=== PATIENT | female | born 1980 | race Caucasian/White ===

== ENCOUNTER → 2016-05-18 | Outpatient (CLI) | payer OTHER ==
[~2016-05-18] MED LIST: ALBUAER19 INH; AMOX-CLAV PO; AMOX875T PO; ATEN-173 PO; CALC500C3 PO; CYAN100T PO; DOXY100C PO; FLNIN/ NAE; FLV1 PO; IBUP-1050 PO; LACT10SO17 PO; LORA-741 PO; LSN5 PO; MELATAB2 PO; METH-589 PO; METH5TAB5 PO; PROP20TA67 PO; SULF800T23 PO; TPRSR25 PO; TPZ5 PO; VNTHFA/IN INH; VTMB12100 PO; ZIPR1CAP4 PO
== END | disposition home or self-care (01) ==
LOC: C.CPL 11:31
PROVIDERS: ATTEND Urology
DX: Z79.899 Other long term (current) drug therapy (principal)

== ENCOUNTER 2016-06-19 19:29 | Emergency (ER) | payer OTHER ==
[~2016-06-19] VITALS: Ht 165.1 cm; Wt 89.4 kg
[~2016-06-19 19:29] MED LIST changes: -AMOX-CLAV PO; -AMOX875T PO; -ATEN-173 PO; -CALC500C3 PO; -CYAN100T PO; -DOXY100C PO; -FLNIN/ NAE; -FLV1 PO; -IBUP-1050 PO; -LACT10SO17 PO; -LORA-741 PO; -MELATAB2 PO; -METH-589 PO; -METH5TAB5 PO; -PROP20TA67 PO; -SULF800T23 PO; -TPRSR25 PO; -TPZ5 PO; -VNTHFA/IN INH; -VTMB12100 PO; -ZIPR1CAP4 PO
[2016-06-19 19:33] VITALS: TEMP 36.5; Ht 165.1 cm; Wt 89.4 kg
[2016-06-19 20:15] VITALS: O2SAT 96
[2016-06-19] MEDS ORDERED: SODIUM CHLORIDE 0.9% 1000ML 1,000 ML IV STA (20:26)
[2016-06-19] MEDS ORDERED: ONDANSETRON INJ 2 MG/ML 2 ML VIAL IV STA (20:26)
--- NOTE | 2016-06-19 20:30 | EMERGENCY ROOM VISIT NOTE ---
History Report prepared by Azaleaibestela: Nan Hills Under the Supervision of: Dr. Clint Rios D.O. First contact with patient: 20:19 Chief Complaint: DIZZY Stated Complaint: DIZZY, PASSED OUT, FATIGUE Nursing Triage Summary: Patient states "I passed out at work. I have felt weak and tired all day. I threw up after passing out. They sent me here to be checked out." History of Present Illness The patient is a 35 year old female who presents to the Emergency Room with complaints of worsening dizziness for the past day. She reports she has "felt weird" all day, and this evening while she was at work, she felt weak, fatigued and experienced a syncopal episode. She states she was told she "just went down " onto the ground, and vomited afterwards. The patient has a history of hypertension and bipolar disorder and states she has been taking her medications as prescribed and there have been no recent changes to her medications. She also complains of intermittent pain in her right ear for the past several weeks. She notes she also has a "nasty taste" in the back of her mouth, "like a sinus infection" and states she has had it for the past "few weeks". Source of History: patient Onset: this morning Position: other (global) Timing: worsening Associated Symptoms: + LOC, + vomiting Review of Systems See HPI for pertinent positives & negatives. A total of 10 systems reviewed and were otherwise negative. Past Medical & Surgical Medical Problems: (1) Asthma (2) Asthma (3) Bronchitis (4) Cholecystitis (5) Hypertension (6) Migraine (7) Pneumonia Surgical Problems: (1) S/P tubal ligation Family History Cancer Diabetes mellitus FHx: gallbladder disease Heart disease Hypertension Kidney disease Kidney stones Social History Smoking Status: Current Every Day Smoker Alcohol Use: none Drug Use: none Marital Status: in relationship Housing Status: lives with family Occupation Status: employed Current/Historical Medications Scheduled Albuterol Inhaler (Ventolin Inhaler), 2 PUFFS INH Q4 Lisinopril (Lisinopril), 5 MG PO DAILY Ziprasidone Hcl (Geodon), 40 MG PO DAILY Scheduled PRN Calcium Carbonate (Tums), 1-2 TABS PO UD PRN for Heartburn Ibuprofen (Advil), 800 MG PO TID PRN for Headache or Pain Lactulose (Chronulac), 15 ML PO BID PRN for Constipation Allergies Coded Allergies: Fluoxetine (Verified Adverse Reaction, Severe, HIVES-SOB, 06/19/16) Physical Exam Vital Signs Date Time Temp Pulse Resp B/P Pulse Ox O2 Delivery O2 Flow Rate FiO2 06/19/16 22:22 80 18 136/92 98 Room Air 06/19/16 21:18 71 18 140/86 98 Room Air 88 133/87 97 151/98 06/19/16 20:19 85 21 117/72 97 Room Air 06/19/16 20:18 84 06/19/16 20:15 96 Room Air 06/19/16 19:33 36.5 97 18 158/112 97 Room Air Physical Exam GENERAL: Patient is awake, alert, in no acute distress patient, is resting comfortably and showing no signs of anxiety EYES: The conjunctivae are clear. The pupils are round and reactive. EARS, NOSE, MOUTH AND THROAT: The nose is without any evidence of any deformity. Mucous membranes are moist tongue is midline NECK: The neck is nontender and supple. RESPIRATORY: Normal respiratory effort is noted there is no evidence of wheezing rhonchi or rales CARDIOVASCULAR: Regular rate and rhythm noted there no murmurs rubs or gallops normal S1 normal S2 GASTROINTESTINAL: The abdomen is soft. Bowel sounds are present in all quadrants. Abdomen is nontender MUSCULOSKELETAL/EXTREMITIES: There is no evidence of gross deformity full range of motion is noted in the hips and shoulders SKIN: There is no obvious evidence of any rash. There are no petechiae, pallor or cyanosis noted. NEUROLOGIC: Patient is awake alert and oriented x3 strength is symmetric patellar reflexes are 2+ bilaterally Medical Decision & Procedures ER Provider Diagnostic Interpretation: This X-Ray was reviewed and interpreted by myself and the radiologist. CHEST ONE VIEW PORTABLE IMPRESSION: No acute process. Electronically signed by: Gideon Davis M.D. 06/19/2016 8:39 PM Laboratory Results 06/19/16 20:10 Red Blood Count 4.27, Mean Corpuscular Volume 80.6, Mean Corpuscular Hemoglobin 29.3, Mean Corpuscular Hemoglobin Concent 36.3, Mean Platelet Volume 9.7, Neutrophils (%) (Auto) 54.0, Lymphocytes (%) (Auto) 33.9, Monocytes (%) (Auto) 9.0, Eosinophils (%) (Auto) 2.3, Basophils (%) (Auto) 0.4, Neutrophils # (Auto) 3.01, Lymphocytes # (Auto) 1.89, Monocytes # (Auto) 0.50, Eosinophils # (Auto) 0.13, Basophils # (Auto) 0.02 06/19/16 20:10 Test 06/19/16 20:10 06/19/16 20:25 06/19/16 20:28 White Blood Count 5.57 K/uL (4.8-10.8) Red Blood Count 4.27 M/uL (4.2-5.4) Hemoglobin 12.5 g/dL (12.0-16.0) Hematocrit 34.4 % (37-47) Mean Corpuscular Volume 80.6 fL (80-100) Mean Corpuscular Hemoglobin 29.3 pg (25-34) Mean Corpuscular Hemoglobin Concent 36.3 g/dl (32-36) Platelet Count 240 K/uL (130-400) Mean Platelet Volume 9.7 fL (7.4-10.4) Neutrophils (%) (Auto) 54.0 % Lymphocytes (%) (Auto) 33.9 % Monocytes (%) (Auto) 9.0 % Eosinophils (%) (Auto) 2.3 % Basophils (%) (Auto) 0.4 % Neutrophils # (Auto) 3.01 K/uL (1.4-6.5) Lymphocytes # (Auto) 1.89 K/uL (1.2-3.4) Monocytes # (Auto) 0.50 K/uL (0.11-0.59) Eosinophils # (Auto) 0.13 K/uL (0-0.5) Basophils # (Auto) 0.02 K/uL (0-0.2) RDW Standard Deviation 37.5 fL (36.4-46.3) RDW Coefficient of Variation 12.9 % (11.5-14.5) Immature Granulocyte % (Auto) 0.4 % Immature Granulocyte # (Auto) 0.02 K/uL (0.00-0.02) Prothrombin Time 10.7 SECONDS (9.0-12.0) Prothromb Time International Ratio 1.0 (0.9-1.1) Activated Partial Thromboplast Time 24.7 SECONDS (21.0-31.0) Partial Thromboplastin Ratio 1.0 Anion Gap 9.0 mmol/L (3-11) Est Creatinine Clear Calc Drug Dose 110.1 ml/min Estimated GFR () 113.4 Estimated GFR (Non- 97.8 BUN/Creatinine Ratio 15.5 (10-20) Calcium Level 8.7 mg/dl (8.5-10.1) Magnesium Level 2.1 mg/dl (1.8-2.4) Total Bilirubin 0.2 mg/dl (0.2-1) Direct Bilirubin < 0.1 mg/dl (0-0.2) Aspartate Amino Transf (AST/SGOT) 14 U/L (15-37) Alanine Aminotransferase (ALT/SGPT) 31 U/L (12-78) Alkaline Phosphatase 52 U/L (45-117) Troponin I < 0.015 ng/ml (0-0.045) Total Protein 6.5 gm/dl (6.4-8.2) Albumin 3.5 gm/dl (3.4-5.0) Thyroid Stimulating Hormone (TSH) < 0.005 uIu/ml (0.300-4.500) Free Thyroxine 2.40 ng/dl (0.80-1.60) Urine Color YELLOW Urine Appearance CLEAR (CLEAR) Urine pH 6.0 (4.5-7.5) Urine Specific [place] 1.007 (1.000-1.030) Urine Protein NEG (NEG) Urine Glucose (UA) NEG (NEG) Urine Ketones NEG (NEG) Urine Occult Blood 3+ (NEG) Urine Nitrite NEG (NEG) Urine Bilirubin NEG (NEG) Urine Urobilinogen NEG (NEG) Urine Leukocyte Esterase NEG (NEG) Urine WBC (Auto) 0 /hpf (0-5) Urine RBC (Auto) 0-4 /hpf (0-4) Urine Hyaline Casts (Auto) 0 /lpf (0-5) Urine Epithelial Cells (Auto) 5-10 /lpf (0-5) Urine Bacteria (Auto) NEG (NEG) Human Chorionic Gonadotropin, Qual NEG (NEG) Laboratory results per my review. Medications Administered Medications (Trade) Dose Ordered Sig/Bernard Route Start Time Stop Time Status Last Admin Dose Admin Sodium Chloride (Nss 1000ml) 1,000 ml @ 999 mls/hr Q1H1M STAT IV 06/19/16 20:26 06/19/16 21:26 DC 06/19/16 21:14 999 MLS/HR Ondansetron HCl (Zofran Inj) 4 mg NOW STAT IV 06/19/16 20:26 06/19/16 20:28 DC 06/19/16 21:14 4 MG ECG Indication: weakness Rate (beats per minute): 84 Rhythm: normal sinus (normal sinus rhythm) Findings: no ectopy, other (no acute ST segment abnormalities) Change: no significant change (No change when compared to December 04, 2004) ED Course 2024: The patient was evaluated in room B9. A complete history and physical examination were performed. 2025: Zofran 4 mg IV, NSS 1000 ml @ 999 mls/hr IV. 2204: I reevaluated the patient. I reevaluated the patient. She is feeling much better. I discussed her results and discharge instructions and she verbalized complete understanding and agreement. Medical Decision Prior records/ancillary studies reviewed regarding the history above. Triage Nursing notes reviewed. Additional history obtained from the family. The patient's history was concerning for dizziness. Differential diagnosis: Etiologies such as benign hypertension, hypertensive emergency, cardiovascular pathology, pheochromocytoma, electrolyte abnormality, renal disease, endorgan damage, as well as others were entertained. The patient is a 35-year-old female who presented to the emergency department for an evaluation of dizziness. The patient had a syncopal episode. She came to the emergency apartment with her significant other. She states that she felt very dizzy prior to the onset of the symptoms. It sounds as though this could' ve been orthostatic in nature. The patient was treated with IV fluids and IV Zofran in the emergency department. On subsequent reevaluation she was feeling much better. She was found have a low TSH. I discussed the patient's laboratory radiographic studies with her. She was encouraged to follow-up with her primary care physician to have formal thyroid studies done. She was also encouraged to rest and avoid any strenuous activity and discuss with her primary care physician the possibility she may require further studies such as echocardiogram and Holter monitor. She was also encouraged to return to the [facility] department immediately if symptoms change worsen or the need arises and keep herself well-hydrated. Impression Primary Impression: Syncope Scribe Attestation The scribe's documentation has been prepared under my direction and personally reviewed by me in its entirety. I confirm that the note above accurately reflects all work, treatment, procedures, and medical decision making performed by me. Departure Information Dispostion Home / Self-Care Referrals Elaine Nice D.O. (PCP) Patient Instructions My [facility] Additional Instructions Call your family in the morning to schedule a follow-up appointment. You may require further studies such as an echocardiogram or a Holter monitor to further evaluate the cause of your passing out episode. You also might require further studies on your thyroid to determine why her laboratory studies were abnormal in the emergency department. Drink plenty clear liquids and rest. Return to the emergency Department immediately if symptoms change worsen or the need arises.
[2016-06-19 20:35] LABS: HEMATOCRIT 34.4 % (37-47); MEAN CELL VOLUME 80.6 fL (80-100); MEAN CORPUSCULAR HEMOGLOBIN 29.3 pg (25-34); MEAN CORPUSCULAR HGB CONC 36.3 g/dl (32-36); MEAN PLATELET VOLUME 9.7 fL (7.4-10.4); PLATELET COUNT 240 K/uL (130-400); RED BLOOD COUNT 4.27 M/uL (4.2-5.4); WHITE BLOOD COUNT 5.57 K/uL (4.8-10.8)
--- NOTE | 2016-06-19 20:40 | DIAGNOSTIC IMAGING REPORT ---
CHEST ONE VIEW PORTABLE HISTORY: EVALUATE ALTERED MENTAL STATUS/WEAKNESS COMPARISON: Chest 02/20/2016. FINDINGS: The lungs are clear. Cardiac silhouette is normal in size. No pleural effusions. No pneumothorax. Prior cholecystectomy. IMPRESSION: No acute process. Electronically signed by: Gideon Davis M.D. 06/19/2016 8:39 PM Dictated Date/Time: 06/19/2016 8:36 PM
[2016-06-19 20:44] LABS: ALT/SGPT 31 U/L (12-78); AST/SGOT 14 U/L (15-37); BLOOD UREA NITROGEN 12 mg/dl (7-18); BUN/CREATININE RATIO 15.5 (10-20); CALCIUM 8.7 mg/dl (8.5-10.1); CARBON DIOXIDE 26 mmol/L (21-32); CHLORIDE 109 mmol/L (98-107); CREATININE 0.78 mg/dl (0.60-1.20); GLUCOSE 97 mg/dl (70-99); MAGNESIUM 2.1 mg/dl (1.8-2.4); POTASSIUM 3.9 mmol/L (3.5-5.1); SODIUM 144 mmol/L (136-145)
[2016-06-19 20:46] LABS: PROTHROMBIN TIME (PATIENT) 10.7 SECONDS (9.0-12.0)
[2016-06-19 20:55] LABS: ALKALINE PHOSPHATASE 52 U/L (45-117); THYROID STIMULATING HORMONE < 0.005 uIu/ml (0.300-4.500)
[2016-06-19 21:01] LABS: URINE APPEARANCE CLEAR (CLEAR); URINE BILIRUBIN NEG (NEG); URINE COLOR YELLOW; URINE NITRITE NEG (NEG); URINE SPECIFIC GRAVITY 1.007 (1.000-1.030); UROBILINOGEN NEG (NEG)
[2016-06-19 21:06] LABS: MANUAL MICROSCOPIC REQUIRED? NO; REVIEW REQ? NO
[2016-06-19 21:08] LABS: BASO % 0.4 %; BASO ABS # 0.02 K/uL (0-0.2); COMPLETE YES; EOS % 2.3 %; IG% 0.4 %; LYMPH % 33.9 %; LYMPH ABS # 1.89 K/uL (1.2-3.4)
[2016-06-19 21:25] LABS: PREG INTERNAL NEGATIVE QC NEG CLEAR BACKGROUND; PREG INTERNAL POSITIVE QC POS CONTROL LINE
[2016-06-19 22:22] VITALS: BP 136/92; PULSE 80; O2SAT 98
[2016-06-27] MEDS ORDERED: FLV1 PO (10:15)
[2016-06-27] MEDS ORDERED: VTMB12100 PO (10:15)
[2016-06-27] MEDS ORDERED: TPZ5 PO (10:15)
[2016-06-27] MEDS ORDERED: TPRSR25 PO (10:19)
[2016-10-12] MEDS ORDERED: CYAN100T PO (16:29)
[2016-10-12] MEDS ORDERED: FLV1 PO (16:29)
[2016-10-12] MEDS ORDERED: METH-589 PO (16:29)
[2017-01-26] MEDS ORDERED: METH-589 PO (00:15)
[2017-01-26] MEDS ORDERED: VNTHFA/IN INH (16:29)
[2017-01-26] MEDS ORDERED: FLNIN/ NAE (16:33)
[2017-01-26] MEDS ORDERED: PROP20TA67 PO (16:33)
== END 2016-06-19 22:22 | disposition home or self-care (01) ==
LOC: C.EDB 19:29
DX: R55 Syncope and collapse (principal); J45.909 Unspecified asthma, uncomplicated; I10 Essential (primary) hypertension; F31.9 Bipolar disorder, unspecified; F17.200 Nicotine dependence, unspecified, uncomplicated; Z79.899 Other long term (current) drug therapy; Z83.3 Family history of diabetes mellitus; Z82.49 Family history of ischemic heart disease and other diseases of the circulatory system; Z84.1 Family history of disorders of kidney and ureter

== ENCOUNTER 2016-06-25 16:44 | Observation (INO) | payer OTHER ==
[~2016-06-25] VITALS: Ht 165.1 cm; Wt 88.0 kg
[2016-06-25] MEDS ORDERED: SODIUM CHLORIDE 0.9% 1000ML 1,000 ML IV STA ×2 (17:09)
[2016-06-25] MEDS ORDERED: ONDANSETRON INJ 2 MG/ML 2 ML VIAL IV STA (17:09)
[2016-06-25] MEDS ORDERED: ACETAMINOPHEN 500 MG TAB PO STA (17:09)
--- NOTE | 2016-06-25 17:27 | EMERGENCY ROOM VISIT NOTE ---
History Report prepared by Vane: Lucio Dodd Under the Supervision of: Dr. Jose Cantu M.D. First contact with patient: 17:06 Chief Complaint: SYNCOPE Stated Complaint: BLACK OUT, SHAKEY,WEAK History of Present Illness The patient is a 35 year old female who presents to the Emergency Room with complaints of near syncopal episodes occurring earlier this morning. The patient states that she felt her heart starting to flutter, she was shaky, and then her vision started to go black until it went all black. She states that a week ago she passed out as well. The patient states that she saw her doctor recently, and she was diagnosed with a hyperactive thyroid. She additionally states that she currently has a headache. The patient states that she is currently on Geodon, and she was recently switched from lisinopril. Source of History: patient Onset: earlier this morning Position: other (global) Quality: other (syncope) Associated Symptoms: + headache Review of Systems See HPI for pertinent positives & negatives. A total of 10 systems reviewed and were otherwise negative. Past Medical & Surgical Medical Problems: (1) Asthma (2) Asthma (3) Bronchitis (4) Cholecystitis (5) Hypertension (6) Migraine (7) Pneumonia Surgical Problems: (1) S/P tubal ligation Family History Cancer Diabetes mellitus FHx: gallbladder disease Heart disease Hypertension Kidney disease Kidney stones Social History Smoking Status: Current Every Day Smoker Alcohol Use: none Drug Use: none Marital Status: in relationship Housing Status: lives with family Occupation Status: employed Current/Historical Medications Scheduled Albuterol Inhaler (Ventolin Inhaler), 2 PUFFS INH Q4 Amoxicillin & Pot Clavulanate (Augmentin 875-125 mg), 1 TAB PO BID Atenolol (Tenormin), 25 MG PO DAILY Lisinopril (Lisinopril), 5 MG PO DAILY Ziprasidone Hcl (Geodon), 40 MG PO DAILY Scheduled PRN Calcium Carbonate (Tums), 1-2 TABS PO UD PRN for Heartburn Ibuprofen (Advil), 800 MG PO TID PRN for Headache or Pain Lactulose (Chronulac), 15 ML PO BID PRN for Constipation Allergies Coded Allergies: Fluoxetine (Verified Adverse Reaction, Severe, HIVES-SOB, 06/19/16) Physical Exam Vital Signs Date Time Temp Pulse Resp B/P Pulse Ox O2 Delivery O2 Flow Rate FiO2 06/25/16 18:15 91 123/79 147/81 143/90 06/25/16 16:49 37.0 107 18 133/79 92 Room Air Physical Exam CONSTITUTIONAL: Mild emotional distress HEENT: No icterus, moist mucous membranes NECK: No meningismus, trachea is midline. CARDIOVASCULAR: Regular rate, normal perfusion RESPIRATORY: Unlabored breathing. Clear to auscultation. GASTROINTESTINAL: Non-tender GENITOURINARY: No flank tenderness MUSCULOSKELETAL: Full range of motion NEUROLOGIC: No acute gross focal deficits. PSYCHIATRIC: Normal affect SKIN: Normal for ethnicity. Medical Decision & Procedures Laboratory Results 06/25/16 17:05 Red Blood Count 4.44, Mean Corpuscular Volume 82.2, Mean Corpuscular Hemoglobin 29.1, Mean Corpuscular Hemoglobin Concent 35.3, Mean Platelet Volume 9.9, Neutrophils (%) (Auto) 55.2, Lymphocytes (%) (Auto) 31.5, Monocytes (%) (Auto) 10.8, Eosinophils (%) (Auto) 1.9, Basophils (%) (Auto) 0.2, Neutrophils # (Auto ) 2.87, Lymphocytes # (Auto) 1.64, Monocytes # (Auto) 0.56, Eosinophils # (Auto ) 0.10, Basophils # (Auto) 0.01 06/25/16 17:05 Test 06/25/16 17:05 06/25/16 17:15 White Blood Count 5.20 K/uL (4.8-10.8) Red Blood Count 4.44 M/uL (4.2-5.4) Hemoglobin 12.9 g/dL (12.0-16.0) Hematocrit 36.5 % (37-47) Mean Corpuscular Volume 82.2 fL (80-100) Mean Corpuscular Hemoglobin 29.1 pg (25-34) Mean Corpuscular Hemoglobin Concent 35.3 g/dl (32-36) Platelet Count 236 K/uL (130-400) Mean Platelet Volume 9.9 fL (7.4-10.4) Neutrophils (%) (Auto) 55.2 % Lymphocytes (%) (Auto) 31.5 % Monocytes (%) (Auto) 10.8 % Eosinophils (%) (Auto) 1.9 % Basophils (%) (Auto) 0.2 % Neutrophils # (Auto) 2.87 K/uL (1.4-6.5) Lymphocytes # (Auto) 1.64 K/uL (1.2-3.4) Monocytes # (Auto) 0.56 K/uL (0.11-0.59) Eosinophils # (Auto) 0.10 K/uL (0-0.5) Basophils # (Auto) 0.01 K/uL (0-0.2) RDW Standard Deviation 39.7 fL (36.4-46.3) RDW Coefficient of Variation 13.1 % (11.5-14.5) Immature Granulocyte % (Auto) 0.4 % Immature Granulocyte # (Auto) 0.02 K/uL (0.00-0.02) Prothrombin Time 10.5 SECONDS (9.0-12.0) Prothromb Time International Ratio 1.0 (0.9-1.1) Activated Partial Thromboplast Time 25.6 SECONDS (21.0-31.0) Partial Thromboplastin Ratio 1.0 D-Dimer 250 ug/L FEU (0-500) Anion Gap 10.0 mmol/L (3-11) Est Creatinine Clear Calc Drug Dose 116.9 ml/min Estimated GFR () 122.8 Estimated GFR (Non- 106.0 BUN/Creatinine Ratio 12.6 (10-20) Calcium Level 8.9 mg/dl (8.5-10.1) Total Creatine Kinase 70 U/L (26-192) Troponin I < 0.015 ng/ml (0-0.045) Thyroid Stimulating Hormone (TSH) < 0.005 uIu/ml (0.300-4.500) Human Chorionic Gonadotropin, Qual NEG (NEG) Ethyl Alcohol mg/dL < 3.0 mg/dl (0-3) Labs reviewed by ED physician. Medications Administered Medications (Trade) Dose Ordered Sig/Bernard Route Start Time Stop Time Status Last Admin Dose Admin Sodium Chloride 1,000 ml @ 0 mls/hr Q0M STAT IV 06/25/16 17:09 2 17:12 DC 06/25/16 17:09 0 MLS/HR Sodium Chloride (Nss 1000ml) 1,000 ml @ 0 mls/hr Q0M STAT IV 06/25/16 17:09 06/25/16 17:12 DC 06/25/16 17:09 0 MLS/HR Acetaminophen (Tylenol Tab) 1,000 mg NOW STAT PO 06/25/16 17:09 06/25/16 17:12 DC 06/25/16 17:28 1,000 MG ED Course 1706: Past medical records reviewed. The patient was evaluated in room C12. A complete history and physical examination was performed. 1709: Tylenol Tab 1000mg PO, Sodium Chloride 1000 ml @ 0 mls/hr wide open IV, Sodium Chloride 1000 ml @ 0 mls/hr wide open IV Medical Decision Differential diagnoses include but are not limited to; cardiac dysrhythmia, orthostatic hypotension, metabolic disturbance, psychiatric disease. 35-year-old presented to the emergency room for evaluation of her second episode of syncope in a week. She states she starts to feel very weak and unwell and then suddenly loses consciousness. She was already evaluated in the emergency room several days ago which time she told her thyroid levels were low and to follow up with her doctor. These were unwitnessed. Patient once again noted to be hyperthyroid, today. Given it is her second episode of sudden syncope without clear etiology decision made to admit. Patient's affect is interactions are atypical and may be part of an underlying thyroid pathology. Impression Primary Impression: Syncope Scribe Attestation The scribe's documentation has been prepared under my direction and personally reviewed by me in its entirety. I confirm that the note above accurately reflects all work, treatment, procedures, and medical decision making performed by me. Departure Information Referrals Elaine Nice D.O. (PCP) Patient Instructions My [facility]
[2016-06-25 17:35] LABS: BASO % 0.2 %; BASO ABS # 0.01 K/uL (0-0.2); COMPLETE YES; EOS % 1.9 %; HEMATOCRIT 36.5 % (37-47); IG% 0.4 %; LYMPH % 31.5 %; LYMPH ABS # 1.64 K/uL (1.2-3.4); MEAN CELL VOLUME 82.2 fL (80-100); MEAN CORPUSCULAR HEMOGLOBIN 29.1 pg (25-34); MEAN CORPUSCULAR HGB CONC 35.3 g/dl (32-36); MEAN PLATELET VOLUME 9.9 fL (7.4-10.4); MONO % 10.8 %; NEUT % 55.2 %; PLATELET COUNT 236 K/uL (130-400); RED BLOOD COUNT 4.44 M/uL (4.2-5.4)
[2016-06-25 17:39] LABS: BLOOD UREA NITROGEN 9 mg/dl (7-18); BUN/CREATININE RATIO 12.6 (10-20); CALCIUM 8.9 mg/dl (8.5-10.1); CARBON DIOXIDE 24 mmol/L (21-32); CHLORIDE 107 mmol/L (98-107); CREATININE 0.73 mg/dl (0.60-1.20); GLUCOSE 104 mg/dl (70-99); POTASSIUM 3.8 mmol/L (3.5-5.1); SODIUM 141 mmol/L (136-145)
[2016-06-25 17:43] LABS: PREG INTERNAL NEGATIVE QC NEG CLEAR BACKGROUND; PREG INTERNAL POSITIVE QC POS CONTROL LINE
[2016-06-25 17:49] LABS: PROTHROMBIN TIME (PATIENT) 10.5 SECONDS (9.0-12.0)
[2016-06-25 17:50] LABS: THYROID STIMULATING HORMONE < 0.005 uIu/ml (0.300-4.500)
--- NOTE | 2016-06-25 17:55 | DIAGNOSTIC IMAGING REPORT ---
CT SCAN OF THE BRAIN WITHOUT IV CONTRAST CLINICAL HISTORY: Syncope. COMPARISON STUDY: CT of the brain dated 06/10/2014. TECHNIQUE: Unenhanced axial CT scan of the brain is performed from the vertex to the skull base. Automated dose control exposure was utilized. CT DOSE: 537.48 mGy.cm FINDINGS: Brain parenchyma: The brain parenchyma is normal in appearance. There is no hemorrhage, mass effect, or evidence of acute territorial ischemia by CT criteria. Khan-white matter is preserved. No extra-axial fluid collection is seen. Ventricles, sulci, cisterns: Normal in configuration. Intracranial vasculature: The visualized intracranial vasculature at the skull base is normal in appearance. Calvarium: There is no depressed calvarial fracture. Sinuses and mastoids: The visualized paranasal sinuses are clear. The mastoid air cells are well pneumatized. Orbits: The bony orbits are grossly intact. IMPRESSION: No acute intracranial abnormality. Electronically signed by: Sage Alba M.D. 06/25/2016 5:54 PM Dictated Date/Time: 06/25/2016 5:52 PM
[2016-06-25] MEDS ORDERED: ATEN-173 PO (18:06)
--- NOTE | 2016-06-25 18:07 | DIAGNOSTIC IMAGING REPORT ---
SINGLE VIEW CHEST CLINICAL HISTORY: Syncope. FINDINGS: An AP, portable, upright chest radiograph is compared to study dated 06/19/16. The examination is degraded by portable technique, large body habitus, and patient rotation. The cardiomediastinal silhouette is unremarkable. The lungs and pleural spaces are clear. No pneumothorax is seen. The bony thorax is grossly intact. IMPRESSION: No active disease in the chest. Electronically signed by: Sage Alba M.D. 06/25/2016 6:05 PM Dictated Date/Time: 06/25/2016 6:05 PM
[2016-06-25] MEDS ORDERED: AMOX875T PO (18:10)
[2016-06-25 19:37] LABS: MAGNESIUM 1.9 mg/dl (1.8-2.4)
[2016-06-25] MEDS ORDERED: IV FLUIDS COMPLETED PRN (20:00)
[2016-06-25] MEDS ORDERED: ALUMINUM/MAGNESIUM/SIMETH (MAALOX MAX) 30 ML UDC PO PRN (20:00)
[2016-06-25] MEDS ORDERED: ACETAMINOPHEN 325 MG TAB PO PRN (20:00)
[2016-06-25] MEDS ORDERED: MAGNESIUM HYDROXIDE SUSP 30 ML UDC PO PRN (20:00)
[2016-06-25 20:10] VITALS: BP 147/84; PULSE 87; TEMP 36.9; O2SAT 97; Ht 165.1 cm; Wt 88.0 kg
[2016-06-25] MEDS ORDERED: LACTULOSE SYRUP 10 GM/15 ML BTL 473 ML PO PRN (20:15)
[2016-06-25] MEDS ORDERED: IBUPROFEN 200 MG TAB PO PRN (20:15)
[2016-06-25] MEDS ORDERED: CALCIUM CARBONATE 500 MG CHEWABLE PO PRN (20:15)
[2016-06-25] MEDS ORDERED: LORAZEPAM 0.5 MG TAB PO PRN (20:15)
--- NOTE | 2016-06-25 20:20 | History and Physical ---
History & Physical Date & Time of Service: Jun 25, 2016 at 20:03 Chief Complaint: Black Out, Shakey,Weak Primary Care Physician: Elaine Nice D.O. History of Present Illness Source: patient, family, clinic records, hospital records Patient seen and examined. 35 year old female with PMHx of Mood disorder, Asthma , tobacco abuse, and recently diagnosed hyperthyroidism presents to the ED complaining of "blacking out" prior to arrival. Patient reports she has been feeling weak, shaky and tired for months. She came to the ED 1 week ago after a syncopal episode. At that time workup was negative except for low TSH. She was discharged home with PCP followup. At her PCP she had T3, and T4 tested as well as a thyroid US and all were consistent with Hyperthyroidism. She was prescribed Atenolol and referred to Endocrinology for further workup. Patient reports that she has not been taking the Atenolol because it is 25mg and the lisinopril she use to be on was only 5mg so she was worried it was too high of a dose. Today she states she was getting ready for work when she felt like she had to take very deep breaths. She states her heart then fluttered and she started to get "tunnel vision, like blacking out." She lowered herself to the ground and symptoms improved. She states currently she just feels shaky. She denies fevers, chills, diaphoresis, weight loss, URI symptoms, chest pain, SOB, nausea, vomiting, diarrhea, dysuria, calf pain and edema. In the ED VS are stable, CT head is negative, orthostatic VS are negative, DDimer and troponin are negative. TSH is again low. She will be observed for further workup and treatment. Past Medical/Surgical History Medical Problems: (1) Asthma Status: Chronic (2) Asthma Status: Chronic (3) Hyperthyroidism Status: Chronic (4) Mood disorder Status: Chronic (5) Tobacco abuse Status: Chronic Surgical Problems: (1) H/O tubal ligation Status: Chronic (2) History of dental surgery Status: Chronic (3) Hx of cholecystectomy Status: Chronic Family History Cancer Diabetes mellitus FHx: gallbladder disease Heart disease Hypertension Kidney disease Kidney stones Social History Smoking Status: Current Every Day Smoker Drug Use: none Marital Status: in relationship Housing status: lives with family Occupational Status: employed Multi-Drug Resistant Organisms History of MDRO: No Allergies Coded Allergies: Fluoxetine (Verified Adverse Reaction, Severe, HIVES-SOB, 06/19/16) Home Medications Scheduled Albuterol Inhaler (Ventolin Inhaler), 2 PUFFS INH Q4 Amoxicillin & Pot Clavulanate (Augmentin 875-125 mg), 1 TAB PO BID Atenolol (Tenormin), 25 MG PO DAILY Lisinopril (Lisinopril), 5 MG PO DAILY Ziprasidone Hcl (Geodon), 40 MG PO DAILY Scheduled PRN Calcium Carbonate (Tums), 1-2 TABS PO UD PRN for Heartburn Ibuprofen (Advil), 800 MG PO TID PRN for Headache or Pain Lactulose (Chronulac), 15 ML PO BID PRN for Constipation Review of Systems Constitutional: + fatigue, No chills, No fever, No sweats, No weight loss Eyes: No worsening of vision ENT: No nasal symptoms Respiratory: No cough, No shortness of breath Cardiovascular: + palpitations, No chest pain, No edema Abdomen: No constipation, No diarrhea, No nausea, No pain, No vomiting Musculoskeletal: No calf pain, No swelling Genitourinary - Female: No dysuria Neurologic: No numbness/tingling, No vertigo Psychiatric: No depression symptoms Endocrine: + fatigue Hematologic / Lymphatic: No abnormal bleeding/bruising, No clotting problems Integumentary: No itch, No rash Allergic / Immunologic: No environmental allergies Physical Exam Vital Signs Date Time Temp Pulse Resp B/P Pulse Ox O2 Delivery O2 Flow Rate FiO2 06/25/16 18:15 91 123/79 147/81 143/90 06/25/16 16:49 37.0 107 18 133/79 92 Room Air General Appearance: + pertinent finding (WD/WN 35 year old female lying in bed in NAD with family at bedside ) Head: normocephalic, atraumatic Eyes: PERRL, EOMI, sclerae normal ENT: hearing grossly normal, pharynx normal Neck: supple, no JVD Respiratory/Chest: chest non-tender, lungs clear, normal breath sounds, no respiratory distress, no accessory muscle use Cardiovascular: regular rate, rhythm, no edema, no gallop, no JVD, no murmur, normal peripheral pulses Abdomen/GI: normal bowel sounds, non tender, soft Back: normal inspection, no muscle spasm Extremities/Musculoskelatal: no calf tenderness, normal capillary refill, no pedal edema Neurologic/Psych: alert, oriented x 3, + pertinent finding (Speech somewhat pressured, but logical and goal orriented, no focal deficits ) Skin: normal color, warm/dry, no rash Lymphatic: no adenopathy Diagnostics Laboratory Results Results Past 24 Hours Test 06/25/16 17:05 06/25/16 17:15 Range/Units White Blood Count 5.20 4.8-10.8 K/uL Red Blood Count 4.44 4.2-5.4 M/uL Hemoglobin 12.9 12.0-16.0 g/dL Hematocrit 36.5 37-47 % Mean Corpuscular Volume 82.2 80-100 fL Mean Corpuscular Hemoglobin 29.1 25-34 pg Mean Corpuscular Hemoglobin Concent 35.3 32-36 g/dl Platelet Count 236 130-400 K/uL Mean Platelet Volume 9.9 7.4-10.4 fL Neutrophils (%) (Auto) 55.2 % Lymphocytes (%) (Auto) 31.5 % Monocytes (%) (Auto) 10.8 % Eosinophils (%) (Auto) 1.9 % Basophils (%) (Auto) 0.2 % Neutrophils # (Auto) 2.87 1.4-6.5 K/uL Lymphocytes # (Auto) 1.64 1.2-3.4 K/uL Monocytes # (Auto) 0.56 0.11-0.59 K/uL Eosinophils # (Auto) 0.10 0-0.5 K/uL Basophils # (Auto) 0.01 0-0.2 K/uL RDW Standard Deviation 39.7 36.4-46.3 fL RDW Coefficient of Variation 13.1 11.5-14.5 % Immature Granulocyte % (Auto) 0.4 % Immature Granulocyte # (Auto) 0.02 0.00-0.02 K/uL Prothrombin Time 10.5 9.0-12.0 SECONDS Prothromb Time International Ratio 1.0 0.9-1.1 Activated Partial Thromboplast Time 25.6 21.0-31.0 SECONDS Partial Thromboplastin Ratio 1.0 D-Dimer 250 0-500 ug/L FEU Sodium Level 141 136-145 mmol/L Potassium Level 3.8 3.5-5.1 mmol/L Chloride Level 107 98-107 mmol/L Carbon Dioxide Level 24 21-32 mmol/L Anion Gap 10.0 3-11 mmol/L Blood Urea Nitrogen 9 7-18 mg/dl Creatinine 0.73 0.60-1.20 mg/dl Est Creatinine Clear Calc Drug Dose 116.9 ml/min Estimated GFR () 122.8 Estimated GFR (Non- 106.0 BUN/Creatinine Ratio 12.6 10-20 Random Glucose 104 70-99 mg/dl Calcium Level 8.9 8.5-10.1 mg/dl Magnesium Level 1.9 1.8-2.4 mg/dl Total Creatine Kinase 70 26-192 U/L Troponin I < 0.015 0-0.045 ng/ml Thyroid Stimulating Hormone (TSH) < 0.005 0.300-4.500 uIu/ml Human Chorionic Gonadotropin, Qual NEG NEG Ethyl Alcohol mg/dL < 3.0 0-3 mg/dl Diagnostic Radiology CXR Per radiologist read: IMPRESSION: No active disease in the chest. CT HEAD Per radiologist read: IMPRESSION: No acute intracranial abnormality. Impression Assessment and Plan 35 year old female presents to the ED complaining of near syncope, was seen in ED earlier this week with similar symptoms, diagnosed with hyperthyroidism, has not started thyroid suppression therapy yet NEAR SYNCOPE -Observation in tele -? cause, likely secondary to hyperthyroidism, consider other causes - Ddimer negative, CT head negative, Orthostatic VS negative -Consider arrhythmia - obtain EKG and monitor in tele -Serial Silva, EKGs -Check Echo -neuro checks -management of Hyperthyroidism as below -CBC, PRP, Mg daily HYPERTHYROIDISM -TSH low -as outpatient Free T3 8., Free T4 2.15 -Thyroid US per [facility] Record: IMPRESSION Heterogeneous thyroid echotexture may reflect age is of chronic thyroiditis. 8 mm benign appearing nodule in the right upper pole. Repeat sonogram in 6-12 months suggested for further evaluation. -Start Atenolol ordered by PCP -check thyroid antibodies -consult endocrinology for further recommendations, input appreciated -May need nuclear thyroid scan - could not be done until Monday MOOD DISORDER -continue Geodon ASTHMA -stable -continue home inhalers TOBACCO ABUSE -Cessation counseling given -Nicotine patch ordered RECENT ACUTE SINUSITIS -symptoms improving, afebrile, no leukocytosis -finish last two days of Augmentin CODE STATUS:FULL CODE DVT PROPHYLAXIS:: SCDs, ambulation DISPO:observation pending further workup Patient seen in collaboration with Dr. Sinha ATTENDING NOTE : pt seen and examined, care co ordinated with Katt Rivers PA-C 35 yo F with past medical hx of HTN , Bipolar mood disorder -recently diagnosed presents with syncopal episode CT head negative for CVA found to have Hyperthyroidism with TSH < 0.005 P/E : gen : no apparent distress , anxious HEENT : sclera non icteric , no exophthalmus HT: regular tachycardic Lungs : CTA abdomen ;soft non tender Ext : no lower ext edema Neuro: no focal neurological deficit A/P : Syncope ; no evidence of CVA pt mentions of having palpitation prior to passing out monitor in tele to r/o arrhythmia Hyperthyroid recently diagnosed was at [facility] few weeks back with Dizzy spell /lightheadedness found to have Low TSH out pt lab shows elevated T3/T4 USG -chronically overactive Thyroid gland with evidence of small nodule on left lobe pt is not started on any thyroid suppressive meds -pending Endocrine follow up : -pt could not get appointment with Endocrine Dr Huddleston till September 2016 presents symptom of palpitation , anxiety ,. insomnia -leading to syncope Endocrine consult requested pt started on Atenolol if clinic for palpitation due to Hyperthyroidism pt has not taken it for concern for BP may become too low as she already been on Lisinopril pt is counselled , Hyperthyroidism -can cause cardiac arrhythmia/tachycardia causing syncope -pt is agreeable to take Atenolol free T3 /T4 , thyroid antibody ordered will need [place] thyroid uptake scan on Monday BIPOLAR MOOD DISORDER : recently diagnosed worsening of symptom associated with Hyperthyroidism follows with Psychiatry at [facility] will Hold [facility] -mild elevation of Qtc PRN Ativan will need to be on thyroid suppressive therapy for better mood /anxiety control TOBACCO ABUSE DISORDER : smokes 1 pk cig a day Nicotine patch ordered smoking cessation counselling provided HTN : On lisinopril 5 mg PO daily recently added Atenolol 25 mg for thyrotoxicosis FULL CODE Level of Care Telemetry Resuscitation Status FULL RESUSCITATION VTE Prophylaxis VTE Risk Assessment Done? Y/N: Yes Risk Level: Low Given or contraindicated: T.E.D. Stockings, SCD's Additional Copies To Elaine Nice D.O.
[2016-06-25 20:35] LABS: MANUAL MICROSCOPIC REQUIRED? NO; URINE APPEARANCE CLEAR (CLEAR); URINE BILIRUBIN NEG (NEG); URINE COLOR YELLOW; URINE NITRITE NEG (NEG); UROBILINOGEN NEG (NEG)
[2016-06-25 20:37] LABS: REVIEW REQ? NO
[2016-06-25 21:00] LABS: BENZODIAZEPINE, URINE NEG (NEG); COCAINE,URINE NEG (NEG); PHENCYCLIDINE, URINE NEG (NEG)
[2016-06-25] MEDS ORDERED: METOPROLOL TARTRATE 1 MG/ML VIAL IV PRN (21:15)
[2016-06-25] MEDS: NICOTINE 21 MG/24 HR TDSY TD SCH (21:38)
[2016-06-25] MEDS: AMOXICILLIN/CLAVULANATE TAB 875 MG TAB PO SCH (21:38)
[2016-06-25] MEDS: SODIUM CHLORIDE 0.9% 1000ML 1,000 ML IV SCH (21:41)
[2016-06-25] MEDS ORDERED: NURSING VERBAL MED ORDER ONE (22:15)
[2016-06-25] MEDS ORDERED: ALBUTEROL HFA 8 GM INHALER INH PRN (22:30)
[2016-06-25 23:34] VITALS: BP 134/87; PULSE 102; TEMP 36.6; O2SAT 96
[2016-06-26] MEDS ORDERED: ALBUTEROL HFA 8 GM INHALER INH SCH
[2016-06-26 02:14] LABS: CKMB/CK RATIO 1.3 (0-3.0)
[2016-06-26 03:39] VITALS: BP 117/80; PULSE 90; TEMP 36.5; O2SAT 96
--- NOTE | 2016-06-26 06:17 | Progress Note ---
Progress Note ATTENDING NOTE : Endocrine Dr Araujo not food production worker till 07/08/16 will need to discuss case with infection control coordinator Endocrinology at [place] will update AM provider
[2016-06-26 06:30] LABS: HEMATOCRIT 33.7 % (37-47); MEAN CELL VOLUME 82.4 fL (80-100); MEAN CORPUSCULAR HEMOGLOBIN 29.1 pg (25-34); MEAN CORPUSCULAR HGB CONC 35.3 g/dl (32-36); MEAN PLATELET VOLUME 9.7 fL (7.4-10.4); PLATELET COUNT 207 K/uL (130-400); RED BLOOD COUNT 4.09 M/uL (4.2-5.4); WHITE BLOOD COUNT 5.84 K/uL (4.8-10.8)
[2016-06-26 07:05] LABS: BUN/CREATININE RATIO 16.4 (10-20); CALCIUM 8.7 mg/dl (8.5-10.1); CREATININE 0.66 mg/dl (0.60-1.20); MAGNESIUM 2.2 mg/dl (1.8-2.4)
[2016-06-26 07:08] LABS: CHOLESTEROL/HDL RATIO 3.6
[2016-06-26 08:02] VITALS: BP 121/80; PULSE 86; TEMP 36.7; O2SAT 96
[2016-06-26] MEDS: SODIUM CHLORIDE 0.9% 1000ML 1,000 ML IV SCH (08:24)
[2016-06-26] MEDS: NICOTINE 21 MG/24 HR TDSY TD SCH (08:32)
[2016-06-26] MEDS ORDERED: LISINOPRIL 5 MG TAB PO SCH (09:00)
[2016-06-26] MEDS ORDERED: ZIPRASIDONE 20 MG CAP PO SCH (09:00)
[2016-06-26] MEDS: METHIMAZOLE 5 MG TAB PO SCH ×3 (09:15→21:08)
[2016-06-26] MEDS: AMOXICILLIN/CLAVULANATE TAB 875 MG TAB PO SCH ×2 (09:40→15:44)
[2016-06-26] MEDS ORDERED: PERFLUTREN LIPID MICROSPHERE (DEFINITY) IV ONE (10:42)
[2016-06-26 10:52] LABS: CKMB/CK RATIO 1.1 (0-3.0)
--- NOTE | 2016-06-26 11:05 | Progress Note ---
Internal Med Progress Note Date of Service: Jun 26, 2016. Provider Documentation: SUBJECTIVE: Patient is sitting in her bed in no apparent distress. Denies any palpitations. HR has been 80-90. No arrhythmias overnight. No active tremors noted.Denies any chest pain/ pressure. OBJECTIVE: Vital Signs-as noted below Examination: General Appearance: WD/WN 35 year old female lying in bed in no apparent distress. Head: normocephalic, atraumatic Eyes: PERRL, EOMI, sclerae normal ENT: hearing grossly normal, pharynx normal Neck: supple, no JVD, Central trachea. Respiratory/Chest: chest non-tender, lungs clear, normal breath sounds, no respiratory distress, no accessory muscle use Cardiovascular: regular rate, rhythm, no edema, no gallop, no JVD, no murmur, normal peripheral pulses Abdomen/GI: normal bowel sounds, non tender, soft Back: normal inspection, no muscle spasm Extremities/Musculoskeletal: no calf tenderness, normal capillary refill, no pedal edema Neurologic/Psych: alert, oriented x 3, Normal Speech, Logical and goal oriented, no focal deficits, No tremors. Skin: normal color, warm/dry, no rash Lymphatic: no adenopathy Lab data as noted below. ASSESSMENT & PLAN: 35 yo F with past medical hx of HTN , Hyperthyroidism (untreated), Bipolar mood disorder -recently diagnosed presents with syncopal episode Near Syncope: Likely vasovagal in etiology. Clinically & hemodynamically doing well so far. -CT Head is negative for any acute finding. -No arrhythmias noted so far on swager operator -Serial Troponin are negative -Lipid profile shows HDL 34 & LDL 56. -Able to ambulate in the room. -Will follow Echocardiogram -Check B12/Folate. Known Hyperthyroidism: Low TSH as outpatient & Free T3 8., Free T4 2.15. Has been unable to get an appointment with [facility] before September 2016. -Thyroid US per Epic Record: IMPRESSION Heterogeneous thyroid echotexture may reflect age is of chronic thyroiditis. 8 mm benign appearing nodule in the right upper pole. Repeat sonogram in 6- 12 months suggested for further evaluation. -Start Atenolol ordered by PCP -Ordered thyroid antibodies -Started Methimazole 5 mg TID for now History HTN: Holding Lisinopril and continue Metoprolol. -Monitoring BP closely Mood Disorder: Continue Geodon Bronchial Asthma:Stable. -Continue home inhalers Tobacco Abuse: Cessation counseling given -Nicotine patch ordered Recent Acute Sinusitis: Symptoms improving, afebrile, no leukocytosis -Finish last two days of Augmentin Code Status: FULL CODE DVT Prophylaxis: SCDs, ambulation Disposition:observation pending further workup Discharge once is clinically stable. Vital Signs: Date Time Temp Pulse Resp B/P Pulse Ox O2 Delivery O2 Flow Rate FiO2 06/26/16 08:02 36.7 86 16 121/80 96 Room Air 06/26/16 04:00 Room Air 06/26/16 03:39 36.5 90 18 117/80 96 Room Air 06/25/16 23:59 Room Air 06/25/16 23:34 36.6 102 20 134/87 96 Room Air 06/25/16 20:10 36.9 87 16 147/84 97 Room Air 06/25/16 20:08 102 18 136/88 97 06/25/16 18:15 91 123/79 147/81 143/90 06/25/16 16:49 37.0 107 18 133/79 92 Room Air Lab Results: Results Past 24 Hours Test 06/25/16 17:05 06/25/16 17:15 06/25/16 19:20 06/25/16 20:37 Range/Units White Blood Count 5.20 4.8-10.8 K/uL Red Blood Count 4.44 4.2-5.4 M/uL Hemoglobin 12.9 12.0-16.0 g/dL Hematocrit 36.5 37-47 % Mean Corpuscular Volume 82.2 80-100 fL Mean Corpuscular Hemoglobin 29.1 25-34 pg Mean Corpuscular Hemoglobin Concent 35.3 32-36 g/dl Platelet Count 236 130-400 K/uL Mean Platelet Volume 9.9 7.4-10.4 fL Neutrophils (%) (Auto) 55.2 % Lymphocytes (%) (Auto) 31.5 % Monocytes (%) (Auto) 10.8 % Eosinophils (%) (Auto) 1.9 % Basophils (%) (Auto) 0.2 % Neutrophils # (Auto) 2.87 1.4-6.5 K/uL Lymphocytes # (Auto) 1.64 1.2-3.4 K/uL Monocytes # (Auto) 0.56 0.11-0.59 K/uL Eosinophils # (Auto) 0.10 0-0.5 K/uL Basophils # (Auto) 0.01 0-0.2 K/uL RDW Standard Deviation 39.7 36.4-46.3 fL RDW Coefficient of Variation 13.1 11.5-14.5 % Immature Granulocyte % (Auto) 0.4 % Immature Granulocyte # (Auto) 0.02 0.00-0.02 K/uL Prothrombin Time 10.5 9.0-12.0 SECONDS Prothromb Time International Ratio 1.0 0.9-1.1 Activated Partial Thromboplast Time 25.6 21.0-31.0 SECONDS Partial Thromboplastin Ratio 1.0 D-Dimer 250 0-500 ug/L FEU Sodium Level 141 136-145 mmol/L Potassium Level 3.8 3.5-5.1 mmol/L Chloride Level 107 98-107 mmol/L Carbon Dioxide Level 24 21-32 mmol/L Anion Gap 10.0 3-11 mmol/L Blood Urea Nitrogen 9 7-18 mg/dl Creatinine 0.73 0.60-1.20 mg/dl Est Creatinine Clear Calc Drug Dose 116.9 ml/min Estimated GFR () 122.8 Estimated GFR (Non- 106.0 BUN/Creatinine Ratio 12.6 10-20 Random Glucose 104 70-99 mg/dl Calcium Level 8.9 8.5-10.1 mg/dl Magnesium Level 1.9 1.8-2.4 mg/dl Total Creatine Kinase 70 26-192 U/L Troponin I < 0.015 0-0.045 ng/ml Thyroid Stimulating Hormone (TSH) < 0.005 0.300-4.500 uIu/ml Free Thyroxine 2.23 0.80-1.60 ng/dl Free Triiodothyronine 8.95 2.30-4.20 pg/ml Human Chorionic Gonadotropin, Qual NEG NEG Ethyl Alcohol mg/dL < 3.0 0-3 mg/dl Urine Color YELLOW Urine Appearance CLEAR CLEAR Urine pH 8.0 4.5-7.5 Urine Specific [place] 1.010 1.000-1.030 Urine Protein NEG NEG Urine Glucose (UA) NEG NEG Urine Ketones NEG NEG Urine Occult Blood NEG NEG Urine Nitrite NEG NEG Urine Bilirubin NEG NEG Urine Urobilinogen NEG NEG Urine Leukocyte Esterase NEG NEG Urine Opiates Screen NEG NEG Urine Methadone, Qualitative NEG NEG Urine Barbiturates NEG NEG Urine Phencyclidine (PCP) Level NEG NEG Ur Amphetamine/Methamphetamine NEG NEG MDMA (Ecstasy) Screen NEG NEG Urine Benzodiazepines Screen NEG NEG Urine Cocaine Metabolite NEG NEG Urine Marijuana (THC) NEG NEG Test 06/26/16 01:45 06/26/16 06:12 06/26/16 09:55 Range/Units Total Creatine Kinase 62 62 26-192 U/L Creatine Kinase MB 0.8 0.7 0.5-3.6 ng/ml Creatine Kinase MB Ratio 1.3 1.1 0-3.0 Troponin I < 0.015 < 0.015 0-0.045 ng/ml White Blood Count 5.84 4.8-10.8 K/uL Red Blood Count 4.09 4.2-5.4 M/uL Hemoglobin 11.9 12.0-16.0 g/dL Hematocrit 33.7 37-47 % Mean Corpuscular Volume 82.4 80-100 fL Mean Corpuscular Hemoglobin 29.1 25-34 pg Mean Corpuscular Hemoglobin Concent 35.3 32-36 g/dl RDW Standard Deviation 40.2 36.4-46.3 fL RDW Coefficient of Variation 13.2 11.5-14.5 % Platelet Count 207 130-400 K/uL Mean Platelet Volume 9.7 7.4-10.4 fL Sodium Level 142 136-145 mmol/L Potassium Level 4.0 3.5-5.1 mmol/L Chloride Level 109 98-107 mmol/L Carbon Dioxide Level 24 21-32 mmol/L Anion Gap 9.0 3-11 mmol/L Blood Urea Nitrogen 11 7-18 mg/dl Creatinine 0.66 0.60-1.20 mg/dl Est Creatinine Clear Calc Drug Dose 129.3 ml/min Estimated GFR () 131.7 Estimated GFR (Non- 113.6 BUN/Creatinine Ratio 16.4 10-20 Random Glucose 89 70-99 mg/dl Calcium Level 8.7 8.5-10.1 mg/dl Magnesium Level 2.2 1.8-2.4 mg/dl Triglycerides Level 172 0-150 mg/dl Cholesterol Level 124 0-200 mg/dl HDL Cholesterol 34 mg/dl LDL Cholesterol, Calculated 56 mg/dl VLDL Cholesterol, Calculated 34 mg/dl Cholesterol/HDL Ratio 3.6
[2016-06-26 12:30] VITALS: BP 133/86; PULSE 85; TEMP 36.6; O2SAT 97
--- NOTE | 2016-06-26 13:25 | ECHOCARDIOGRAM REPORT ---
*NOTICE TO RECEIVING [employer] This information is strictly Confidential and protected under [place] law. [place] law prohibits you from making any further disclosure of this information unless further disclosure is expressly permitted by the written consent of the person to whom it pertains or is authorized by law. A general authorization for the release of medical or other information is not sufficient for this purpose. Hospital accepts no responsibility if the information is made available to any other person, INCLUDING THE PATIENT. Interpretation Summary * Name: CATARINA EMERSON Study Date: 06/26/2016 10:13 AM BP: 117/80 mmHg * Patient Location: [id number].2E\S\E206\S\1 HR: 81 * : 1980 (M/d/yyyy) Gender: Female Height: 65 in * Age: 35 yrs Ethnicity: CA Weight: 194 lb * Ordering Physician: Amrita Sinha * Referring Physician: Self, Referred * Performed By: Shaji Rivers RDCS * * Reason For Study: Syncope * BSA: 2.0 m2 * Grossly normal valvular structure and function. * -- Conclusions -- * The left ventricle is normal in size. * Left ventricular systolic function is normal. * Ejection Fraction = 60-65%. * The left ventricular wall motion is normal. * The right ventricular systolic function is normal. * The left atrial size is normal. * Right atrial size is normal. * Grossly normal valvular structure and function. Procedure Details * A complete two-dimensional transthoracic echocardiogram was performed (2D, M-mode, Doppler and color flow Doppler). * The study was technically difficult. * The study was technically difficult, but visualization was adequate with the administration of Definity ultrasound contrast. * A contrast injection of Definity was performed to improve assessment of LV function. * Contrast was injected into an intravenous site in the right arm. * One vial of Definity ultrasound contrast was diluted in normal saline to a total volume of 10 ml. A total of '2' ml of solution was administered during imaging. * Lot # [id number] of Definity utilized for procedure. * Expiration date 1F. * The attending nurse who injected the contrast agent was NESTOR Wick. * A saline contrast injection was performed to assess for cardiac shunting. * The injection was performed through an intravenous line in the right arm. * The attending nurse who injected the saline contrast was NESTOR Wick. * A total of 10 cc of agitated saline was given. Left Ventricle * The left ventricle is normal in size. * There is normal left ventricular wall thickness. * Left ventricular systolic function is normal. * Ejection Fraction = 60-65%. * The left ventricular wall motion is normal. Right Ventricle * The right ventricle is normal size. * The right ventricular systolic function is normal. Atria * The left atrial size is normal. * Right atrial size is normal. * The interatrial septum is intact with no evidence for an atrial septal defect. * Injection of contrast documented no interatrial shunt. Mitral Valve * The mitral valve leaflets appear thickened, but open well. * There is trace mitral regurgitation. Tricuspid Valve * The tricuspid valve anatomy is normal. * There is trace tricuspid regurgitation. Aortic Valve * The aortic valve is normal in structure and function. Pulmonic Valve * The pulmonic valve is not well visualized. Great Vessels * The aortic root and proximal ascending aorta are normal sized. Pericardium/Pleural * There is no pericardial effusion. MMode 2D Measurements and Calculations IVSd 1.2 cm IVSs 1.6 cm LVIDd 4.3 cm LVIDs 2.1 cm LVPWd 1.0 cm LVPWs 1.7 cm IVS/LVPW 1.2 FS 51.2 % EDV(Teich) 85.3 ml ESV(Teich) 14.8 ml EF(Teich) 82.7 % EDV(cubed) 82.3 ml ESV(cubed) 9.6 ml EF(cubed) 88.4 % % IVS thick 36.8 % % LVPW thick 72.0 % LV mass(C)d 164.1 grams LV mass(C)dI 84.1 grams/m\S\2 LV mass(C)s 128.5 grams LV mass(C)sI 65.8 grams/m\S\2 SV(Teich) 70.5 ml SI(Teich) 36.1 ml/m\S\2 SV(cubed) 72.7 ml SI(cubed) 37.2 ml/m\S\2 Ao root diam 2.8 cm Ao root area 6.1 cm\S\2 ACS 1.6 cm LA dimension 3.4 cm asc Aorta Diam 2.9 cm LA/Ao 1.2 LVOT diam 2.0 cm LVOT area 3.2 cm\S\2 LVAd ap4 30.5 cm\S\2 LVLd ap4 8.3 cm EDV(MOD-sp4) 93.0 ml LVAs ap4 15.6 cm\S\2 LVLs ap4 7.0 cm ESV(MOD-sp4) 30.0 ml EF(MOD-sp4) 67.7 % LVAd ap2 28.3 cm\S\2 LVLd ap2 7.9 cm EDV(MOD-sp2) 84.0 ml LVAs ap2 13.6 cm\S\2 LVLs ap2 6.2 cm ESV(MOD-sp2) 26.0 ml EF(MOD-sp2) 69.0 % SV(MOD-sp4) 63.0 ml SI(MOD-sp4) 32.3 ml/m\S\2 SV(MOD-sp2) 58.0 ml SI(MOD-sp2) 29.7 ml/m\S\2 Doppler Measurements and Calculations MV E max maddi 91.2 cm/sec MV A max maddi 91.9 cm/sec MV E/A 0.99 MV dec time 0.15 sec Ao V2 max 171.6 cm/sec Ao max PG 11.8 mmHg Ao max PG (full) 5.8 mmHg EVONNE(V,A) 2.3 cm\S\2 EVONNE(V,D) 2.3 cm\S\2 LV V1 max PG 6.0 mmHg LV V1 max 122.0 cm/sec PA V2 max 106.3 cm/sec PA max PG 4.5 mmHg TR max maddi 247.0 cm/sec
[2016-06-26 15:10] VITALS: BP 147/89; PULSE 86; TEMP 36.9; O2SAT 97
[2016-06-26 20:22] VITALS: BP 119/68; PULSE 83; TEMP 36.6; O2SAT 94
[2016-06-26 23:24] VITALS: BP 110/64; PULSE 75; TEMP 36.7; O2SAT 98
[2016-06-27] MEDS: SODIUM CHLORIDE 0.9% 1000ML 1,000 ML IV SCH (00:24)
[2016-06-27 03:55] VITALS: BP 108/55; PULSE 91; TEMP 36.7; O2SAT 98
[2016-06-27 06:53] LABS: BUN/CREATININE RATIO 14.5 (10-20); CALCIUM 8.5 mg/dl (8.5-10.1); CREATININE 0.75 mg/dl (0.60-1.20); MAGNESIUM 2.1 mg/dl (1.8-2.4); POTASSIUM 3.8 mmol/L (3.5-5.1)
[2016-06-27] MEDS: NICOTINE 21 MG/24 HR TDSY TD SCH (07:42)
[2016-06-27] MEDS: AMOXICILLIN/CLAVULANATE TAB 875 MG TAB PO SCH (07:42)
[2016-06-27] MEDS: METHIMAZOLE 5 MG TAB PO SCH (07:43)
[2016-06-27 07:44] VITALS: BP 121/70; PULSE 76; TEMP 36.7; O2SAT 96
--- NOTE | 2016-06-27 10:01 | Progress Note ---
Internal Med Progress Note Date of Service: Jun 27, 2016. Provider Documentation: SUBJECTIVE: Patient is sitting in her bed in no apparent distress. Denies any palpitations. HR has been 80-90. No arrhythmias overnight. No active tremors noted.Denies any chest pain/ pressure. OBJECTIVE: Vital Signs-as noted below Examination: General Appearance: WD/WN 35 year old female lying in bed in no apparent distress. Head: normocephalic, atraumatic Eyes: PERRL, EOMI, sclerae normal ENT: hearing grossly normal, pharynx normal Neck: supple, no JVD, Central trachea. Respiratory/Chest: chest non-tender, lungs clear, normal breath sounds, no respiratory distress, no accessory muscle use Cardiovascular: regular rate, rhythm, no edema, no gallop, no JVD, no murmur, normal peripheral pulses Abdomen/GI: normal bowel sounds, non tender, soft Back: normal inspection, no muscle spasm Extremities/Musculoskeletal: no calf tenderness, normal capillary refill, no pedal edema Neurologic/Psych: alert, oriented x 3, Normal Speech, Logical and goal oriented, no focal deficits, No tremors. Skin: normal color, warm/dry, no rash Lymphatic: no adenopathy Lab data as noted below. ASSESSMENT & PLAN: 35 yo F with past medical hx of HTN , Hyperthyroidism (untreated), Bipolar mood disorder -recently diagnosed presents with syncopal episode Echocardiogram The left ventricle is normal in size. Left ventricular systolic function is normal. Ejection Fraction = 60-65%. The left ventricular wall motion is normal. The right ventricular systolic function is normal. The left atrial size is normal. Right atrial size is normal. Grossly normal valvular structure and function. Near Syncope: Likely vasovagal/Hypotension in etiology. Clinically & hemodynamically doing well so far. -CT Head is negative for any acute finding. 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 -Able to ambulate in the room. -Echocardiogram is normal study. -B12/Folate are low and need to be supplemented. Known Hyperthyroidism: Low TSH as outpatient & Free T3 8., Free T4 2.15. Has been unable to get an appointment with Financial Services Agent before September 2016. -Thyroid US per Epic Record: IMPRESSION Heterogeneous thyroid echotexture may reflect age is of chronic thyroiditis. 8 mm benign appearing nodule in the right upper pole. Repeat sonogram in 6- 12 months suggested for further evaluation. -Start Atenolol ordered by PCP -Ordered thyroid antibodies -Continue Methimazole 5 mg TID for now and PCP will be following it as outpatient. History HTN: Holding Lisinopril and continue Metoprolol at 12.5 mg Daily. -Monitoring BP closely Mood Disorder: Continue Geodon Bronchial Asthma:Stable. -Continue home inhalers Tobacco Abuse: Cessation counseling given -Nicotine patch ordered Recent Acute Sinusitis: Symptoms improving, afebrile, no leukocytosis -Finish last two days of Augmentin Code Status: FULL CODE DVT Prophylaxis: SCDs, ambulation Disposition:Discharge home later today. Follow up with PCP on 06/30/2016 @ 12.50 PM. Vital Signs: Date Time Temp Pulse Resp B/P Pulse Ox O2 Delivery O2 Flow Rate FiO2 06/27/16 08:00 Room Air 06/27/16 07:44 36.7 76 16 121/70 96 Room Air 06/27/16 04:12 Room Air 06/27/16 03:55 36.7 91 18 108/55 98 Room Air 06/27/16 00:04 Room Air 06/26/16 23:24 36.7 75 16 110/64 98 Room Air 06/26/16 20:22 36.6 83 23 119/68 94 Room Air 06/26/16 20:00 Room Air 06/26/16 16:00 Room Air 06/26/16 15:10 36.9 86 20 147/89 97 Room Air 06/26/16 12:30 36.6 85 18 133/86 97 Room Air 06/26/16 12:00 Room Air Lab Results: Results Past 24 Hours Test 06/27/16 05:23 Range/Units Sodium Level 144 136-145 mmol/L Potassium Level 3.8 3.5-5.1 mmol/L Chloride Level 110 98-107 mmol/L Carbon Dioxide Level 22 21-32 mmol/L Anion Gap 12.0 3-11 mmol/L Blood Urea Nitrogen 11 7-18 mg/dl Creatinine 0.75 0.60-1.20 mg/dl Est Creatinine Clear Calc Drug Dose 113.6 ml/min Estimated GFR () 118.9 Estimated GFR (Non- 102.5 BUN/Creatinine Ratio 14.5 10-20 Random Glucose 84 70-99 mg/dl Calcium Level 8.5 8.5-10.1 mg/dl Magnesium Level 2.1 1.8-2.4 mg/dl Vitamin B12 Level 251 211-911 pg/mL Folate 6.88 >5.38 ng/mL
[2016-06-27] MEDS ORDERED: FLV1 PO (10:15)
[2016-06-27] MEDS ORDERED: TPZ5 PO (10:15)
[2016-06-27] MEDS ORDERED: VTMB12100 PO (10:15)
--- NOTE | 2016-06-27 10:17 | Discharge Instructions ---
Discharge Instructions Admission Reason for Admission: Syncope Discharge Discharge Diagnosis / Problem: Near Syncope Discharge Goals Goal(s): Decrease discomfort, Improve function, Increase independence, Improve disease control, Improve nutritional status, Learn about illness, Diagnostic testing, Therapeutic intervention Activity Recommendations Activity Limitations: resume your previous activity (As tolerated.) Exercise/Sports Limitations: as tolerated May Resume Sexual Activity: when tolerated Shower/Bathe: no limitations Driving or Machine Use: no limitations . Instructions / Follow-Up Instructions / Follow-Up 1. Take medications as directed. 2. Drink adequate amount of fluids. Follow up with PCP on 06/30/2016 @ 12.50 PM. Current Hospital Diet Patient's current hospital diet: Regular Diet Discharge Diet Recommended Diet: AHA Diet (Heart Healthy) Pending Studies Studies pending at discharge: no Laboratory Results Lipid Panel Test 06/26/16 06:12 Range/Units Triglycerides Level 172 H 0-150 mg/dl Cholesterol Level 124 0-200 mg/dl HDL Cholesterol 34 mg/dl Cholesterol/HDL Ratio 3.6 LDL Cholesterol, Calculated 56 mg/dl Medical Emergencies . Who to Call and When: Medical Emergencies: If at any time you feel your situation is an emergency, please call 911 immediately. . Non-Emergent Contact Non-Emergency issues call your: Primary Care Provider . . "Provider Documentation" section prepared by Julián Arias. VTE Core Measure Inpt VTE Proph given/why not?: Jenna Harding, SCD's
[2016-06-27] MEDS ORDERED: TPRSR25 PO (10:19)
--- NOTE | 2016-06-27 10:22 | Discharge Summary ---
Discharge Summary Admission Date: Jun 25, 2016 at 19:27 Discharge Date: Jun 27, 2016 Discharge Disposition: Home Principal Diagnosis: Near Syncope Hypotension Secondary Diagnoses/Problems: Hyperthyroidism History Hypertension Mood Disorder Bronchial Asthma Procedures: CT Head Echocardiogram Vaccinations: NONE Consultations: NONE Pending Studies/Follow-Up: Needs follow up TFTs in 3-4 weeks and accordingly adjust the dose of Methimazole., Needs B12/Folate levels to be checked in 3-4 weeks. Medication Reconciliation New Medications: Metoprolol Succinate (Metoprolol Succinate ER) 25 Mg Tabcr 12.5 MG PO QDD, #30 TAB Cyanocobalamin (Vitamin B-12) 100 Mcg Tab 100 MCG PO QAM, #100 TAB Folic Acid (Folic Acid) 1 Mg Tab 1 MG PO QAM, #100 TAB Methimazole (Methimazole) 5 Mg Tab 5 MG PO TID, #90 TAB Continued Medications: Albuterol Inhaler (Ventolin Inhaler) Aers 2 PUFFS INH Q4 Calcium Carbonate (Tums) 500 Mg Chew 1-2 TABS PO UD PRN for Heartburn Ibuprofen (Advil) 200 Mg Tab 800 MG PO TID PRN for Headache or Pain, TAB Lactulose (Chronulac) 10 Gm/15 Ml Syrp 15 ML PO BID PRN for Constipation Ziprasidone Hcl (Geodon) 40 Mg Cap 40 MG PO DAILY, CAP Discontinued Medications: Amoxicillin & Pot Clavulanate (Augmentin 875-125 mg) 1 Tab Tab 1 TAB PO BID for 7 Days, #14 TAB BEGIN 06/20/16 X 7 DAYS Atenolol (Tenormin) 25 Mg Tab 25 MG PO DAILY, TAB BEGIN TAKING THIS MED ON 06/26/16. Lisinopril (Lisinopril) 5 Mg Tab 5 MG PO DAILY END TAKING THIS MED ON 06/26/16. Admission Information HPI (per Admitting provider): Patient seen and examined. 35 year old female with PMHx of Mood disorder, Asthma , tobacco abuse, and recently diagnosed hyperthyroidism presents to the ED complaining of "blacking out" prior to arrival. Patient reports she has been feeling weak, shaky and tired for months. She came to the ED 1 week ago after a syncopal episode. At that time workup was negative except for low TSH. She was discharged home with PCP followup. At her PCP she had T3, and T4 tested as well as a thyroid US and all were consistent with Hyperthyroidism. She was prescribed Atenolol and referred to Endocrinology for further workup. Patient reports that she has not been taking the Atenolol because it is 25mg and the lisinopril she use to be on was only 5mg so she was worried it was too high of a dose. Today she states she was getting ready for work when she felt like she had to take very deep breaths. She states her heart then fluttered and she started to get "tunnel vision, like blacking out." She lowered herself to the ground and symptoms improved. She states currently she just feels shaky. She denies fevers, chills, diaphoresis, weight loss, URI symptoms, chest pain, SOB, nausea, vomiting, diarrhea, dysuria, calf pain and edema. In the ED VS are stable, CT head is negative, orthostatic VS are negative, DDimer and troponin are negative. TSH is again low. She will be observed for further workup and treatment. Physical Exam (per Admitting): General Appearance: + pertinent finding (WD/WN 35 year old female lying in bed in NAD with family at bedside ) Head: normocephalic, atraumatic Eyes: PERRL, EOMI, sclerae normal ENT: hearing grossly normal, pharynx normal Neck: supple, no JVD Respiratory/Chest: chest non-tender, lungs clear, normal breath sounds, no respiratory distress, no accessory muscle use Cardiovascular: regular rate, rhythm, no edema, no gallop, no JVD, no murmur , normal peripheral pulses Abdomen/GI: normal bowel sounds, non tender, soft Back: normal inspection, no muscle spasm Extremities/Musculoskelatal: no calf tenderness, normal capillary refill, no pedal edema Neurologic/Psych: alert, oriented x 3, + pertinent finding (Speech somewhat pressured, but logical and goal orriented, no focal deficits ) Skin: normal color, warm/dry, no rash Lymphatic: no adenopathy Hospital Course 35 yo F with past medical hx of HTN , Hyperthyroidism (untreated), Bipolar mood disorder -recently diagnosed presents with syncopal episode Echocardiogram The left ventricle is normal in size. Left ventricular systolic function is normal. Ejection Fraction = 60-65%. The left ventricular wall motion is normal. The right ventricular systolic function is normal. The left atrial size is normal. Right atrial size is normal. Grossly normal valvular structure and function. Near Syncope: Likely vasovagal/Hypotension in etiology. Clinically & hemodynamically doing well so far. -CT Head is negative for any acute finding. 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 -Able to ambulate in the room. -Echocardiogram is normal study. -B12/Folate are low and need to be supplemented. Known Hyperthyroidism: Low TSH as outpatient & Free T3 8., Free T4 2.15. Has been unable to get an appointment with Multilith Operator before September 2016. -Thyroid US per Epic Record: IMPRESSION Heterogeneous thyroid echotexture may reflect age is of chronic thyroiditis. 8 mm benign appearing nodule in the right upper pole. Repeat sonogram in 6- 12 months suggested for further evaluation. -Start Atenolol ordered by PCP -Ordered thyroid antibodies -Continue Methimazole 5 mg TID for now and PCP will be following it as outpatient. History HTN: Holding Lisinopril and continue Metoprolol at 12.5 mg Daily. -Monitoring BP closely Mood Disorder: Continue Geodon Bronchial Asthma:Stable. -Continue home inhalers Tobacco Abuse: Cessation counseling given -Nicotine patch ordered Recent Acute Sinusitis: Symptoms improving, afebrile, no leukocytosis -Finish last two days of Augmentin Code Status: FULL CODE DVT Prophylaxis: SCDs, ambulation Disposition:Discharge home later today. Follow up with PCP on 06/30/2016 @ 12.50 PM. Total time spent on discharge = 35 minutes. This includes examination of the patient, discharge planning, medication reconciliation, and communication with other providers. Discharge Instructions Discharge Goals Goal(s): Decrease discomfort, Improve function, Increase independence, Improve disease control, Improve nutritional status, Learn about illness, Diagnostic testing, Therapeutic intervention Activity Recommendations Activity Limitations: resume your previous activity (As tolerated.) Exercise/Sports Limitations: as tolerated May Resume Sexual Activity: when tolerated Shower/Bathe: no limitations Driving or Machine Use: no limitations . Instructions / Follow-Up Instructions / Follow-Up 1. Take medications as directed. 2. Drink adequate amount of fluids. Follow up with PCP on 06/30/2016 @ 12.50 PM. Additional Copies To Elaine Nice D.O.
[2016-06-27] MEDS ORDERED: CYANOCOBALAMIN 1000 MCG/ML VIAL IM ONE (11:00)
[2016-06-27 11:08] VITALS: BP 121/70; PULSE 76; TEMP 36.7; O2SAT 96
[2016-06-27 11:32] VITALS: BP 106/55; PULSE 77; TEMP 36.9; O2SAT 97
[2016-06-28] MEDS ORDERED: CYANOCOBALAMIN 100 MCG TAB (VIT B-12) PO SCH (09:00)
[2016-06-28 13:31] LABS: THYROGLOBULIN 68.5 NG/ML (2.8-40.9)
[2016-06-30 16:28] LABS: TSI 280 % baseline (<140)
[2016-10-12] MEDS ORDERED: METH-589 PO (16:29)
[2016-10-12] MEDS ORDERED: FLV1 PO (16:29)
[2016-10-12] MEDS ORDERED: CYAN100T PO (16:29)
[2017-01-26] MEDS ORDERED: METH-589 PO (00:15)
[2017-01-26] MEDS ORDERED: VNTHFA/IN INH (16:29)
[2017-01-26] MEDS ORDERED: FLNIN/ NAE (16:33)
[2017-01-26] MEDS ORDERED: PROP20TA67 PO (16:33)
== END 2016-06-27 11:58 | disposition home or self-care (01) ==
LOC: ENRESERVTM → ENRESERVDT → C.EDB 16:45 → C.2E 19:27
PROVIDERS: ADMIT Hospitalist; ATTEND Emergency Medicine
DX: R55 Syncope and collapse (principal); I95.9 Hypotension, unspecified; J01.90 Acute sinusitis, unspecified; J45.909 Unspecified asthma, uncomplicated; E05.90 Thyrotoxicosis, unspecified without thyrotoxic crisis or storm; I10 Essential (primary) hypertension; F17.200 Nicotine dependence, unspecified, uncomplicated; Z79.899 Other long term (current) drug therapy; F39 Unspecified mood [affective] disorder; Z83.3 Family history of diabetes mellitus; Z82.49 Family history of ischemic heart disease and other diseases of the circulatory system; Z84.1 Family history of disorders of kidney and ureter

== ENCOUNTER 2016-07-21 14:44 | Emergency (ER) | payer OTHER ==
[~2016-07-21] VITALS: Ht 165.1 cm; Wt 88.2 kg
[~2016-07-21 14:44] MED LIST changes: +FLV1 PO; -LSN5 PO; +TPRSR25 PO; +TPZ5 PO; +VTMB12100 PO
[2016-07-21 15:02] VITALS: TEMP 37.2; Ht 165.1 cm; Wt 88.2 kg
[2016-07-21] MEDS ORDERED: SODIUM CHLORIDE 0.9% 1000ML 1,000 ML IV STA (16:03)
--- NOTE | 2016-07-21 16:20 | DIAGNOSTIC IMAGING REPORT ---
SINGLE VIEW CHEST CLINICAL HISTORY: Atypical chest pain. FINDINGS: An AP, portable, upright chest radiograph is compared to study dated 06/25/2016. The examination is degraded by portable technique, large body habitus, and patient rotation. The cardiomediastinal silhouette is unremarkable. The lungs and pleural spaces are clear. No pneumothorax is seen. The bony thorax is grossly intact. IMPRESSION: No active disease in the chest. Electronically signed by: Sage Alba M.D. 07/21/2016 4:19 PM Dictated Date/Time: 07/21/2016 4:19 PM
[2016-07-21 16:23] LABS: BASO % 0.1 %; BASO ABS # 0.01 K/uL (0-0.2); COMPLETE YES; EOS % 2.6 %; HEMATOCRIT 37.5 % (37-47); IG% 0.3 %; LYMPH % 27.6 %; LYMPH ABS # 2.12 K/uL (1.2-3.4); MEAN CELL VOLUME 82.2 fL (80-100); MEAN CORPUSCULAR HEMOGLOBIN 29.4 pg (25-34); MEAN CORPUSCULAR HGB CONC 35.7 g/dl (32-36); MEAN PLATELET VOLUME 10.2 fL (7.4-10.4); MONO % 7.3 %; NEUT % 62.1 %; PLATELET COUNT 260 K/uL (130-400); RED BLOOD COUNT 4.56 M/uL (4.2-5.4); WHITE BLOOD COUNT 7.69 K/uL (4.8-10.8)
[2016-07-21 16:31] LABS: URINE APPEARANCE CLEAR (CLEAR); URINE BILIRUBIN NEG (NEG); URINE COLOR YELLOW; URINE EPITHELIAL CELL AUTO >30 /lpf (0-5); URINE NITRITE NEG (NEG); URINE SPECIFIC GRAVITY 1.022 (1.000-1.030); UROBILINOGEN NEG (NEG); ZZUR CULT IF INDIC CLEAN CATCH NO
[2016-07-21] MEDS ORDERED: LORA-741 PO (16:33)
[2016-07-21] MEDS ORDERED: AMOX875T PO (16:33)
[2016-07-21 16:35] LABS: MANUAL MICROSCOPIC REQUIRED? NO; REVIEW REQ? NO
[2016-07-21 16:43] LABS: ALT/SGPT 39 U/L (12-78); AST/SGOT 19 U/L (15-37); BLOOD UREA NITROGEN 12 mg/dl (7-18); BUN/CREATININE RATIO 13.9 (10-20); CALCIUM 8.4 mg/dl (8.5-10.1); CARBON DIOXIDE 25 mmol/L (21-32); CHLORIDE 111 mmol/L (98-107); CREATININE 0.86 mg/dl (0.60-1.20); GLUCOSE 101 mg/dl (70-99); SODIUM 143 mmol/L (136-145)
[2016-07-21 16:53] LABS: ALB/GLOB RATIO 1.2 (0.9-2); ALKALINE PHOSPHATASE 58 U/L (45-117); THYROID STIMULATING HORMONE < 0.005 uIu/ml (0.300-4.500)
[2016-07-21 17:26] LABS: LYME DISEASE AB IGG NEG (NEG); LYME DISEASE AB IGM NEG (NEG)
--- NOTE | 2016-07-21 17:37 | EMERGENCY ROOM VISIT NOTE ---
History First contact with patient: 15:48 Chief Complaint: ARM PAIN Stated Complaint: NUMBNESS IN LEFT ARM PAIN, PAIN IN UPPER LEFT ARM History of Present Illness The patient is a 35 year old female who presents to the Emergency Room with complaints of pain in the left side of her chest and a sensation of numbness in her left arm. She reports the pain in the chest has been intermittent for the past few days. The sensation of numbness began one hour ago, but has improved at this time. She states she has had similar symptoms in the past. She reports shortness of breath on exertion as well as palpitations. She does have a history of Graves' disease and was recently placed on propanolol. She had a recent admission for syncope and states this was due to her thyroid disorder. The patient denies any nausea, vomiting, headache, neck pain, abdominal pain or fevers. She did recently have a sinus infection and was treated with Augmentin. Review of Systems A complete 10-point Review of Systems was discussed with the patient, with pertinent positives and negatives listed in the History of Present Illness. All remaining Review of Systems questions can be considered negative unless otherwise specified. Past Medical/Surgical History Medical Problems: (1) Asthma (2) Asthma (3) Hyperthyroidism (4) Mood disorder (5) Tobacco abuse Surgical Problems: (1) H/O tubal ligation (2) History of dental surgery (3) Hx of cholecystectomy (4) S/P tubal ligation Family History Cancer Diabetes mellitus FHx: gallbladder disease Heart disease Hypertension Kidney disease Kidney stones Social History Smoking Status: Current Every Day Smoker Alcohol Use: none Drug Use: none Marital Status: in relationship Housing Status: lives with family Occupation Status: employed Current/Historical Medications Scheduled Amoxicillin & Pot Clavulanate (Augmentin 875-125 mg), 1 TAB PO BID Cyanocobalamin (Vitamin B-12), 100 MCG PO DAILY Fluticasone Propionate (Fluticasone Propionate), 2 SPRAYS BALTA DAILY Folic Acid (Folic Acid), 1 MG PO DAILY Lorazepam (Ativan), 0.5 MG PO HS Methimazole (Methimazole ), 5 MG PO TID Propranolol (Inderal), 20 MG PO TID Ziprasidone Hcl (Geodon), 40 MG PO QP Scheduled PRN Albuterol Hfa (Ventolin Hfa), 2 PUFFS INH Q4 PRN for SOB/Wheezing Calcium Carbonate (Tums), 1-2 TABS PO UD PRN for Heartburn Ibuprofen (Advil), 800 MG PO TID PRN for Headache or Pain Lactulose (Chronulac), 15 ML PO BID PRN for Constipation Allergies Coded Allergies: Fluoxetine (Verified Adverse Reaction, Severe, HIVES-SOB, 06/19/16) Physical Exam Vital Signs Date Time Temp Pulse Resp B/P Pulse Ox O2 Delivery O2 Flow Rate FiO2 07/21/16 17:50 79 18 138/90 98 07/21/16 17:09 77 16 123/79 97 Room Air 07/21/16 15:02 37.2 82 18 133/88 97 Room Air Physical Exam VITALS: Vitals are noted on the nurse's note and reviewed by myself. Vital signs stable. GENERAL: This is a 35-year-old female, in no acute distress, nondiaphoretic, well-developed well-nourished. SKIN: Capillary reflex less than 2 seconds. HEENT: Normocephalic. PERRLA. EOMI. Nares patent. Mucous membranes moist. Neck is supple without nuchal rigidity. HEART: Regular rate and rhythm without murmurs gallops or rubs. LUNGS: Clear to auscultation bilaterally without wheezes, rales or rhonchi. No retractions or accessory muscle use. ABDOMEN: Positive bowel sounds x 4. Soft, nontender to palpation. MUSCULOSKELETAL: There is tenderness to palpation of the left chest wall and left thoracic region. Full range of motion of bilateral upper extremity sprayed strength 5/5 throughout. NEURO: Patient was alert and oriented to person place and time. Normal sensation to light and sharp touch. Deep tendon reflexes 2+ throughout. No focal neurological deficits. Medical Decision & Procedures ER Provider Diagnostic Interpretation: SINGLE VIEW CHEST CLINICAL HISTORY: Atypical chest pain. FINDINGS: An AP, portable, upright chest radiograph is compared to study dated 06/25/2016. The examination is degraded by portable technique, large body habitus, and patient rotation. The cardiomediastinal silhouette is unremarkable. The lungs and pleural spaces are clear. No pneumothorax is seen. The bony thorax is grossly intact. IMPRESSION: No active disease in the chest. Laboratory Results 07/21/16 15:50 Red Blood Count 4.56, Mean Corpuscular Volume 82.2, Mean Corpuscular Hemoglobin 29.4, Mean Corpuscular Hemoglobin Concent 35.7, Mean Platelet Volume 10.2, Neutrophils (%) (Auto) 62.1, Lymphocytes (%) (Auto) 27.6, Monocytes (%) (Auto) 7.3, Eosinophils (%) (Auto) 2.6, Basophils (%) (Auto) 0.1, Neutrophils # (Auto) 4.78, Lymphocytes # (Auto) 2.12, Monocytes # (Auto) 0.56, Eosinophils # (Auto) 0.20, Basophils # (Auto) 0.01 07/21/16 15:50 Test 07/21/16 15:50 07/21/16 16:20 White Blood Count 7.69 K/uL (4.8-10.8) Red Blood Count 4.56 M/uL (4.2-5.4) Hemoglobin 13.4 g/dL (12.0-16.0) Hematocrit 37.5 % (37-47) Mean Corpuscular Volume 82.2 fL (80-100) Mean Corpuscular Hemoglobin 29.4 pg (25-34) Mean Corpuscular Hemoglobin Concent 35.7 g/dl (32-36) Platelet Count 260 K/uL (130-400) Mean Platelet Volume 10.2 fL (7.4-10.4) Neutrophils (%) (Auto) 62.1 % Lymphocytes (%) (Auto) 27.6 % Monocytes (%) (Auto) 7.3 % Eosinophils (%) (Auto) 2.6 % Basophils (%) (Auto) 0.1 % Neutrophils # (Auto) 4.78 K/uL (1.4-6.5) Lymphocytes # (Auto) 2.12 K/uL (1.2-3.4) Monocytes # (Auto) 0.56 K/uL (0.11-0.59) Eosinophils # (Auto) 0.20 K/uL (0-0.5) Basophils # (Auto) 0.01 K/uL (0-0.2) RDW Standard Deviation 40.7 fL (36.4-46.3) RDW Coefficient of Variation 13.4 % (11.5-14.5) Immature Granulocyte % (Auto) 0.3 % Immature Granulocyte # (Auto) 0.02 K/uL (0.00-0.02) D-Dimer < 190 ug/L FEU (0-500) Anion Gap 7.0 mmol/L (3-11) Est Creatinine Clear Calc Drug Dose 99.2 ml/min Estimated GFR () 100.7 Estimated GFR (Non- 86.9 BUN/Creatinine Ratio 13.9 (10-20) Calcium Level 8.4 mg/dl (8.5-10.1) Total Bilirubin 0.3 mg/dl (0.2-1) Aspartate Amino Transf (AST/SGOT) 19 U/L (15-37) Alanine Aminotransferase (ALT/SGPT) 39 U/L (12-78) Alkaline Phosphatase 58 U/L (45-117) Troponin I < 0.015 ng/ml (0-0.045) Total Protein 6.9 gm/dl (6.4-8.2) Albumin 3.7 gm/dl (3.4-5.0) Globulin 3.2 gm/dl (2.5-4.0) Albumin/Globulin Ratio 1.2 (0.9-2) Thyroid Stimulating Hormone (TSH) < 0.005 uIu/ml (0.300-4.500) Free Thyroxine 1.16 ng/dl (0.80-1.60) Free Triiodothyronine 4.65 pg/ml (2.30-4.20) Lyme Disease IgG Antibody NEG (NEG) Lyme Disease IgM Antibody NEG (NEG) Urine Color YELLOW Urine Appearance CLEAR (CLEAR) Urine pH 5.0 (4.5-7.5) Urine Specific [place] 1.022 (1.000-1.030) Urine Protein NEG (NEG) Urine Glucose (UA) NEG (NEG) Urine Ketones NEG (NEG) Urine Occult Blood TRACE (NEG) Urine Nitrite NEG (NEG) Urine Bilirubin NEG (NEG) Urine Urobilinogen NEG (NEG) Urine Leukocyte Esterase NEG (NEG) Urine WBC (Auto) 1-5 /hpf (0-5) Urine RBC (Auto) 0-4 /hpf (0-4) Urine Hyaline Casts (Auto) 1-5 /lpf (0-5) Urine Epithelial Cells (Auto) >30 /lpf (0-5) Urine Bacteria (Auto) NEG (NEG) Urine Test NEG (NEG) Medications Administered Medications (Trade) Dose Ordered Sig/Bernard Route Start Time Stop Time Status Last Admin Dose Admin Sodium Chloride (Nss 1000ml) 1,000 ml @ 999 mls/hr Q1H1M STAT IV 07/21/16 16:03 07/21/16 17:03 DC 07/21/16 16:03 999 MLS/HR ECG Indication: chest pain Rate (beats per minute): 69 Rhythm: normal sinus Findings: no acute ischemic change, no ectopy Change: no significant change Medical Decision Differential diagnosis includes acute coronary syndrome, pulmonary embolism, pneumothorax, pericarditis, myocarditis, endocarditis, anxiety, musculoskeletal pain, GERD, costochondritis, among others. The patient was evaluated as above. Labs were drawn and IV access was obtained. Imaging studies were performed and read by radiology as above. The patient was medicated with 1 L normal saline solution. The patient was reassessed multiple times during their stay in the emergency department and remained in stable condition. The patient is a 35-year-old female who presents today complaining of left- sided chest/back pain with a sensation of numbness in the left arm. The patient 's symptoms had somewhat resolved when she was seen. Labs revealed no leukocytosis, anemia or concerning electrolyte abnormalities. Troponin was not elevated. D-dimer was not elevated. The patient's thyroid hormones seem to be well controlled with the medications she is on. EKG showed no acute ischemia. I feel that the patient's pain is musculoskeletal. She does admit that she has had similar pain in the past. She was instructed to follow-up with her primary care provider and does have an appointment scheduled. She will return here for worsening of her current condition. Based on the patient's presentation, lab results, and imaging studies, I feel the patient is stable for outpatient treatment. The patient's case was reviewed with Dr. Lucio, ED attending physician, who agreed with my assessment and treatment plan. Discharge instructions were reviewed with the patient. The patient verbalized understanding of my assessment and treatment plan and was discharged home in good condition. Impression Primary Impression: Arm pain, left Departure Information Dispostion Home / Self-Care Condition GOOD Referrals Elaine Nice D.O. (PCP) Patient Instructions My [facility] Additional Instructions You have been treated in the Emergency Department for your Chest and Arm Pain. Laboratory results and Imaging Studies have ruled out any acute cardiac or pulmonary cause of your chest pain. For pain control, you can use the following [id number] medicines (if >12 yo): - Regular strength (325mg/tab) Tylenol (acetaminophen) 2 tabs every 4-6 hours as needed. Do not exceed 12 tablets in a 24 hour period. Avoid taking more than 4 grams (4000 mg) of Tylenol per day. This includes any other sources of acetaminophen you may take on a regular basis. - Regular strength (200 mg/tab) Advil (ibuprofen) 1-2 tabs every 4-6 hours as needed. Do not exceed a dose of 3200 mg per day. You should schedule a follow-up appointment with your Primary Care Provider in 2 -3 days for further evaluation from today's Emergency Department visit. Return to the Emergency Department if your current symptoms worsen despite treatment course outlined above, or if you develop any of the following symptoms : worsening chest pain, associated jaw/arm pain, nausea, dizziness, shortness of breath, bloody cough, or fainting.
[2016-07-21 17:50] VITALS: BP 138/90; PULSE 79; O2SAT 98
[2016-07-21] MEDS ORDERED: ZIPR1CAP4 PO (20:47)
[2016-10-12] MEDS ORDERED: FLV1 PO (16:29)
[2016-10-12] MEDS ORDERED: CYAN100T PO (16:29)
[2016-10-12] MEDS ORDERED: METH-589 PO (16:29)
[2017-01-26] MEDS ORDERED: METH-589 PO (00:15)
[2017-01-26] MEDS ORDERED: VNTHFA/IN INH (16:29)
[2017-01-26] MEDS ORDERED: PROP20TA67 PO (16:33)
[2017-01-26] MEDS ORDERED: FLNIN/ NAE (16:33)
== END 2016-07-21 17:51 | disposition home or self-care (01) ==
LOC: C.EDB 14:46 → C.EDD 17:51
DX: M79.602 Pain in left arm (principal); R07.89 Other chest pain; E05.00 Thyrotoxicosis with diffuse goiter without thyrotoxic crisis or storm; J45.909 Unspecified asthma, uncomplicated; F17.200 Nicotine dependence, unspecified, uncomplicated; Z98.51 Tubal ligation status; Z90.49 Acquired absence of other specified parts of digestive tract; Z79.899 Other long term (current) drug therapy; Z88.8 Allergy status to other drugs, medicaments and biological substances; Z80.9 Family history of malignant neoplasm, unspecified; Z83.3 Family history of diabetes mellitus; Z83.79 Family history of other diseases of the digestive system; Z82.49 Family history of ischemic heart disease and other diseases of the circulatory system; Z84.1 Family history of disorders of kidney and ureter

== ENCOUNTER 2016-08-14 23:52 | Emergency (ER) | payer OTHER ==
[~2016-08-14] VITALS: Ht 165.1 cm; Wt 89.4 kg
[~2016-08-14 23:52] MED LIST changes: -ALBUAER19 INH; +AMOX875T PO; -FLV1 PO; +LORA-741 PO; -TPRSR25 PO; -TPZ5 PO; -VTMB12100 PO; +ZIPR1CAP4 PO
[2016-08-14 23:55] VITALS: TEMP 36.9; Ht 165.1 cm; Wt 89.4 kg
[2016-08-14] MEDS ORDERED: SODIUM CHLORIDE 0.9% 1000ML 1,000 ML IV STA (23:59)
[2016-08-15] MEDS ORDERED: KETOROLAC TROMETHAMINE 30 MG/ML VIAL IV STA (00:17)
[2016-08-15] MEDS ORDERED: HYDROmorphone INJ 1 MG/ML SYR IV STA (00:17)
[2016-08-15] MEDS ORDERED: DiphenhydrAMINE HCL 50 MG/ML VIAL IV STA (00:17)
[2016-08-15] MEDS ORDERED: PROCHLORPERAZINE 5 MG/ML 2 ML VIAL IV STA (00:17)
[2016-08-15 00:35] VITALS: O2SAT 98
[2016-08-15 00:53] LABS: HEMATOCRIT 36.1 % (37-47); MEAN CELL VOLUME 81.3 fL (80-100); MEAN CORPUSCULAR HEMOGLOBIN 29.3 pg (25-34); MEAN PLATELET VOLUME 9.8 fL (7.4-10.4); PLATELET COUNT 215 K/uL (130-400); RED BLOOD COUNT 4.44 M/uL (4.2-5.4); WHITE BLOOD COUNT 7.61 K/uL (4.8-10.8)
[2016-08-15 01:10] LABS: ALT/SGPT 32 U/L (12-78); AST/SGOT 20 U/L (15-37); BLOOD UREA NITROGEN 9 mg/dl (7-18); BUN/CREATININE RATIO 9.2 (10-20); CALCIUM 8.4 mg/dl (8.5-10.1); CARBON DIOXIDE 27 mmol/L (21-32); CHLORIDE 107 mmol/L (98-107); GLUCOSE 100 mg/dl (70-99); POTASSIUM 3.9 mmol/L (3.5-5.1); SODIUM 143 mmol/L (136-145)
[2016-08-15 01:17] LABS: MANUAL MICROSCOPIC REQUIRED? NO; REVIEW REQ? NO; URINE APPEARANCE CLEAR (CLEAR); URINE BILIRUBIN NEG (NEG); URINE COLOR YELLOW; URINE NITRITE NEG (NEG); URINE SPECIFIC GRAVITY 1.012 (1.000-1.030); UROBILINOGEN NEG (NEG)
[2016-08-15 01:21] LABS: ALKALINE PHOSPHATASE 62 U/L (45-117); THYROID STIMULATING HORMONE < 0.005 uIu/ml (0.300-4.500)
[2016-08-15 01:23] LABS: BASO % 0.4 %; BASO ABS # 0.03 K/uL (0-0.2); COMPLETE YES; EOS % 3.8 %; IG% 0.3 %; LYMPH % 34.7 %; LYMPH ABS # 2.64 K/uL (1.2-3.4); NEUT % 52.8 %
[2016-08-15 03:09] VITALS: BP 164/96; PULSE 73; O2SAT 98
--- NOTE | 2016-08-15 06:55 | DIAGNOSTIC IMAGING REPORT ---
HEAD CT NONCONTRAST CT DOSE: 537.48 mGy.cm HISTORY: EVALUATE ALTERED MENTAL STATUS/WEAKNESS TECHNIQUE: Multiaxial CT images of the head were performed without the use of intravenous contrast. Comparison: None. Findings: The paranasal sinuses and mastoid air cells are clear. The calvarium and skull base are intact. The ventricles and sulci are within normal limits. There is no mass, hematoma, midline shift, or acute infarct. Impression: No acute intracranial abnormality. Electronically signed by: Yobany Somers M.D. 08/15/2016 6:54 AM Dictated Date/Time: 08/15/2016 6:51 AM
--- NOTE | 2016-08-16 00:21 | EMERGENCY ROOM VISIT NOTE ---
History Report prepared by Vane: Lionel Chawla Under the Supervision of: Dr. Sae Barnett M.D. First contact with patient: 23:59 Chief Complaint: HEADACHE Stated Complaint: MIGRAINE,NAUSEA,PASSED OUT History of Present Illness The patient is a 35 year old female who presents to the Emergency Room after a syncopal episode that occurred three hours ago. The patient hit her head on the tub when she passed out. She also complains of nausea currently. The patient notes that she felt a sinus headache coming on two days ago and she was taking Ibuprofen for her symptoms. A couple of months ago, the patient had sinus pressure and a sore throat. She was put on antibiotics and a nasal spray. Her headache had resolved, but she still had a feeling like something was stuck in her throat so she had continued the nasal spray. Two days ago, she felt the headache coming back and started taking Ibuprofen for the discomfort. However, the patient states the Ibuprofen was not helping relieve her discomfort today. The patient also notes that she has a history of passing out and was recently admitted after having two syncopal episodes in one day. The patient also has a history of migraines and notes her current symptoms are similar to her typical migraine including the headache,nausea, and some blurred vision. Pt denies fevers, chills, diaphoresis, neck pain, chest pain, breathing difficulties, vomiting, abdominal pain, back pain, melena, hematochezia, urinary symptoms, numbness, weakness, lymphadenopathy, rash, or other complaints. 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 A total of ten systems were reviewed and were otherwise negative. Past Medical & Surgical Medical Problems: (1) Asthma (2) Asthma (3) Hyperthyroidism (4) Mood disorder (5) Tobacco abuse Surgical Problems: (1) H/O tubal ligation (2) History of dental surgery (3) Hx of cholecystectomy (4) S/P tubal ligation Family History Cancer Diabetes mellitus FHx: gallbladder disease Heart disease Hypertension Kidney disease Kidney stones Social History Smoking Status: Current Every Day Smoker Alcohol Use: none Drug Use: none Marital Status: in relationship Housing Status: lives with family Occupation Status: employed Current/Historical Medications Scheduled Cyanocobalamin (Vitamin B-12), 100 MCG PO DAILY Fluticasone Propionate (Fluticasone Propionate), 2 SPRAYS [place] DAILY Folic Acid (Folic Acid), 1 MG PO DAILY Methimazole (Methimazole ), 5 MG PO TID Propranolol (Inderal), 20 MG PO TID Ziprasidone Hcl (Geodon), 40 MG PO QPM Scheduled PRN Albuterol Hfa (Ventolin Hfa), 2 PUFFS INH Q4 PRN for SOB/Wheezing Calcium Carbonate (Tums), 1-2 TABS PO UD PRN for Heartburn Ibuprofen (Advil), 800 MG PO TID PRN for Headache or Pain Lactulose (Chronulac), 15 ML PO BID PRN for Constipation Lorazepam (Ativan), 0.5 MG PO HS PRN for Sleep Allergies Coded Allergies: Fluoxetine (Verified Adverse Reaction, Severe, HIVES-SOB, 08/15/16) Physical Exam Vital Signs Date Time Temp Pulse Resp B/P Pulse Ox O2 Delivery O2 Flow Rate FiO2 08/15/16 03:09 73 18 164/96 98 08/15/16 01:45 69 16 150/90 98 Room Air 08/15/16 00:46 70 08/15/16 00:35 71 159/98 98 Room Air 80 148/112 91 140/119 08/15/16 00:35 98 Room Air 08/14/16 23:55 36.9 91 18 145/108 98 Room Air Physical Exam GENERAL: Awake, alert, well appearing, no distress HENT: Normocephalic, atraumatic. TM's normal. Oropharynx unremarkable. EYES: PERRL. EOMI. Normal conjunctiva. Sclera non-icteric. NECK: Supple. No nuchal rigidity. FROM. No JVD or bruit. RESPIRATORY: CTA CARDIAC: RRR. No murmur. ABDOMEN: Soft, non distended. No tenderness to palpation. No rebound or guarding. No masses. MUSCULOSKELETAL: Unremarkable. No edema. No discoloration. Gross motor strength symmetric. NEURO: Cranial nerves 2-12 grossly intact. Normal sensorium. No sensory or motor deficits noted. Gait normal. Speech normal. No pronator drift. SKIN: No rash or jaundice noted. LYMPH: No adenopathy. Medical Decision & Procedures ER Provider Diagnostic Interpretation: Radiology results as stated below per my review and radiologist interpretation Laboratory Results 08/15/16 00:40 Red Blood Count 4.44, Mean Corpuscular Volume 81.3, Mean Corpuscular Hemoglobin 29.3, Mean Corpuscular Hemoglobin Concent 36.0, Mean Platelet Volume 9.8, Neutrophils (%) (Auto) 52.8, Lymphocytes (%) (Auto) 34.7, Monocytes (%) (Auto) 8.0, Eosinophils (%) (Auto) 3.8, Basophils (%) (Auto) 0.4, Neutrophils # (Auto) 4.02, Lymphocytes # (Auto) 2.64, Monocytes # (Auto) 0.61, Eosinophils # (Auto) 0.29, Basophils # (Auto) 0.03 08/15/16 00:40 Test 08/15/16 00:40 08/15/16 00:50 White Blood Count 7.61 K/uL (4.8-10.8) Red Blood Count 4.44 M/uL (4.2-5.4) Hemoglobin 13.0 g/dL (12.0-16.0) Hematocrit 36.1 % (37-47) Mean Corpuscular Volume 81.3 fL (80-100) Mean Corpuscular Hemoglobin 29.3 pg (25-34) Mean Corpuscular Hemoglobin Concent 36.0 g/dl (32-36) Platelet Count 215 K/uL (130-400) Mean Platelet Volume 9.8 fL (7.4-10.4) Neutrophils (%) (Auto) 52.8 % Lymphocytes (%) (Auto) 34.7 % Monocytes (%) (Auto) 8.0 % Eosinophils (%) (Auto) 3.8 % Basophils (%) (Auto) 0.4 % Neutrophils # (Auto) 4.02 K/uL (1.4-6.5) Lymphocytes # (Auto) 2.64 K/uL (1.2-3.4) Monocytes # (Auto) 0.61 K/uL (0.11-0.59) Eosinophils # (Auto) 0.29 K/uL (0-0.5) Basophils # (Auto) 0.03 K/uL (0-0.2) RDW Standard Deviation 39.9 fL (36.4-46.3) RDW Coefficient of Variation 13.3 % (11.5-14.5) Immature Granulocyte % (Auto) 0.3 % Immature Granulocyte # (Auto) 0.02 K/uL (0.00-0.02) Anion Gap 9.0 mmol/L (3-11) Est Creatinine Clear Calc Drug Dose 85.9 ml/min Estimated GFR () 83.9 Estimated GFR (Non- 72.4 BUN/Creatinine Ratio 9.2 (10-20) Bedside Glucose 105 mg/dl (70-90) Calcium Level 8.4 mg/dl (8.5-10.1) Total Bilirubin 0.2 mg/dl (0.2-1) Direct Bilirubin < 0.1 mg/dl (0-0.2) Aspartate Amino Transf (AST/SGOT) 20 U/L (15-37) Alanine Aminotransferase (ALT/SGPT) 32 U/L (12-78) Alkaline Phosphatase 62 U/L (45-117) Total Creatine Kinase 103 U/L (26-192) Creatine Kinase MB < 0.5 ng/ml (0.5-3.6) Creatine Kinase MB Ratio (0-3.0) Troponin I < 0.015 ng/ml (0-0.045) Total Protein 6.5 gm/dl (6.4-8.2) Albumin 3.5 gm/dl (3.4-5.0) Thyroid Stimulating Hormone (TSH) < 0.005 uIu/ml (0.300-4.500) Urine Color YELLOW Urine Appearance CLEAR (CLEAR) Urine pH 7.0 (4.5-7.5) Urine Specific [place] 1.012 (1.000-1.030) Urine Protein NEG (NEG) Urine Glucose (UA) NEG (NEG) Urine Ketones NEG (NEG) Urine Occult Blood TRACE (NEG) Urine Nitrite NEG (NEG) Urine Bilirubin NEG (NEG) Urine Urobilinogen NEG (NEG) Urine Leukocyte Esterase NEG (NEG) Urine WBC (Auto) 0 /hpf (0-5) Urine RBC (Auto) 5-10 /hpf (0-4) Urine Hyaline Casts (Auto) 0 /lpf (0-5) Urine Epithelial Cells (Auto) 5-10 /lpf (0-5) Urine Bacteria (Auto) NEG (NEG) Laboratory results reviewed by me Medications Administered Medications (Trade) Dose Ordered Sig/Bernard Route Start Time Stop Time Status Last Admin Dose Admin Sodium Chloride (Nss 1000ml) 1,000 ml @ 999 mls/hr Q1H1M STAT IV 08/14/16 23:59 08/15/16 00:59 DC 08/15/16 00:47 999 MLS/HR Ketorolac Tromethamine (Toradol Inj) 10 mg NOW STAT IV 08/15/16 00:17 08/15/16 00:19 DC 08/15/16 00:46 10 MG Hydromorphone HCl (Dilaudid Inj) 1 mg NOW STAT IV 08/15/16 00:17 08/15/16 00:19 DC 08/15/16 00:46 1 MG Prochlorperazine Edisylate (Compazine Inj) 10 mg NOW STAT IV 08/15/16 00:17 08/15/16 00:19 DC 08/15/16 00:45 10 MG Diphenhydramine HCl (Benadryl Inj) 25 mg NOW STAT IV 08/15/16 00:17 08/15/16 00:19 DC 08/15/16 00:46 25 MG ECG Indication: syncope Rate (beats per minute): 68 Rhythm: normal sinus Findings: no acute ischemic change, no ectopy ED Course 2359: Ordered NSS 1000 ml @ 999 mls/hr IV/ 0011: The patient was evaluated in room A11. A complete history and physical exam was performed. 0017: Ordered Benadryl Inj 25 mg IV, Compazine Inj 10 mg IV, Dilaudid Inj 1 mg IV, Toradol Inj 10 mg IV. 0220: Patient was reassessed. She is feeling better. Blood work was unremarkable. She is pending her CT imaging results. I reevaluated the patient. Discussed results and discharge instructions: She verbalized understanding and agreement. The patient is ready for discharge. Medical Decision Triage Nursing notes reviewed. The patient's presentation and history were concerning for recurrent migraine headache and syncope. Etiologies such as migraine, tumor, headache, sinus thrombosis, temporal arteritis, sinusitis, CVA, ICH, SAH, vasovagal event, infection, hypoglycemia, electrolyte abnormalities, cardiac sources, toxicologic,as well as others were entertained. The patient was evaluated. Clinically she was doing well. She has a nonfocal examination. She was hydrated. The patient was given a dose of Compazine, Toradol, Benadryl, and Dilaudid. Prior records were reviewed. PDMP was reviewed. The patient's ECG was unremarkable. Her blood work was unremarkable. On reassessment she was feeling much better. Orthostatic testing was negative. CT imaging was done and was negative. The patient has a long history of migraines and I suspect is dealing with another. She has also been having issues with syncope which has been worked up in the past as well. I discussed conservative management and she was in agreement. By the evaluation outlined above other emergent etiologies such as those listed in the differential, as well as others, were deemed relatively unlikely. The patient and significant other were informed about the findings as listed above. All questions were answered and the patient pleased with the treatment. Return instructions were outlined and the patient was discharged in stable condition. The patient was referred to her PCP for follow-up this week for a recheck of the current condition. The chart was completed utilizing [employer] Speech voice recognition software. Grammatical errors, random word insertions, pronoun errors, and incomplete sentences are an occasional consequence of this system due to software limitations, ambient noise, and hardware issues. Any formal questions or concerns about the content, text, or information contained within the body of this dictation should be directly addressed to the physician for clarification. Impression Primary Impression: Headache Additional Impression: Syncope Scribe Attestation The scribe's documentation has been prepared under my direction and personally reviewed by me in its entirety. I confirm that the note above accurately reflects all work, treatment, procedures, and medical decision making performed by me. Departure Information Referrals Elaine Nice D.O. (PCP) Forms HOME CARE DOCUMENTATION FORM, IMPORTANT VISIT INFORMATION Patient Instructions My [facility] Problem Qualifiers Primary Impression: Headache Headache type: unspecified Headache chronicity pattern: acute headache Intractability: not intractable Qualified Codes: R51 - Headache Additional Impression: Syncope Syncope type: unspecified Qualified Codes: R55 - Syncope and collapse
[2016-10-12] MEDS ORDERED: CYAN100T PO (16:29)
[2016-10-12] MEDS ORDERED: FLV1 PO (16:29)
[2016-10-12] MEDS ORDERED: METH-589 PO (16:29)
[2017-01-26] MEDS ORDERED: METH-589 PO (00:15)
[2017-01-26] MEDS ORDERED: VNTHFA/IN INH (16:29)
[2017-03-03] MEDS ORDERED: PROP20TA67 PO (16:33)
[2017-03-03] MEDS ORDERED: FLNIN/ NAE (16:33)
== END 2016-08-15 03:11 | disposition home or self-care (01) ==
LOC: C.EDB 23:55 → C.EDA 08-15 03:11
DX: R51 Headache (principal); R55 Syncope and collapse; E05.90 Thyrotoxicosis, unspecified without thyrotoxic crisis or storm; F39 Unspecified mood [affective] disorder; F17.200 Nicotine dependence, unspecified, uncomplicated; Z83.3 Family history of diabetes mellitus; Z82.49 Family history of ischemic heart disease and other diseases of the circulatory system; Z84.1 Family history of disorders of kidney and ureter

== ENCOUNTER 2016-08-26 21:44 | Emergency (ER) | payer OTHER ==
[~2016-08-26] VITALS: Ht 165.1 cm; Wt 90.3 kg
[~2016-08-26 21:44] MED LIST changes: -AMOX875T PO
[2016-08-26 21:48] VITALS: TEMP 36.6; Ht 165.1 cm; Wt 90.3 kg
[2016-08-26] MEDS ORDERED: HYDROmorphone INJ 0.5 MG/0.5 ML SYR IV STA (22:03)
[2016-08-26] MEDS ORDERED: ONDANSETRON INJ 2 MG/ML 2 ML VIAL IV STA (22:03)
[2016-08-26] MEDS ORDERED: KETOROLAC TROMETHAMINE 30 MG/ML VIAL IV STA (22:03)
--- NOTE | 2016-08-26 22:03 | EMERGENCY ROOM VISIT NOTE ---
ED Visit Note First contact with patient: 21:50 Resident Physician Supervision Note: I interviewed and examined the patient. Discussed with Dr. Suarez and agree with findings and plan as documented in the note. Documented By: Boris Lucio Problem List Medical Problems: (1) Asthma Status: Chronic (2) Asthma Status: Chronic (3) Hyperthyroidism Status: Chronic (4) Mood disorder Status: Chronic (5) Tobacco abuse Status: Chronic Surgical Problems: (1) H/O tubal ligation Status: Chronic (2) History of dental surgery Status: Chronic (3) Hx of cholecystectomy Status: Chronic (4) S/P tubal ligation Status: Resolved Current/Historical Medications Scheduled Cyanocobalamin (Vitamin B-12), 100 MCG PO DAILY Fluticasone Propionate (Fluticasone Propionate), 2 SPRAYS [place] DAILY Folic Acid (Folic Acid), 1 MG PO DAILY Methimazole (Methimazole ), 5 MG PO TID Propranolol (Inderal), 20 MG PO TID Ziprasidone Hcl (Geodon), 40 MG PO QPM Scheduled PRN Albuterol Hfa (Ventolin Hfa), 2 PUFFS INH Q4 PRN for SOB/Wheezing Calcium Carbonate (Tums), 1-2 TABS PO UD PRN for Heartburn Ibuprofen (Advil), 800 MG PO TID PRN for Headache or Pain Lactulose (Chronulac), 15 ML PO BID PRN for Constipation Lorazepam (Ativan), 0.5 MG PO HS PRN for Sleep Allergies Coded Allergies: Fluoxetine (Verified Adverse Reaction, Severe, HIVES-SOB, 08/15/16) Vital Signs Date Time Temp Pulse Resp B/P Pulse Ox O2 Delivery O2 Flow Rate FiO2 08/26/16 21:48 36.6 76 18 143/97 97 Room Air Departure Information Referrals Elaine Nice D.O. (PCP) Patient Instructions My [facility]
[2016-08-26] MEDS ORDERED: MELATAB2 PO (22:18)
--- NOTE | 2016-08-26 22:22 | EMERGENCY ROOM VISIT NOTE ---
History First contact with patient: 21:50 Chief Complaint: FLANK PAIN Stated Complaint: RIDE SIDE FLANK PAIN,BACK PAIN,FREQUENT URINATION History of Present Illness The patient is a 35 year old female who presents to the Emergency Room with complaints of several hrs of progressive urinary urgency and Rt flank pain. Since around 1 PM day of arrival , she has complained of 7/10 episodic Rt flank pain. She tried Ibuprofen at home which did not provide her any relief. She also reports nausea. She denies Fevers, chills, abdominal pain, hematuria, Chest pain, SOB, cough. NO Hx of kidney stones. Review of Systems See HPI for pertinent positives & negatives. A total of 10 systems reviewed and were otherwise negative. Past Medical/Surgical History Medical Problems: (1) Asthma (2) Asthma (3) Hyperthyroidism (4) Mood disorder (5) Tobacco abuse (6) UTI (urinary tract infection) Surgical Problems: (1) H/O tubal ligation (2) History of dental surgery (3) Hx of cholecystectomy (4) S/P tubal ligation Family History Cancer Diabetes mellitus FHx: gallbladder disease Heart disease Hypertension Kidney disease Kidney stones Social History Smoking Status: Current Every Day Smoker Alcohol Use: none Drug Use: none Marital Status: in relationship Housing Status: lives with family Occupation Status: employed Current/Historical Medications Scheduled Cyanocobalamin (Vitamin B-12), 100 MCG PO DAILY Fluticasone Propionate (Fluticasone Propionate), 2 SPRAYS [place] DAILY Folic Acid (Folic Acid), 1 MG PO DAILY Melatonin (Melatonin Maximum Strengt), 1 TAB PO HS Methimazole (Methimazole ), 5 MG PO TID Propranolol (Inderal), 20 MG PO TID Sulfa/Trimethoprim (Bactrim Ds 800MG/160MG), 1 TAB PO BID Ziprasidone Hcl (Geodon), 40 MG PO QPM Scheduled PRN Albuterol Hfa (Ventolin Hfa), 2 PUFFS INH Q4 PRN for SOB/Wheezing Calcium Carbonate (Tums), 1-2 TABS PO UD PRN for Heartburn Ibuprofen (Advil), 800 MG PO TID PRN for Headache or Pain Lactulose (Chronulac), 15 ML PO BID PRN for Constipation Lorazepam (Ativan), 0.5 MG PO HS PRN for Sleep Allergies Coded Allergies: Fluoxetine (Verified Adverse Reaction, Severe, HIVES-SOB, 4/14/17) Physical Exam Vital Signs Date Time Temp Pulse Resp B/P Pulse Ox O2 Delivery O2 Flow Rate FiO2 08/26/16 23:47 74 20 128/74 98 08/26/16 21:48 36.6 76 18 143/97 97 Room Air Physical Exam GENERAL: alert, well appearing, well nourished, no distress, non-toxic EYE EXAM: normal conjunctiva, PERRL and EOM's grossly intact\ NECK: supple, no nuchal rigidity, no adenopathy, non-tender LUNGS: Clear to auscultation. Normal chest wall mechanics HEART: no murmurs, S1 normal and S2 normal ABDOMEN: abdomen soft, non-tender, normo-active bowel sounds, no masses, no rebound or guarding. BACK: Rt sided CVA tenderness, Back is symmetrical on inspection and there is no deformity, no midline tenderness, SKIN: no rashes and no bruising UPPER EXTREMITIES: upper extremities are grossly normal. LOWER EXTREMITIES: No pitting edema. NEURO EXAM: Normal sensorium, cranial nerves II-XII grossly intact, normal speech, no gross weakness of arms, no gross weakness of legs. Gross sensation intact. Medical Decision & Procedures ER Provider Diagnostic Interpretation: CT SCAN OF THE ABDOMEN AND PELVIS WITHOUT IV CONTRAST CLINICAL HISTORY: Right flank pain. Frequent urination. COMPARISON STUDY: Abdominal CT dated 09/14/2008. TECHNIQUE: CT scan of the abdomen and pelvis is performed from the lung bases to the proximal femora. Images are reviewed in the axial, sagittal, and coronal planes. IV contrast was not administered for this examination as per the referring clinician. Automated dose control exposure was utilized. CT DOSE: 1525.08 mGy.cm FINDINGS: Lung bases: The heart is normal in size and without pericardial effusion. The lung bases are clear. Liver: The unenhanced liver is normal in size, contour, and attenuation. There is no intrahepatic biliary ductal dilatation. Gallbladder: Surgically absent noting clips in the gallbladder fossa. Spleen: Normal in size and attenuation. Pancreas: Unremarkable. Adrenal glands: Unremarkable. Kidneys: The unenhanced kidneys are normal in size and without hydronephrosis. There are no renal calculi identified. There is no evidence of contour deforming renal mass lesion. Abdominal vasculature: The abdominal aorta is normal in course and caliber noting scattered foci of atherosclerotic calcification, advanced for age. Bowel: The small bowel and colon are normal in course and caliber. There are scattered colonic diverticula without CT evidence of acute diverticulitis. The appendix is well-visualized and normal. Peritoneum: There is no intraperitoneal free air or abdominal ascites. Lymphadenopathy: None. Pelvic viscera: The bladder, uterus, and adnexa are normal as visualized. There are small bilateral ovarian follicles. Skeletal structures: No lytic or blastic lesions are seen. Sclerotic change is noted in the sacroiliac joints. IMPRESSION: There are no acute infectious or inflammatory findings in the abdomen or pelvis. Laboratory Results 08/26/16 22:05 Red Blood Count 4.39, Mean Corpuscular Volume 82.0, Mean Corpuscular Hemoglobin 29.8, Mean Corpuscular Hemoglobin Concent 36.4, Mean Platelet Volume 9.7, Neutrophils (%) (Auto) 63.8, Lymphocytes (%) (Auto) 26.9, Monocytes (%) (Auto) 6.1, Eosinophils (%) (Auto) 2.7, Basophils (%) (Auto) 0.2, Neutrophils # (Auto) 6.36, Lymphocytes # (Auto) 2.68, Monocytes # (Auto) 0.61, Eosinophils # (Auto) 0.27, Basophils # (Auto) 0.02 08/26/16 22:05 Test 08/26/16 22:05 08/26/16 23:00 White Blood Count 9.97 K/uL (4.8-10.8) Red Blood Count 4.39 M/uL (4.2-5.4) Hemoglobin 13.1 g/dL (12.0-16.0) Hematocrit 36.0 % (37-47) Mean Corpuscular Volume 82.0 fL (80-100) Mean Corpuscular Hemoglobin 29.8 pg (25-34) Mean Corpuscular Hemoglobin Concent 36.4 g/dl (32-36) Platelet Count 239 K/uL (130-400) Mean Platelet Volume 9.7 fL (7.4-10.4) Neutrophils (%) (Auto) 63.8 % Lymphocytes (%) (Auto) 26.9 % Monocytes (%) (Auto) 6.1 % Eosinophils (%) (Auto) 2.7 % Basophils (%) (Auto) 0.2 % Neutrophils # (Auto) 6.36 K/uL (1.4-6.5) Lymphocytes # (Auto) 2.68 K/uL (1.2-3.4) Monocytes # (Auto) 0.61 K/uL (0.11-0.59) Eosinophils # (Auto) 0.27 K/uL (0-0.5) Basophils # (Auto) 0.02 K/uL (0-0.2) RDW Standard Deviation 40.2 fL (36.4-46.3) RDW Coefficient of Variation 13.4 % (11.5-14.5) Immature Granulocyte % (Auto) 0.3 % Immature Granulocyte # (Auto) 0.03 K/uL (0.00-0.02) Urine Color YELLOW Urine Appearance CLOUDY (CLEAR) Urine pH 5.5 (4.5-7.5) Urine Specific [place] 1.022 (1.000-1.030) Urine Protein NEG (NEG) Urine Glucose (UA) NEG (NEG) Urine Ketones NEG (NEG) Urine Occult Blood TRACE (NEG) Urine Nitrite NEG (NEG) Urine Bilirubin NEG (NEG) Urine Urobilinogen NEG (NEG) Urine Leukocyte Esterase NEG (NEG) Urine WBC (Auto) 1-5 /hpf (0-5) Urine RBC (Auto) 5-10 /hpf (0-4) Urine Hyaline Casts (Auto) 5-10 /lpf (0-5) Urine Epithelial Cells (Auto) >30 /lpf (0-5) Urine Bacteria (Auto) NEG (NEG) Urine Renal Epithelial Cells 5-10 /lpf (0-5) Anion Gap 8.0 mmol/L (3-11) Est Creatinine Clear Calc Drug Dose 57.6 ml/min Estimated GFR () 51.4 Estimated GFR (Non- 44.4 BUN/Creatinine Ratio 7.9 (10-20) Calcium Level 8.2 mg/dl (8.5-10.1) Urine Test NEG (NEG) Medications Administered Medications (Trade) Dose Ordered Sig/Bernard Route Start Time Stop Time Status Last Admin Dose Admin Ondansetron HCl (Zofran Inj) 4 mg NOW STAT IV 08/26/16 22:03 08/26/16 22:09 DC 08/26/16 22:22 4 MG Ketorolac Tromethamine (Toradol Inj) 30 mg NOW STAT IV 08/26/16 22:03 08/26/16 22:09 DC 08/26/16 22:22 30 MG Hydromorphone HCl 0.5 mg 0.5 mg NOW STAT IV 08/26/16 22:03 08/26/16 22:09 DC 08/26/16 22:22 0.5 MG Sodium Chloride (Nss 1000ml) 1,000 ml @ 999 mls/hr Q1H1M STAT IV 08/26/16 22:49 08/26/16 23:49 DC 08/26/16 22:49 999 MLS/HR Oxycodone HCl (Roxicodone Immediate Rel 5MG Home Pack) 1 homepack UD ONCE PO 08/26/16 23:45 08/26/16 23:46 DC 08/26/16 23:44 1 HOMEPACK Trimethoprim/ Sulfamethoxazole (Septra Ds 800/ 160MG Tab) 1 tab NOW ONCE PO 08/26/16 23:45 08/26/16 23:46 DC 08/26/16 23:45 1 TAB Medical Decision 35 yo F p/w with a several hrs of progressive urinary urgency , Rt flank pain, afebrile, VSS on arrival ddx: UTI vs. pyelonephritis vs. Nephrolithiasis UA: Trace occult blood, 5-10 RBC, 5-10 Hyaline casts CBC: unremarkable BMP Cr 1.5, BUN/Cr 7.9 CT Abdomen/Pelvis for Stone: negative for stones, no hydronephrosis -Given Dilaudid .5 mg -Given Toradol 30 mg -Given Oxy IR homepack -Given Bactrim DS 800/160 x1 -Patient's microscopic hematuria could be attributed to UTI or a recently passed Kidney Stone which might explain her hx of flank pain. No evidence of stone was apparent CT but would not rule out a passed stone. Patient was however treated for a possible UTI with Bactrim DS. Upon reevaluation, the patient is feeling better following pain medication administration. I discussed the findings and the treatment plan with the patient. She verbalizes agreement and understanding. She was discharged home with Bactrim DS x 5 days and Oxycodone IR homepack for pain. Impression Primary Impression: Hematuria Additional Impressions: Rt flank pain Urinary urgency Dehydration Departure Information Dispostion Home / Self-Care Condition GOOD Prescriptions Sulfa/Trimethoprim (Bactrim Ds 800MG/160MG) Tab 1 TAB PO BID for UTI for 5 Days, #10 TAB Prov: Juan Suarez MD 08/26/16 Referrals Elaine Nice D.O. (PCP) Patient Instructions ED UTI Cystitis Female, My [facility] Additional Instructions -Please take medication as prescribed -Please follow up with Primary Care Provider with 48 hrs -If you experience pain not controlled by medication , worsening urinary urgency , or blood in urine, fever >100.4, Please return to Emergency Dept or call clinic Resident Tracking Resident Involvement: Resident Care Provided Care Provided: Adult ED Problem Qualifiers
[2016-08-26 22:24] LABS: MEAN CORPUSCULAR HEMOGLOBIN 29.8 pg (25-34); MEAN CORPUSCULAR HGB CONC 36.4 g/dl (32-36); MEAN PLATELET VOLUME 9.7 fL (7.4-10.4); PLATELET COUNT 239 K/uL (130-400); RED BLOOD COUNT 4.39 M/uL (4.2-5.4); WHITE BLOOD COUNT 9.97 K/uL (4.8-10.8)
[2016-08-26 22:27] LABS: URINE APPEARANCE CLOUDY (CLEAR); URINE BILIRUBIN NEG (NEG); URINE COLOR YELLOW; URINE EPITHELIAL CELL AUTO >30 /lpf (0-5); URINE NITRITE NEG (NEG); URINE PH 5.5 (4.5-7.5); URINE SPECIFIC GRAVITY 1.022 (1.000-1.030); UROBILINOGEN NEG (NEG); ZZUR CULT IF INDIC CLEAN CATCH NO
[2016-08-26 22:29] LABS: MANUAL MICROSCOPIC REQUIRED? NO; REVIEW REQ? YES
[2016-08-26 22:39] LABS: BUN/CREATININE RATIO 7.9 (10-20); CREATININE 1.5 mg/dl (0.60-1.20); POTASSIUM 3.6 mmol/L (3.5-5.1)
[2016-08-26 22:42] LABS: CALCIUM 8.2 mg/dl (8.5-10.1)
[2016-08-26] MEDS ORDERED: SODIUM CHLORIDE 0.9% 1000ML 1,000 ML IV STA (22:49)
--- NOTE | 2016-08-26 22:53 | DIAGNOSTIC IMAGING REPORT ---
CT SCAN OF THE ABDOMEN AND PELVIS WITHOUT IV CONTRAST CLINICAL HISTORY: Right flank pain. Frequent urination. COMPARISON STUDY: Abdominal CT dated 09/14/2008. TECHNIQUE: CT scan of the abdomen and pelvis is performed from the lung bases to the proximal femora. Images are reviewed in the axial, sagittal, and coronal planes. IV contrast was not administered for this examination as per the referring clinician. Automated dose control exposure was utilized. CT DOSE: 1525.08 mGy.cm FINDINGS: Lung bases: The heart is normal in size and without pericardial effusion. The lung bases are clear. Liver: The unenhanced liver is normal in size, contour, and attenuation. There is no intrahepatic biliary ductal dilatation. Gallbladder: Surgically absent noting clips in the gallbladder fossa. Spleen: Normal in size and attenuation. Pancreas: Unremarkable. Adrenal glands: Unremarkable. Kidneys: The unenhanced kidneys are normal in size and without hydronephrosis. There are no renal calculi identified. There is no evidence of contour deforming renal mass lesion. Abdominal vasculature: The abdominal aorta is normal in course and caliber noting scattered foci of atherosclerotic calcification, advanced for age. Bowel: The small bowel and colon are normal in course and caliber. There are scattered colonic diverticula without CT evidence of acute diverticulitis. The appendix is well-visualized and normal. Peritoneum: There is no intraperitoneal free air or abdominal ascites. Lymphadenopathy: None. Pelvic viscera: The bladder, uterus, and adnexa are normal as visualized. There are small bilateral ovarian follicles. Skeletal structures: No lytic or blastic lesions are seen. Sclerotic change is noted in the sacroiliac joints. IMPRESSION: There are no acute infectious or inflammatory findings in the abdomen or pelvis. Electronically signed by: Sage Alba M.D. 08/26/2016 10:51 PM Dictated Date/Time: 08/26/2016 10:48 PM
[2016-08-26 23:06] LABS: BASO % 0.2 %; BASO ABS # 0.02 K/uL (0-0.2); COMPLETE YES; EOS % 2.7 %; IG% 0.3 %; LYMPH % 26.9 %; LYMPH ABS # 2.68 K/uL (1.2-3.4); MONO % 6.1 %; NEUT % 63.8 %
[2016-08-26] MEDS ORDERED: SULF800T23 PO (23:28)
[2016-08-26] MEDS ORDERED: OXYCODONE IR HOME PACK PO ONE (23:45)
[2016-08-26] MEDS ORDERED: SULFAMETHOXAZOLE/TRIMETHOPRIM DS 800/160MG TAB PO ONE (23:45)
[2016-08-26 23:47] VITALS: BP 128/74; PULSE 74; O2SAT 98
[2016-10-12] MEDS ORDERED: CYAN100T PO (16:29)
[2016-10-12] MEDS ORDERED: FLV1 PO (16:29)
[2016-10-12] MEDS ORDERED: METH-589 PO (16:29)
[2017-01-26] MEDS ORDERED: METH-589 PO (00:15)
[2017-01-26] MEDS ORDERED: VNTHFA/IN INH (16:29)
[2017-03-03] MEDS ORDERED: FLNIN/ NAE (16:33)
[2017-03-03] MEDS ORDERED: PROP20TA67 PO (16:33)
== END 2016-08-26 23:50 | disposition home or self-care (01) ==
LOC: C.EDB 21:45 → C.EDC 23:50
DX: R31.9 Hematuria, unspecified (principal); R10.9 Unspecified abdominal pain; R39.15 Urgency of urination; E86.0 Dehydration; J45.909 Unspecified asthma, uncomplicated; E05.90 Thyrotoxicosis, unspecified without thyrotoxic crisis or storm; F39 Unspecified mood [affective] disorder; Z87.440 Personal history of urinary (tract) infections; F17.210 Nicotine dependence, cigarettes, uncomplicated; Z80.9 Family history of malignant neoplasm, unspecified; Z83.3 Family history of diabetes mellitus; Z83.79 Family history of other diseases of the digestive system; Z82.49 Family history of ischemic heart disease and other diseases of the circulatory system; Z84.1 Family history of disorders of kidney and ureter; Z79.899 Other long term (current) drug therapy

== ENCOUNTER 2016-09-18 19:52 | Emergency (ER) | payer OTHER ==
[~2016-09-18] VITALS: Ht 165.1 cm; Wt 89.8 kg
[~2016-09-18 19:52] MED LIST changes: +MELATAB2 PO
[2016-09-18 19:56] VITALS: TEMP 36.7; Ht 165.1 cm; Wt 89.8 kg
[2016-09-18] MEDS ORDERED: HYDROmorphone INJ 1 MG/ML SYR IV STA (20:37)
[2016-09-18] MEDS ORDERED: KETOROLAC TROMETHAMINE 30 MG/ML VIAL IV STA (20:37)
[2016-09-18] MEDS ORDERED: DiphenhydrAMINE HCL 50 MG/ML VIAL IV STA (20:37)
[2016-09-18] MEDS ORDERED: PROCHLORPERAZINE 5 MG/ML 2 ML VIAL IV STA (20:37)
[2016-09-18] MEDS ORDERED: SODIUM CHLORIDE 0.9% 1000ML 1,000 ML IV STA (20:37)
--- NOTE | 2016-09-18 21:04 | EMERGENCY ROOM VISIT NOTE ---
History Report prepared by Vane: Eusebio Dominguez Under the Supervision of: Dr. Eddie Fitzpatrick M.D. First contact with patient: 20:32 Chief Complaint: HEADACHE Stated Complaint: MIGRAINE,NAUSEA History of Present Illness The patient is a 36 year old female who presents to the Emergency Room with complaints of a constant left-sided migraine beginning this morning. The patient states that she has a history of migraines and this migraine in not out of the ordinary for her. She notes that she is seen in the ED about once a month for her migraines and has frequent headaches that do not always progress to migraines. She reports that she took ibuprofen without relief of her symptoms. The patient complains of neck stiffness that is consistent with her usual migraines, nausea, and vomiting. She denies having any fevers, trauma, rashes, leg swelling, back pain, and chance of . The patient notes that light and sound worsen her symptoms. Source of History: patient Onset: this morning Position: head (left) Timing: constant Modifying Factors (Worsening): other (light and sound) Modifying Factors (Relieving): other (none) Associated Symptoms: + nausea, + vomiting, No back pain, No fevers, No rash Note: The patient complains of neck stiffness. She denies having any trauma, leg swelling, or that she is . Review of Systems See HPI for pertinent positives & negatives. A total of 10 systems reviewed and were otherwise negative. Past Medical & Surgical Medical Problems: (1) Asthma (2) Asthma (3) Hyperthyroidism (4) Mood disorder (5) Tobacco abuse (6) UTI (urinary tract infection) Surgical Problems: (1) H/O tubal ligation (2) History of dental surgery (3) Hx of cholecystectomy (4) S/P tubal ligation Family History Cancer Diabetes mellitus FHx: gallbladder disease Heart disease Hypertension Kidney disease Kidney stones Social History Smoking Status: Current Every Day Smoker Alcohol Use: none Drug Use: none Marital Status: in relationship Housing Status: lives with family Occupation Status: employed Current/Historical Medications Scheduled Cyanocobalamin (Vitamin B-12), 100 MCG PO DAILY Fluticasone Propionate (Fluticasone Propionate), 2 SPRAYS BALTA DAILY Folic Acid (Folic Acid), 1 MG PO DAILY Methimazole (Methimazole ), 5 MG PO BID Propranolol (Inderal), 20 MG PO BID Scheduled PRN Albuterol Hfa (Ventolin Hfa), 2 PUFFS INH Q4 PRN for SOB/Wheezing Calcium Carbonate (Tums), 1-2 TABS PO UD PRN for Heartburn Ibuprofen (Advil), 800 MG PO TID PRN for Headache or Pain Lactulose (Chronulac), 15 ML PO BID PRN for Constipation Lorazepam (Ativan), 0.5 MG PO HS PRN for Sleep Allergies Coded Allergies: Fluoxetine (Verified Adverse Reaction, Severe, HIVES-SOB, 08/26/16) Physical Exam Vital Signs Date Time Temp Pulse Resp B/P Pulse Ox O2 Delivery O2 Flow Rate FiO2 09/18/16 22:04 83 16 136/90 97 09/18/16 20:57 80 16 99 Room Air 09/18/16 19:56 36.7 70 18 154/110 96 Room Air Physical Exam GENERAL: Patient is well appearing and in mild distress. HEAD: No acute trauma, normocephalic atraumatic ENT: Mucous membranes moist, no nasal congestion. EYES: Equal/Reactive Bilaterally, No scleral icterus, Normal ROM NECK: No nuchal rigidity, no meningismus, trachea is midline, full ROM LUNGS: No dyspnea. Clear to auscultation and equal bilaterally. No wheeze, no rhonchi. HEART: Regular rate and rhythm. No murmurs, rubs, gallops appreciated. ABDOMEN: Soft, nontender, bowel sounds positive, no masses appreciated, no peritonitis. BACK: No midline tenderness, no CVA tenderness EXTREMITIES: Normal motion all extremities, no cyanosis, no edema. NEUROLOGIC: Awake, Alert, Oriented, no acute motor or sensory deficits, no focal weakness, cranial nerves grossly intact. SKIN: No rash, no jaundice, no diaphoresis. Medical Decision & Procedures Medications Administered Medications (Trade) Dose Ordered Sig/Bernard Route Start Time Stop Time Status Last Admin Dose Admin Sodium Chloride (Nss 1000ml) 1,000 ml @ 999 mls/hr Q1H1M STAT IV 09/18/16 20:37 09/18/16 21:37 DC 09/18/16 20:47 999 MLS/HR Prochlorperazine Edisylate (Compazine Inj) 10 mg NOW STAT IV 09/18/16 20:37 09/18/16 20:39 DC 09/18/16 20:48 10 MG Diphenhydramine HCl (Benadryl Inj) 50 mg NOW STAT IV 09/18/16 20:37 09/18/16 20:39 DC 09/18/16 20:49 50 MG Ketorolac Tromethamine (Toradol Inj) 30 mg NOW STAT IV 09/18/16 20:37 09/18/16 20:39 DC 09/18/16 20:48 30 MG Hydromorphone HCl (Dilaudid Inj) 1 mg NOW STAT IV 09/18/16 20:37 09/18/16 20:39 DC 09/18/16 20:48 1 MG ED Course 2031: The patient was evaluated in room C3. A complete history and physical exam was performed. 2036: Dilaudid Inj 1 mg IV, Toradol Inj 30 mg IV, Benadryl Inj 50 mg IV, Compazine Inj 10 mg IV, Sodium Chloride 1000 ml @ 999 mls/hr IV. 2156: Reevaluated the patient and she is doing well. Discussed results and discharge instructions: She verbalized understanding and agreement. The patient is ready for discharge. Medical Decision Differential: Headache, Migraine, Cluster Headache, Seizure, Meningitis, Sinusitis, CO exposure, ICH/SAH, Infectious, Tumor, Sinus Thrombosis, Arterial Dissection, amongst other pathologies entertained. 36 yr old female with long history of migraines who arrives every few weeks/ months with same. Arrives with typical migraine symptoms. No meningitic findings, no evidence dissection/sah. No family members with similar. No indication for imaging at this time nor further work-up. Complete resolution of symptoms with above and wishes to go home. Stable and will go home with her family. Impression Primary Impression: Headache Additional Impression: Migraine Scribe Attestation The scribe's documentation has been prepared under my direction and personally reviewed by me in its entirety. I confirm that the note above accurately reflects all work, treatment, procedures, and medical decision making performed by me. Departure Information Dispostion Home / Self-Care Referrals Elaine Nice D.O. (PCP) Forms HOME CARE DOCUMENTATION FORM, IMPORTANT VISIT INFORMATION Patient Instructions ED Headache Migraine, My [facility] Additional Instructions You have received a narcotic pain medication. These medications may cause drowsiness and should not be used with other sedative medications. Do not drive , drink alcohol, perform dangerous activities, nor make important decisions after taking these medications. shelter use or inappropriate use may lead to addiction. Problem Qualifiers Primary Impression: Headache Headache type: unspecified Headache chronicity pattern: acute headache Intractability: not intractable Qualified Codes: R51 - Headache Additional Impression: Migraine Migraine type: unspecified Status migrainosus presence: without status migrainosus Intractability: not intractable Qualified Codes: G43.909 - Migraine, unspecified, not intractable, without status migrainosus
[2016-09-18 22:04] VITALS: BP 136/90; PULSE 83; O2SAT 97
[2016-10-12] MEDS ORDERED: METH-589 PO (16:29)
[2016-10-12] MEDS ORDERED: FLV1 PO (16:29)
[2016-10-12] MEDS ORDERED: CYAN100T PO (16:29)
[2017-01-26] MEDS ORDERED: METH-589 PO (00:15)
[2017-01-26] MEDS ORDERED: VNTHFA/IN INH (16:29)
[2017-03-03] MEDS ORDERED: FLNIN/ NAE (16:33)
[2017-03-03] MEDS ORDERED: PROP20TA67 PO (16:33)
== END 2016-09-18 22:05 | disposition home or self-care (01) ==
LOC: C.EDB 19:54 → C.EDC 22:05
DX: G43.909 Migraine, unspecified, not intractable, without status migrainosus (principal); J45.909 Unspecified asthma, uncomplicated; E05.90 Thyrotoxicosis, unspecified without thyrotoxic crisis or storm; F39 Unspecified mood [affective] disorder; F17.210 Nicotine dependence, cigarettes, uncomplicated; Z80.9 Family history of malignant neoplasm, unspecified; Z83.3 Family history of diabetes mellitus; Z83.79 Family history of other diseases of the digestive system; Z82.49 Family history of ischemic heart disease and other diseases of the circulatory system; Z84.1 Family history of disorders of kidney and ureter; Z79.899 Other long term (current) drug therapy

== ENCOUNTER 2016-10-10 14:34 | Emergency (ER) | payer OTHER ==
[~2016-10-10] VITALS: Ht 165.1 cm; Wt 88.3 kg
[~2016-10-10 14:34] MED LIST changes: -MELATAB2 PO; -ZIPR1CAP4 PO
[2016-10-10 14:38] VITALS: BP 133/92; PULSE 88; TEMP 36.6; O2SAT 97; Ht 165.1 cm; Wt 88.3 kg
[2016-10-10] MEDS ORDERED: PROMETHAZINE HCL INJ 25 MG/ML 1 ML VIAL IM STA (14:56)
[2016-10-10] MEDS ORDERED: HYDROmorphone INJ 2 MG/ML SYR/VIAL IM STA (14:56)
[2016-10-10] MEDS ORDERED: KETOROLAC TROMETHAMINE 60 MG/2 ML VIAL IM STA (14:56)
--- NOTE | 2016-10-10 15:00 | EMERGENCY ROOM VISIT NOTE ---
ED Visit Note First contact with patient: 14:46 CHIEF COMPLAINT: Migraine headache HISTORY OF PRESENT ILLNESS: This 36-year-old female patient presented to the emergency department via private vehicle with a sudden onset of a severe generalized headache that started Monday night around 6 PM. The patient states the migraine is similar to their typical migraines, and it is extending in the right neck musculature up on the right side of her head. She states this is exactly the same as her previous headaches other than this time she has ear pain. She follows with Dr. Kraft she rates the headache pain as an 8-9/10. There is associated nausea. She felt that she may have had a fever on Monday , however since then has felt well. There is no weakness or numbness of the extremities. There is no difficulty with speech or vision. No trauma to the head and no neck pain. The pain is severe, constant, and it is slowly increasing in severity. This is not the worst headache of the life and is similar to previous migraines. REVIEW OF SYSTEMS: A review of systems was performed with positives and pertinent negatives listed in the history of present illness. All other systems were reviewed and are negative. ALLERGIES: As noted below MEDICATIONS: As noted below PMH: Cholecystectomy, tubal ligation SOCIAL HISTORY: Patient lives at home with boyfriend and kids. PHYSICAL EXAM: Vital Signs: Reviewed Nurse's notes, vital signs stable. GENERAL : 36-year-old female, who appears in pain, but non toxic in appearance and in no acute distress. MENTAL STATUS: Alert, oriented, and coherent. HEENT: Normocephalic. PERRLA. EOMI. Nares patent without nuchal rigidity. Tympanic membranes pearly michelle without erythema or effusion bilaterally. Mucous membranes moist. NECK: Supple, no nuchal rigidity, nontender, no lymphadenopathy. HEART: Regular rhythm and normal rate without murmurs, ectopy, gallops, or rubs. LUNGS: Clear to auscultation bilaterally without wheezes, rales or rhonchi. No dullness to percussion. No accessory muscle use. No retractions. SKIN: Normal. NEUROLOGICAL: Pupils are round, equal and react to light. The patient moves all extremities well and the gait is normal. EMERGENCY DEPARTMENT COURSE: I examined the patient. The patient has been here several times in the past for similar complaints. It appears that the patient' s headaches are concomitant with her menstrual cycle. Her ear examination was unremarkable. She was offered lumbar puncture and declined. She was provided 60 mg of Toradol, Phenergan 25 mg followed by Dilaudid intramuscularly. The patient was then discharged home in good condition. The differential diagnosis includes acute intracranial bleed, meningitis, encephalitis, mass or mass effect , sinusitis, infection, tumor, headache, temporal arteritis and carbon monoxide exposure, and migraine. The patient was discharged home in stable condition with male driving. Problem List Medical Problems: (1) Asthma Status: Chronic (2) Asthma Status: Chronic (3) Hyperthyroidism Status: Chronic (4) Mood disorder Status: Chronic (5) Tobacco abuse Status: Chronic Surgical Problems: (1) H/O tubal ligation Status: Chronic (2) History of dental surgery Status: Chronic (3) Hx of cholecystectomy Status: Chronic (4) S/P tubal ligation Status: Resolved Current/Historical Medications Scheduled Cyanocobalamin (Vitamin B-12), 100 MCG PO DAILY Fluticasone Propionate (Fluticasone Propionate), 2 SPRAYS BALTA DAILY Folic Acid (Folic Acid), 1 MG PO DAILY Methimazole (Methimazole ), 5 MG PO BID Propranolol (Inderal), 20 MG PO BID Scheduled PRN Albuterol Hfa (Ventolin Hfa), 2 PUFFS INH Q4 PRN for SOB/Wheezing Calcium Carbonate (Tums), 1-2 TABS PO UD PRN for Heartburn Ibuprofen (Advil), 800 MG PO TID PRN for Headache or Pain Lactulose (Chronulac), 15 ML PO BID PRN for Constipation Allergies Coded Allergies: Fluoxetine (Verified Adverse Reaction, Severe, HIVES-SOB, 10/10/16) Vital Signs Date Time Temp Pulse Resp B/P Pulse Ox O2 Delivery O2 Flow Rate FiO2 10/10/16 14:38 36.6 88 18 133/92 97 Room Air Medications Administered Medications (Trade) Dose Ordered Sig/Bernard Route Start Time Stop Time Status Last Admin Dose Admin Promethazine HCl (Phenergan Inj) 25 mg NOW STAT IM 10/10/16 14:56 10/10/16 14:58 DC 10/10/16 15:07 25 MG Hydromorphone HCl (Dilaudid Inj) 2 mg NOW STAT IM 10/10/16 14:56 10/10/16 14:58 DC 10/10/16 15:07 2 MG Ketorolac Tromethamine (Toradol Inj) 60 mg NOW STAT IM 10/10/16 14:56 10/10/16 14:58 DC 10/10/16 15:07 60 MG Departure Information Impression Primary Impression: Headache Dispostion Home / Self-Care Condition GOOD Referrals Elaine Nice D.O. (PCP) Patient Instructions My [facility] Additional Instructions You have been treated in the Emergency Department for a Headache. You have received pain medicine in the emergency department which impairs your ability to operate a vehicle. It is illegal for you to drive after receiving these medicines. For pain control, you can use the following [id number] medicines (if >12 yo): - Regular strength (325mg/tab) Tylenol (acetaminophen) 2 tabs every 4-6 hours as needed. Do not exceed 12 tablets in a 24 hour period. Avoid taking more than 3 grams (3000 mg) of Tylenol per day. This includes any other sources of acetaminophen you may take on a regular basis. - Regular strength (200 mg/tab) Advil (ibuprofen) 1-2 tabs every 4-6 hours as needed. Do not exceed a dose of 3200 mg per day. You should relax in a quiet, dark place for the rest of the day. Avoid any possible triggers including: cigarette smoke, caffeine, nicotine, chocolate, wine, beer, loud noises or music, or bright lights. You should schedule a follow-up appointment in 2-3 days with your Primary Care Provider or established Neurologist for further evaluation and treatment of your Headache. Return to the Emergency Department if your current symptoms worsen despite treatment course outlined above, or if you develop any of the following symptoms : intractable pain despite aforementioned treatment course, visual disturbances , loss of vision, unilateral weakness or facial drooping, slurring of speech, loss of coordination, or loss of consciousness. Please return to the emergency department with any new/concerning symptoms.
[2016-10-12] MEDS ORDERED: METH-589 PO (16:29)
[2016-10-12] MEDS ORDERED: CYAN100T PO (16:29)
[2016-10-12] MEDS ORDERED: FLV1 PO (16:29)
[2017-01-26] MEDS ORDERED: METH-589 PO (00:15)
[2017-01-26] MEDS ORDERED: VNTHFA/IN INH (16:29)
[2017-03-03] MEDS ORDERED: FLNIN/ NAE (16:33)
[2017-03-03] MEDS ORDERED: PROP20TA67 PO (16:33)
== END 2016-10-10 15:07 | disposition home or self-care (01) ==
LOC: C.EDB 14:35 → C.EDD 15:07
DX: R51 Headache (principal); J45.909 Unspecified asthma, uncomplicated; E05.90 Thyrotoxicosis, unspecified without thyrotoxic crisis or storm; F39 Unspecified mood [affective] disorder; Z72.0 Tobacco use; Z79.899 Other long term (current) drug therapy

== ENCOUNTER 2016-10-12 20:03 | Emergency (ER) | payer OTHER ==
[~2016-10-12] VITALS: Ht 165.1 cm; Wt 87.5 kg
[~2016-10-12 20:03] MED LIST changes: +CYAN100T PO; +FLV1 PO; -LORA-741 PO; +METH-589 PO
[2016-10-12 20:07] VITALS: TEMP 37; Ht 165.1 cm; Wt 87.5 kg
[2016-10-12] MEDS ORDERED: KETOROLAC TROMETHAMINE 60 MG/2 ML VIAL IM STA (20:44)
[2016-10-12] MEDS ORDERED: CEFTRIAXONE SOD 350MG/ML 1 GM VIAL IM ONE (20:45)
[2016-10-12] MEDS ORDERED: DOXY100C PO (20:47)
[2016-10-12 21:06] VITALS: BP 134/92; PULSE 110; O2SAT 97
--- NOTE | 2016-10-12 23:45 | EMERGENCY ROOM VISIT NOTE ---
History First contact with patient: 20:24 Chief Complaint: RASH Stated Complaint: RED SPLOTCHES ALL OVER, SORE NECK, HEADACHE History of Present Illness The patient is a 36 year old female who presents to the Emergency Room with complaints of mild headache and rash all over her body. The patient was seen and evaluated 2 days ago for a headache, and she did feel better after being provided narcotics here in the department. She states that she went home, rested, and now today she noticed a rash primarily on her arms and legs. She is not had fever or chills. No difficulty with chest pain or shortness of breath. She rates her discomfort a 6/10. This is not the worst headache of her life. Review of Systems More than 10 systems were reviewed and otherwise negative with the exception of history of present illness. Past Medical/Surgical History Medical Problems: (1) Asthma (2) Asthma (3) Hyperthyroidism (4) Mood disorder (5) Tobacco abuse (6) UTI (urinary tract infection) Surgical Problems: (1) H/O tubal ligation (2) History of dental surgery (3) Hx of cholecystectomy (4) S/P tubal ligation Family History Cancer Diabetes mellitus FHx: gallbladder disease Heart disease Hypertension Kidney disease Kidney stones Social History Smoking Status: Current Every Day Smoker Alcohol Use: none Drug Use: none Marital Status: in relationship Housing Status: lives with family Occupation Status: employed Current/Historical Medications Scheduled Cyanocobalamin (Vitamin B-12), 100 MCG PO DAILY Doxycycline Hyclate (Vibramycin), 100 MG PO BID Folic Acid (Folic Acid), 1 MG PO DAILY Methimazole (Methimazole ), 5 MG PO BID Propranolol (Inderal), 20 MG PO BID Scheduled PRN Albuterol Hfa (Ventolin Hfa), 2 PUFFS INH Q4H PRN for SOB/Wheezing Calcium Carbonate (Tums), 500-1,000 MG PO UD PRN for Heartburn Fluticasone Propionate (Fluticasone Propionate), 2 SPRAYS BALTA DAILY PRN for Allergy Symptoms Ibuprofen (Advil), 800 MG PO TID PRN for Headache or Pain Lactulose (Chronulac), 15 ML PO BID PRN for Constipation Allergies Coded Allergies: Fluoxetine (Verified Adverse Reaction, Severe, HIVES-SOB, 10/12/16) Physical Exam Vital Signs Date Time Temp Pulse Resp B/P Pulse Ox O2 Delivery O2 Flow Rate FiO2 10/12/16 21:06 110 20 134/92 97 Room Air 10/12/16 20:07 37.0 113 18 149/103 97 Room Air Pain Rating (0-10): 7.0 Physical Exam VITALS: Vitals are noted on the nurse's note and reviewed by myself. Vital signs stable. GENERAL: Well-developed, well-nourished, white female, who is in no acute distress and resting comfortably. Patient is cooperative with the examination. HEAD: Normocephalic atraumatic. NECK: Supple without nuchal rigidity. No lymphadenopathy. No thyromegaly. Cervical spine is nontender. No meningismus. HEART: Regular rate and rhythm without murmurs gallops or rubs. LUNGS: Clear to auscultation bilaterally without wheezes, rales or rhonchi. No retractions or accessory muscle use. SKIN: The skin was with annular rash across the arms and legs bilateral. No tick bite actively noted. Medical Decision & Procedures Medications Administered Medications (Trade) Dose Ordered Sig/Bernard Route Start Time Stop Time Status Last Admin Dose Admin Ceftriaxone Sodium (Rocephin Im) 1,000 mg NOW ONCE IM 10/12/16 20:45 10/12/16 20:46 DC 10/12/16 20:53 1,000 MG Ketorolac Tromethamine (Toradol Inj) 60 mg NOW STAT IM 10/12/16 20:44 10/12/16 20:45 DC 10/12/16 20:53 60 MG ED Course Physical exam and history were performed. Nursing notes and EMR were reviewed. Patient appears to have a rash for the past one day. Clinically this is most consistent with Lyme disease. The patient reports that she does have outside cats that will come into the house, and she has seen ticks on the animals. The patient and I had a lengthy discussion that her headache symptoms may be related to the Lyme disease. I recommended lumbar puncture, but the patient declined. She will be given a dose of 1 g IM Rocephin as well as 60 mg IM Toradol. She will be treated with a 3 week course of doxycycline. The patient is to follow with her primary care physician in the next few days for recheck of her condition. She was otherwise invited back to the ER with any new, worsening, or concerning symptoms. The chart was completed utilizing Dragon Speech Voice Recognition Software. Grammatical errors, random word insertions, pronoun errors, and incomplete sentences are an occasional consequence of this system due to software limitations, ambient noise, and hardware issues. Any formal questions or concerns about the content, text, or information contained within the body of this dictation should be directly addressed to the provider for clarification. . Medical Decision Differential diagnosis includes, but is not limited to: Lyme disease, migraine, meningitis, encephalitis, and others Impression Primary Impression: Erythema migrans (Lyme disease) Additional Impression: Headache Departure Information Dispostion Home / Self-Care Condition GOOD Prescriptions Doxycycline Hyclate (VIBRAMYCIN) 100 Mg Cap 100 MG PO BID for 21 Days, #42 CAP Prov: Zack Mendoza PA-C 10/12/16 Forms HOME CARE DOCUMENTATION FORM, IMPORTANT VISIT INFORMATION Patient Instructions My [facility], ED Lyme Disease Additional Instructions You were seen and evaluated today on an emergency basis only. This is not a substitute for, or an effort to provide, complete comprehensive medical care. It is not possible to recognize and treat all injuries or illnesses in a single emergency department visit. For this reason it is recommended that you followup with your primary care physician next week for ongoing care and evaluation. Take doxycycline 100 mg twice daily for the next 3 weeks. Take this medication with food to prevent an upset stomach. This medication will make you more susceptible to sunburn. Wear sunscreen and appropriate clothing when outside while on this medication. You are welcome to return to the emergency department anytime with new, worsening, or concerning symptoms. Problem Qualifiers
[2017-01-26] MEDS ORDERED: METH-589 PO (00:15)
[2017-01-26] MEDS ORDERED: VNTHFA/IN INH (16:29)
[2017-03-03] MEDS ORDERED: PROP20TA67 PO (16:33)
[2017-03-03] MEDS ORDERED: FLNIN/ NAE (16:33)
== END 2016-10-12 21:07 | disposition home or self-care (01) ==
LOC: C.EDB 20:05 → C.EDD 21:07
DX: A69.20 Lyme disease, unspecified (principal); R51 Headache; J45.909 Unspecified asthma, uncomplicated; E05.90 Thyrotoxicosis, unspecified without thyrotoxic crisis or storm; F39 Unspecified mood [affective] disorder; Z87.440 Personal history of urinary (tract) infections; F17.210 Nicotine dependence, cigarettes, uncomplicated; Z90.49 Acquired absence of other specified parts of digestive tract; Z98.51 Tubal ligation status; Z80.9 Family history of malignant neoplasm, unspecified; Z83.3 Family history of diabetes mellitus; Z82.49 Family history of ischemic heart disease and other diseases of the circulatory system; Z84.1 Family history of disorders of kidney and ureter; Z79.899 Other long term (current) drug therapy

== ENCOUNTER 2016-11-24 15:24 | Emergency (ER) | payer OTHER ==
[~2016-11-24] VITALS: Ht 165.1 cm; Wt 86.6 kg
[~2016-11-24 15:24] MED LIST changes: +CALC500C3 PO; +FLNIN/ NAE; +IBUP-1050 PO; +LACT10SO17 PO; +PROP20TA67 PO; +VNTHFA/IN INH
[2016-11-24 15:27] VITALS: TEMP 36.8; Ht 165.1 cm; Wt 86.6 kg
--- NOTE | 2016-11-24 15:46 | EMERGENCY ROOM VISIT NOTE ---
History Report prepared by Vane: Ramón Hernandez Under the Supervision of: Dr. Heriberto Khalil M.D. First contact with patient: 15:33 Chief Complaint: CHEST PAIN Stated Complaint: CHEST PAIN, PAIN IN BACK BETWEEN SHOULDER BLADES History of Present Illness The patient is a 36 year old female with a history of asthma who presents to the Emergency Room with complaints of worsening chest pain that started 3 days ago. She says that it started intermittently, but has been getting much more intense. The patient states that whenever she swallows anything, she gets shooting chest pain and pain between her shoulder blades. She says that the pain takes her breath away. She states that episodes can last as long as the whole day. The patient adds that she gets the pain when swallowing. The patient notes that occasionally, she gets the pain when taking a deep breath. She says that she has been feeling short of breath, but she is not sure if that is from having 2 months of wheezing. The patient states that she was given inhalers, and last week was put on an antibiotic, but she was not told if she had any infection. The patient adds that she has had a bit of a cough for the past 2 months as well. She is a smoker. The patient denies any headaches, vomiting, abdominal pain, fevers, leg swelling, or leg pain. The patient also denies any strain that could have caused the pain, any recent falls, or chance of . The patient notes that she has a hyperactive thyroid, and just finished treatment for Lyme disease. Her mother had a history of blood clots. The patient has a history of a cholecystectomy. Source of History: patient Onset: 3 days ago Position: chest (mid) Quality: other (shooting) Timing: worsening, other (episodes) Modifying Factors (Worsening): breathing, other (swallowing) Associated Symptoms: + SOB, + back pain, No fevers, No headache, No vomiting , No abdominal pain Note: Associated symptoms: Denies leg swelling or leg pain. Review of Systems See HPI for pertinent positives & negatives. A total of 10 systems reviewed and were otherwise negative. Past Medical & Surgical Medical Problems: (1) Asthma (2) Asthma (3) Hyperthyroidism (4) Mood disorder (5) Tobacco abuse (6) UTI (urinary tract infection) Surgical Problems: (1) H/O tubal ligation (2) History of dental surgery (3) Hx of cholecystectomy (4) S/P tubal ligation Old medical records were reviewed. Nurse's notes were reviewed and I agree with. Family History Cancer Diabetes mellitus FHx: gallbladder disease Heart disease Hypertension Kidney disease Kidney stones Social History Smoking Status: Current Every Day Smoker Alcohol Use: none Drug Use: none Marital Status: in relationship Housing Status: lives with family Occupation Status: employed Current/Historical Medications Scheduled Cyanocobalamin (Vitamin B-12), 100 MCG PO DAILY Folic Acid (Folic Acid), 1 MG PO DAILY Methimazole (Methimazole ), 5 MG PO BID Propranolol (Inderal), 20 MG PO BID [Amox-Clav], 1 TAB PO BID Scheduled PRN Albuterol Hfa (Ventolin Hfa), 2 PUFFS INH Q4H PRN for SOB/Wheezing Calcium Carbonate (Tums), 500-1,000 MG PO UD PRN for Heartburn Fluticasone Propionate (Fluticasone Propionate), 2 SPRAYS BALTA DAILY PRN for Allergy Symptoms Ibuprofen (Advil), 800 MG PO TID PRN for Headache or Pain Lactulose (Chronulac), 15 ML PO BID PRN for Constipation Allergies Coded Allergies: Fluoxetine (Verified Adverse Reaction, Severe, HIVES-SOB, 11/24/16) Physical Exam Vital Signs Date Time Temp Pulse Resp B/P (MAP) Pulse Ox O2 Delivery O2 Flow Rate FiO2 11/24/16 17:33 69 16 109/73 98 11/24/16 16:34 75 16 116/74 98 Room Air 11/24/16 16:01 Room Air 11/24/16 15:39 79 11/24/16 15:27 36.8 91 18 130/93 98 Room Air Physical Exam General: Well developed well nourished non ill appearing young female in no acute distress. Normal speech. HEENT: Normal cephalic atraumatic. Pupils are equal round and reactive to light. Extraocular movements are intact. Oropharynx is pink with moist mucous membranes. No swelling of the mouth lips or tongue. Neck: Supple with a midline trachea. No meningeal signs or stiffness, no JVD or bruits. No Stridor. Chest: Clear to auscultation bilaterally. No wheezes or rhonchi. No increased work of breathing. Heart: regular rate and rhythm. Abdomen: Soft nontender, nondistended without rebound guarding or rigidity. Extremities: No cyanosis clubbing or edema. No calf tenderness or assymetry Spine/Back. Non tender to palpation. No CVA tenderness Skin: Good turgor without rashes. Neurologic exam: Cranial nerves two through 12 are intact. Motor and sensation are intact and symmetrical throughout. Medical Decision & Procedures ER Provider Diagnostic Interpretation: X-ray results as stated below per interpretation by me and the radiologist: CHEST ONE VIEW PORTABLE CLINICAL HISTORY: CHEST PAIN dyspnea COMPARISON STUDY: 07/21/2016 FINDINGS: The bones soft tissues and hemidiaphragms are normal. The cardiomediastinal silhouette is normal. The lungs are clear. The pulmonary vasculature is normal. IMPRESSION: Negative chest. Electronically signed by: Yobany Somers M.D. 11/24/2016 3:55 PM Dictated Date/Time: 11/24/2016 3:54 PM Laboratory Results 11/24/16 15:45 Red Blood Count 4.46, Mean Corpuscular Volume 85.2, Mean Corpuscular Hemoglobin 28.9, Mean Corpuscular Hemoglobin Concent 33.9, Mean Platelet Volume 10.1, Neutrophils (%) (Auto) 52.2, Lymphocytes (%) (Auto) 35.6, Monocytes (%) (Auto) 8.9, Eosinophils (%) (Auto) 2.9, Basophils (%) (Auto) 0.2, Neutrophils # (Auto) 3.39, Lymphocytes # (Auto) 2.31, Monocytes # (Auto) 0.58, Eosinophils # (Auto) 0.19, Basophils # (Auto) 0.01 11/24/16 15:45 Test 11/24/16 15:45 11/24/16 15:56 White Blood Count 6.49 K/uL (4.8-10.8) Red Blood Count 4.46 M/uL (4.2-5.4) Hemoglobin 12.9 g/dL (12.0-16.0) Hematocrit 38.0 % (37-47) Mean Corpuscular Volume 85.2 fL (80-100) Mean Corpuscular Hemoglobin 28.9 pg (25-34) Mean Corpuscular Hemoglobin Concent 33.9 g/dl (32-36) Platelet Count 206 K/uL (130-400) Mean Platelet Volume 10.1 fL (7.4-10.4) Neutrophils (%) (Auto) 52.2 % Lymphocytes (%) (Auto) 35.6 % Monocytes (%) (Auto) 8.9 % Eosinophils (%) (Auto) 2.9 % Basophils (%) (Auto) 0.2 % Neutrophils # (Auto) 3.39 K/uL (1.4-6.5) Lymphocytes # (Auto) 2.31 K/uL (1.2-3.4) Monocytes # (Auto) 0.58 K/uL (0.11-0.59) Eosinophils # (Auto) 0.19 K/uL (0-0.5) Basophils # (Auto) 0.01 K/uL (0-0.2) RDW Standard Deviation 40.1 fL (36.4-46.3) RDW Coefficient of Variation 12.8 % (11.5-14.5) Immature Granulocyte % (Auto) 0.2 % Immature Granulocyte # (Auto) 0.01 K/uL (0.00-0.02) Anion Gap 8.0 mmol/L (3-11) Est Creatinine Clear Calc Drug Dose 83.7 ml/min Estimated GFR () 83.4 Estimated GFR (Non- 71.9 BUN/Creatinine Ratio 9.9 (10-20) Calcium Level 8.6 mg/dl (8.5-10.1) Total Bilirubin 0.3 mg/dl (0.2-1) Direct Bilirubin < 0.1 mg/dl (0-0.2) Aspartate Amino Transf (AST/SGOT) 13 U/L (15-37) Alanine Aminotransferase (ALT/SGPT) 26 U/L (12-78) Alkaline Phosphatase 54 U/L (45-117) Total Creatine Kinase 64 U/L (26-192) Creatine Kinase MB < 0.5 ng/ml (0.5-3.6) Creatine Kinase MB Ratio (0-3.0) Total Protein 6.8 gm/dl (6.4-8.2) Albumin 3.7 gm/dl (3.4-5.0) Lipase 96 U/L (73-393) Thyroid Stimulating Hormone (TSH) < 0.005 uIu/ml (0.300-4.500) Human Chorionic Gonadotropin, Qual NEG (NEG) Bedside D-Dimer 268 ng/mlFEU (0-450) Bedside Troponin I < 0.030 ng/ml (0-0.045) Laboratory studies as stated above per my review. ECG Indication: chest pain Rate (beats per minute): 71 Rhythm: normal sinus Findings: no acute ischemic change, no ectopy Change: no significant change (from August 15 2016) ED Course 1535: Past medical records reviewed. The patient was evaluated in room C9, and a complete history and physical examination were performed. 1725: Upon reevaluation, the patient is feeling better. I discussed the results and treatment plan with her. She verbalized agreement of the treatment plan. The patient was discharged home. Medical Decision Differentials include, but are not limited to; acute coronary syndrome, arrhythmia, PE, esophageal/GI disease, pancreatitis. aortic disease. Medication Reconciliation: I attest that I have personally reviewed the patient' s current medication list. Blood Pressure Screening: Patient was found to have a mildly elevated blood pressure due to circumstances. I do not believe that the patient requires hypertension monitoring. This patient comes in as described above. She's been having some chest pain that has been going on for several days persistently. She looks well on exam. She is not hypoxemic and has stable vital signs. Chest x-ray, EKG, and blood work was obtained. EKG does not suggest acute coronary syndrome or arrhythmia. Her cardiac markers are not elevated. Her d-dimer is within normal limits and she is nothing to suggest a PE clinically. Chest x-ray is unremarkable and there is nothing to suggest congestive heart failure, pneumonia, or pneumothorax. She has no acute electrolyte or metabolic abnormality. TSH is low however clinically she's not acting hyperthyroid. She is non-tachycardic and she is normotensive. She says she just saw her elementary librarian recently and had a full panel checked. I encouraged her to follow up with her regular doctor. She is having symptoms when she swallows and it could be related to esophagitis. She's had no retching or anything to suggest significant esophageal injury or perforation or Boerhaave's. She can use [id number] Zantac and or Maalox and return if increasing pain, shortness of breath, worsening of symptoms, any new problems or concerns. She was happy with the plan and discharged to home. Impression Primary Impression: Precordial chest pain Additional Impression: Dysphagia Scribe Attestation The scribe's documentation has been prepared under my direction and personally reviewed by me in its entirety. I confirm that the note above accurately reflects all work, treatment, procedures, and medical decision making performed by me. Departure Information Dispostion Home / Self-Care Referrals Elaine Nice D.O. (PCP) Forms HOME CARE DOCUMENTATION FORM, IMPORTANT VISIT INFORMATION Patient Instructions My [facility] Additional Instructions Rest. Drink plenty of fluids. May use Maalox and/or [id number] Zantac if needed Follow-up with your doctor tomorrow for recheck Your thyroid meds may need to be adjusted long-term. Return if: Worsening symptoms, fever or chills, shortness breath, any new problems or concerns Follow-up with your doctor in 1-2 days for recheck Problem Qualifiers Additional Impression: Dysphagia Dysphagia type: unspecified Qualified Codes: R13.10 - Dysphagia, unspecified
--- NOTE | 2016-11-24 15:56 | DIAGNOSTIC IMAGING REPORT ---
CHEST ONE VIEW PORTABLE CLINICAL HISTORY: CHEST PAIN dyspnea COMPARISON STUDY: 07/21/2016 FINDINGS: The bones soft tissues and hemidiaphragms are normal. The cardiomediastinal silhouette is normal. The lungs are clear. The pulmonary vasculature is normal. IMPRESSION: Negative chest. Electronically signed by: Yobany Somers M.D. 11/24/2016 3:55 PM Dictated Date/Time: 11/24/2016 3:54 PM
[2016-11-24] MEDS ORDERED: AMOX-CLAV PO ×2 (15:58→16:00)
[2016-11-24 16:02] LABS: BASO % 0.2 %; BASO ABS # 0.01 K/uL (0-0.2); COMPLETE YES; EOS % 2.9 %; IG% 0.2 %; LYMPH % 35.6 %; LYMPH ABS # 2.31 K/uL (1.2-3.4); MEAN CELL VOLUME 85.2 fL (80-100); MEAN CORPUSCULAR HEMOGLOBIN 28.9 pg (25-34); MEAN CORPUSCULAR HGB CONC 33.9 g/dl (32-36); MEAN PLATELET VOLUME 10.1 fL (7.4-10.4); MONO % 8.9 %; NEUT % 52.2 %; PLATELET COUNT 206 K/uL (130-400); RED BLOOD COUNT 4.46 M/uL (4.2-5.4); WHITE BLOOD COUNT 6.49 K/uL (4.8-10.8)
[2016-11-24 16:15] LABS: POINT OF CARE TROPONIN I < 0.030 ng/ml (0-0.045)
[2016-11-24 16:18] LABS: ALT/SGPT 26 U/L (12-78); BLOOD UREA NITROGEN 10 mg/dl (7-18); BUN/CREATININE RATIO 9.9 (10-20); CALCIUM 8.6 mg/dl (8.5-10.1); CARBON DIOXIDE 23 mmol/L (21-32); CHLORIDE 108 mmol/L (98-107); GLUCOSE 86 mg/dl (70-99); SODIUM 139 mmol/L (136-145)
[2016-11-24 16:26] LABS: PREG INTERNAL NEGATIVE QC NEG CLEAR BACKGROUND; PREG INTERNAL POSITIVE QC POS CONTROL LINE
[2016-11-24 16:29] LABS: ALKALINE PHOSPHATASE 54 U/L (45-117); AST/SGOT 13 U/L (15-37); THYROID STIMULATING HORMONE < 0.005 uIu/ml (0.300-4.500)
[2016-11-24 17:33] VITALS: BP 109/73; PULSE 69; O2SAT 98
== END 2016-11-24 17:33 | disposition home or self-care (01) ==
LOC: C.EDB 15:26 → C.EDC 17:33
DX: R07.2 Precordial pain (principal); R13.10 Dysphagia, unspecified; E05.90 Thyrotoxicosis, unspecified without thyrotoxic crisis or storm; J45.909 Unspecified asthma, uncomplicated; F17.200 Nicotine dependence, unspecified, uncomplicated; Z87.440 Personal history of urinary (tract) infections; Z98.51 Tubal ligation status; Z90.49 Acquired absence of other specified parts of digestive tract; Z79.899 Other long term (current) drug therapy; Z88.8 Allergy status to other drugs, medicaments and biological substances; Z80.9 Family history of malignant neoplasm, unspecified; Z83.3 Family history of diabetes mellitus; Z83.79 Family history of other diseases of the digestive system; Z82.49 Family history of ischemic heart disease and other diseases of the circulatory system; Z84.1 Family history of disorders of kidney and ureter

== ENCOUNTER 2016-12-27 21:06 | Emergency (ER) | payer OTHER ==
[~2016-12-27] VITALS: Ht 165.1 cm; Wt 85.6 kg
[~2016-12-27 21:06] MED LIST changes: +AMOX-CLAV PO; -CALC500C3 PO; -FLNIN/ NAE; -IBUP-1050 PO; -LACT10SO17 PO; -PROP20TA67 PO; -VNTHFA/IN INH
[2016-12-27 21:32] VITALS: TEMP 36.7; Ht 165.1 cm; Wt 85.6 kg
--- NOTE | 2016-12-27 21:49 | EMERGENCY ROOM VISIT NOTE ---
History Report prepared by Azaleaibe: Cindy Pina Under the Supervision of: Dr. Sushila Alvares M.D. First contact with patient: 21:38 Chief Complaint: FOOT PAIN Stated Complaint: LEFT FOOT HURTS BUMP ON TOP History of Present Illness The patient is a 36 year old female who presents to the Emergency Room with complaints of persistent shooting pain in her left foot starting about a week ago. The patient states that she noticed a bump on her foot two days ago. She also states that when she is walking or going up stairs her pain is worsened. Source of History: patient Onset: a week ago Position: foot (left) Quality: other (shooting) Timing: other (persistent) Modifying Factors (Worsening): other (walking and going up stairs) Review of Systems See HPI for pertinent positives & negatives. A total of 6 systems reviewed and were otherwise negative. Past Medical & Surgical Medical Problems: (1) Asthma (2) Asthma (3) Hyperthyroidism (4) Mood disorder (5) Tobacco abuse (6) UTI (urinary tract infection) Surgical Problems: (1) H/O tubal ligation (2) History of dental surgery (3) Hx of cholecystectomy (4) S/P tubal ligation Family History Cancer Diabetes mellitus FHx: gallbladder disease Heart disease Hypertension Kidney disease Kidney stones Social History Smoking Status: Current Every Day Smoker Alcohol Use: none Drug Use: none Marital Status: in relationship Housing Status: lives with family Occupation Status: employed Current/Historical Medications Scheduled Propranolol (Inderal), 20 MG PO BID Scheduled PRN Albuterol Hfa (Ventolin Hfa), 2 PUFFS INH Q4H PRN for SOB/Wheezing Calcium Carbonate (Tums), 500-1,000 MG PO UD PRN for Heartburn Fluticasone Propionate (Fluticasone Propionate), 2 SPRAYS [place] DAILY PRN for Allergy Symptoms Ibuprofen (Advil), 800 MG PO TID PRN for Headache or Pain Lactulose (Chronulac), 15 ML PO BID PRN for Constipation Allergies Coded Allergies: Fluoxetine (Verified Adverse Reaction, Severe, HIVES-SOB, 11/24/16) Physical Exam Vital Signs Date Time Temp Pulse Resp B/P (MAP) Pulse Ox O2 Delivery O2 Flow Rate FiO2 12/27/16 22:51 85 18 139/76 97 12/27/16 21:32 36.7 90 20 142/100 100 Room Air Physical Exam Vital signs reviewed. General: Well-appearing female, in no significant distress. Musculoskeletal: Atraumatic, no peripheral edema. Extremities: Left foot bony prominence over dorsum no significant swelling no erythema or open lesions Neurologic: Patient awake alert and oriented x 3 Skin: Warm, dry, no rash Medical Decision & Procedures ER Provider Diagnostic Interpretation: LEFT FOOT MIN 3 VIEWS ROUTINE Discussion: Mild degenerative change for age. Cortical margins are intact. Alignment is anatomic. The prominent heel spur. IMPRESSION: Prominent heel spur. No acute bony abnormality. Minimal degenerative change of the intertarsal and tarsometatarsal joints. The above report was generated using voice recognition software. It may contain grammatical, syntax or spelling errors. Electronically signed by: Yobany Somers M.D. ED Course 2141: Past medical records reviewed. The patient was evaluated in room A11. A complete history and physical examination was performed. 2241: Upon reevaluation, the patient appeared to have improvement of her symptoms. I discussed findings with the patient. She verbalized agreement of the treatment plan. The patient was discharged home. Medical Decision Differential diagnosis: Etiologies such as fracture, dislocation, neurovascular compromise, compartment syndrome, soft tissue injury, as well as others were entertained. This pt was evaluated and appeared to be in no distress. PE reveals a aryan prominence over the dorsum of the L foot at the base of the 3/4 metatarsals. XR reveals degenerative changes, no acute fx or dislocation. Pt was given a walking shoe and advised to use ibuprofen for pain. She will f/u with orthopaedics if symptoms persist. Pt will return to the ED for worsening of symptoms or any medical concerns. Medication Reconcilliation Current Medication List: was personally reviewed by me Blood Pressure Screening Patient's blood pressure: Elevated blood pressure Blood pressure disposition: Elevated BP felt to be situational Impression Primary Impression: Pain in left foot Scribe Attestation The scribe's documentation has been prepared under my direction and personally reviewed by me in its entirety. I confirm that the note above accurately reflects all work, treatment, procedures, and medical decision making performed by me. Departure Information Dispostion Home / Self-Care Referrals Elaine Nice D.O. (PCP) Forms HOME CARE DOCUMENTATION FORM, IMPORTANT VISIT INFORMATION Patient Instructions My [facility] Additional Instructions Diagnosis: Left foot pain Ibuprofen 600 mg every 6 hours as needed for pain with food. Ice and elevate several times daily. Wear your walking shoe for the next week for comfort. Follow-up with your physician this week for reevaluation and return to the ER for worsening of symptoms or any medical concerns.
--- NOTE | 2016-12-27 22:07 | DIAGNOSTIC IMAGING REPORT ---
LEFT FOOT MIN 3 VIEWS ROUTINE CLINICAL HISTORY: L foot swelling, pain pain. Edema. COMPARISON: None. Discussion: Mild degenerative change for age. Cortical margins are intact. Alignment is anatomic. The prominent heel spur. IMPRESSION: Prominent heel spur. No acute bony abnormality. Minimal degenerative change of the intertarsal and tarsometatarsal joints. The above report was generated using voice recognition software. It may contain grammatical, syntax or spelling errors. Electronically signed by: Yobany Somers M.D. 12/27/2016 10:06 PM Dictated Date/Time: 12/27/2016 10:04 PM
[2016-12-27 22:51] VITALS: BP 139/76; PULSE 85; O2SAT 97
[2017-01-26] MEDS ORDERED: METH-589 PO (00:15)
[2017-01-26] MEDS ORDERED: VNTHFA/IN INH (16:29)
[2017-01-26] MEDS ORDERED: PROP20TA67 PO (16:33)
[2017-01-26] MEDS ORDERED: FLNIN/ NAE (16:33)
== END 2016-12-27 22:52 | disposition home or self-care (01) ==
LOC: C.EDB 21:07 → C.EDA 22:52
DX: M79.672 Pain in left foot (principal); R22.40 Localized swelling, mass and lump, unspecified lower limb; J45.909 Unspecified asthma, uncomplicated; E05.90 Thyrotoxicosis, unspecified without thyrotoxic crisis or storm; F39 Unspecified mood [affective] disorder; F17.200 Nicotine dependence, unspecified, uncomplicated; Z87.440 Personal history of urinary (tract) infections; Z98.51 Tubal ligation status; Z83.3 Family history of diabetes mellitus; Z82.49 Family history of ischemic heart disease and other diseases of the circulatory system; Z84.1 Family history of disorders of kidney and ureter

== ENCOUNTER 2017-01-03 23:38 | Emergency (ER) | payer OTHER ==
[~2017-01-03] VITALS: Ht 165.1 cm; Wt 85.0 kg
[2017-01-03 23:41] VITALS: TEMP 36.8; Ht 165.1 cm; Wt 85.0 kg
[2017-01-04 00:15] LABS: BASO % 0.3 %; BASO ABS # 0.02 K/uL (0-0.2); COMPLETE YES; EOS % 3.5 %; HEMATOCRIT 39.6 % (37-47); IG% 0.3 %; LYMPH % 38.5 %; LYMPH ABS # 2.88 K/uL (1.2-3.4); MEAN CELL VOLUME 83.5 fL (80-100); MEAN CORPUSCULAR HEMOGLOBIN 28.9 pg (25-34); MEAN CORPUSCULAR HGB CONC 34.6 g/dl (32-36); MEAN PLATELET VOLUME 10.1 fL (7.4-10.4); MONO % 8.3 %; NEUT % 49.1 %; PLATELET COUNT 279 K/uL (130-400); RED BLOOD COUNT 4.74 M/uL (4.2-5.4); WHITE BLOOD COUNT 7.48 K/uL (4.8-10.8)
--- NOTE | 2017-01-04 00:24 | EMERGENCY ROOM VISIT NOTE ---
History Report prepared by Vane: Cindy Pina Under the Supervision of: Dr. Eddie Fitzpatrick M.D. First contact with patient: 23:45 Chief Complaint: HYPERTENSION Stated Complaint: HIGH BLOOD PRESSURE,SHAKEY,SHARP PAIN LT SIDE CHES History of Present Illness The patient is a 36 year old female who presents to the Emergency Room with complaints of feeling persistently hypertensive and overly fatigued starting yesterday. She notes that she has been feeling achey, short of breath, weak, and like she is going to pass out. The patient also notes that she hyperthyroidism and hypertension.She denies feeling stressed or anxious. The patient has a family history of blood clots. She is on Coumadin. Source of History: patient Onset: yesterday Timing: other (persistently ) Associated Symptoms: + SOB, + fatigue, + weakness Note: Pt feel achey and like she is going to pass out. Pt denies feeling stressed or anxious Review of Systems See HPI for pertinent positives & negatives. A total of 10 systems reviewed and were otherwise negative. Past Medical & Surgical Medical Problems: (1) Asthma (2) Asthma (3) Hyperthyroidism (4) Mood disorder (5) Tobacco abuse (6) UTI (urinary tract infection) Surgical Problems: (1) H/O tubal ligation (2) History of dental surgery (3) Hx of cholecystectomy (4) S/P tubal ligation Family History Cancer Diabetes mellitus FHx: gallbladder disease Heart disease Hypertension Kidney disease Kidney stones Social History Smoking Status: Current Every Day Smoker Alcohol Use: none Drug Use: none Marital Status: in relationship Housing Status: lives with family Occupation Status: employed Current/Historical Medications Scheduled Methimazole (Methimazole ), 3 TABS PO QAM Propranolol (Inderal), 20 MG PO BID Scheduled PRN Albuterol Hfa (Ventolin Hfa), 2 PUFFS INH Q4H PRN for SOB/Wheezing Calcium Carbonate (Tums), 500-1,000 MG PO UD PRN for Heartburn Fluticasone Propionate (Fluticasone Propionate), 2 SPRAYS BAL[place] DAILY PRN for Allergy Symptoms Ibuprofen (Advil), 800 MG PO TID PRN for Headache or Pain Lactulose (Chronulac), 15 ML PO BID PRN for Constipation Allergies Coded Allergies: Fluoxetine (Verified Adverse Reaction, Severe, HIVES-SOB, 01/04/17) Physical Exam Vital Signs Date Time Temp Pulse Resp B/P (MAP) Pulse Ox O2 Delivery O2 Flow Rate FiO2 01/04/17 01:12 83 20 154/90 97 Room Air 01/04/17 00:33 97 01/04/17 00:14 95 18 147/96 95 Room Air 01/03/17 23:41 36.8 104 18 166/112 100 Room Air Physical Exam GENERAL: Patient is well anxious appearing HEENT: No acute trauma, normocephalic atraumatic, mucous membranes moist, no nasal congestion, no scleral icterus. NECK: No stridor, no adenopathy, no meningismus, trachea is midline. LUNGS: No dyspnea. Clear to auscultation and equal bilaterally. Mild wheezing. HEART: Regular rate and rhythm. No murmurs, rubs, gallops appreciated. ABDOMEN: Soft, nontender, bowel sounds positive, no masses appreciated, no peritonitis. BACK: No midline tenderness, no CVA tenderness EXTREMITIES: Normal motion all extremities, no cyanosis, no edema. NEUROLOGIC: Alert and oriented, no acute motor or sensory deficits, no focal weakness, cranial nerves grossly intact. SKIN: No rash, no jaundice, no diaphoresis. Medical Decision & Procedures ER Provider Diagnostic Interpretation: X ray results are stated below per my interpretation: Chest: 1 view: No infiltrate, no effusion, normal cardiac border. Laboratory Results 01/04/17 00:02 Red Blood Count 4.74, Mean Corpuscular Volume 83.5, Mean Corpuscular Hemoglobin 28.9, Mean Corpuscular Hemoglobin Concent 34.6, Mean Platelet Volume 10.1, Neutrophils (%) (Auto) 49.1, Lymphocytes (%) (Auto) 38.5, Monocytes (%) (Auto) 8.3, Eosinophils (%) (Auto) 3.5, Basophils (%) (Auto) 0.3, Neutrophils # (Auto) 3.68, Lymphocytes # (Auto) 2.88, Monocytes # (Auto) 0.62, Eosinophils # (Auto) 0.26, Basophils # (Auto) 0.02 01/04/17 00:02 Test 01/04/17 00:02 White Blood Count 7.48 K/uL (4.8-10.8) Red Blood Count 4.74 M/uL (4.2-5.4) Hemoglobin 13.7 g/dL (12.0-16.0) Hematocrit 39.6 % (37-47) Mean Corpuscular Volume 83.5 fL (80-100) Mean Corpuscular Hemoglobin 28.9 pg (25-34) Mean Corpuscular Hemoglobin Concent 34.6 g/dl (32-36) Platelet Count 279 K/uL (130-400) Mean Platelet Volume 10.1 fL (7.4-10.4) Neutrophils (%) (Auto) 49.1 % Lymphocytes (%) (Auto) 38.5 % Monocytes (%) (Auto) 8.3 % Eosinophils (%) (Auto) 3.5 % Basophils (%) (Auto) 0.3 % Neutrophils # (Auto) 3.68 K/uL (1.4-6.5) Lymphocytes # (Auto) 2.88 K/uL (1.2-3.4) Monocytes # (Auto) 0.62 K/uL (0.11-0.59) Eosinophils # (Auto) 0.26 K/uL (0-0.5) Basophils # (Auto) 0.02 K/uL (0-0.2) RDW Standard Deviation 37.4 fL (36.4-46.3) RDW Coefficient of Variation 12.2 % (11.5-14.5) Immature Granulocyte % (Auto) 0.3 % Immature Granulocyte # (Auto) 0.02 K/uL (0.00-0.02) D-Dimer 230 ug/L FEU (0-500) Anion Gap 6.0 mmol/L (3-11) Est Creatinine Clear Calc Drug Dose 86.4 ml/min Estimated GFR () 87.6 Estimated GFR (Non- 75.6 BUN/Creatinine Ratio 11.2 (10-20) Calcium Level 8.7 mg/dl (8.5-10.1) Total Creatine Kinase 85 U/L (26-192) Creatine Kinase MB 0.6 ng/ml (0.5-3.6) Creatine Kinase MB Ratio 0.7 (0-3.0) Troponin I < 0.015 ng/ml (0-0.045) Thyroid Stimulating Hormone (TSH) < 0.005 uIu/ml (0.300-4.500) Free Thyroxine 1.31 ng/dl (0.80-1.60) Laboratory results as reviewed by me. ECG Indication: other (hypertensive) Rate (beats per minute): 82 Rhythm: other (sinus arrythmia) Findings: no acute ischemic change, prolonged QT ED Course 2349: The patient was evaluated in room B4B. A complete history and physical exam was performed. 0103: I checked on the patient she feels better and she is going to see her [employer] Department Supervisor next week. I also advised the patient to quick smoking. 0109: Reevaluated the patient. Discussed results and discharge instructions: She verbalized understanding and agreement. The patient is ready for discharge. Medical Decision Differential: Benign Hypertension, Hypertensive Urgency/Emergency, Cardiovascular Pathology, Endocrine, Metabolic/Electrolyte, Renal Disease, End- organ Damage, amongst other pathologies entertained. 36 yr old female arrives with left chest pain, hypertension, anxiety and shortness of breath amongst several other complaints. Symptoms ongoing over last 24 hours. Review of chart remarkable for similar symptoms evaluated several times previously. No neuro deficits nor findings thus no indication brain imaging. EKG unremarkable. Trop negative as is dimer. She has TSH 0 which is normal for here and follows closely with Endocrine (appt next week even ). She does not have findings of thyroid storm currently. She does not have ACS nor PE. BP came down on it's own. Stable and in no distress after discussion on symptoms. Medication Reconcilliation Current Medication List: was personally reviewed by me Blood Pressure Screening Patient's blood pressure: Elevated blood pressure Blood pressure disposition: Referred to PCP Impression Primary Impression: Substernal chest pain Additional Impressions: Hypertension Hyperthyroidism Scribe Attestation The scribe's documentation has been prepared under my direction and personally reviewed by me in its entirety. I confirm that the note above accurately reflects all work, treatment, procedures, and medical decision making performed by me. Departure Information Dispostion Home / Self-Care Referrals Elaine Nice D.O. (PCP) Forms HOME CARE DOCUMENTATION FORM, IMPORTANT VISIT INFORMATION, WORK / SCHOOL INSTRUCTIONS Patient Instructions My [facility] Additional Instructions Your blood pressure was elevated during this visit. This is quite common in many people who are being evaluated in the Emergency Department for many reasons. However, it is important that you have your Primary Care Provider recheck your blood pressure and discuss whether treatment will be needed. superintendent [employer] elevated blood pressure can lead to strokes, heart attacks, kidney failure amongst other medical issues. If you develop severe headaches, chest pain, weakness in arms or legs, or other concerning symptoms call 911. Problem Qualifiers Additional Impressions: Hypertension Hypertension type: unspecified Qualified Codes: I10 - Essential (primary) hypertension
[2017-01-04 00:40] LABS: BLOOD UREA NITROGEN 11 mg/dl (7-18); BUN/CREATININE RATIO 11.2 (10-20); CALCIUM 8.7 mg/dl (8.5-10.1); CARBON DIOXIDE 26 mmol/L (21-32); CHLORIDE 108 mmol/L (98-107); CREATININE 0.96 mg/dl (0.60-1.20); GLUCOSE 88 mg/dl (70-99); POTASSIUM 3.7 mmol/L (3.5-5.1); SODIUM 140 mmol/L (136-145)
[2017-01-04 00:50] LABS: CKMB/CK RATIO 0.7 (0-3.0); THYROID STIMULATING HORMONE < 0.005 uIu/ml (0.300-4.500)
[2017-01-04 01:12] VITALS: BP 154/90; PULSE 83; O2SAT 97
--- NOTE | 2017-01-04 06:37 | DIAGNOSTIC IMAGING REPORT ---
CHEST ONE VIEW PORTABLE HISTORY: 36 years-old Female Chest Pain COMPARISON: Chest radiograph 11/24/2016 TECHNIQUE: Portable upright AP view of the chest FINDINGS: The cardiomediastinal and hilar silhouettes are within normal limits. No pneumothorax, pleural effusion or focal airspace consolidation. The bones are grossly intact. IMPRESSION: No acute cardiopulmonary process. The above report was generated using voice recognition software. It may contain grammatical, syntax or spelling errors. Electronically signed by: Thomas Zambrano M.D. 01/04/2017 6:35 AM Dictated Date/Time: 01/04/2017 6:34 AM
[2017-01-26] MEDS ORDERED: METH-589 PO (00:15)
[2017-01-26] MEDS ORDERED: VNTHFA/IN INH (16:29)
[2017-01-26] MEDS ORDERED: FLNIN/ NAE (16:33)
[2017-01-26] MEDS ORDERED: PROP20TA67 PO (16:33)
== END 2017-01-04 01:13 | disposition home or self-care (01) ==
LOC: C.EDB 23:40
DX: R07.2 Precordial pain (principal); I10 Essential (primary) hypertension; E05.90 Thyrotoxicosis, unspecified without thyrotoxic crisis or storm; J45.909 Unspecified asthma, uncomplicated; F39 Unspecified mood [affective] disorder; Z87.440 Personal history of urinary (tract) infections; F17.210 Nicotine dependence, cigarettes, uncomplicated; Z80.9 Family history of malignant neoplasm, unspecified; Z83.3 Family history of diabetes mellitus; Z83.79 Family history of other diseases of the digestive system; Z82.49 Family history of ischemic heart disease and other diseases of the circulatory system; Z84.1 Family history of disorders of kidney and ureter; Z79.899 Other long term (current) drug therapy

== ENCOUNTER 2017-01-26 18:40 | Emergency (ER) | payer OTHER ==
[~2017-01-26] VITALS: Ht 165.1 cm; Wt 87.4 kg
[~2017-01-26 18:40] MED LIST changes: -AMOX-CLAV PO; -CYAN100T PO; +FLNIN/ NAE; -FLV1 PO; +PROP20TA67 PO; +VNTHFA/IN INH
[2017-01-26 18:44] VITALS: Ht 165.1 cm; Wt 87.4 kg
--- NOTE | 2017-01-26 20:04 | DIAGNOSTIC IMAGING REPORT ---
L-SPINE MIN 4 VIEWS ROUTINE CLINICAL HISTORY: low back pain COMPARISON STUDY: 03/27/2010 FINDINGS: There are 5 lumbar type vertebral bodies. No fractures, subluxations, or destructive lesions are visualized. IMPRESSION: Unremarkable conventional radiographic evaluation of the lumbar spine. Electronically signed by: Mt Cooper M.D. 01/26/2017 8:02 PM Dictated Date/Time: 01/26/2017 8:02 PM
--- NOTE | 2017-01-26 20:22 | EMERGENCY ROOM VISIT NOTE ---
ED Visit Note First contact with patient: 18:48 CHIEF COMPLAINT: Low back pain HISTORY OF PRESENT ILLNESS: This 36-year-old female patient presents to the emergency department ambulatory complaining of pain in the low back which began 4 days ago. The patient states that she had been packing and lifting heavy objects throughout the weekend. On Monday, she was reaching into the dryer when she developed pain in the low back. The pain has been persistent since then. It is worse after sitting for a long period of time. She has been using icy hot and taking ibuprofen without relief. The patient notes the pain as dull and a 8/10. The patient denies any loss of control of their bowel or bladder functions. There has been no leg numbness or weakness, and no change in sensation. No nausea or vomiting or abdominal pain. No chest pain or shortness of breath. The patient has not had prior back injuries. No dysuria or increased urinary frequency. REVIEW OF SYSTEMS: A review of systems was performed with positives and pertinent negatives listed in the history of present illness. All other systems were reviewed and are negative. ALLERGIES: Fluoxetine MEDICATIONS: See med list PMH: Asthma SOCIAL HISTORY: The patient lives locally with family. She is a smoker. PHYSICAL EXAM: VITALS: Vitals are noted on the nurse's note and reviewed by myself. Vital signs stable. GENERAL: This is a 36-year-old female, in no acute distress, nondiaphoretic, well-developed well-nourished. SKIN: The skin was without rashes, erythema, edema, or bruising. Capillary refill less than 2 seconds. NECK: Supple without nuchal rigidity. No cervical spine tenderness. No paraspinous muscle tenderness. HEART: Regular rate and rhythm without murmurs gallops or rubs. LUNGS: Clear to auscultation bilaterally without wheezes, rales or rhonchi. ABDOMEN: Positive bowel sounds x 4. Normal tympanic percussion. Soft, nontender, without masses or organomegaly. Marie sign negative. MUSCULOSKELETAL: No muscle atrophy, erythema, or edema noted of the back. There is no tenderness over the lumbar spinous processes. There is no tenderness over the paraspinous muscles. There is no tenderness over the thoracic spine or paraspinous muscles. There are no muscle spasms present. The patient is slow to move around but has full range of motion of the spine. Negative straight leg raise test. NEURO: Patient was alert and oriented to person place and time. Normal sensation to light and sharp touch. Deep tendon reflexes 2+ in the lower extremities. Dorsalis pedis pulse 2+ bilaterally. Strength 5/5 and equal in the bilateral lower extremities. RADIOGRAPHIC FINDINGS: L-SPINE MIN 4 VIEWS ROUTINE CLINICAL HISTORY: low back pain COMPARISON STUDY: 03/27/2010 FINDINGS: There are 5 lumbar type vertebral bodies. No fractures, subluxations, or destructive lesions are visualized. IMPRESSION: Unremarkable conventional radiographic evaluation of the lumbar spine. EMERGENCY DEPARTMENT COURSE: The patient was evaluated as above. Lumbar spine x -rays were performed and were read by radiology with no acute findings. She has no findings to suggest cauda equina syndrome or cord compression. Conservative measures were discussed with the patient. She was instructed to follow-up with her primary care provider for further evaluation of her back pain. She verbalized understanding of my assessment and treatment plan was discharged home in good condition. Blood Pressure Screening: Patient was found to have a slightly elevated blood pressure due to circumstances. I do not believe that the patient requires hypertension monitoring. Medication reconciliation: I attest that I have personally reviewed the patient 's current medication list. DIAGNOSIS: Lumbar back pain Problem List Medical Problems: (1) Asthma Status: Chronic (2) Asthma Status: Chronic (3) Hyperthyroidism Status: Chronic (4) Mood disorder Status: Chronic (5) Tobacco abuse Status: Chronic Surgical Problems: (1) H/O tubal ligation Status: Chronic (2) History of dental surgery Status: Chronic (3) Hx of cholecystectomy Status: Chronic (4) S/P tubal ligation Status: Resolved Current/Historical Medications Scheduled Methimazole (Methimazole ), 3 TABS PO QAM Propranolol (Inderal), 20 MG PO BID Scheduled PRN Albuterol Hfa (Ventolin Hfa), 2 PUFFS INH Q4H PRN for SOB/Wheezing Calcium Carbonate (Tums), 500-1,000 MG PO UD PRN for Heartburn Fluticasone Propionate (Fluticasone Propionate), 2 SPRAYS [place] DAILY PRN for Allergy Symptoms Ibuprofen (Advil), 800 MG PO TID PRN for Headache or Pain Lactulose (Chronulac), 15 ML PO BID PRN for Constipation Allergies Coded Allergies: Fluoxetine (Verified Adverse Reaction, Severe, HIVES-SOB, 01/04/17) Vital Signs Date Time Temp Pulse Resp B/P (MAP) Pulse Ox O2 Delivery O2 Flow Rate FiO2 01/26/17 20:28 36.6 77 16 137/99 97 01/26/17 18:44 36.6 84 16 151/76 99 Room Air Departure Information Impression Primary Impression: Strain of lumbar region Dispostion Home / Self-Care Condition GOOD Referrals Elaine Nice D.O. (PCP) Patient Instructions My [facility] Additional Instructions You have been treated in the Emergency Department for Back Pain. For pain control, you can use the following radw-tse-otqvedq medicines (if >12 yo): - Regular strength (325mg/tab) Tylenol (acetaminophen) 2 tabs every 4-6 hours as needed. Do not exceed 12 tablets in a 24 hour period. Avoid taking more than 4 grams (4000 mg) of Tylenol per day. This includes any other sources of acetaminophen you may take on a regular basis. - Regular strength (200 mg/tab) Advil (ibuprofen) 3-4 tabs every 6 hours as needed. Do not exceed a dose of 3200 mg per day. If this is an acute injury, ice can be applied to the area of pain for the first 3 days to help decrease pain and inflammation. After the first 3 days, a heating pad can be used over the area for continued soothing relief. You should schedule a follow-up appointment in 2-3 days with your Primary Care Provider for further evaluation and treatment of your back pain. Return to the Emergency Department if your current symptoms worsen despite treatment course outlined above, or if you develop any of the following symptoms : intractable pain despite aforementioned treatment course, loss of control of your bowel or bladder, numbness or tingling in your groin, or development of a fever. Problem Qualifiers Primary Impression: Strain of lumbar region Encounter type: initial encounter Qualified Codes: S39.012A - Strain of muscle, fascia and tendon of lower back, initial encounter
[2017-01-26 20:28] VITALS: BP 137/99; PULSE 77; TEMP 36.6; O2SAT 97
[2017-01-26] MEDS ORDERED: CALC500C3 PO (20:50)
[2017-01-26] MEDS ORDERED: LACT10SO17 PO (20:50)
[2017-01-26] MEDS ORDERED: IBUP-1050 PO (21:51)
== END 2017-01-26 20:29 | disposition home or self-care (01) ==
LOC: C.EDB 18:42 → C.EDD 20:29
DX: S39.012A Strain of muscle, fascia and tendon of lower back, initial encounter (principal); X50.9XXA Other and unspecified overexertion or strenuous movements or postures, initial encounter; Y93.89 Activity, other specified; Y99.8 Other external cause status; E05.90 Thyrotoxicosis, unspecified without thyrotoxic crisis or storm; J45.909 Unspecified asthma, uncomplicated; Z98.51 Tubal ligation status; Z98.818 Other dental procedure status; Z90.49 Acquired absence of other specified parts of digestive tract; Z79.899 Other long term (current) drug therapy

== ENCOUNTER 2017-03-03 21:05 | Emergency (ER) | payer OTHER ==
[~2017-03-03] VITALS: Ht 165.1 cm; Wt 87.6 kg
[~2017-03-03 21:05] MED LIST changes: +CALC500C3 PO; +LACT10SO17 PO
[2017-03-03 21:10] VITALS: TEMP 36.6; Ht 165.1 cm; Wt 87.6 kg
[2017-03-03] MEDS ORDERED: PROCHLORPERAZINE 5 MG/ML 2 ML VIAL IV STA (21:18)
[2017-03-03] MEDS ORDERED: DiphenhydrAMINE HCL 50 MG/ML VIAL IV STA (21:18)
[2017-03-03] MEDS ORDERED: SODIUM CHLORIDE 0.9% 1000ML 1,000 ML IV STA (21:18)
[2017-03-03] MEDS ORDERED: IBUP-1050 PO (21:51)
[2017-03-03] MEDS ORDERED: METH5TAB5 PO (21:59)
--- NOTE | 2017-03-03 23:04 | EMERGENCY ROOM VISIT NOTE ---
ED Visit Note First contact with patient: 21:14 CHIEF COMPLAINT: "Migraine, nausea". HISTORY OF PRESENT ILLNESS: This 36-year-old female patient presented to the emergency department via private vehicle with a gradual onset of a severe generalized headache that started earlier this morning. The patient states the migraine is similar to their typical migraines. There has been associated photophobia nausea and vomiting. The patient denies fever or chills recently, and there is no weakness or numbness of the extremities. There is no difficulty with speech or vision. No trauma to the head and no neck pain. The pain is severe, constant, and it is slowly increasing in severity. The patient rates the pain as sharp and 10/10. The patient has taken typical medications without relief. This is not the worst headache of the life and is similar to previous migraines. Previous imaging studies of the brain have been normal. REVIEW OF SYSTEMS: A review of systems was performed with positives and pertinent negatives listed in the history of present illness. All other systems were reviewed and are negative. ALLERGIES: Fluoxetine MEDICATIONS: As noted below PMH: Migraine headaches SOCIAL HISTORY: Patient lives locally PHYSICAL EXAM: Vital Signs: Reviewed Nurse's notes, vital signs stable. GENERAL : 36-year-old female, who appears in pain, but non toxic in appearance and in no acute distress. MENTAL STATUS: Alert, oriented, and coherent. HEENT: Normocephalic. PERRLA. EOMI. Nares patent without nuchal rigidity. TNECK: Supple, no nuchal rigidity, nontender, no lymphadenopathy. HEART: Regular rhythm and normal rate without murmurs, ectopy, gallops, or rubs. LUNGS: Clear to auscultation bilaterally without wheezes, rales or rhonchi. SKIN: Normal. NEUROLOGICAL: Pupils are round, equal and react to light. The patient moves all extremities well and the gait is normal. EMERGENCY DEPARTMENT COURSE: I examined the patient. I treated the patient on a previous visit for migraine. At this time she is nontoxic, and we discussed benefits versus risk of obtaining blood work. At this time the patient notes this is exactly like previous migraines, and she is afebrile. I will treat her according to previous medication regimens given. I offered her Benadryl and Compazine, noting that I try to refer narcotics such as a lot of that she is received on previous visits for pain not alleviated by other medications. I held from Toradol and she is already had ibuprofen shortly prior to arrival here. She was also given a liter of normal saline. She is reevaluated and feeling much better. She rated the headache as a 0/10. She was slightly groggy from the medication therefore I did allow her to stay here for some time in the emergency department until she became more awake. She was here with a male, and after being reevaluated she does appear to be stable. She was alert and oriented. He will be driving. She was educated upon management, educated upon worrisome symptoms which to return, had questions prior to discharge, and was discharged home in good condition. In the evaluation and treatment of this patient, the following differential diagnoses were considered: Concussion, Contrecoup Injury, Brain Tumor, Depression, Encephalitis, Hypothyroidism, Meningitis, CVA, TIA, Migraine, Cluster Headache, Intracranial Abnormality, Intracranial Hemorrhage, Subdural Hematoma, Subarachnoid Hemorrhage, Hydrocephalus. Problem List Medical Problems: (1) Asthma Status: Chronic (2) Asthma Status: Chronic (3) Hyperthyroidism Status: Chronic (4) Mood disorder Status: Chronic (5) Tobacco abuse Status: Chronic Surgical Problems: (1) H/O tubal ligation Status: Chronic (2) History of dental surgery Status: Chronic (3) Hx of cholecystectomy Status: Chronic (4) S/P tubal ligation Status: Resolved Current/Historical Medications Scheduled Methimazole (Tapazole), 15 MG PO QAM Scheduled PRN Fluticasone Propionate (Fluticasone Propionate), 2 SPRAYS [place] DAILY PRN for Allergy Symptoms Ibuprofen (Advil), 800 MG PO Q8 PRN for Headache or Pain Propranolol (Inderal), 20-40 MG PO Q6H PRN for Hyperthyroidism Signs/Symptoms Allergies Coded Allergies: Fluoxetine (Verified Adverse Reaction, Severe, HIVES-SOB, 01/04/17) Vital Signs Date Time Temp Pulse Resp B/P (MAP) Pulse Ox O2 Delivery O2 Flow Rate FiO2 03/03/17 23:15 86 16 148/100 98 03/03/17 21:10 36.6 83 18 160/121 98 Room Air Medications Administered Medications (Trade) Dose Ordered Sig/Bernard Route Start Time Stop Time Status Last Admin Dose Admin Sodium Chloride 1,000 ml @ 999 mls/hr Q1H1M STAT IV 03/03/17 21:18 03/03/17 22:18 DC 03/03/17 21:30 999 MLS/HR Prochlorperazine Edisylate (Compazine Inj) 10 mg NOW STAT IV 03/03/17 21:18 03/03/17 21:20 DC 03/03/17 21:30 10 MG Diphenhydramine HCl (Benadryl Inj) 50 mg NOW STAT IV 03/03/17 21:18 03/03/17 21:20 DC 03/03/17 21:30 50 MG Departure Information Impression Primary Impression: Headache Dispostion Home / Self-Care Condition GOOD Referrals Elaine Nice D.O. (PCP) Patient Instructions My [facility] Additional Instructions You have been treated in the Emergency Department for a Headache. You have received pain medicine in the emergency department which impairs your ability to operate a vehicle. It is illegal for you to drive after receiving these medicines. For pain control, you can use the following ccyy-ogy-jpbjewo medicines (if >12 yo): - Regular strength (325mg/tab) Tylenol (acetaminophen) 2 tabs every 4-6 hours as needed. Do not exceed 12 tablets in a 24 hour period. Avoid taking more than 3 grams (3000 mg) of Tylenol per day. This includes any other sources of acetaminophen you may take on a regular basis. - Regular strength (200 mg/tab) Advil (ibuprofen) 1-2 tabs every 4-6 hours as needed. Do not exceed a dose of 3200 mg per day. You should relax in a quiet, dark place for the rest of the day. Avoid any possible triggers including: cigarette smoke, caffeine, nicotine, chocolate, wine, beer, loud noises or music, or bright lights. You should schedule a follow-up appointment in 2-3 days with your Primary Care Provider or established Neurologist for further evaluation and treatment of your Headache. Return to the Emergency Department if your current symptoms worsen despite treatment course outlined above, or if you develop any of the following symptoms : intractable pain despite aforementioned treatment course, visual disturbances , loss of vision, unilateral weakness or facial drooping, slurring of speech, loss of coordination, or loss of consciousness.
[2017-03-03 23:15] VITALS: BP 148/100; PULSE 86; O2SAT 98
== END 2017-03-03 23:12 | disposition home or self-care (01) ==
LOC: C.EDB 21:07 → C.EDD 23:12
DX: R51 Headache (principal); J45.909 Unspecified asthma, uncomplicated; E03.9 Hypothyroidism, unspecified; F39 Unspecified mood [affective] disorder

== ENCOUNTER 2017-05-07 20:49 | Emergency (ER) | payer OTHER ==
[~2017-05-07] VITALS: Ht 165.1 cm; Wt 93.5 kg
[~2017-05-07 20:49] MED LIST changes: -CALC500C3 PO; +IBUP-1050 PO; -LACT10SO17 PO; -METH-589 PO; +METH5TAB5 PO; -VNTHFA/IN INH
[2017-05-07 20:50] VITALS: TEMP 36.8; Ht 165.1 cm; Wt 93.5 kg
[2017-05-07] MEDS ORDERED: KETOROLAC TROMETHAMINE 30 MG/ML VIAL IV STA (21:07)
[2017-05-07] MEDS ORDERED: DiphenhydrAMINE HCL 50 MG/ML VIAL IV STA (21:07)
[2017-05-07] MEDS ORDERED: PROCHLORPERAZINE 5 MG/ML 2 ML VIAL IV STA (21:07)
[2017-05-07] MEDS ORDERED: SODIUM CHLORIDE 0.9% 500ML 500 ML IV STA (21:07)
--- NOTE | 2017-05-07 21:57 | EMERGENCY ROOM VISIT NOTE ---
ED Visit Note First contact with patient: 21:00 CHIEF COMPLAINT: Migraine, nausea HISTORY OF PRESENT ILLNESS: This 36-year-old female patient presented to the emergency department via private vehicle with a gradual onset of a severe generalized headache that started around noon time today. The patient states the migraine is similar to their typical migraines. There has been associated nausea and head pain. The patient denies fever or chills recently, and there is no weakness or numbness of the extremities. There is no difficulty with speech or vision. No trauma to the head and no neck pain. The pain is severe, constant , and it is slowly increasing in severity. The patient rates the pain as 8/10. The patient has taken ibuprofen without relief. This is not the worst headache of the life and is similar to previous migraines. REVIEW OF SYSTEMS: A review of systems was performed with positives and pertinent negatives listed in the history of present illness. All other systems were reviewed and are negative. ALLERGIES: As noted below MEDICATIONS: As noted below PMH: Migraine headaches SOCIAL HISTORY: Patient lives locally PHYSICAL EXAM: Vital Signs: Reviewed Nurse's notes, vital signs stable. GENERAL : 36-year-old female, who appears in pain, but non toxic in appearance and in no acute distress. MENTAL STATUS: Alert, oriented, and coherent. HEENT: Normocephalic. PERRLA. EOMI. Nares patent without nuchal rigidity. Tympanic membranes pearly michelle without erythema or effusion bilaterally. Mucous membranes moist. NECK: Supple, no nuchal rigidity, nontender, no lymphadenopathy. HEART: Regular rhythm and normal rate without murmurs, ectopy, gallops, or rubs. LUNGS: Clear to auscultation bilaterally without wheezes, rales or rhonchi. No accessory muscle use. No retractions. SKIN: Normal. NEUROLOGICAL: Pupils are round, equal and react to light. The patient moves all extremities well and the gait is normal. EMERGENCY DEPARTMENT COURSE: I examined the patient. Previous visits were reviewed. I have had the privilege of taking care of the patient in the past and a familiar with her migraines. She notes this is not the worse headache overlying. She was given Toradol, Benadryl Compazine and fluids and felt much better. She was mentating well. Male was driving. The differential diagnosis includes acute intracranial bleed, meningitis, encephalitis, mass or mass effect , sinusitis, infection, tumor, headache, temporal arteritis and carbon monoxide exposure, and migraine. The patient was discharged home in stable condition with male driving. There was no evidence of meningitis or encephalitis on exam. She is nontoxic. Problem List Medical Problems: (1) Asthma Status: Chronic (2) Asthma Status: Chronic (3) Hyperthyroidism Status: Chronic (4) Mood disorder Status: Chronic (5) Tobacco abuse Status: Chronic Surgical Problems: (1) H/O tubal ligation Status: Chronic (2) History of dental surgery Status: Chronic (3) Hx of cholecystectomy Status: Chronic (4) S/P tubal ligation Status: Resolved Current/Historical Medications Scheduled Methimazole (Tapazole), 15 MG PO QAM Scheduled PRN Fluticasone Propionate (Fluticasone Propionate), 2 SPRAYS BALTA DAILY PRN for Allergy Symptoms Ibuprofen (Advil), 800 MG PO Q8 PRN for Headache or Pain Propranolol (Inderal), 20-40 MG PO Q6H PRN for Hyperthyroidism Signs/Symptoms Allergies Coded Allergies: Fluoxetine (Verified Adverse Reaction, Severe, HIVES-SOB, 05/07/17) Vital Signs Date Time Temp Pulse Resp B/P (MAP) Pulse Ox O2 Delivery O2 Flow Rate FiO2 05/07/17 20:50 36.8 92 18 151/106 98 Room Air Medications Administered Medications (Trade) Dose Ordered Sig/Bernard Route Start Time Stop Time Status Last Admin Dose Admin Sodium Chloride 500 ml @ 999 mls/hr Q31M STAT IV 05/07/17 21:07 05/07/17 21:37 DC 05/07/17 21:22 999 MLS/HR Ketorolac Tromethamine (Toradol Inj) 30 mg NOW STAT IV 05/07/17 21:07 05/07/17 21:09 DC 05/07/17 21:19 30 MG Diphenhydramine HCl (Benadryl Inj) 25 mg NOW STAT IV 05/07/17 21:07 05/07/17 21:09 DC 05/07/17 21:17 25 MG Prochlorperazine Edisylate (Compazine Inj) 5 mg NOW STAT IV 05/07/17 21:07 05/07/17 21:09 DC 05/07/17 21:22 5 MG Departure Information Impression Primary Impression: Headache Dispostion Home / Self-Care Condition GOOD Referrals Elaine Nice D.O. (PCP) Patient Instructions My [facility] Additional Instructions You have been treated in the Emergency Department for a Headache. You have received pain medicine in the emergency department which impairs your ability to operate a vehicle. It is illegal for you to drive after receiving these medicines. For pain control, you can use the following [id number] medicines (if >12 yo): - Regular strength (325mg/tab) Tylenol (acetaminophen) 2 tabs every 4-6 hours as needed. Do not exceed 12 tablets in a 24 hour period. Avoid taking more than 3 grams (3000 mg) of Tylenol per day. This includes any other sources of acetaminophen you may take on a regular basis. - Regular strength (200 mg/tab) Advil (ibuprofen) 1-2 tabs every 4-6 hours as needed. Do not exceed a dose of 3200 mg per day. You should relax in a quiet, dark place for the rest of the day. Avoid any possible triggers including: cigarette smoke, caffeine, nicotine, chocolate, wine, beer, loud noises or music, or bright lights. You should schedule a follow-up appointment in 2-3 days with your Primary Care Provider or established Neurologist for further evaluation and treatment of your Headache. Return to the Emergency Department if your current symptoms worsen despite treatment course outlined above, or if you develop any of the following symptoms : intractable pain despite aforementioned treatment course, visual disturbances , loss of vision, unilateral weakness or facial drooping, slurring of speech, loss of coordination, or loss of consciousness.
[2017-05-07 22:05] VITALS: BP 151/108; PULSE 106; O2SAT 98
== END 2017-05-07 22:06 | disposition home or self-care (01) ==
LOC: C.EDB 20:49 → C.EDD 22:06
DX: R51 Headache (principal); R11.0 Nausea; F39 Unspecified mood [affective] disorder; E05.90 Thyrotoxicosis, unspecified without thyrotoxic crisis or storm; J45.909 Unspecified asthma, uncomplicated; F17.200 Nicotine dependence, unspecified, uncomplicated

== ENCOUNTER 2017-08-03 17:08 | Emergency (ER) | payer OTHER ==
[~2017-08-03] VITALS: Ht 165.1 cm; Wt 91.6 kg
[2017-08-03 17:35] VITALS: TEMP 36.7; Ht 165.1 cm; Wt 91.6 kg
[2017-08-03] MEDS ORDERED: SODIUM CHLORIDE 0.9% 1000ML 1,000 ML IV STA (18:39)
--- NOTE | 2017-08-03 18:50 | EMERGENCY ROOM VISIT NOTE ---
History Report prepared by Vane: Hafsa Sumner Under the Supervision of: Dr. Boris Lucio M.D. First contact with patient: 18:31 Chief Complaint: DIZZY Stated Complaint: LIGHT HEADED, DIZZY, RT FINGERTIPS TINGLY Nursing Triage Summary: Patient presents with c/o dizziness and feels like she is going to pass out Right sided tingling in fingertips Denies LOC States she has pressure in her chest s/p thyroidectomy 06/2017 ambulatory to triage History of Present Illness The patient is a 36 year old female who presents to the Emergency Room with complaints of worsening dizziness starting today. The patient states that she has a physical therapist come to her home daily to work on her back that had surgery from a tilted pelvis. She states that she told them that she became lightheaded, dizzy, and shaky as the day went on. She reports that the physical therapist stated that her blood pressure was too high today to do anything and stated to call her PCP. She reports that her PCP told her to come in today. The patient complains of tingling/stabbing feeling in her hands, like when they fall asleep. The patient denies abdominal pain. The patient notes that she recently had surgery on her thyroid. Source of History: patient Onset: today Position: other (global) Quality: other (dizziness) Timing: worsening Associated Symptoms: No abdominal pain Note: The patient complains of lightheadedness, shaking, and her hands feeling like it is asleep. Review of Systems See HPI for pertinent positives & negatives. A total of 10 systems reviewed and were otherwise negative. Past Medical & Surgical Medical Problems: (1) Asthma (2) Asthma (3) Hyperthyroidism (4) Mood disorder (5) Tobacco abuse (6) UTI (urinary tract infection) Surgical Problems: (1) H/O tubal ligation (2) History of dental surgery (3) History of thyroid surgery (4) Hx of cholecystectomy (5) S/P tubal ligation Family History Cancer Diabetes mellitus FHx: gallbladder disease Heart disease Hypertension Kidney disease Kidney stones Social History Smoking Status: Current Every Day Smoker Alcohol Use: none Drug Use: none Marital Status: in relationship Housing Status: lives with family Occupation Status: employed Current/Historical Medications Scheduled Atenolol (Tenormin), 50 MG PO DAILY Levothyroxine Sodium (Synthroid), 1 TAB PO DAILY Scheduled PRN Fluticasone Propionate (Fluticasone Propionate), 2 SPRAYS BALTA DAILY PRN for Allergy Symptoms Ibuprofen (Advil), 800 MG PO Q8 PRN for Headache or Pain Allergies Coded Allergies: Acetaminophen (Verified Adverse Reaction, Severe, NAUSEA/VOMITING, 08/03/17 ) Fluoxetine (Verified Adverse Reaction, Severe, HIVES-SOB, 05/07/17) Oxycodone (Verified Adverse Reaction, Severe, NAUSEA/VOMITING, 08/03/17) Physical Exam Vital Signs Date Time Temp Pulse Resp B/P (MAP) Pulse Ox O2 Delivery O2 Flow Rate FiO2 08/03/17 21:02 60 16 133/79 95 08/03/17 20:47 82 08/03/17 19:51 62 16 124/73 Room Air 08/03/17 19:48 Room Air 08/03/17 19:01 62 118/66 76 125/92 78 132/93 08/03/17 17:35 36.7 75 16 147/91 99 Room Air Physical Exam GENERAL: Awake, alert, well-appearing, in no acute distress HENT: Normocephalic, atraumatic. Oropharynx unremarkable. EYES: Normal conjunctiva. Sclera non-icteric. NECK: Supple. No nuchal rigidity. FROM. No JVD. RESPIRATORY: Clear to auscultation. CARDIAC: Regular rate, normal rhythm. Extremities warm and well perfused. Pulses equal. ABDOMEN: Soft, non-distended. No tenderness to palpation. No rebound or guarding. No masses. RECTAL: Deferred. MUSCULOSKELETAL: Chest examination reveals no tenderness. The back is symmetrical on inspection without obvious abnormality. There is no CVA tenderness to palpation. No joint edema. Reproducible carpal tunnel with both a Tinel and Phalen test of the right hand. LOWER EXTREMITIES: Calves are equal size bilaterally and non-tender. No edema. No discoloration. NEURO: Normal sensorium. No sensory or motor deficits noted. SKIN: No rash or jaundice noted. Medical Decision & Procedures ER Provider Diagnostic Interpretation: Radiology results as stated below per my review and radiologist interpretation: R WRIST MIN 3 VIEWS ROUTINE CLINICAL HISTORY: Pt c/o Rt hand pain pain COMPARISON: None. DISCUSSION: The bones and joint spaces appear intact. There is no evidence of fracture, dislocation or bony disease. There is no evidence for soft tissue swelling. IMPRESSION: Negative study. The above report was generated using voice recognition software. It may contain grammatical, syntax or spelling errors. Electronically signed by: Yobany Somers M.D. 08/03/2017 7:13 PM Dictated Date/Time: 08/03/2017 7:13 PM Laboratory Results 08/03/17 18:45 Red Blood Count 4.14, Mean Corpuscular Volume 84.3, Mean Corpuscular Hemoglobin 29.2, Mean Corpuscular Hemoglobin Concent 34.7, Mean Platelet Volume 9.9, Neutrophils (%) (Auto) 62.2, Lymphocytes (%) (Auto) 27.9, Monocytes (%) (Auto) 7.1, Eosinophils (%) (Auto) 2.1, Basophils (%) (Auto) 0.3, Neutrophils # (Auto) 4.21, Lymphocytes # (Auto) 1.89, Monocytes # (Auto) 0.48, Eosinophils # (Auto) 0.14, Basophils # (Auto) 0.02 08/03/17 18:45 Test 08/03/17 18:45 08/03/17 18:59 08/03/17 19:12 08/03/17 19:47 White Blood Count 6.77 K/uL (4.8-10.8) Red Blood Count 4.14 M/uL (4.2-5.4) Hemoglobin 12.1 g/dL (12.0-16.0) Hematocrit 34.9 % (37-47) Mean Corpuscular Volume 84.3 fL (80-100) Mean Corpuscular Hemoglobin 29.2 pg (25-34) Mean Corpuscular Hemoglobin Concent 34.7 g/dl (32-36) Platelet Count 216 K/uL (130-400) Mean Platelet Volume 9.9 fL (7.4-10.4) Neutrophils (%) (Auto) 62.2 % Lymphocytes (%) (Auto) 27.9 % Monocytes (%) (Auto) 7.1 % Eosinophils (%) (Auto) 2.1 % Basophils (%) (Auto) 0.3 % Neutrophils # (Auto) 4.21 K/uL (1.4-6.5) Lymphocytes # (Auto) 1.89 K/uL (1.2-3.4) Monocytes # (Auto) 0.48 K/uL (0.11-0.59) Eosinophils # (Auto) 0.14 K/uL (0-0.5) Basophils # (Auto) 0.02 K/uL (0-0.2) RDW Standard Deviation 41.8 fL (36.4-46.3) RDW Coefficient of Variation 13.6 % (11.5-14.5) Immature Granulocyte % (Auto) 0.4 % Immature Granulocyte # (Auto) 0.03 K/uL (0.00-0.02) Anion Gap 6.0 mmol/L (3-11) Est Creatinine Clear Calc Drug Dose 86.1 ml/min Estimated GFR () 83.4 Estimated GFR (Non- 71.9 BUN/Creatinine Ratio 11.6 (10-20) Calcium Level 7.7 mg/dl (8.5-10.1) Total Bilirubin 0.3 mg/dl (0.2-1) Direct Bilirubin < 0.1 mg/dl (0-0.2) Aspartate Amino Transf (AST/SGOT) 16 U/L (15-37) Alanine Aminotransferase (ALT/SGPT) 21 U/L (12-78) Alkaline Phosphatase 50 U/L (45-117) Total Creatine Kinase 109 U/L (26-192) Creatine Kinase MB 0.9 ng/ml (0.5-3.6) Creatine Kinase MB Ratio 0.8 (0-3.0) Troponin I < 0.015 ng/ml (0-0.045) Total Protein 6.4 gm/dl (6.4-8.2) Albumin 3.4 gm/dl (3.4-5.0) Thyroid Stimulating Hormone (TSH) 0.062 uIu/ml (0.300-4.500) Free Thyroxine 1.06 ng/dl (0.80-1.60) Free Triiodothyronine 2.81 pg/ml (2.30-4.20) Ionized Calcium 1.04 mmol/l (1.12-1.32) Parathyroid Hormone (Intact) 105.5 pg/mL (18.4-80.1) Bedside Glucose 92 mg/dl (70-90) Labs reviewed by ED physician. Medications Administered Medications (Trade) Dose Ordered Sig/Bernard Route Start Time Stop Time Status Last Admin Dose Admin Sodium Chloride 1,000 ml @ 999 mls/hr Q1H1M STAT IV 08/03/17 18:39 08/03/17 19:39 DC 08/03/17 18:39 999 MLS/HR ECG Per My Interpretation Indication: other (dizziness) Rate (beats per minute): 65 Rhythm: normal sinus Findings: other (no ST elevation or depression, normal axis) ED Course 1831: Past medical records reviewed. The patient was evaluated in room B10. A complete history and physical examination was performed. 1838: Ordered NSS 1000 ml @ 999 mls/hr IV. 1929: I reevaluated the patient and she is feeling better. 2002: Upon reexamination the patient is feeling better. I discussed results and treatment plan with the patient. She verbalizes agreement and understanding. The patient is ready for discharge. Medical Decision Etiologies such as metabolic, infection, hypo/hyperglycemia, electrolyte abnormalities, cardiac sources, intracerebral event, toxicologic, neurologic, as well as others were entertained. This is a 36-year-old in the distribution of the median nerve. In addition the patient's female who presents emergency department complaining of right hand numbness and hand numbness is also reproducible on examination using Tinel and Phalen signs. Based on these findings I feel the patient is suffering from carpal tunnel. 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 The patient recently had thyroid surgery performed therefore calcium was obtained along with a parathyroid hormone. As are both slightly low and because of this I stressed the need for follow-up with endocrinology. The patient is following up with endocrinology. Feels she is well enough to be discharged home. Patient is in agreement with treatment plan. Medication Reconcilliation Current Medication List: was personally reviewed by me Blood Pressure Screening Patient's blood pressure: Elevated blood pressure Blood pressure disposition: Elevated BP felt to be situational Impression Primary Impression: Carpal tunnel syndrome of left wrist Additional Impression: Dizziness Scribe Attestation The scribe's documentation has been prepared under my direction and personally reviewed by me in its entirety. I confirm that the note above accurately reflects all work, treatment, procedures, and medical decision making performed by me. Departure Information Dispostion Home / Self-Care Referrals Elaine Nice D.O. (PCP) Forms HOME CARE DOCUMENTATION FORM, IMPORTANT VISIT INFORMATION Patient Instructions My [facility] Additional Instructions Follow up with DR Mar for left wrist pain Follow up with [facility] for hypocalcemia Increase fluids next 48 hours You have been examined and treated today on an emergency basis only. This is not a substitute for, or an effort to provide, complete comprehensive medical care. It is impossible to recognize and treat all injuries or illnesses in a single emergency department visit. It is therefore important that you follow up closely with Dr Nice. Call as soon as possible for an appointment. Thank you for your time and consideration. I look forward to speaking with you again soon. Please don't hesitate to call us if you have any questions. Problem Qualifiers
[2017-08-03 19:07] LABS: BASO % 0.3 %; BASO ABS # 0.02 K/uL (0-0.2); EOS % 2.1 %; EOS ABS # 0.14 K/uL (0-0.5); HEMATOCRIT 34.9 % (37-47); HEMOGLOBIN 12.1 g/dL (12.0-16.0); IG# 0.03 K/uL (0.00-0.02); LYMPH % 27.9 %; LYMPH ABS # 1.89 K/uL (1.2-3.4); MEAN CELL VOLUME 84.3 fL (80-100); MEAN CORPUSCULAR HEMOGLOBIN 29.2 pg (25-34); MEAN CORPUSCULAR HGB CONC 34.7 g/dl (32-36); MEAN PLATELET VOLUME 9.9 fL (7.4-10.4); MONO % 7.1 %; MONO ABS # 0.48 K/uL (0.11-0.59); NEUT % 62.2 %; NEUT ABS # 4.21 K/uL (1.4-6.5); PLATELET COUNT 216 K/uL (130-400); RED CELL DISTRIBUTION WIDTH CV 13.6 % (11.5-14.5); RED CELL DISTRIBUTION WIDTH SD 41.8 fL (36.4-46.3); WHITE BLOOD COUNT 6.77 K/uL (4.8-10.8)
[2017-08-03] MEDS ORDERED: LEVO112T2 PO (19:12)
--- NOTE | 2017-08-03 19:15 | DIAGNOSTIC IMAGING REPORT ---
R WRIST MIN 3 VIEWS ROUTINE CLINICAL HISTORY: Pt c/o Rt hand pain pain COMPARISON: None. DISCUSSION: The bones and joint spaces appear intact. There is no evidence of fracture, dislocation or bony disease. There is no evidence for soft tissue swelling. IMPRESSION: Negative study. The above report was generated using voice recognition software. It may contain grammatical, syntax or spelling errors. Electronically signed by: Yobany Somers M.D. 08/03/2017 7:13 PM Dictated Date/Time: 08/03/2017 7:13 PM
[2017-08-03] MEDS ORDERED: ATEN50TA8 PO (19:18)
[2017-08-03 19:42] LABS: ALBUMIN 3.4 gm/dl (3.4-5.0); ALT/SGPT 21 U/L (12-78); BLOOD UREA NITROGEN 12 mg/dl (7-18); CALCIUM 7.7 mg/dl (8.5-10.1); CARBON DIOXIDE 26 mmol/L (21-32); GLUCOSE 89 mg/dl (70-99); POTASSIUM 3.5 mmol/L (3.5-5.1); SODIUM 139 mmol/L (136-145)
[2017-08-03 19:52] LABS: ALKALINE PHOSPHATASE 50 U/L (45-117); AST/SGOT 16 U/L (15-37); CKMB 0.9 ng/ml (0.5-3.6); TOTAL PROTEIN 6.4 gm/dl (6.4-8.2)
[2017-08-03 21:02] VITALS: BP 133/79; PULSE 60; O2SAT 95
== END 2017-08-03 21:03 | disposition home or self-care (01) ==
LOC: C.EDB 17:10
DX: G56.01 Carpal tunnel syndrome, right upper limb (principal); R42 Dizziness and giddiness; J45.909 Unspecified asthma, uncomplicated; E05.90 Thyrotoxicosis, unspecified without thyrotoxic crisis or storm; F39 Unspecified mood [affective] disorder; Z87.440 Personal history of urinary (tract) infections; Z80.9 Family history of malignant neoplasm, unspecified; Z83.3 Family history of diabetes mellitus; Z82.49 Family history of ischemic heart disease and other diseases of the circulatory system; Z84.1 Family history of disorders of kidney and ureter; F17.210 Nicotine dependence, cigarettes, uncomplicated; Z79.899 Other long term (current) drug therapy; Z88.5 Allergy status to narcotic agent; Z88.6 Allergy status to analgesic agent; Z88.8 Allergy status to other drugs, medicaments and biological substances

== ENCOUNTER 2017-08-18 19:24 | Emergency (ER) | payer OTHER ==
[~2017-08-18] VITALS: Ht 165.1 cm; Wt 93.5 kg
[~2017-08-18 19:24] MED LIST changes: +ATEN50TA8 PO; -IBUP-1050 PO; +LEVO112T2 PO; -METH5TAB5 PO; -PROP20TA67 PO
[2017-08-18 19:30] VITALS: TEMP 36.7; Ht 165.1 cm; Wt 93.5 kg
[2017-08-18] MEDS ORDERED: SODIUM CHLORIDE 0.9% 1000ML 1,000 ML IV STA (19:59)
--- NOTE | 2017-08-18 20:07 | EMERGENCY ROOM VISIT NOTE ---
History Report prepared by Vane: Kayce Palomino Under the Supervision of: Dr. Addison Peacock M.D. First contact with patient: 19:53 Chief Complaint: ILLNESS Stated Complaint: WEAK, TIRED, SORE THROAT- REFERRED History of Present Illness The patient is a 36 year old female who presents to the Emergency Room with complaints of weakness beginning 2 days ago. The patient also reports that she had 3 episodes of white mucosy stool today and also reports feeling fatigued and having a sorethroat, cough, nausea, and lower back pain. She denies having urinary symptoms and abdominal pain. She also reports being febrile at 1200 today but has been taking Tylenol to reduce her fever. 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 The patient states that she called her doctor's office and was referred here. The patient reports being here a couple weeks ago for dizziness. She reports that she has been seeing an event sales assistant for 2 years. Source of History: patient Onset: 2 days ago Position: other (global) Quality: other (weakness ) Associated Symptoms: + fevers, + sorethroat, + cough, + nausea, + back pain (lower), + fatigue, No abdominal pain, No urinary symptoms Note: additional symptom: white, mucosy stool Review of Systems See HPI for pertinent positives and negatives. A total of ten systems were reviewed and were otherwise negative. Past Medical & Surgical Medical Problems: (1) Asthma (2) Asthma (3) Hyperthyroidism (4) Mood disorder (5) Tobacco abuse (6) UTI (urinary tract infection) Surgical Problems: (1) H/O tubal ligation (2) History of dental surgery (3) History of thyroid surgery (4) Hx of cholecystectomy (5) S/P tubal ligation Family History Cancer Diabetes mellitus FHx: gallbladder disease Heart disease Hypertension Kidney disease Kidney stones Social History Smoking Status: Current Every Day Smoker Alcohol Use: none Drug Use: none Marital Status: in relationship Housing Status: lives with family Occupation Status: employed Current/Historical Medications Scheduled Atenolol (Tenormin), 50 MG PO DAILY Calcium Carbonate-Cholecalcife (Calcium 600+D3 600-800 mg-Unit), 1 TAB PO TID Levothyroxine Sodium (Synthroid), 112 MCG PO DAILY Scheduled PRN Fluticasone Propionate (Fluticasone Propionate), 2 SPRAYS [place] DAILY PRN for Allergy Symptoms Ibuprofen (Advil), 800 MG PO Q8 PRN for Headache or Pain Allergies Coded Allergies: Fluoxetine (Verified Adverse Reaction, Severe, HIVES-SOB, 05/07/17) Oxycodone (Verified Adverse Reaction, Severe, NAUSEA/VOMITING, 08/03/17) Physical Exam Vital Signs Date Time Temp Pulse Resp B/P (MAP) Pulse Ox O2 Delivery O2 Flow Rate FiO2 08/18/17 22:06 60 12 98 08/18/17 22:01 130/96 08/18/17 21:55 70 15 97 08/18/17 21:01 136/92 08/18/17 20:57 66 08/18/17 20:55 67 20 97 08/18/17 20:50 65 16 130/89 98 Room Air 08/18/17 20:50 100 Room Air 08/18/17 19:30 36.7 61 18 139/84 99 Room Air Physical Exam GENERAL: Awake, alert, well-appearing, in no distress HENT: Normocephalic, atraumatic. Dry mucous membranes, otherwise oropharynx unremarkable. EYES: Normal conjunctiva. Sclera non-icteric. NECK: Supple. No nuchal rigidity. FROM. No JVD. RESPIRATORY: Clear to auscultation. CARDIAC: Regular rate, normal rhythm. Extremities warm and well perfused. Pulses equal. ABDOMEN: Soft, non-distended. No tenderness to palpation. No rebound or guarding. No masses. RECTAL: Deferred. MUSCULOSKELETAL: Chest examination reveals no tenderness. The back is symmetrical on inspection without obvious abnormality. There is no CVA tenderness to palpation. No joint edema. LOWER EXTREMITIES: Calves are equal size bilaterally and non-tender. No edema. No discoloration. NEURO: Normal sensorium. No sensory or motor deficits noted. SKIN: No rash or jaundice noted. Medical Decision & Procedures ER Provider Diagnostic Interpretation: Radiology results as stated below per my review and radiologist interpretation: CHEST ONE VIEW PORTABLE CLINICAL HISTORY: Pain, radiating to the abdomen. COMPARISON STUDY: January 04, 2017 FINDINGS: The cardiac and mediastinal contours are normal. There is no evidence of focal pulmonary consolidation. There is no evidence of failure. No pleural effusions are visualized.[ IMPRESSION: No active disease in the chest. Electronically signed by: Mt Cooper M.D. 08/18/2017 8:17 PM Dictated Date/Time: 08/18/2017 8:17 PM Laboratory Results 08/18/17 20:30 Red Blood Count 4.45, Mean Corpuscular Volume 83.8, Mean Corpuscular Hemoglobin 29.2, Mean Corpuscular Hemoglobin Concent 34.9, Mean Platelet Volume 10.5, Neutrophils (%) (Auto) 58.6, Lymphocytes (%) (Auto) 31.5, Monocytes (%) (Auto) 6.9, Eosinophils (%) (Auto) 2.4, Basophils (%) (Auto) 0.2, Neutrophils # (Auto) 4.85, Lymphocytes # (Auto) 2.61, Monocytes # (Auto) 0.57, Eosinophils # (Auto) 0.20, Basophils # (Auto) 0.02 08/18/17 20:30 Test 08/18/17 20:25 08/18/17 20:30 Urine Color YELLOW Urine Appearance CLEAR (CLEAR) Urine pH 6.0 (4.5-7.5) Urine Specific [place] 1.006 (1.000-1.030) Urine Protein NEG (NEG) Urine Glucose (UA) NEG (NEG) Urine Ketones NEG (NEG) Urine Occult Blood NEG (NEG) Urine Nitrite NEG (NEG) Urine Bilirubin NEG (NEG) Urine Urobilinogen NEG (NEG) Urine Leukocyte Esterase NEG (NEG) White Blood Count 8.28 K/uL (4.8-10.8) Red Blood Count 4.45 M/uL (4.2-5.4) Hemoglobin 13.0 g/dL (12.0-16.0) Hematocrit 37.3 % (37-47) Mean Corpuscular Volume 83.8 fL (80-100) Mean Corpuscular Hemoglobin 29.2 pg (25-34) Mean Corpuscular Hemoglobin Concent 34.9 g/dl (32-36) Platelet Count 232 K/uL (130-400) Mean Platelet Volume 10.5 fL (7.4-10.4) Neutrophils (%) (Auto) 58.6 % Lymphocytes (%) (Auto) 31.5 % Monocytes (%) (Auto) 6.9 % Eosinophils (%) (Auto) 2.4 % Basophils (%) (Auto) 0.2 % Neutrophils # (Auto) 4.85 K/uL (1.4-6.5) Lymphocytes # (Auto) 2.61 K/uL (1.2-3.4) Monocytes # (Auto) 0.57 K/uL (0.11-0.59) Eosinophils # (Auto) 0.20 K/uL (0-0.5) Basophils # (Auto) 0.02 K/uL (0-0.2) RDW Standard Deviation 42.0 fL (36.4-46.3) RDW Coefficient of Variation 13.8 % (11.5-14.5) Immature Granulocyte % (Auto) 0.4 % Immature Granulocyte # (Auto) 0.03 K/uL (0.00-0.02) Erythrocyte Sedimentation Rate 5 mm/hr (0-21) Anion Gap 5.0 mmol/L (3-11) Est Creatinine Clear Calc Drug Dose 71.4 ml/min Estimated GFR () 65.5 Estimated GFR (Non- 56.5 BUN/Creatinine Ratio 9.0 (10-20) Calcium Level 9.0 mg/dl (8.5-10.1) Phosphorus Level 4.8 mg/dl (2.5-4.9) Magnesium Level 2.2 mg/dl (1.8-2.4) Total Bilirubin 0.2 mg/dl (0.2-1) Direct Bilirubin < 0.1 mg/dl (0-0.2) Aspartate Amino Transf (AST/SGOT) 14 U/L (15-37) Alanine Aminotransferase (ALT/SGPT) 21 U/L (12-78) Alkaline Phosphatase 52 U/L (45-117) C-Reactive Protein < 0.29 mg/dl (0-0.29) Total Protein 7.4 gm/dl (6.4-8.2) Albumin 4.0 gm/dl (3.4-5.0) Lipase 367 U/L (73-393) Influenza Type A (RT-PCR) Neg for Influ A (NEG) Influenza Type B (RT-PCR) Neg for Influ B (NEG) Laboratory results reviewed by me Medications Administered Medications (Trade) Dose Ordered Sig/Bernard Route Start Time Stop Time Status Last Admin Dose Admin Sodium Chloride 1,000 ml @ 999 mls/hr Q1H1M STAT IV 08/18/17 19:59 08/18/17 20:59 DC 08/18/17 20:51 999 MLS/HR Dexamethasone (Decadron Tab) 10 mg NOW ONCE PO 08/18/17 22:15 08/18/17 22:16 DC 08/18/17 22:22 10 MG ED Course 1957: The patient was evaluated in room C3. A complete history and physical exam was performed. 2219: I reevaluated the patient. Discussed results and discharge instructions: She verbalized understanding and agreement. The patient is ready for discharge. Medical Decision I reviewed the patient's past medical history, medications, and the nursing notes as described above. Differential diagnosis: Etiologies such as appendicitis, diverticulitis, PUD, biliary pathology, UTI, pancreatitis, obstruction, mesenteric ischemia, aortic pathology, infections, inflammatory bowel disease, renal colic, as well as others were entertained. The patient is a 36-year-old woman who presents emergency department with complaints of mucousy stool that began today in the setting of generalized fatigue over the past week per hpi. On arrival the patient is no acute distress , afebrile stable vital signs. On exam the patient has a mildly hoarse voice but denies any difficulty swallowing or breathing. No oral pharyngeal edema. No tongue elevation or trismus. No stridor. Abd benign. WBC, ESR, and CRP within normal limits. Creatinine mildly elevated 1.2 in setting of the patient' s clinically dry appearance. Chest x-ray negative. Patient feeling improved after IV fluids. Additionally treat with dexamethasone given the patient's clinical laryngitis. Flu negative. Otherwise the patient's symptoms are consistent with a viral syndrome. Findings and plan for follow-up reviewed with patient. Patient agreeable and d/c'd per discharge instructions. Medication Reconcilliation Current Medication List: was personally reviewed by me Blood Pressure Screening Patient's blood pressure: Normal blood pressure Impression Primary Impression: Viral syndrome Additional Impression: Laryngitis Scribe Attestation The scribe's documentation has been prepared under my direction and personally reviewed by me in its entirety. I confirm that the note above accurately reflects all work, treatment, procedures, and medical decision making performed by me. Departure Information Dispostion Home / Self-Care Referrals Elaine Nice D.O. (PCP) Forms HOME CARE DOCUMENTATION FORM, IMPORTANT VISIT INFORMATION, WORK / SCHOOL INSTRUCTIONS Patient Instructions ED Dehydration, ED Laryngitis, ED Viral Syndrome, My [facility] Additional Instructions Please follow up with your primary care physician in the next 1-3 days for re- evaluation and to repeat your kidney function tests. You likely have a viral illness and mild dehydration. Otherwise, your exam, chest xray, and lab results did not show signs of an emergent condition at this time. Acetaminophen or ibuprofen for pain and fevers as needed. Drink plenty of fluids to ensure hydration. Return to the emergency department for worsening symptoms as described in the accompanying instructions. Problem Qualifiers
--- NOTE | 2017-08-18 20:18 | DIAGNOSTIC IMAGING REPORT ---
CHEST ONE VIEW PORTABLE CLINICAL HISTORY: Pain, radiating to the abdomen. COMPARISON STUDY: January 04, 2017 FINDINGS: The cardiac and mediastinal contours are normal. There is no evidence of focal pulmonary consolidation. There is no evidence of failure. No pleural effusions are visualized.[ IMPRESSION: No active disease in the chest. Electronically signed by: Mt Cooper M.D. 08/18/2017 8:17 PM Dictated Date/Time: 08/18/2017 8:17 PM
[2017-08-18] MEDS ORDERED: CALC-449 PO (20:40)
[2017-08-18 20:50] VITALS: O2SAT 100
[2017-08-18 21:02] LABS: BASO % 0.2 %; BASO ABS # 0.02 K/uL (0-0.2); EOS % 2.4 %; HEMATOCRIT 37.3 % (37-47); IG# 0.03 K/uL (0.00-0.02); LYMPH % 31.5 %; LYMPH ABS # 2.61 K/uL (1.2-3.4); MEAN CELL VOLUME 83.8 fL (80-100); MEAN CORPUSCULAR HEMOGLOBIN 29.2 pg (25-34); MEAN CORPUSCULAR HGB CONC 34.9 g/dl (32-36); MEAN PLATELET VOLUME 10.5 fL (7.4-10.4); MONO % 6.9 %; MONO ABS # 0.57 K/uL (0.11-0.59); NEUT % 58.6 %; NEUT ABS # 4.85 K/uL (1.4-6.5); PLATELET COUNT 232 K/uL (130-400); RED CELL DISTRIBUTION WIDTH CV 13.8 % (11.5-14.5); WHITE BLOOD COUNT 8.28 K/uL (4.8-10.8)
[2017-08-18 21:11] LABS: BLOOD UREA NITROGEN 11 mg/dl (7-18); CARBON DIOXIDE 25 mmol/L (21-32); CREATININE 1.22 mg/dl (0.60-1.20); GLUCOSE 88 mg/dl (70-99); POTASSIUM 3.6 mmol/L (3.5-5.1); SODIUM 137 mmol/L (136-145)
[2017-08-18 21:16] LABS: ALKALINE PHOSPHATASE 52 U/L (45-117); ALT/SGPT 21 U/L (12-78); AST/SGOT 14 U/L (15-37); LIPASE 367 U/L (73-393); PHOSPHORUS 4.8 mg/dl (2.5-4.9); TOTAL PROTEIN 7.4 gm/dl (6.4-8.2)
[2017-08-18] MEDS ORDERED: IBUP-1050 PO (21:51)
[2017-08-18 22:01] VITALS: BP 130/96
[2017-08-18 22:06] VITALS: PULSE 60; O2SAT 98
[2017-08-18] MEDS ORDERED: DEXAMETHASONE 4 MG TAB PO ONE (22:15)
[2017-08-18 22:18] LABS: INFLUENZA A PCR Neg for Influ A (NEG); INFLUENZA B PCR Neg for Influ B (NEG)
== END 2017-08-18 22:31 | disposition home or self-care (01) ==
LOC: C.EDB 19:25 → C.EDC 22:31
DX: B34.9 Viral infection, unspecified (principal); J04.0 Acute laryngitis; J45.909 Unspecified asthma, uncomplicated; F17.200 Nicotine dependence, unspecified, uncomplicated; Z87.440 Personal history of urinary (tract) infections; Z98.51 Tubal ligation status; Z98.818 Other dental procedure status; Z90.49 Acquired absence of other specified parts of digestive tract; Z98.890 Other specified postprocedural states; Z83.3 Family history of diabetes mellitus; Z82.49 Family history of ischemic heart disease and other diseases of the circulatory system; Z84.1 Family history of disorders of kidney and ureter; Z88.6 Allergy status to analgesic agent; Z88.8 Allergy status to other drugs, medicaments and biological substances

== ENCOUNTER 2017-12-07 17:50 | Emergency (ER) | payer OTHER ==
[~2017-12-07] VITALS: Ht 165.1 cm; Wt 101.8 kg
[~2017-12-07 17:50] MED LIST changes: +CALC-449 PO; +IBUP-1050 PO
[2017-12-07 17:57] VITALS: TEMP 36.8; Ht 165.1 cm; Wt 101.8 kg
[2017-12-07] MEDS ORDERED: PROCHLORPERAZINE 5 MG/ML 2 ML VIAL IM STA (18:26)
[2017-12-07] MEDS ORDERED: KETOROLAC TROMETHAMINE 60 MG/2 ML VIAL IM STA (18:26)
[2017-12-07] MEDS ORDERED: DiphenhydrAMINE HCL 50 MG/ML VIAL IM STA (18:26)
[2017-12-07 19:37] VITALS: BP 125/76; PULSE 61; O2SAT 99
--- NOTE | 2017-12-07 21:12 | EMERGENCY ROOM VISIT NOTE ---
History First contact with patient: 18:08 Chief Complaint: HEADACHE Stated Complaint: MIGRAINE, NAUSEA History of Present Illness The patient is a 37 year old female who presents to the Emergency Room with complaints of a migraine headache that started 2 days ago. The patient reports that she can usually control her migraine if she treats it early enough with NSAIDs. The patient reports that she was unable to do so. She reports nausea without any significant vomiting. She reports a history of migraines, and states that this headache is the same as all prior. It is not the worst headache of her life. She describes it as a right sided headache with photophobia and phonophobia. She denies any recent head injury, neck pain, fevers or chills. She rates her discomfort a 9 out of 10. Review of Systems 10 system review was performed and was negative except for pertinent positives and negatives as indicated in history of present illness Past Medical/Surgical History Medical Problems: (1) Asthma (2) Asthma (3) Hyperthyroidism (4) Mood disorder (5) Tobacco abuse (6) UTI (urinary tract infection) Surgical Problems: (1) H/O tubal ligation (2) History of dental surgery (3) History of thyroid surgery (4) Hx of cholecystectomy (5) S/P tubal ligation Family History Cancer Diabetes mellitus FHx: gallbladder disease Heart disease Hypertension Kidney disease Kidney stones Social History Smoking Status: Former Smoker Alcohol Use: none Drug Use: none Marital Status: in relationship Housing Status: lives with family Occupation Status: employed Current/Historical Medications Scheduled Atenolol (Tenormin), 50 MG PO DAILY Calcium Carbonate-Cholecalcife (Calcium 600+D3 600-800 mg-Unit), 1 TAB PO TID Levothyroxine Sodium (Synthroid), 112 MCG PO DAILY Scheduled PRN Fluticasone Propionate (Fluticasone Propionate), 2 SPRAYS [place] DAILY PRN for Allergy Symptoms Ibuprofen (Advil), 800 MG PO Q8 PRN for Headache or Pain Physical Exam Vital Signs Date Time Temp Pulse Resp B/P (MAP) Pulse Ox O2 Delivery O2 Flow Rate FiO2 12/07/17 19:37 61 18 125/76 99 Room Air 12/07/17 17:57 36.8 76 16 139/98 98 Room Air Physical Exam CONSTITUTIONAL: Healthy and well nourished. Alert and oriented X 3 with positive affect. The patient is resting in a darkened room. HEENT: Normocephalic, atraumatic. Pupils equal, round and reactive. Patient is photophobic, precluding funduscopic exam. NECK: Full active range of motion without discomfort. RESPIRATORY: Clear to auscultation bilaterally with no wheezing, crackles, rhonchi or stridor. CARDIOVASCULAR: Regular rate and rhythm with no murmurs, rubs or gallops. GASTROINTESTINAL: Bowel sounds present in all quadrants. Soft and nontender to palpation. MUSCULOSKELETAL: Full range of motion of all joints without discomfort. Equal handgrip bilaterally. INTEGUMENTARY: No rash or other significant dermatologic conditions noted. NEUROLOGIC: Cranial nerves II-XII grossly intact. No focal neurologic deficits noted. No ataxia with ambulation. Negative pronator drift. Medical Decision & Procedures Medications Administered Medications (Trade) Dose Ordered Sig/Bernard Route Start Time Stop Time Status Last Admin Dose Admin Ketorolac Tromethamine (Toradol Inj) 60 mg NOW STAT IM 12/07/17 18:26 12/07/17 18:28 DC 12/07/17 19:17 60 MG Prochlorperazine Edisylate (Compazine Inj) 10 mg NOW STAT IM 12/07/17 18:26 12/07/17 18:28 DC 12/07/17 19:16 10 MG Diphenhydramine HCl (Benadryl Inj) 50 mg NOW STAT IM 12/07/17 18:26 12/07/17 18:28 DC 12/07/17 19:17 50 MG ED Course Patient history and physical exam were performed. Nurse's notes were reviewed. Vital signs were reviewed, showing an elevated blood pressure 139/98. The patient is otherwise afebrile and not tachycardic. The patient reports that her migraine is similar to all prior. I offered parenteral versus intramuscular treatment. The patient reports that she does not feel like she is dehydrated, therefore elected intramuscular treatment. She was administered Toradol 60 mg, Compazine 10 mg and Benadryl 50 mg IM. This reduced the patient' s pain to a 3 out of 10 at the time of discharge. The patient was encouraged to follow-up with her PCP for further migraine management as needed. She was encouraged to rest and remain well-hydrated. She is welcome to return to the emergency department for any progressively worsening headache, fever or other concerning symptoms. The patient was happy with plan of care, and voiced understanding of all discharge instructions. Medical Decision The patient presents to the emergency department with complaint of a migraine headache. The patient does have a history of migraines. Based on history and physical exam findings, I do not suspect meningitis, abscess, intracranial bleed , CVA/TIA, thromboembolic event or carbon monoxide poisoning. At this point, I do not feel that additional imaging or laboratory studies are warranted. Medication Reconcilliation Current Medication List: was personally reviewed by me Blood Pressure Screening Patient's blood pressure: Elevated blood pressure Blood pressure disposition: Elevated BP felt to be situational, Did not require urgent referral Impression Primary Impression: Migraine Departure Information Dispostion Home / Self-Care Condition GOOD Forms HOME CARE DOCUMENTATION FORM, IMPORTANT VISIT INFORMATION Patient Instructions My [facility] Additional Instructions Rest and remain well-hydrated. Follow-up with your family doctor as needed for further migraine management. Return to the emergency department as needed for any progressively worsening symptoms. Problem Qualifiers Primary Impression: Migraine
== END 2017-12-07 19:38 | disposition home or self-care (01) ==
LOC: C.EDB 17:51 → C.EDD 19:38
DX: G43.909 Migraine, unspecified, not intractable, without status migrainosus (principal); J45.909 Unspecified asthma, uncomplicated; E05.90 Thyrotoxicosis, unspecified without thyrotoxic crisis or storm; Z87.891 Personal history of nicotine dependence; Z87.440 Personal history of urinary (tract) infections; Z98.51 Tubal ligation status; Z90.49 Acquired absence of other specified parts of digestive tract; Z80.9 Family history of malignant neoplasm, unspecified; Z83.3 Family history of diabetes mellitus; Z83.79 Family history of other diseases of the digestive system; Z82.49 Family history of ischemic heart disease and other diseases of the circulatory system; Z84.1 Family history of disorders of kidney and ureter; Z79.899 Other long term (current) drug therapy

== ENCOUNTER 2019-04-02 18:10 | Inpatient (IN) ==
[2019-04-02] MEDS ORDERED: HydrALAZINE HCL 20 MG/ML VIAL IV STA (18:50)
[2019-04-02 19:00] LABS: Basophils # (auto) 0.02 K/uL (0-0.2); Basophils % (auto) 0.2 %; Eosinophils # (auto) 0.17 K/uL (0-0.5); Eosinophils % (auto) 1.9 %; Hematocrit (blood only) 35.5 % (37-47); Hemoglobin 11.8 g/dL (12.0-16.0); Immature Granulocytes # (auto) 0.19 K/uL (0.00-0.02); Immature Granulocytes % (auto) 2.1 %; Lymphocytes # (auto) 2.61 K/uL (1.2-3.4); Lymphocytes % (auto) 29.4 %; Mean Corpuscular Hemoglobin 28.2 pg (25-34); Mean Corpuscular Hgb Conc 33.2 g/dL (32-36); Mean Corpuscular Volume 84.9 fL (80-100); Mean Platelet Volume 9.6 fL (7.4-10.4); Monocytes # (auto) 0.46 K/uL (0.11-0.59); Monocytes % (auto) 5.2 %; Neutrophils # (auto) 5.43 K/uL (1.4-6.5); Neutrophils % (auto) 61.2 %; Platelet Count 297 K/uL (130-400); RDW Coefficient of Variation 14.6 % (11.5-14.5); RDW Standard Deviation 45.2 fL (36.4-46.3); Red Blood Count 4.18 M/uL (4.2-5.4); White Blood Count 8.88 K/uL (4.8-10.8)
[2019-04-02 19:10] LABS: Partial Thromboplastin Ratio 0.9; Partial Thromboplastin Time 25.1 Seconds (21.0-31.0)
[2019-04-02 19:15] LABS: Alanine Aminotransferase 21 U/L (12-78); Albumin Level 3.4 gm/dl (3.4-5.0); Aspartate Aminotransferase 9 U/L (15-37); BUN Creatinine Ratio 10.3 (10-20); Blood Urea Nitrogen 11 mg/dl (7-18); Calcium 8.9 mg/dl (8.5-10.1); Carbon Dioxide 25 mmol/L (21-32); Chloride 103 mmol/L (98-107); Est GFR (African American) 75.7; Est GFR (Non-African American) 65.3; Glucose 111 mg/dl (70-99); Magnesium 1.8 mg/dl (1.8-2.4); Potassium 3.4 mmol/L (3.5-5.1); Sodium 137 mmol/L (136-145)
[2019-04-02 19:20] LABS: Albumin Globulin Ratio 0.9 (0.9-2); Alkaline Phosphatase 76 U/L (45-117); Bilirubin,Total 0.3 mg/dl (0.2-1); Globulin 3.6 gm/dl (2.5-4.0); Troponin I < 0.015 ng/ml (0-0.045)
--- NOTE | 2019-04-02 19:52 | CT Scan Report ---
HEAD CT NONCONTRAST CT DOSE: 537.48 mGy.cm HISTORY: Stroke symptoms. TECHNIQUE: Multiaxial CT images of the head were performed without the use of intravenous contrast. A utomated exposure control was utilized for this study. A dose lowering technique was utilized adheri ng to the principles of ALARA. Comparison: Head CT 08/15/2016. Findings: The paranasal sinuses and mastoid air cells are clear. The calvarium and skull base are int act. The ventricles and sulci are within normal limits. There is no mass, hematoma, midline shift, or acute infarct. Impression: No acute intracranial abnormality. Electronically signed by: Gideon Davis M.D. 04/02/2019 7:51 PM
[2019-04-02] MEDS ORDERED: ATENOLOL 50 MG TABLET PO ONE (21:25)
[2019-04-02] MEDS ORDERED: DiphenhydrAMINE HCL 50 MG/ML VIAL IV STA (21:26)
[2019-04-02] MEDS ORDERED: PROCHLORPERAZINE 10 MG in SYRINGE 8 ML IV ONE (21:26)
[2019-04-02] MEDS ORDERED: PROCHLORPERAZINE 5 MG/ML 2 ML VIAL ONE (21:33)
[2019-04-02] MEDS ORDERED: SODIUM CHLORIDE 0.9% 1000ML 1,000 ML IV SCH (23:42)
[2019-04-02] MEDS ORDERED: FLUTICASONE PROPIONATE NA SPR 16 GM BTL PRN (23:42)
[2019-04-02] MEDS ORDERED: HydrALAZINE HCL 20 MG/ML VIAL IV PRN (23:42)
[2019-04-02] MEDS ORDERED: NITROGLYCERIN SL 0.4 MG/TAB TAB SL PRN (23:42)
[2019-04-02] MEDS ORDERED: PHARMACIST DISCHARGE MED REC CONSULT PRN (23:42)
[2019-04-02] MEDS ORDERED: ONDANSETRON INJ 2 MG/ML 2 ML VIAL IV PRN (23:42)
[2019-04-02] MEDS ORDERED: GLUCAGON FOR INJ 1 MG VIAL IM PRN (23:45)
[2019-04-02] MEDS ORDERED: GLUCOSE 40% GEL 15 GM TUBE PO PRN (23:45)
[2019-04-02] MEDS ORDERED: DEXTROSE 50% 50 ML SYRINGE IV PRN (23:45)
[2019-04-02] MEDS ORDERED: GLUCOSE 10 TABS/TUBE PO PRN (23:45)
[2019-04-02] MEDS ORDERED: CARBOHYDRATES FOR HYPOGLYCEMIA PO PRN (23:45)
[2019-04-03] MEDS ORDERED: LORazepam 0.5 MG/1 ML VIAL IV STA (00:08)
--- NOTE | 2019-04-03 00:44 | Emergency Department Note ---
Entered by Ladonna Prieto acting as a scribe for Sushila Alvares MD History of Present Illness General Chief complaint: Stroke/CVA Symptoms Stated complaint: TINGLING IN FACE, ARM, FLASHES, NAUSEA Source: patient Limitations: no limitations History of Present Illness Onset (ago): day(s) 2 Location: face Radiation: extremity (RUE) Pain Consistency: + other (persistent) Quality: + other (tingling and prickling) Associated symptoms: + shortness of breath; no chest pain The patient is a 38 year old female who presents to the Emergency Room with complaints of persistent "tingling and prickling" in her face that began 2 days ago. She reports that the symptoms radiate down her right upper extremity. The patient states that she sees "flashes of light" when she closes her eyes, noting that this began today. She reports that "her hand has been giving out," and she has been dropping things for the past 2 days. The patient complains of nausea that began today. She complains of SOB with exertion. The patient denies any chest pain. She notes that she takes medication for hypertension, and she did no t take her medication today. The patient reports that she quit smoking cigarettes about a year ago. Home Medications Home Medications Medication Instructions Recorded Confirmed Type atenolol 50 mg PO QPM 04/17/18 04/02/19 History fluticasone propionate [Flonase 2 spray INTRANASAL DAILY PRN 04/17/18 04/02/19 History Allergy Relief] levothyroxine 150 mcg PO QAM 04/17/18 04/02/19 History metformin 1,000 mg PO QPM 04/17/18 04/02/19 History omeprazole 20 mg PO BID 06/07/18 04/02/19 History Allergies Allergy/AdvReac Type Severity Reaction Status Date / Time fluoxetine AdvReac Severe Shortness Verified 04/02/19 19:10 of breath and hives oxycodone AdvReac Severe NAUSEA/VOMI Verified 04/02/19 19:10 TING Past Med/Surg History Medical History Asthma (Chronic) Headache (Inactive) Hyperthyroidism (Chronic) Hypothyroidism (acquired) (Inactive) Malaise and fatigue (Inactive) Migraine (Acute) Mood disorder (Chronic) Tobacco abuse (Chronic) Surgical History H/O tubal ligation (Chronic) History of dental surgery (Chronic) History of thyroid surgery Hx of cholecystectomy (Chronic) Family History Other No significant family history Social History Preferred Language: Burmese Communication Ability: Effective [place] Required: No Beliefs That Will Affect Care: None Current Living Situation: Family Other Information That Helps Us Care for You: No Feels Safe at Home: Yes Safety Concerns: Feels Safe At This Time Smoking Status: Unknown if ever smoked Hx Alcohol Use: No Hx Substance Use: No Review of Systems See HPI for pertinent positives & negatives. and A total of 10 systems reviewed and were otherwise negative Physical Exam Vital Signs Vital Signs - 24 hr 04/02/19 18:19 04/02/19 18:47 04/02/19 19:00 Temperature 36.7 C Temperature Source Oral Pulse Rate 82 78 83 Pulse Rate from SpO2 Sensor 78 80 Respiratory Rate 18 20 26 H Blood Pressure 151/109 H 181/114 H Blood Pressure Mean 123 120 Blood Pressure Position Sitting Pulse Oximetry 98 97 98 Oxygen Delivery Method Room Air Sepsis Recent Fever Within 48 Hours No Sepsis New/Unexplained Change in Mental Status No Sepsis Action Taken by Nursing No Action Required 04/02/19 19:10 04/02/19 19:20 04/02/19 19:30 Temperature Temperature Source Pulse Rate 80 72 94 H Pulse Rate from SpO2 Sensor 80 76 94 H Respiratory Rate 25 H 21 22 Blood Pressure 145/92 H Blood Pressure Mean 123 Blood Pressure Position Pulse Oximetry 97 96 Oxygen Delivery Method Sepsis Recent Fever Within 48 Hours Sepsis New/Unexplained Change in Mental Status Sepsis Action Taken by Nursing 04/02/19 19:31 04/02/19 19:42 04/02/19 19:49 Temperature Temperature Source Pulse Rate 99 H 90 88 Pulse Rate from SpO2 Sensor 99 H 102 H Respiratory Rate 20 15 14 Blood Pressure 134/92 134/92 Blood Pressure Mean 106 114 Blood Pressure Position Pulse Oximetry 99 97 Oxygen Delivery Method Sepsis Recent Fever Within 48 Hours Sepsis New/Unexplained Change in Mental Status Sepsis Action Taken by Nursing 04/02/19 19:50 04/02/19 20:03 04/02/19 20:09 Temperature Temperature Source Pulse Rate 80 81 88 Pulse Rate from SpO2 Sensor 96 H 90 Respiratory Rate 16 17 18 Blood Pressure 137/99 Blood Pressure Mean 109 Blood Pressure Position Pulse Oximetry 98 98 Oxygen Delivery Method Sepsis Recent Fever Within 48 Hours Sepsis New/Unexplained Change in Mental Status Sepsis Action Taken by Nursing 04/02/19 20:10 04/02/19 20:20 04/02/19 20:30 Temperature Temperature Source Pulse Rate 85 87 93 H Pulse Rate from SpO2 Sensor 86 88 95 H Respiratory Rate 14 19 24 Blood Pressure 151/106 H Blood Pressure Mean 118 Blood Pressure Position Pulse Oximetry 98 98 96 Oxygen Delivery Method Sepsis Recent Fever Within 48 Hours Sepsis New/Unexplained Change in Mental Status Sepsis Action Taken by Nursing 04/02/19 20:31 04/02/19 20:40 04/02/19 20:50 Temperature Temperature Source Pulse Rate 101 H 90 86 Pulse Rate from SpO2 Sensor 96 H 92 H 92 H Respiratory Rate 18 18 16 Blood Pressure Blood Pressure Mean Blood Pressure Position Pulse Oximetry 92 98 99 Oxygen Delivery Method Sepsis Recent Fever Within 48 Hours Sepsis New/Unexplained Change in Mental Status Sepsis Action Taken by Nursing 04/02/19 21:00 04/02/19 21:10 04/02/19 21:20 Temperature Temperature Source Pulse Rate 111 H 86 85 Pulse Rate from SpO2 Sensor 87 Respiratory Rate 20 18 21 Blood Pressure Blood Pressure Mean Blood Pressure Position Pulse Oximetry 97 Oxygen Delivery Method Sepsis Recent Fever Within 48 Hours Sepsis New/Unexplained Change in Mental Status Sepsis Action Taken by Nursing 04/02/19 21:25 04/02/19 21:30 04/02/19 21:40 Temperature Temperature Source Pulse Rate 93 H 86 88 Pulse Rate from SpO2 Sensor Respiratory Rate 23 29 H 23 Blood Pressure 158/118 H Blood Pressure Mean 125 Blood Pressure Position Pulse Oximetry Oxygen Delivery Method Sepsis Recent Fever Within 48 Hours Sepsis New/Unexplained Change in Mental Status Sepsis Action Taken by Nursing 04/02/19 21:50 04/02/19 22:00 04/02/19 22:01 Temperature Temperature Source Pulse Rate 80 82 76 Pulse Rate from SpO2 Sensor 80 79 75 Respiratory Rate 18 16 13 Blood Pressure 143/111 H Blood Pressure Mean 116 Blood Pressure Position Pulse Oximetry 99 98 97 Oxygen Delivery Method Sepsis Recent Fever Within 48 Hours Sepsis New/Unexplained Change in Mental Status Sepsis Action Taken by Nursing 04/02/19 22:10 04/02/19 22:20 04/02/19 22:30 Temperature Temperature Source Pulse Rate 75 Pulse Rate from SpO2 Sensor 76 90 76 Respiratory Rate 19 Blood Pressure Blood Pressure Mean Blood Pressure Position Pulse Oximetry 97 96 96 Oxygen Delivery Method Sepsis Recent Fever Within 48 Hours Sepsis New/Unexplained Change in Mental Status Sepsis Action Taken by Nursing Vital signs reviewed. Equally hypertensive in bilateral arms. General: Well-appearing female, in no significant distress. Obese. HEENT: No scleral icterus, PERRLA, neck supple. Atraumatic. Cardiovascular: Regular rate and rhythm, no extra sounds. Pulmonary: Clear to auscultation bilaterally, normal work of breathing. Abdomen: Soft, nontender, nondistended, positive bowel sounds. Musculoskeletal: Atraumatic, no peripheral edema. Neurologic: Patient awake alert and oriented x 3, full strength in all 4 extremities. Cranial nerves 2 through 12 grossly intact. Negative pronator drift, intact finger to nose. Skin: Warm, dry, no rash Course Course 1842: The patient was evaluated in room B04B. A complete history and physical exam was performed. 2000: The patient complained of nausea. 2112: I reevaluated the patient, and she was doing well. 2218: I spoke with Dr. Simeon, [facility] hospitalist, about the patients case. He will further evaluate the patient. Administered Medications Gadobutrol (Gadavist 65ml) 11 ml IV ONCE PRN PRN Reason: Interaction Checking Stop: 04/07/19 01:28 Last Admin: 04/03/19 01:15 Dose: 11 ml Documented by: [id number] Sodium Chloride (Nss 1000ml) 1,000 mls @ 75 mls/hr IV .[id number] SLIM Stop: 04/03/19 14:00 Last Admin: 04/03/19 01:59 Dose: 75 mls/hr Documented by: [id number] Discontinued Medications Atenolol (Tenormin) 50 mg PO NOW ONE Stop: 04/02/19 21:26 Last Admin: 04/02/19 21:41 Dose: 50 mg Documented by: [id number] Diphenhydramine HCl (Benadryl) 25 mg IV NOW STA Stop: 04/02/19 21:27 Last Admin: 04/02/19 21:42 Dose: 25 mg Documented by: [id number] Hydralazine HCl (Hydralazine Hcl) 10 mg IV NOW STA Stop: 04/02/19 18:51 Last Admin: 04/02/19 19:22 Dose: 10 mg Documented by: [id number] Prochlorperazine 10 mg/ (Syringe) 10 mls @ 5 mls/min IV ONE ONE Stop: 04/02/19 21:27 Last Admin: 04/02/19 21:42 Dose: 5 mls/min Documented by: [id number] Lorazepam (Ativan) 0.5 mg in 1 mls @ 1 mls/min IV NOW STA Stop: 04/03/19 00:09 Last Admin: 04/03/19 00:24 Dose: 1 mls/min Documented by: [id number] Prochlorperazine (Compazine) Confirm Administered Dose 10 mg .ROUTE .STK-MED ONE Stop: 04/02/19 21:34 Last Admin: 04/02/19 21:42 Dose: Not Given Documented by: [id number] Medical Decision Making Differential Diagnosis Differential Diagnosis includes but is not limited to ischemic Stroke, hemorrhagic stroke, bells palsy, mass, neoplasm, migraine headache, seizure, subarachnoid hemorrhage, TIA, and transient global amnesia. Medical Records Attestation: I reviewed the patient's medical records. Home Medications Current Medication List: was personally reviewed by me Laboratory Data Attestation: I reviewed the patient's lab results. Result diagrams: 04/02/19 18:45 04/02/19 18:45 Lab Results 04/02/19 04/02/19 04/02/19 Range/Units 18:45 18:45 18:45 WBC 8.88 (4.8-10.8) K/uL RBC 4.18 L (4.2-5.4) M/uL Hgb 11.8 L (12.0-16.0) g/dL Hct 35.5 L (37-47) % MCV 84.9 (80-100) fL MCH 28.2 (25-34) pg MCHC 33.2 (32-36) g/dL RDW Std Deviation 45.2 (36.4-46.3) fL RDW Coeff of Shira 14.6 H (11.5-14.5) % Plt Count 297 (130-400) K/uL MPV 9.6 (7.4-10.4) fL Immature Gran % (Auto) 2.1 % Neut % (Auto) 61.2 % Lymph % (Auto) 29.4 % Hampton % (Auto) 5.2 % Eos % (Auto) 1.9 % Baso % (Auto) 0.2 % Immature Gran # (Auto) 0.19 H (0.00-0.02) K/uL Neut # (Auto) 5.43 (1.4-6.5) K/uL Lymph # (Auto) 2.61 (1.2-3.4) K/uL Hampton # (Auto) 0.46 (0.11-0.59) K/uL Eos # (Auto) 0.17 (0-0.5) K/uL Baso # (Auto) 0.02 (0-0.2) K/uL PT 10.0 (9.0-12.0) Seconds INR 1.0 (0.9-1.1) APTT 25.1 (21.0-31.0) Seconds PTT Ratio 0.9 Sodium 137 (136-145) mmol/L Potassium 3.4 L (3.5-5.1) mmol/L Chloride 103 (98-107) mmol/L Carbon Dioxide 25 (21-32) mmol/L Anion Gap 9.0 (3-11) BUN 11 (7-18) mg/dl Creatinine 1.07 (0.6-1.2) mg/dl Est Cr Clr Drug Dosing Not Reportable Est GFR ( Amer) 75.7 Est GFR (Non-Af Amer) 65.3 BUN/Creatinine Ratio 10.3 (10-20) Glucose 111 H (70-99) mg/dl POC Glucose (70-99) Calcium 8.9 (8.5-10.1) mg/dl Magnesium 1.8 (1.8-2.4) mg/dl Total Bilirubin 0.3 (0.2-1) mg/dl AST 9 L (15-37) U/L ALT 21 (12-78) U/L Alkaline Phosphatase 76 (45-117) U/L Troponin I < 0.015 (0-0.045) ng/ml Total Protein 7.0 (6.4-8.2) gm/dl Albumin 3.4 (3.4-5.0) gm/dl Globulin 3.6 (2.5-4.0) gm/dl Albumin/Globulin Ratio 0.9 (0.9-2) 04/02/19 Range/Units 18:47 WBC (4.8-10.8) K/uL RBC (4.2-5.4) M/uL Hgb (12.0-16.0) g/dL Hct (37-47) % MCV (80-100) fL MCH (25-34) pg MCHC (32-36) g/dL RDW Std Deviation (36.4-46.3) fL RDW Coeff of Shira (11.5-14.5) % Plt Count (130-400) K/uL MPV (7.4-10.4) fL Immature Gran % (Auto) % Neut % (Auto) % Lymph % (Auto) % Hampton % (Auto) % Eos % (Auto) % Baso % (Auto) % Immature Gran # (Auto) (0.00-0.02) K/uL Neut # (Auto) (1.4-6.5) K/uL Lymph # (Auto) (1.2-3.4) K/uL Hampton # (Auto) (0.11-0.59) K/uL Eos # (Auto) (0-0.5) K/uL Baso # (Auto) (0-0.2) K/uL PT (9.0-12.0) Seconds INR (0.9-1.1) APTT (21.0-31.0) Seconds PTT Ratio Sodium (136-145) mmol/L Potassium (3.5-5.1) mmol/L Chloride (98-107) mmol/L Carbon Dioxide (21-32) mmol/L Anion Gap (3-11) BUN (7-18) mg/dl Creatinine (0.6-1.2) mg/dl Est Cr Clr Drug Dosing Est GFR ( Amer) Est GFR (Non-Af Amer) BUN/Creatinine Ratio (10-20) Glucose (70-99) mg/dl POC Glucose 125 H (70-99) Calcium (8.5-10.1) mg/dl Magnesium (1.8-2.4) mg/dl Total Bilirubin (0.2-1) mg/dl AST (15-37) U/L ALT (12-78) U/L Alkaline Phosphatase (45-117) U/L Troponin I (0-0.045) ng/ml Total Protein (6.4-8.2) gm/dl Albumin (3.4-5.0) gm/dl Globulin (2.5-4.0) gm/dl Albumin/Globulin Ratio (0.9-2) Imaging Data Radiologist's Impression: Radiology results as stated below per my review and the radiologist's interpretation: HEAD CT NONCONTRAST CT DOSE: 537.48 mGy.cm HISTORY: Stroke symptoms. TECHNIQUE: Multiaxial CT images of the head were performed without the use of intravenous contrast. Automated exposure control was utilized for this study. A dose lowering technique was utilized adhering to the principles of ALARA. Comparison: Head CT 08/15/2016. Findings: The paranasal sinuses and mastoid air cells are clear. The calvarium and skull base are intact. The ventricles and sulci are within normal limits. There is no mass, hematoma, midline shift, or acute infarct. Impression: No acute intracranial abnormality. Electronically signed by: Gideon Davis M.D. 04/02/2019 7:51 PM ECG Data Attestation: I personally reviewed and interpreted this ECG as follows: Indication: + other (neurological symptoms) Rate (beats per minute): 76 Rhythm: + normal sinus ECG Findings: + Other (T wave flattening, prolonged QTC of 447); no PACs and no PVCs Blood Pressure Blood Pressure Findings: Elevated blood pressure Blood Pressure Disposition: further management by hospitalist MDM Narrative This patient was evaluated and appeared to be in no significant distress. IV access was obtained and laboratory work was drawn. Patient was placed on the visual inspector and medicated with 10 mg of IV hydralazine. Laboratory work is fairly reassuring. Head CT was performed and is negative for acute intracranial pathology. Patient's blood pressure initially improved after the IV hydralazine. She was given her p.o. atenolol as prescribed. I do suspect the patient is suffering from a hypertensive urgency with secondary TIA symptoms. Given the persistent hypertension, patient will be evaluated by the hospitalist service for further management. She is aware of the plan and agrees. Impression & Plan Hypertensive urgency, TIA (transient ischemic attack) Discharge Plan Visit Data *Final* Discharge Date/Time: 04/02/19 23:25 Chief Complaint: Stroke/CVA Symptoms Stated Complaint: TINGLING IN FACE, ARM, FLASHES, NAUSEA ED Provider: Sushila Alvares Discharge Problem: Hypertensive urgency, TIA (transient ischemic attack) Patient Disposition: Admitted As Inpatient Discharge Instructions Interventions: ED Discharge Assessment Last Done: 04/02/19 23:25 The scribe's documentation has been prepared under my direction and personally reviewed by me in its entirety. I confirm that the note above accurately reflects all work, treatment, procedures, and medical decision making performed by me.
--- NOTE | 2019-04-03 01:07 | History and Physical Report ---
DATE OF ADMISSION: 04/02/2019 CHIEF COMPLAINT: Stroke-like symptoms. HISTORY OF PRESENT ILLNESS: This is a 38-year-old female with past medical history significant for prediabetes, history of asthma, history of obstructive sleep apnea, noncompliant with CPAP, hypertension, obesity, GERD, anxiety, history of Graves disease, history of postsurgical hypothyroidism, history of migraines, who presents with tingliness in the face and right upper extremity since last 2 days. She got worried and went to [facility] and she was sent here for further workup. CT of the head is unremarkable. The patient's blood pressure was high. she received a dose of IV hydralazine. She is on atenolol at home and she says the blood pressure is generally okay. Has headaches, moderate in severity. Had episode of nausea and vomiting earlier. She is also having light flashes, but denies any blurred vision. Symptoms come and go, they are still coming and going. She gets dizzy when she stands quickly. Denies any earache, no runny nose, no sore throat, no cough, no fever, no chills. Appetite is okay. No difficulty swallowing. Sleeps okay. No recent weight gain, weight loss. No sweating, no chest pain. Today, she had some shortness of breath on exertion, that also worried her. No abdominal pain, no diarrhea, no constipation, no blood in the stools, no black stools. No burning micturitions, no hematuria. She says otherwise she ambulates okay. ALLERGIES: FLUOXETINE, OXYCODONE. PAST MEDICAL HISTORY: As mentioned above. PAST SURGICAL HISTORY: Colonoscopy, dental surgery, EGDs, fusion of the left tarsometatarsal arthrodesis, cryosurgery of cervix, laparoscopic cholecystectomy with intraoperative cholangiogram, ligation of oviducts, complete thyroidectomy, left foot removal of tendon lesion. Vaginal delivery x3. MEDICATIONS: The patient is on Topamax 25 mg b.i.d., atenolol 50 mg p.o. daily, omeprazole 20 mg b.i.d., metformin 1000 mg p.m., levothyroxine 150 mcg daily. FAMILY HISTORY: Significant for mother has depression, hyperlipidemia. Father had seizure-like disorder. Maternal grandmother has diabetes, hypertension, and asthma. Maternal grandfather has heart disorder. Paternal grandfather had blood cancer. SOCIAL HISTORY: . Quit smoking in September 2017, smoked half pack a day for 19 years. No alcohol use, no drug use. REVIEW OF SYSTEMS: As per HPI. Rest of the review of systems negative. PHYSICAL EXAMINATION: GENERAL: The patient is obese, not in acute distress. VITAL SIGNS: Temperature 36.7, pulse 75, respiratory rate 19, blood pressure 143/111, oxygen 96% on room air. HEENT: No pallor, no icterus. Pupils equal, round, and reactive to light. Extraocular muscles intact. No nystagmus seen. NECK: No JVD, no neck masses, no carotid bruits. CARDIOVASCULAR: S1, S2 heard, regular rate and rhythm, no murmur, no gallop. RESPIRATORY SYSTEM: Normal AP diameter. No accessory muscle use. No wheezing, no crackles. ABDOMEN: Soft, bowel sounds present, nontender. No distention. CENTRAL NERVOUS SYSTEM: Alert and oriented. Cranial nerves II-XII grossly intact. Power 5/5 in all extremities. Coordination of movements normal. No pronator drift. Mwxkfx-[id number] test normal. Sensation is intact, position sense intact. EXTREMITIES: No edema, no erythema. LABORATORY DATA: WBC 8.8, hemoglobin 11.8, hematocrit 35.5, platelets 297. PT 10, INR 1, APTT 25.1. Sodium 137, potassium 3.4, chloride 103, bicarbonate 25, BUN 11, creatinine 1.07, serum glucose 111, calcium 8.9, magnesium 1.8, total bilirubin 0.3, AST 9, ALT 21, alkaline phosphatase 76, troponin I less than 0.015. IMAGING DATA: CT of the head, no acute findings seen. EKG: Normal sinus rhythm with a rate of 76, nonspecific T-wave abnormality seen. ASSESSMENT AND PLAN: This is a 38-year-old female who presents with stroke-like symptoms. 1. Stroke-like symptoms like tingling and paresthesias in the face and the right upper extremity with some flashes of light. It could be complex migraines. She is on Topamax. It could be from hypertensive urgency. To rule out CVA. Initial CT of the head is unremarkable. Symptoms are going on for the last 2 days. We will do full stroke workup with MRI scan, carotid Doppler, echocardiogram, speech evaluation, PT, OT, neuro consult in a.m. Monitor in tele. Aspirin. Follow the fasting lipid profile and HbA1c levels. 2. Prediabetes, on metformin. We will hold metformin and place on insulin sliding scale. Follow HbA1c levels. 3. History of Graves disease and hyperthyroidism, status post total thyroidectomy and post-surgical hypothyroidism, on Synthroid. We will follow TSH levels. 4. History of hypertension, currently with hypertensive urgency. Continue with home atenolol. Diastolic pressures are high. Given IV hydralazine p.r.n. for systolic blood pressure greater than 180 or diastolic greater than 105. If MRI scan is negative for stroke, will aggressively control blood pressure. 5. History of obesity, sleep apnea, noncompliant with CPAP. We will do nocturnal pulse ox study while in the hospital. Needs counseling. 6. Tobacco abuse, quit in September of this year. 7. Gastroesophageal reflux disease, on omeprazole. 8. History of migraine. Continue home Topamax. 9. Deep venous thrombosis prophylaxis, sequential compression devices for now. 10. Disposition: Observation in tele floor. Expect to discharge home and follow with her family doctor. Level 1 full code. MTDD
[2019-04-03] MEDS ORDERED: GADOBUTROL 65ML VIAL IV PRN (01:29)
[2019-04-03] MEDS ORDERED: POTASSIUM CHLORIDE 10 MEQ TABCR PO STA (06:28)
[2019-04-03] MEDS ORDERED: LEVOTHYROXINE SODIUM 150 MCG TABLET PO SCH (06:30)
--- NOTE | 2019-04-03 06:51 | Magnetic Resonance Report ---
MR angio head wo con HISTORY: 38 years-old Female cva? Acute headache with strokelike symptoms COMPARISON: CT head and MRI brain studies of same day TECHNIQUE: MRA of the head without the use of IV contrast was obtained utilizing 3-D [id number] s equencing with MIP reformats. All measurements were obtained according to NASCET criteria. FINDINGS: Large [id number] clinical application specialist localizer images demonstrate no gross extracranial abnormality. The imaged bilateral internal carotid arteries, middle and anterior cerebral arteries appear patent. Vertebral, basilar and posterior cerebral arteries also appear patent. origin of the left posterior cerebr al artery. There is no aneurysm, dissection, high-grade stenosis or proximal branch occlusion identif ied. IMPRESSION: Unremarkable MRA of the head. The above report was generated using voice recognition software. It may contain grammatical, syntax o r spelling errors. Electronically signed by: Thomas Zambrano M.D. 04/03/2019 6:50 AM
[2019-04-03 06:53] LABS: Basophils # (auto) 0.03 K/uL (0-0.2); Basophils % (auto) 0.3 %; Eosinophils # (auto) 0.17 K/uL (0-0.5); Eosinophils % (auto) 1.9 %; Hematocrit (blood only) 34.6 % (37-47); Hemoglobin 11.4 g/dL (12.0-16.0); Immature Granulocytes # (auto) 0.13 K/uL (0.00-0.02); Immature Granulocytes % (auto) 1.5 %; Lymphocytes # (auto) 2.11 K/uL (1.2-3.4); Mean Corpuscular Hemoglobin 28.2 pg (25-34); Mean Corpuscular Hgb Conc 32.9 g/dL (32-36); Mean Corpuscular Volume 85.6 fL (80-100); Mean Platelet Volume 9.5 fL (7.4-10.4); Monocytes # (auto) 0.53 K/uL (0.11-0.59); Neutrophils # (auto) 5.83 K/uL (1.4-6.5); Neutrophils % (auto) 66.3 %; Platelet Count 265 K/uL (130-400); RDW Coefficient of Variation 14.8 % (11.5-14.5); RDW Standard Deviation 46.4 fL (36.4-46.3); Red Blood Count 4.04 M/uL (4.2-5.4)
[2019-04-03 07:28] LABS: BUN Creatinine Ratio 9.8 (10-20); Calcium 8.2 mg/dl (8.5-10.1); Creatinine Clr Calc Pharmacy 90.1 ml/min; Est GFR (African American) 78.4; Est GFR (Non-African American) 67.6; Potassium 3.6 mmol/L (3.5-5.1)
[2019-04-03] MEDS: ACETAMINOPHEN 325 MG TAB PO PRN (07:28)
[2019-04-03] MEDS: INSULIN ASPART 100 UNITS/ML 3 ML PEN SC SCH ×4 (07:30→22:44)
--- NOTE | 2019-04-03 07:37 | Ultrasound Report ---
US carotid doppler BI CLINICAL HISTORY: 38 years-old Female presenting with cva?. TECHNIQUE: Real-time grayscale and color and spectral Doppler ultrasound imaging of the bilateral car otid arteries was performed. Stenosis measurements were based on NASCET-like criteria (distal lumen d iameter as the denominator for stenosis measurement). COMPARISON: None. FINDINGS: RIGHT: Common carotid artery (CCA): Patent. Peak systolic velocity (PSV) 76 cm/s. Internal carotid artery (ICA): Patent. PSV 59 cm/s. End diastolic velocity (EDV) 32 cm/s. ICA/CCA (systolic) ratio: 0.8. External carotid artery (ECA): Patent. PSV 68 cm/s. LEFT: CCA: Patent. PSV 86 cm/s. ICA: Patent. PSV 52 cm/s. EDV 29 cm/s. ICA/CCA (systolic) ratio: 0.6. ECA: Patent. PSV 50 cm/s. Bilateral antegrade flow within the vertebral arteries. Blood pressure: Brachial: Right: 135/97 mmHg, Left: 126/90 mmHg. Reference ranges: Stenosis measurements are compared to reference velocity parameters by the Society of Radiologists in Ultrasound (SRU) consensus and Sonographic NASCET index (S-NASCET). * SRU Primary parameters: ICA PSV <125 cm/s = normal or less than 50% stenosis; ICA PSV 125-230 cm/s = 50-69% stenosis; ICA PSV >230 cm/s = greater than or equal to 70% stenosis. * SRU Additional parameters: ICA/CCA PSV ratio <2 = normal or less than 50% stenosis; ratio 2-4 = 5 0-69% stenosis; ratio >4 = greater than or equal to 70% stenosis. ICA EDV <40 cm/s = normal or less t cormier 50% stenosis; ICA EDV 40-100 cm/s = 50-69% stenosis; ICA EDV >100 cm/s = greater than or equal to 70% stenosis. * S-NASCET parameters: Deceleration spectral broadening + PSV <125 cm/s = less than 50% stenosis; pa nsystolic spectral broadening + PSV <125 cm/s = 16-49% stenosis; pansystolic spectral broadening + PS V >125 cm/s + EDV <110 cm/s or ICA/CCA PSV ratio 2-4 = 50-69% stenosis; pansystolic spectral broadeni ng + PSV >270 cm/s OR EDV >110 cm/s OR ICA/CCA PSV ratio >4 = 70-79% stenosis; EDV >140 cm/s = 80-99% stenosis. IMPRESSION: 1. No hemodynamically significant stenosis seen within the carotid arteries. Electronically signed by: Biju Musa M.D. 04/03/2019 7:36 AM
--- NOTE | 2019-04-03 07:42 | Magnetic Resonance Report ---
MR brain wo/w con CLINICAL HISTORY: 38 years-old Female presenting with cva?, Facial pain, pain in the right arm and antonio nd, I spasms, symptoms began a few days ago, elevated blood pressure. TECHNIQUE: Multisequence, multiplanar MR imaging of the brain was performed before and after the admi nistration of intravenous contrast. IV contrast: 11 mL of Gadavist. COMPARISON: Noncontrast CT head performed the previous day. FINDINGS: Localizer images: Unremarkable. Bone marrow signal intensity within the calvarium within normal limits. Normal midline sagittal structures. Ventricles and sulci normal in size. No mass effect or midline sh ift. No restricted diffusion or hemorrhage. Brain parenchyma normal in appearance with preserved michelle -white differentiation. No abnormal parenchymal enhancement. No extra-axial fluid collection. T2 skull base flow voids preserved. IMPRESSION: 1. No acute intracranial pathology. No abnormal enhancement. Electronically signed by: Biju Musa M.D. 04/03/2019 7:41 AM
[2019-04-03 07:54] LABS: T4 Free Thyroxine 0.34 ng/dl (0.8-1.6)
[2019-04-03] MEDS: PANTOprazole 40 MG TAB PO SCH ×2 (08:48→20:46)
[2019-04-03] MEDS: ASPIRIN 81 MG ECTAB PO SCH (08:48)
[2019-04-03 08:54] LABS: Estimated Average Glucose 108 mg/dl; Hemoglobin A1C 5.4 % (4.5-5.6)
--- NOTE | 2019-04-03 10:09 | Hospitalist Progress Note ---
Date of Service April 03, 2019 Assessment & Plan (1) Numbness and tingling: Differential includes but not limited to complicated migraine, neurologic manifestation of overt hypothyroidism, peripheral nerve damage. Doubt TIA as stroke workup is negative, but will wait for Neurology weigh-in for this. Also, will await ordering any neck imaging until Neuro has weighed in. Electrolytes are within normal limits. Increase Synthroid below. (2) Hypothyroidism (acquired): Graves disease s/p total thyroidectomy in May 2017. Last outpatient TSH was 2017 and was 28. Synthroid was increased from 112mcg daily to 150 mcg daily but no recheck is present in the records. TSH now 94 with FT4 0.3. Hypothyroid symptoms are present including cold intolerance, nausea, fatigue, generalized weakness, brittle nails. She is also overweight and deconditioned. She reports compliance with her Synthroid 150mcg daily at 0600 and is taking it correctly without other medications or food. Will increased to 200mcg daily with recheck in 4 weeks with outpatient provider. I have reached out to her [facility] in [facility] and am awaiting a response with further recommendations. (3) Hypertensive urgency: May be related to her current headache, the stress of being in the hospital, or cardiac manifestations of hypothyroidism. Cont home regimen and PRN medication as needed. Increase synthroid dosage above. Cont to monitor. Change to low sodium diet. Treat acute headache with Ibuprofen. (4) Migraine: h/o migraines without aura. She reports MAGUIRE typically starts with nausea or other tension headaches. Takes Topamax for prophylaxis and uses APAP or Ibuprofen as an abortive. Reporting a MAGUIRE now. Reports flashers when she closes her eyes that she hasn't seen in the past. Ibuprofen for current headache. Appreciate Neuro recs. (5) History of thyroid surgery: Graves s/p total thyroidectomy in May 2017. (6) DVT prophylaxis: SCDs/ambulation Full Code Dispo-home when medically stable, likely tomorrow. Neda Davalos DO [facility] Hospitalist Subjective 38 yo obese hypothyroid female presents with total face numbness and R arm numbness that is intermittent over the past two days. She reports dropping obje cts over the past two days including a cup of coffee last night. She is overall deconditioned and feels generally weak and fatigued. She did have some nausea and vomiting yesterday which was self-limited, however, she doesn't feel much better today. She reports cold intolerance,fatigue, malaise, brittle nails. Denies constipation. Reports compliance with Synthroid. Denies chest pain, shortness of breath, urinary symptoms. Reports no tingling in R arm now, but reinforces that this is intermittent. Reports ongoing headache this morning with flashers in eyes when she closes her eyes. Denies neck pain or trauma. Review of Systems Review of Systems: All systems reviewed & are unremarkable except as noted in HPI & below Physical Exam Physical Exam: CONSTITUTIONAL: obese, vitals as above, generally well- appearing EYES: EOMI bilaterally, PERRL, normal conjunctivae, no scleral icterus ENT: MMM NECK: trachea midline, no lymphadenopathy, normal thyroid. Normal ROM in all planes. Neg Spurlingss maneuver. RESPIRATORY: clear to auscultation bilaterally, no crackles, rales or wheezes, normal respiratory effort CARDIOVASCULAR: regular rate and rhythm, S1 and 2 heard without murmurs, gallops or rubs, no JVD, no peripheral edema GASTROINTESTINAL: normal bowel sounds, soft, nontender, nondistended MUSCULOSKELETAL: strength 5/5 throughout, head is normocephalic and atraumatic SKIN: warm and dry NEUROLOGIC: No facial palsy, no dysarthria. CN 2-12 grossly intact, sensory deficit to bilateral face moreso on the right side>left. Normal cognition, normal speech, no tremor. PSYCHIATRIC: alert cooperative and oriented to person, place and time. Results & Data Vital Signs (Past 12 Hours) Vital Signs Temp Pulse Pulse Resp BP BP Pulse Ox 04/03/19 07:32 36.4 C L 80 18 151/98 H 96 04/03/19 07:21 62 04/03/19 02:51 36.6 C 65 17 136/90 99 04/03/19 02:42 60 04/03/19 00:21 36.7 C 77 18 169/107 H 96 04/02/19 23:25 65 14 137/114 H 95 04/02/19 22:30 96 04/02/19 22:20 96 04/02/19 22:10 75 19 97 Laboratory Results Short CBC 04/02/19 04/03/19 Range/Units 18:45 06:38 WBC 8.88 8.80 (4.8-10.8) K/uL Hgb 11.8 L 11.4 L (12.0-16.0) g/dL Hct 35.5 L 34.6 L (37-47) % Plt Count 297 265 (130-400) K/uL BMP 04/02/19 04/03/19 18:45 06:38 Sodium 137 138 Potassium 3.4 L 3.6 Chloride 103 106 Carbon Dioxide 25 27 BUN 11 10 Creatinine 1.07 1.04 Glucose 111 H 105 H Calcium 8.9 8.2 L Cardiac Enzymes 04/02/19 Range/Units 18:45 Troponin I < 0.015 (0-0.045) ng/ml Liver Function 04/02/19 Range/Units 18:45 Total Bilirubin 0.3 (0.2-1) mg/dl AST 9 L (15-37) U/L ALT 21 (12-78) U/L Alkaline Phosphatase 76 (45-117) U/L Albumin 3.4 (3.4-5.0) gm/dl Medications Administered Current Inpatient Medications Acetaminophen (Tylenol) 650 mg PO Q4H PRN PRN Reason: Pain or Fever Stop: 05/02/19 23:41 Last Admin: 04/03/19 07:28 Dose: 650 mg Documented by: Aspirin (Ecotrin Ectab) 81 mg PO QAM [facility] Stop: 05/03/19 08:59 Last Admin: 04/03/19 08:48 Dose: 81 mg Documented by: Atenolol (Tenormin) 50 mg PO QPM [facility] Stop: 05/03/19 20:59 Dextrose (Dextrose 50%) 25 - 50 ml IV UD PRN; Protocol PRN Reason: Hypoglycemia Protocol Stop: 05/02/19 23:44 Fluticasone Propionate (Flonase) 2 sprays NA DAILY PRN PRN Reason: Allergy Symptoms Stop: 05/02/19 23:41 Gadobutrol (Gadavist 65ml) 11 ml IV ONCE PRN PRN Reason: Interaction Checking Stop: 04/07/19 01:28 Last Admin: 04/03/19 01:15 Dose: 11 ml Documented by: Glucagon (Glucagen) 1 mg IM UD PRN; Protocol PRN Reason: Hypoglycemia Protocol Stop: 05/02/19 23:44 Glucose (Glucose 40%) 15 - 30 gm PO UD PRN; Protocol PRN Reason: Hypoglycemia Protocol Stop: 05/02/19 23:44 Glucose (Dex4 Glucose) 4 - 8 tabs PO UD PRN; Protocol PRN Reason: Hypoglycemia Protocol Stop: 05/02/19 23:44 Hydralazine HCl (Hydralazine Hcl) 5 mg IV Q6H PRN PRN Reason: Hypertension Stop: 05/02/19 23:41 Insulin Aspart (Novolog Flexpen) 0 units SC ACHS SLIM Stop: 05/03/19 07:29 Last Admin: 04/03/19 07:30 Dose: Not Given Documented by: Levothyroxine Sodium (Synthroid) 150 mcg PO DAILYBB [facility] Stop: 05/03/19 06:29 Last Admin: 04/03/19 05:54 Dose: 150 mcg Documented by: Miscellaneous (Carbohydrates For Hypoglycemia) 15 - 30 gm PO UD PRN PRN Reason: Hypoglycemia Treatment Stop: 05/02/19 23:44 Miscellaneous Information (Pharmacist Discharge Med Rec Consult) 1 ea N/A UD PRN PRN Reason: Consult Stop: 05/02/19 23:41 Nitroglycerin (Nitrostat) 0.4 mg SL UD PRN PRN Reason: Chest Pain Stop: 05/02/19 23:41 Ondansetron HCl (Zofran) 4 mg IV Q6H PRN PRN Reason: Nausea Stop: 05/02/19 23:41 Pantoprazole Sodium (Protonix) 40 mg PO BID [facility] Stop: 05/03/19 08:59 Last Admin: 04/03/19 08:48 Dose: 40 mg Documented by: (1) Migraine Intractability: not intractable Migraine type: unspecified Status migrainosus presence: without status migrainosus Qualified Code(s): G43.909 - Migraine, unspecified, not intractable, without status migrainosus
[2019-04-03] MEDS ORDERED: LEVOTHYROXINE SODIUM 25 MCG in SYRINGE 0 ML IV STA (10:34)
[2019-04-03] MEDS ORDERED: IBUPROFEN 800 MG TAB PO STA (10:35)
--- NOTE | 2019-04-03 16:14 | Communication Note ---
Date of Service: April 03, 2019 I have seen, interviewed and examined this woman today reviewed her imaging studies and her history and at this point cannot really tell whether or not she has had a small cortical infarction that is not demonstrable on MRI done 48 hours after the onset of symptoms or whether this is a persistent vasospastic phenomenon again associated with no demonstrable MRI abnormalities and possibly part of a localized cerebral reversible encephalopathy syndrome related to a hypertensive surge He does have a history of migraines, was hypertensive on admission and impressively so and her blood pressure is now normal, the headache she had on admission is gone but she has persistent subjective sensory complaints involving her face and hand and arm My recommendations would be to continue to observe her overnight, continue the aspirin, maintain the blood pressure management and consider if her symptoms persist, another MRI of noncontrast type within 24 to 48 hours just to see if we can document evidence for thalamic infarction or superficial cortical 1 We will be back tomorrow to reassess her case A full neurologic consultation has been dictated but will not be typed and proofread for several hours Sae Ortega MD
[2019-04-03] MEDS ORDERED: CALCIUM CARBONATE 500 MG CHEWABLE TAB PO PRN (16:41)
--- NOTE | 2019-04-03 16:54 | Progress Note ---
DATE: 04/03/2019 CONSULTATION REQUESTED BY: Neda Davalos MD. HISTORY OF PRESENT ILLNESS: The patient is a 38-year-old, who is a patient of Dr. Nice, has a long history for prediabetes, asthma, obstructive sleep apnea, noncompliant with CPAP, hypertension, obesity, GERD, anxiety, history of Graves' disease, now in remission, postsurgical hypothyroidism, a long history of migraines on Topamax without any classic migrainous aura, who presented with about 48 hours of a feeling of tightness and tingling in the right side of her face and right upper extremity extending from the shoulder into the index and middle fingers, but present to some degree in other fingers as well. She had no headache or other symptoms at that time, became concerned, went to a conventional health care and was sent here for further workup where a CAT scan of the head was unremarkable, but her blood pressure was significantly elevated and she was given a dose of IV hydralazine, which promptly reduce the pressure into a more normal range. At home, she is normally on atenolol and she feels her blood pressure is generally okay, but then admits that she really does not check it very often. She developed a headache shortly after arrival here and this was moderate in severity, was similar to her migraines and had an episode of nausea and vomiting earlier and also now admits to having a series of bilateral visual scintillating phenomenon which she has not had before. These symptoms are more intermittent, as are the sensory phenomenon. PAST MEDICAL HISTORY: As described above with multiple problems. HOME MEDICATIONS: Include Topamax 25 twice a day which generally has helped her headaches, atenolol 50 mg daily, which helps her migraines and her hypertension, omeprazole, metformin, levothyroxine. She denies any allergies other than to FLUOXETINE AND OXYCODONE. PAST SURGICAL HISTORY: Surgically, she has had a colonoscopy, dental surgery, EGDs, fusion of the left metatarsal joint, cryosurgery of the cervix, laparoscopic cholecystectomy, ligation of the oviducts, complete thyroidectomy, left foot surgery for a tendon lesion and 3 uncomplicated pregnancies. FAMILY HISTORY: Positive for depression in her mother, hyperlipidemia in the same individual. Father with a seizure-like disorder. Maternal grandmother with diabetes, hypertension, asthma. Maternal grandfather with heart disorder. Paternal grandfather with blood cancer. SOCIAL HISTORY: Reveals her to be . She is a former smoker, stopping in 2018. She does not consume ethanol. 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 REVIEW OF SYSTEMS: Recently shows no systemic complaints such as fever, sweats, chills. Her migraines have actually been pretty good control with relatively low frequency. She has had no visual disturbances other than the recent onset of the scintillating phenomenon in both eyes, she has had no problems with hearing, speech, tinnitus, no loss or alteration of consciousness; no cardiovascular, pulmonary, gastrointestinal, genitourinary, musculoskeletal, dermatologic, hematologic, or endocrinologic issues other than those related to her past medical history described above. PHYSICAL EXAMINATION: VITAL SIGNS: Her blood pressure was initially 143/111, temperature was 36, pulse was 75, respiratory rate was 19. Pressure has now fallen to 128/80 as per my exam today. HEENT: She had no abnormalities on examination of head, eyes, ears, nose and throat. NECK: There were no carotid bruits. Thyroid was absent and the surgical scar was present. LUNGS: Clear. HEART: Had a regular rhythm without murmurs. ABDOMEN: Obese, but otherwise no organomegaly was appreciated. EXTREMITIES: Free of edema and had good peripheral pulses. NEUROLOGIC: Today, neurologically she is awake, alert, oriented in 3 spheres with intact visual mackay, normal ocular movements, clear abnormalities on examination of the ocular fundi. Good facial motility and strength, clear speech. Normal facial sensation with the exception of subjective alteration in the quality of light touch over the right side of her face from the forehead to the chin. There is no drift or pronation sign, tremor, tics or choreiform activity. Reflexes are 1+ symmetrical. Toes are downgoing. No Alf signs were seen. Strength was normal, but again sensation reveals a qualitative reduction in the appreciation of light touch over the right arm, not the left, and not the right or left legs. At this point, the differential diagnosis is still relatively wide open ranging from a protracted migrainous aura, which she has never had before to an unresolved cerebral vasospastic disorder related to a "posterior reversible encephalopathy" type of picture, but this time involving the left parietal lobe and perhaps occipital cortices. None of this; however, is to demonstrable on imaging studies and it would be most unusual for a cerebral vasospastic disorder to not be seen on MRI after 48 hours and it would be very atypical for a completed vascular event not to be demonstrable. Currently, the carotids are clean. There was no cardiac arrhythmia. The deficits are improving, but they are still present, her headache is gone, her blood pressure is under good control and this could simply be a protracted migraine, but this should remain a diagnosis of exclusion here and all I am going to suggest is that we continue her aspirin which was appropriately started yesterday, observe her overnight and consider a repeat MRI noncontrast in 24-48 hours if symptoms do not clear. I hesitate to use steroids in this setting as she has a history of steroid intolerance and I am not sure it is going to do anything significant. We might consider a trial of calcium channel deisi therapy, but again I would hold off on this and I certainly would continue her Topamax at this time. We will be back to evaluate her in the morning. MERY
[2019-04-03] MEDS ORDERED: ATENOLOL 50 MG TABLET PO SCH (21:00)
[2019-04-03] MEDS: TOPIRAMATE 25 MG TAB PO SCH (22:45)
[2019-04-04 06:27] LABS: Basophils # (auto) 0.03 K/uL (0-0.2); Basophils % (auto) 0.3 %; Eosinophils % (auto) 2.2 %; Hematocrit (blood only) 35.7 % (37-47); Hemoglobin 11.7 g/dL (12.0-16.0); Immature Granulocytes # (auto) 0.18 K/uL (0.00-0.02); Lymphocytes # (auto) 2.93 K/uL (1.2-3.4); Lymphocytes % (auto) 32.1 %; Mean Corpuscular Hgb Conc 32.8 g/dL (32-36); Mean Corpuscular Volume 85.4 fL (80-100); Mean Platelet Volume 9.4 fL (7.4-10.4); Monocytes # (auto) 0.63 K/uL (0.11-0.59); Monocytes % (auto) 6.9 %; Neutrophils # (auto) 5.17 K/uL (1.4-6.5); Neutrophils % (auto) 56.5 %; Platelet Count 289 K/uL (130-400); RDW Standard Deviation 46.5 fL (36.4-46.3); Red Blood Count 4.18 M/uL (4.2-5.4); White Blood Count 9.14 K/uL (4.8-10.8)
[2019-04-04] MEDS ORDERED: LEVOTHYROXINE SODIUM 200 MCG TABLET PO SCH (06:30)
[2019-04-04 07:06] LABS: Calcium 9.6 mg/dl (8.5-10.1); Est GFR (African American) 72.4; Est GFR (Non-African American) 62.5
[2019-04-04] MEDS: ACETAMINOPHEN 325 MG TAB PO PRN ×2 (08:10→15:33)
[2019-04-04] MEDS: INSULIN ASPART 100 UNITS/ML 3 ML PEN SC SCH ×2 (08:12→12:23)
[2019-04-04] MEDS: PANTOprazole 40 MG TAB PO SCH (08:13)
[2019-04-04] MEDS: ASPIRIN 81 MG ECTAB PO SCH (08:13)
[2019-04-04] MEDS: TOPIRAMATE 25 MG TAB PO SCH (08:13)
[2019-04-04] MEDS ORDERED: IBUPROFEN 800 MG TAB PO ONE (12:00)
--- NOTE | 2019-04-04 15:12 | Neurology Progress Note ---
Date of Service April 04, 2019 Assessment & Plan (1) Migraine: 1. MRI - with and without no acute findings 2. carotid doppler - no significant stenosis 3. continue aspirin 81 mg daily 4. would repeat MRI brain - 24-48 hours after previous 5. optimize HTN, HLD, DM LDL <70 6. continue topamax 25 mg BID for now- this is still a low dose and could be increased over time 25 mg per week until 50 mg BID- watch for foggy thinking, weigh loss- she states it has helped but not optimized 7. needs to limit PRN motrin use will cause rebound over use headaches 8. may try gabepentin 100 mg and tylenol 500 mg for prn headache 9. would also add riboflavin 400 mg and mg ++ ox 400 mg daily ok to discharge when medically stable follow up with neurology 4-6 weeks after discharge for further review of medications Marimar Prieto PAC schedule Supervising Physician Co-Signing Physician Notes I have seen and discussed above patient with Dr Sae Ortega, neurology He is improving, the sensory phenomena in the right arm are virtually gone although have appeared transiently at best, the right facial paresthesias are better but she still has the intermittent positives scintillations in her vision and it turns out that her entire episode may have been preceded by scintillating phenomenon in addition to right face and arm numbness and in retrospect she did not have sustained hypertension, imaging studies done appropriately 48 hours after the onset of symptoms have been negative and are now improving and I see no reason for us to go ahead with her MRI in the setting. IN my opinion this is a protracted migrainous aura which is now beginning to break up and she is going to need some outpatient management of her Topamax as per the above note, magnesium oxide and riboflavin, and possibly very likely more adequate management of hypothyroidism and certainly this would not help her migraine tendency We will sign off the case with instructions to have her follow-up in our office and to taper off on her Topamax as outlined Sae Ortega MD Subjective Augusta is a 38 year old female with prediabetes, asthma, CIERA, noncompliant with CPAP, HTN, obesity, GERD, anxiety, Graves disease, history of postsurgical hypothyroidism, migraines. She presented with tingling in the face and right upper extremity x 2 days. She got worried and went convenient care and was sent to [facility] for further evaluation. Her blood pressure was high on arrival. She gets daily headaches which she has been on topamax for about 1 year. she does get some visual double vision with her normal headaches but this is the first time she ever had numbness and tingling with the migraine, She states the headaches always start in her neck and comes up over her head. She also can have nausea and vomiting with her migraine. Currently her numbness and tingling has resolved. She still has a headache but it is her normal headache she has daily. She states the Topamax has helped with the intensity but she is still getting them. denies CP, SOB, abdominal pain, one sided weakness, numbness tingling, N, V, swallowing issues, vision changes. 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 triceps bilaterally 5/5, hip flex 5/5 bilaterally sensation intact to light and cool touch Results & Data Vital Signs (Past 12 Hours) Vital Signs Temp Pulse Pulse Resp BP Pulse Ox 04/04/19 11:13 36.7 C 75 22 121/82 94 04/04/19 07:58 65 04/04/19 07:33 36.5 C 69 17 133/91 96 04/04/19 03:08 37.2 C 68 18 137/91 99 Laboratory Results Abnormal lab results 04/04/19 04/04/19 04/04/19 Range/Units 06:12 06:12 07:35 RBC 4.18 L (4.2-5.4) M/uL Hgb 11.7 L (12.0-16.0) g/dL Hct 35.7 L (37-47) % RDW Std Deviation 46.5 H (36.4-46.3) fL RDW Coeff of Shira 15.0 H (11.5-14.5) % Immature Gran # (Auto) 0.18 H (0.00-0.02) K/uL [place] # (Auto) 0.63 H (0.11-0.59) K/uL Glucose 114 H (70-99) mg/dl POC Glucose 113 H (70-99) Diagnostic Findings MRI brain- No acute intracranial pathology. No abnormal enhancement. (1) Migraine Intractability: not intractable Migraine type: unspecified Status migrainosus presence: without status migrainosus Qualified Code(s): G43.909 - Migraine, unspecified, not intractable, without status migrainosus
--- NOTE | 2019-04-04 16:20 | Discharge Summary ---
Date of Service April 04, 2019 Admission HPI Per Admitting Provider HISTORY OF PRESENT ILLNESS: This is a 38-year-old female with past medical history significant for prediabetes, history of asthma, history of obstructive sleep apnea, noncompliant with CPAP, hypertension, obesity, GERD, anxiety, history of Graves disease, history of postsurgical hypothyroidism, history of migraines, who presents with tingliness in the face and right upper extremity since last 2 days. She got worried and went to [facility] health care and she was sent here for further workup. CT of the head is unremarkable. The patient's blood pressure was high. she received a dose of IV hydralazine. She is on atenolol at home and she says the blood pressure is generally okay. Has headaches, moderate in severity. Had episode of nausea and vomiting earlier. She is also having light flashes, but denies any blurred vision. Symptoms come and go, they are still coming and going. She gets dizzy when she stands quickly. Denies any earache, no runny nose, no sore throat, no cough, no fever, no chills. Appetite is okay. No difficulty swallowing. Sleeps okay. No recent weight gain, weight loss. No sweating, no chest pain. Today, she had some shortness of breath on exertion, that also worried her. No abdominal pain, no diarrhea, no constipation, no blood in the stools, no black stools. No burning micturitions, no hematuria. She says otherwise she ambulates okay. Admission Exam Per Admitting Provider PHYSICAL EXAMINATION: GENERAL: The patient is obese, not in acute distress. VITAL SIGNS: Temperature 36.7, pulse 75, respiratory rate 19, blood pressure 143/111, oxygen 96% on room air. HEENT: No pallor, no icterus. Pupils equal, round, and reactive to light. Extraocular muscles intact. No nystagmus seen. NECK: No JVD, no neck masses, no carotid bruits. CARDIOVASCULAR: S1, S2 heard, regular rate and rhythm, no murmur, no gallop. RESPIRATORY SYSTEM: Normal AP diameter. No accessory muscle use. No wheezing, no crackles. ABDOMEN: Soft, bowel sounds present, nontender. No distention. CENTRAL NERVOUS SYSTEM: Alert and oriented. Cranial nerves II-XII grossly intact. Power 5/5 in all extremities. Coordination of movements normal. No pronator drift. Yoybkg-[id number] test normal. Sensation is intact, position sense intact. EXTREMITIES: No edema, no erythema. Principal Diagnosis Migraines Post-surgical Hypothyroidism Discharge Exam CONSTITUTIONAL: obese, vitals as above, generally well-appearing EYES: EOMI bilaterally, PERRL, normal conjunctivae, no scleral icterus ENT: MMM NECK: trachea midline, no lymphadenopathy, normal thyroid. Normal ROM in all planes. Neg Spurlings maneuver. RESPIRATORY: clear to auscultation bilaterally, no crackles, rales or wheezes, normal respiratory effort CARDIOVASCULAR: regular rate and rhythm, S1 and 2 heard without murmurs, gallops or rubs, no JVD, no peripheral edema GASTROINTESTINAL: normal bowel sounds, soft, nontender, nondistended MUSCULOSKELETAL: strength 5/5 throughout, head is normocephalic and atraumatic SKIN: warm and dry NEUROLOGIC: No facial palsy, no dysarthria. CN 2-12 grossly intact, no sensory deficits. Normal cognition, normal speech, no tremor. PSYCHIATRIC: alert cooperative and oriented to person, place and time. Discharge Data Allergies Allergy/AdvReac Type Severity Reaction Status Date / Time fluoxetine AdvReac Severe Shortness Verified 04/02/19 19:10 of breath and hives oxycodone AdvReac Severe NAUSEA/VOMI Verified 04/02/19 19:10 TING Consultations 04/02/19 23:42 Consult Case Management - Discharge Planning Routine 04/03/19 08:00 Consult Neurology Routine Ordered Studies 04/02/19 18:50 CT head/brain wo con Stat 04/03/19 00:03 MR angio head wo con Urgent 04/03/19 00:04 MR brain wo/w con Urgent 04/03/19 23:42 US carotid doppler BI Routine Hospital Course (1) Migraine: (2) Hypothyroidism (acquired): (3) Hypertensive urgency: (4) History of thyroid surgery: 38-year-old female presented with TIA symptoms including facial numbness and intermittent weakness in the right upper extremity with sensation loss. She was admitted to the medical service and placed on telemetry. She was started on baby aspirin and neurology was consulted. Diagnostic work-up included normal blood work, hemoglobin A1c of 5.4. She had a normal noncontrast CT of the head, brain MRI revealing no acute intracranial pathology and no abnormal enhancements. An MRA of the head was unremarkable and a carotid ultrasound revealed no hemodynamically significant stenosis seen within the carotid a rteries. Her symptoms improved during her hospitalization and the Neurologist's assessment was that she had a complicated migraine. She was recommended to continue aspirin 81 daily and consider repeat MRI of the brain if symptoms returned. She was to continue Topamax 25 mg twice daily for now which could be created titrated up as outpatient to 50 mg p.o. twice daily for better optimization and headache control. Side effects were reviewed with the patient. Additional recommendations including limiting Motrin and Tylenol use to avoid rebound or medication overuse headaches. A new abortive regimen was provided including gabapentin 100 and Tylenol 500 for the as needed headache. Riboflavin 400 mg daily and magnesium oxide 400 mg daily were also added to medication regimen at discharge. Close follow-up with neurology in 4 to 6 weeks to further review medications and their effects was recommended. At time of discharge she was hemodynamically stable and afebrile and tolerating p.o. She was mentating and ambulate a baseline and was asymptomatic. She was asking to be discharged. She was discharged in stable condition with close primary care follow-up recommended. It is important to note that she is a Graves' disease patient status post total thyroidectomy May 2017. Her last outpatient TSH was in 2018 and was 28. At that time Synthroid was increased from 112 mcg daily to 150 mg daily but no recheck of thyroid function studies were present in the record, and the patient has now switched endocrinologists. TSH on admission was noted to be 94 with a free T4 0.3. Hypothyroid symptoms were present including cold intolerance, nausea, fatigue, general weakness and brittle nails. She was also noted to be overweight and deconditioned. She reports compliance with her Synthroid 150 mg daily and is taking it correctly at 6 AM without other medications or food. An attempt was made to reach out to her display designer at [facility] but I was unable to achieve a response. Her Synthroid was increased to 200 mg daily with a recheck recommended in 4 weeks time with outpatient provider. Total Time Total Time Spent Total Time Spent (In Minutes): 60 Total Time Includes: Examination of the Patient, Discharge Planning, Medication Reconciliation and Communication With Other Providers Discharge Plan Discharge Items Patient Disposition: Home - Self-Care Reason For Visit: STROKE LIKE SYMPTOMS Discharge Diagnosis: Migraines Post-surgical Hypothyroidism Condition on Discharge: Good Health Concerns: Need to get euthyroid [id number] with Endocrinology Need better control of migraines/headaches Activity: Resume your previous activity Non-emergency contact: Primary Care Provider Call non-emergency contact if: you have any medication questions, your symptoms worsen, your pain is not controlled, your pain is worsening, your pain is unusual for you, your pain is concerning for you and you have a fever Follow-up/Referrals: Elaine Nice DO [Primary Care Provider] - Sae Ortega MD [Physician] - Diet: Carb Consistent or DM2 Addtl Attending Provider Instructions: Please take all medications as instructed on discharge list below. Topamax titration: increase over time 25 mg per week until 50 mg BID- watch for foggy thinking, unintentional weight loss If headache, use combination of gabapentin 100mg and Tylenol 500mg as needed instead of Ibuprofen. Start riboflavin 400mg daily and Magnesium supplementation 400mg daily. Please follow-up with [facility] in 4-6 weeks to check up on your migraines. You have a hospital follow-up as below: 04/08/2019 11:00 AM Provider Elaine Nice DO Department [facility] Please discuss the need for a repeat TSH in 4 weeks at this visit to monitor your thyroid function with the increased dose of Synthroid. Please discuss your headache and the recommendations form Neurology listed above. It was a pleasure taking care of you! Please call if you have any questions or problems. You can reach a [facility] hospitalist on duty at [facility] 24 hours a day by calling [phone]. Take care of yourself. Neda Davalos DO [facility] Hospitalist Pending Studies at Discharge: No Stand-Alone Forms: My [facility], Smoking Cessation Medications and DC Order Prescriptions: New aspirin [Ecotrin Low Strength] 81 mg Tablet,Delayed Release (Dr/Ec) 81 mg PO QAM Qty: 90 RF: 1 levothyroxine [Synthroid] 200 mcg Tablet 200 mcg PO DAILYBB Qty: 30 RF: 1 gabapentin 100 mg capsule 100 mg PO Q8H PRN (Reason: headache) Qty: 30 RF: 1 acetaminophen 500 mg capsule 500 mg PO Q8H PRN (Reason: pain) Qty: 30 RF: 1 riboflavin (vitamin B2) 400 mg tablet 400 mg PO DAILY Qty: 30 RF: 1 magnesium oxide 400 mg (241.3 mg magnesium) tablet 400 mg PO DAILY Qty: 30 RF: 1 Continued topiramate [Topamax] 25 mg Tablet 25 mg PO BID RF: 0 metformin 500 mg Tablet 1,000 mg PO QPM RF: 0 fluticasone propionate [Flonase Allergy Relief] 50 mcg/actuation [place],Suspension 2 spray INTRANASAL DAILY PRN (Reason: Allergy Symptoms) RF: 0 atenolol 50 mg Tablet 50 mg PO QPM RF: 0 omeprazole 20 mg Capsule,Delayed Release(Dr/Ec) 20 mg PO BID RF: 0 Discontinued levothyroxine 150 mcg Tablet 150 mcg PO QAM RF: 0 Discharge Orders: Discharge Order (Routine); Ordered 04/04/19 Ordered By: Neda Lopez/Other Patient Handouts: Headaches Migraine and Tension Admission Data Admit Date/Time: 04/03/19 16:42 Attending Provider: Neda Davalos Admit Provider: Bud Simeon Primary Care Provider: Elaine Nice Other Providers: Sae Ortega Other Interventions: Discharge Summary Assessment (RN) Last Done: 04/04/19 16:29 DC Date/Time DO NOT enter until pt leaves facility: 04/04/19 18:21
== END 2019-04-04 18:21 | disposition home or self-care (01) | DRG 103 ==
LOC: ED 18:10 → 2S 18:10

== ENCOUNTER 2024-03-08 07:52 | Observation (INO) ==
[2024-03-08] MEDS: SODIUM CHLORIDE 0.9% 1,000 ML IV ONE (08:27)
[2024-03-08 08:32] LABS: Basophils # (auto) 0.06 K/uL (0.00-0.20); Basophils % (auto) 0.7 %; Eosinophils # (auto) 0.14 K/uL (0.00-0.50); Eosinophils % (auto) 1.7 %; Hematocrit (blood only) 38.2 % (37.0-47.0); Hemoglobin 13.6 g/dl (12.0-16.0); Immature Granulocytes # (auto) 0.09 K/uL (0.01-0.20); Immature Granulocytes % (auto) 1.1 %; Lymphocytes # (auto) 1.63 K/uL (1.20-3.40); Lymphocytes % (auto) 20.1 %; Mean Corpuscular Hemoglobin 29.3 pg (25.0-34.0); Mean Corpuscular Hgb Conc 35.6 g/dL (32.0-36.0); Mean Corpuscular Volume 82.3 fL (80.0-100.0); Mean Platelet Volume 9.9 fL (9.4-12.4); Monocytes # (auto) 0.49 K/uL (0.11-0.59); Neutrophils # (auto) 5.71 K/uL (1.40-6.50); Neutrophils % (auto) 70.4 %; Platelet Count 298 K/uL (130-400); RDW Coefficient of Variation 13.4 % (11.5-14.5); RDW Standard Deviation 40.1 fL (36.4-46.3); Red Blood Count 4.64 M/uL (4.20-5.40); White Blood Count 8.12 K/ul (4.8-10.8)
--- NOTE | 2024-03-08 08:33 | XRay Report ---
SINGLE VIEW CHEST CLINICAL HISTORY: GI bleeding status post colonoscopy. Generalized pain. FINDINGS: An AP, portable, upright chest radiograph is compared to study dated 11/29/2022. The cardiom ediastinal silhouette is unremarkable. The lungs and pleural spaces are clear. No pneumothorax is see n. The bony thorax is grossly intact. Postoperative change is noted in the right shoulder. No intrape ritoneal free air is seen below the diaphragm. IMPRESSION: No active disease in the chest. ACT 112: Negative or not required by law. Electronically signed by: Sage Alba M.D. 03/08/2024 8:32 AM
[2024-03-08 08:45] LABS: Albumin Level 4.5 gm/dl (3.4-5.0); Bilirubin,Total 0.3 mg/dl (0.2-1.0); Calcium 9.4 mg/dl (8.6-10.3); Creatinine Clr Calc Pharmacy 92.1 ml/min; Globulin 2.3 gm/dl (2.5-4.0); Potassium 3.8 mmol/L (3.5-5.1); Total Protein 6.8 gm/dl (6.0-8.3)
[2024-03-08 08:58] LABS: INR 0.9 (0.9-1.1); Partial Thromboplastin Ratio 0.9; Partial Thromboplastin Time 24 Seconds (21-31); Prothrombin Time 10.2 Seconds (9.0-12.0)
[2024-03-08 11:24] LABS: Hemoglobin 12.5 g/dl (12.0-16.0)
[2024-03-08] MEDS ORDERED: GABAPENTIN 100 MG CAP PO PRN (11:49)
--- NOTE | 2024-03-08 11:54 | History & Physical Report ---
Date of Service March 08, 2024 Assessment & Plan (1) BRBPR (bright red blood per rectum): (2) Migraines: (3) Hypothyroidism, postablative: (4) Asthma: (5) Mood disorder: (6) Graves disease: Plan: Ms. Shen is a 43 year old female that presented to the ED with complaints of lower abdominal pain and BRBPR. She had a colonoscopy for evaluation of BRBPR on 03/06/[address] Bernal and was diagnosed with diverticulosis and a small internal hemorrhoids. She reports that no polyps were identified on the colonoscopy yesterday. She reports that her pain feels like intermittent labor pains compared to diarrhea pain. No chance of as patient had tubal ligation 23 years ago. Over the last 24 hours she experienced 4-5 episodes of BRBPR. Sinus tachycardia noted on ECG. She received 1L NSB in the ED. As an outpatient patient had an anemia panel a few days ago that was unremarkable. Past medical history includes Graves' disease, mood disorder, anxiety, diverticulosis, and GERD. No leukocytosis, hemoglobin 13.6 and otherw ise BMP unremarkable. No transaminitis noted. Stool positive FOBT. BRBPR: Acute Recent c-scope on 03/06; diverticulosis; no biopsies taken Lower abd pain, LLQ 4-5 episodes BRBPR over past 24 hours Hgb 13.6; trend H/H Q6 x3 Protonix 40 bmg IV BID abdomen/pelvis CT ordered and pending NPO GI consult Hypertension: Chronic Takes atenolol; continue Knee pain: Chronic Was taking naproxen and gabapentin; PCP placed on hold and has started a trial of meloxicam Asthma: Chronic Was taking inhalers; stated that since she has stopped smoking she no longer has to take her Symbicort Mood Disorder: Anxiety: Chronic Takes Seroquel and Wellbutrin; continue Migraines: Chronic Takes topiramate; continue Disposition: PCP: Dr. Hoffman Code Status: Full VTE Prophylaxis: Teds and SCDs for now I spent a total of 87 minutes coordinating, documenting, and providing care for this patient excluding time spent in the performance of separately billed services. All of the aforementioned completed while collaborating with the anabell mcelroy attending physician for a full treatment plan. Please see their addendum for further details. History of Present Illness Chief Complaint: BRBPR Primary Care Provider: Elmer Hoffman MD Ms. Shen is a 43 year old female that presented to the ED with complaints of lower abdominal pain and BRBPR. She had a colonoscopy for evaluation of BRBPR on 03/06/[address] Bernal and was diagnosed with diverticulosis and a small internal hemorrhoids. She reports that no polyps were identified on the colonoscopy yesterday. She reports that her pain feels like intermittent labor pains compared to diarrhea pain. No chance of as patient had tubal ligation 23 years ago. Over the last 24 hours she experienced 4-5 episodes of BRBPR. Sinus tachycardia noted on ECG. She received 1L NSB in the ED. As an outpatient patient had an anemia panel a few days ago that was unremarkable. Past medical history includes Graves' disease, mood disorder, anxiety, diverticulosis, and GERD. No leukocytosis, hemoglobin 13.6 and otherwise BMP unremarkable. No transaminitis noted. Stool positive FOBT. Patient will be admitted for further evaluation and management of her BRBPR with trend H&H Q6, obtain CTAP to rule out any microbleeds or perforations, keep n.p.o. until GI consultation, Protonix 40 mg IV twice daily. Allergies Allergy/AdvReac Type Severity Reaction Status Date / Time fluoxetine AdvReac Severe Shortness Verified 09/18/23 10:27 of breath and hives Home Medications Medication Instructions Recorded Confirmed Type atenolol 50 mg tablet 50 mg PO .@NOON 04/17/18 03/08/24 History topiramate 25 mg tablet (Topamax) 25 mg PO BID 04/04/19 03/08/24 History ascorbic acid (vitamin C) 500 mg 500 mg PO PM 07/15/20 03/08/24 History tablet cholecalciferol (vitamin D3) 50 50 mcg PO PM 07/15/20 03/08/24 History mcg (2,000 unit) capsule ferrous sulfate 325 mg (65 mg 325 mg PO QPM 07/15/20 03/08/24 History iron) tablet ibuprofen 200 mg tablet 800 mg PO Q6H PRN fever/pain 09/21/20 03/08/24 History magnesium oxide 400 mg (241.3 mg 400 mg PO PM 09/21/20 03/08/24 History magnesium) tablet omeprazole 40 mg capsule,delayed 40 mg PO .@NOON 09/21/20 03/08/24 History release cyanocobalamin (vitamin B-12) 500 mcg PO PM 07/21/21 03/08/24 History 1,000 mcg capsule duloxetine 60 mg capsule,delayed 60 mg PO .@NOON 07/21/21 03/08/24 History release (Cymbalta) levothyroxine 150 mcg tablet 200 mcg PO QAM 11/29/22 03/08/24 History quetiapine 25 mg tablet 120 mg PO HS 11/29/22 03/08/24 History aspirin 81 mg tablet,delayed 81 mg PO .@NOON 03/08/24 03/08/24 History release (Ecotrin Low Strength) gabapentin 100 mg capsule 100 mg PO TID PRN headache 03/08/24 03/08/24 History linaclotide 145 mcg capsule 145 mcg PO .DAILY@0900 03/08/24 03/08/24 History (Linzess) meloxicam 15 mg tablet 15 mg PO DAILY 03/08/24 03/08/24 History mirabegron 50 mg tablet,extended 50 mg PO .@NOON 03/08/24 03/08/24 History release 24 hr (Myrbetriq) ondansetron HCl 4 mg tablet 4 mg PO Q8H PRN n/v 03/08/24 03/08/24 History semaglutide (weight loss) 1 mg/0.5 1 mg subcut WK 03/08/24 03/08/24 History mL subcutaneous pen injector (Wegovy) Past Med/Surg History Problem List Graves disease BRBPR (bright red blood per rectum) Migraines Hypothyroidism, postablative Orthopedic hardware present (Chronic) Mood disorder (Chronic) Tobacco abuse (Chronic) Asthma (Chronic) Medical History Hyperthyroidism Surgical History History of thyroidectomy History of dental surgery Hx of cholecystectomy H/O tubal ligation Family History Mother Depression Hyperlipidemia Grandfather (Maternal) Heart disorder Grandmother (Maternal) Asthma Diabetes Grandfather (Paternal) Cancer Sister Depression Aunt Breast cancer Other No significant family history Social History Smoking Status: Former smoker Tobacco Type: Cigarettes Hx Alcohol Use: No Hx Substance Use: No Preferred Language: Mexican Communication Ability: Effective Hydramatic Specialist Required: No Beliefs That Will Affect Care: None marital status: Single Current Living Situation: Family Feels Safe at Home: Yes Assistive Devices: None Review of Systems Review of Systems: Neuro: (-) Falls, trauma, slurred speech HEENT: (-) MAGUIRE, dizziness, dysphagia, visual or auditory changes CV: (-) CP, palpitations, swelling Resp: (-) SOB GI: (-) appetite changes, N/V/D, bowel changes : (-) urinary changes Skin: (-) rashes Psych: (-) anxiety, depression Physical Exam Physical Exam: Neuro: AAOx4, PERRLA, no aphagia, memory changes, CNII-XII grossly intact HEENT: head normocephalic, moist mucus membranes CV: S1/S2, (-) M/G/R, (-) edema, cap refill < 3 seconds Resp: Lungs CTA in all mackay. On RA GI: Abdomen S/NT/ND, Ax4 bowel sounds, (-) CVA tenderness Musculoskeletal: 5/5 B/L UE strength, 5/5 B/L LE strength. No gait disturbance Skin: (-) rashes , (-) erythema. Psych: euthymic mood Results & Data Results & Data Vital Signs (Past 12 Hours) Vital Signs Temp Pulse Pulse Resp BP BP Pulse Ox 03/08/24 11:42 97 H 16 03/08/24 11:33 90 30 H 03/08/24 11:00 85 17 03/08/24 10:51 99 H 23 03/08/24 10:45 104 H 22 03/08/24 10:39 88 14 03/08/24 10:21 80 14 03/08/24 10:18 81 12 03/08/24 10:09 79 13 03/08/24 09:57 78 13 03/08/24 09:45 81 5 L 03/08/24 09:30 77 14 03/08/24 09:21 82 21 03/08/24 09:12 79 16 03/08/24 09:09 79 14 03/08/24 08:54 85 16 96 03/08/24 08:30 146/111 H 03/08/24 08:30 98 H 15 95 03/08/24 08:24 100 H 03/08/24 08:19 151/102 H 03/08/24 08:07 99 03/08/24 07:55 36.3 C L 111 H 20 152/104 H 97 03/08/24 07:53 93 H 18 151/102 H 95 O2 Del Method 03/08/24 11:42 03/08/24 11:33 03/08/24 11:00 03/08/24 10:51 03/08/24 10:45 03/08/24 10:39 03/08/24 10:21 03/08/24 10:18 03/08/24 10:09 03/08/24 09:57 03/08/24 09:45 03/08/24 09:30 03/08/24 09:21 03/08/24 09:12 03/08/24 09:09 03/08/24 08:54 03/08/24 08:30 03/08/24 08:30 03/08/24 08:24 03/08/24 08:19 03/08/24 08:07 03/08/24 07:55 Room Air 03/08/24 07:53 Laboratory Results Short CBC 03/08/24 03/08/24 Range/Units 08:09 11:02 WBC 8.12 (4.8-10.8) K/ul Hgb 13.6 12.5 (12.0-16.0) g/dl Hct 38.2 35.0 L (37.0-47.0) % Plt Count 298 (130-400) K/uL BMP 03/08/24 08:09 Sodium 138 Potassium 3.8 Chloride 106 Carbon Dioxide 24 BUN 10 Creatinine 0.91 Glucose 133 H Calcium 9.4 Liver Function 03/08/24 Range/Units 08:09 Total Bilirubin 0.3 (0.2-1.0) mg/dl AST 20 (13-39) U/L ALT 23 (7-52) U/L Alkaline Phosphatase 64 (34-104) U/L Albumin 4.5 (3.4-5.0) gm/dl Diagnostic Findings Chest X-Ray 03/08/24 08:07 SINGLE VIEW CHEST CLINICAL HISTORY: GI bleeding status post colonoscopy. Generalized pain. FINDINGS: An AP, portable, upright chest radiograph is compared to study dated 11/29/2022. The cardiomediastinal silhouette is unremarkable. The lungs and pleural spaces are clear. No pneumothorax is seen. The bony thorax is grossly intact. Postoperative change is noted in the right shoulder. No intraperitoneal free air is seen below the diaphragm. IMPRESSION: No active disease in the chest. ACT 112: Negative or not required by law. Electronically signed by: Sage Alba M.D. 03/08/2024 8:32 AM Code Status & VTE Plan Code Status Full Code in the event of cardiac or respiratory arrest VTE Prophylaxis Plan VTE Prophylaxis will be ordered: Yes Supervising Physician Co-Signing Physician Notes Attending addendum The patient was seen and examined in emergency room in presence of the family member She has been complaining of left lower quadrant and hypogastric abdominal pain since yesterday associated with blood per rectum She has had colonoscopy day before yesterday and no biopsy was taken Her hemoglobin remains stable and will be admitted for further investigation and observation On examination Lying in bed with some distress due to left lower quadrant pain Hemodynamically stable Chestclear to auscultate bilaterally HeartS1-S2, regular Abdomensoft, not distended, bowel sound present, tenderness in the left lower quadrant without any rebound tenderness and/or guarding Extremitiesnegative for any edema Her admission labs reviewed and imaging studies will be reviewed Bright red rectal bleed status post recent colonoscopy without biopsy- will get GI evaluation Abdominal pain left lower quadrant to rule out diverticulitis/injury from recent colonoscopy Bleeding could be from hemorrhoids Agree with assessment and plan as outlined above by Inés TAI and take the full responsibility of the care in the hospital Dr Salud Mcgovern (4) Asthma Asthma complication type: unspecified Asthma persistence: intermittent Asthma severity: mild Qualified Code(s): J45.20 - Mild intermittent asthma, uncomplicated
[2024-03-08] MEDS: OPTIRAY 320 100ml IV ONE (12:31)
[2024-03-08] MEDS: LEVOTHYROXINE SODIUM 200 MCG TABLET PO SCH (13:04)
--- NOTE | 2024-03-08 13:06 | CT Scan Report ---
CT abdomen pelvis wo/w con CLINICAL HISTORY: BRBPR TECHNIQUE: Helical axial images of the abdomen and pelvis were obtained. Automated dose lowering tech niques and/or adjustment according to patient size were utilized for this exam. This exam was perfor med with and without intravenous contrast. CT DOSE: 2979.07 mGy.cm COMPARISON: Comparison is made to CT abdomen pelvis 01/14/2023 FINDINGS: Lower chest: No acute abnormality. Liver: Unremarkable. No focal lesions are seen. Gallbladder and biliary tree: Patient is status post cholecystectomy. No intra- or extrahepatic bilia ry ductal dilation. Pancreas: Unremarkable, no focal lesions. Spleen: Unremarkable. Adrenals: Unremarkable. Kidneys and ureters: Unremarkable. Bladder: Unremarkable. Reproductive organs: Unremarkable. Bowel: The appendix is normal. Small hiatal hernia. No colonic wall thickening is seen. Lymph nodes Retroperitoneal: Unremarkable. Pelvic: Unremarkable. Mesenteric: Unremarkable. Peritoneum: Normal. Vessels: Atherosclerotic calcifications are seen. Abdominal wall: Unremarkable. Bones: Degenerative changes in the visualized spine. IMPRESSION: No acute abnormalities to explain hematochezia. No evidence of perforation in this patient status pos t cholecystectomy. ACT 112: Negative or not required by law. Electronically signed by: Josef Guajardo M.D. 03/08/2024 1:05 PM
--- OUTSIDE RECORDS SUMMARY | 2024-03-08 13:29 | External Medical Summary | Summary of Care ---
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 Ruching Machine Operator Name Role Phone Elmer Hoffman MD Primary Care Provider [phone] Reason for Visit * Auth/Cert Specialty Diagnoses / Procedures Referred By Ghazal cisneros Referred To Contact Diagnoses Chronic constipation Rectal bleeding Chronic constipation [K59.09] Rectal bleeding [K62.5] Procedures COLONOSCOPY, DIAGNOSTIC (RECTUM) COLONOSCOPY FLEXIBLE PROXIMAL DIAGNOSTIC Josselyn Tolentino DO [address] [place] [address] [facility] [address] [place] [address] Referral ID Status Reason Start Date Expiration Date Visits Re quested Visits Authorized [id number] Encounter Details Date Type Department Care Team (Latest Contact Info) Description 03/06/2024 8:05 AM EDT - 03/06/2024 10:35 AM EDT Hospital Encounter [facility], Endoscopy Room [facility] [address] [place] [address] Josselyn Tolentino DO [address] [place] [address] Colonoscopy Discharge Disposition: Home - Self Care Allergies Active Allergy Reactions Criticality Noted Date Comments Fluoxetine Other (Please comment) 04/02/2004 Arelis hernandez Other reaction(s): shaky, Tremor documented as of this encounter (statuses as of 03/06/2024) Medications Medication Sig Dispensed Refills Start Date End Date Status Triamcinolone Acetonide 0.5 % External Cream (Aristocort)Indicati ons:Rash and nonspecific skin eruption Apply topically to affected area 2 times a day. To affected area. 60 g 05/11/2022 Active Additional Information Patient taking differently:TopicalPRN, To affected area., Reported on 01/26/2024 hydrOXYzine HCl 25 MG Oral Tablet Take 1 Tablet by mouth 3 times a day as needed. Active Budesonide-Formotero l Fumarate 80-4.5 MCG/ACT Inhalation Aerosol (Symbicort) Inhale 2 Puffs by mouth in the morning and 2 Puffs before bedtime. 10.2 g 12 12/14/2022 Active Atenolol 50 MG Oral Tablet (Tenormin) TAKE 1 TABLET BY MOUTH IN THE MORNING 90 Tablet 3 02/04/2023 Active Magnesium 250 MG Oral Tablet Take 1 Tablet by mouth in the morning. Active Vitamin B12 500 MCG Oral Tablet Take by mouth. Active Zinc 50 MG Oral Tablet Take 1 Tablet by mouth in the morning. Active DULoxetine HCl 60 MG Oral Capsule Delayed Release Particles (Cymbalta) Take 1 Capsule by mouth in the morning. 11/29/2022 Active buPROPion HCl ER (XL) 300 MG Oral Tablet Extended Release 24 Hour (Wellbutrin XL) Take 1 Tablet by mouth in the morning. Active [facility] Chewable C with Liliana Hips 500 MG Oral Tablet Chewable (Ascorbic Acid)Indications:Iro n deficiency anemia, unspecified iron deficiency anemia type Take 1 Tablet by mouth in the morning. Take with iron supplement. 60 Tablet 2 10/04/2023 Active Vitamin D3 50 MCG (2000 UT) Oral CapsuleIndications:V itamin D insufficiency Take 1 Capsule by mouth in the morning. 30 Capsule 5 10/04/2023 Active Mirabegron ER 50 MG Oral Tablet Extended Release 24 Hour (Myrbetriq) Take 1 Tablet by mouth in the morning. 30 Tablet 6 10/25/2023 Active Levothyroxine Sodium 200 MCG Oral Tablet (Levoxyl)Indications :Post-surgical hypothyroidism One daily (at least 30 min prior to breakfast or other meds) 90 Tablet 1 10/26/2023 Active Polyethylene Glycol 3350 17 GM Oral Packet (MiraLax) Take 1 Packet by mouth in the morning. Active linaCLOtide 145 MCG Oral Capsule (Linzess)Indications :Chronic constipation Take 1 Capsule by mouth daily before breakfast. 90 Capsule 3 11/17/2023 Active Omeprazole 40 MG Oral Capsule Delayed Release (PriLOSEC)Indication s:Nausea without vomiting Take 1 Capsule by mouth in the morning. 1 hour before the first meal of the day.. 30 Capsule 5 11/22/2023 Active Gabapentin 100 MG Oral Capsule (Neurontin) TAKE 1 CAPSULE BY MOUTH IN THE MORNING AND 1 AT NOON AND 1 AT BEDTIME 90 Capsule 01/01/2024 Active Topiramate 25 MG Oral Tablet (topAMAX)Indications :Chronic daily headache Take 1 Tablet by mouth in the morning and 1 Tablet before bedtime. 60 Tablet 01/01/2024 Active Naproxen 500 MG Oral Tablet (Naprosyn) Take 1 Tablet by mouth in the morning and 1 Tablet before bedtime. With food.. 60 Tablet 1 01/03/2024 Active Nystatin 149623 UNIT/GM External CreamIndications:Can didal skin infection APPLY CREAM TOPICALLY TO AFFECTED AREA TWICE DAILY FOR 2 WEEKS 60 g 01/01/2024 Active Additional Information Patient taking differently: PRN, Reported on 01/26/2024 Ondansetron HCl 4 MG Oral Tablet (Zofran) TAKE 1 TABLET BY MOUTH EVERY 8 HOURS NEEDED FOR NAUSEA AND VOMITING FOR 3 DAYS 01/16/2024 Active QUEtiapine Fumarate 150 MG Oral Tablet 01/25/2024 Active Wegovy 1 MG/0.5ML Subcutaneous Solution Auto-injector (Semaglutide-Weight Management)Indicatio ns:Class 3 severe obesity due to excess calories without serious comorbidity with body mass index (BMI) of 40.0 to 44.9 in adult (HCC) Inject 1 mg under the skin once a week. 6 mL 1 01/26/2024 Active Additional Information Patient taking differently:1 mg Subcutaneous QWEEK,Fridays, Reported on 03/04/2024 Aspirin 81 MG Oral Tablet Delayed Release Take 1 Tablet by mouth in the morning. 90 Tablet 1 02/29/2024 Active Ferrous Sulfate 325 (65 Fe) MG Oral Tablet (Feosol)Indications: Iron deficiency anemia, unspecified iron deficiency anemia type Take 1 tablet by mouth once daily with breakfast 30 Tablet 5 03/04/2024 Active documented as of this encounter (statuses as of 03/06/2024) Active Problems Problem Noted Date Diagnosed Date Chronic kidney disease, stage 3a 11/20/2023 Overview: Per CKD protocol Chronic constipation 10/25/2023 Morbid obesity with BMI of 40.0-44.9, adult 09/2022 COVID-19 virus infection 08/27/2021 TEE Confirmation Research Other*[id number] 08/13 Major depressive disorder, recurrent episode, mo derate 08/18/2020 Migraine with aura and witho ut status migrainosus, not intractable 05/13/2019 CIERA (obstructive sleep apnea) 08/24/2018 HTN, goal below 130/80 05/28/2018 Gastroesophageal reflux disease 05/28/2018 History of Graves' disease 08/09/2017 Post-surgical hypothyroidism 06/12/2017 [place] [facility] [place] 150[place] Intermittent asthma with reliever use up to twic e per week 07/16/2010 Anxiety state 05/19/2008 documented as of this encounter (statuses as of 03/06/2024) Resolved Problems Problem Noted Date Diagnosed Date Resolved Date Food insecurity 12/21/2020 08/26/2021 Overview: Per [facility] Protocol Morbid obesity due to excess calories 11/12/2019 05/28/2021 Prediabetes 05/28/2018 04/25/2019 Body mass index (BMI) of 40. 0 to 44.9 in adult 05/28/2018 11/23/2023 Overview: Per Obesity protocol #1 Hyperthyroidism 06/21/2016 08/02/2017 Overview: Dx hyperthyroid on 06/21/2016 09:46 06/21/2016 09:46 TSH <0.01 (L) T3, FREE 8.3 (H) T4, FREE 2.15 (H) ADVANCE DIRECTIVE INFORMATION 03/17/2005 08/09/2017 Overview: No, Advance Directive brochure offered , patient declined. Encounter for supervision of other normal 09/07/2000 03/17/2002 Overview: ICD-10 update of inactive term ABN PAP SMEAR-CERVIX 017 documented as of this encounter (statuses as of 03/06/2024) Immunizations Name Administration Dates Next Due COVID-19 mRNA, LNP-s, No Pre serve, 2-Dose Series (Moderna) 09/10/2020,08/11/2020 Covid-19, Mrna, Lnp-s, Pf, B ivalent, 50 Mcg, IM, 12 yrs and above (Moderna) 03/12/2022 MMR - Measles/Mumps/Rubella Vaccine 11/10/2021 PPD 12/06/2022,11/08/2021,07/25/2006 Pneumococcal Conjugate Vacci ne, 20-valent ([id number]) 01/09/2024 Seasonal Influenza, PF, 6 M & above, IM , (FluLaval or Fluzone) 03/23/2022 TDAP (age 10 and older)(Boostrix) 11/08/2021 TDAP, Age 7 and older, IM (Adacel) 07/25/2006 documented as of this encounter Social History Tobacco Use Types Packs/Day Years Used Date Smoking Tobacco: Former Cigarettes 0.5 19 0 09/21/1998 - 09/21/2017 Passive Smoke Exposure: Past Smokeless Tobacco: Never Comments:10-20 cigarettes pe r day started on patch 09/19 Alcohol Use Standard Drinks/Week Comments No 0 (1 standard drink = 0.6 oz pur e alcohol) PHQ-2 Answer Date Recorded PHQ Adult Total Score 2 01/23/2023 Hunger Vital Sign Answer Date Recorded Within the past 12 months, y ou worried that your food would run out before you got the money to buy more. Patient declined Within the past 12 months, t he food you bought just didn't last and you didn't have money to get more. Patient declined 03/2023 Childcare Answer Date Recorded Do you feel overwhelmed with taking care of a child, family member or friend? No 01/23/2023 Does your family need help f inding childcare? (Household - for ages 0-17 years) Not on file 01/23/2023 Clothing Answer Date Recorded Have you been unable to get clothing when it was really needed? No 01/23/2023 Is your family able to get c lothes or diapers when needed? (Household - for ages 0-17 years) Not on file 01/23/2023 Personal Safety Answer Date Recorded Do you feel unsafe or have concerns for your saf ety? No 01/23/2023 Do you have concerns for you r family's safety? (Household - for ages 0-17 years) Not on file 01/23/2023 Utilities Answer Date Recorded Do you have trouble paying y our heating, water, or electric bill? (Adult - for ages 18 years and over) Not on file 01/24/2024 Is your family able to pay t he heat, water, or electric bill? (Household - for ages 0-17 years) Not on file 01/24/2024 Does your family have access to good internet? (Household - for ages 0-17 years) Not on file 01/24/2024 Employment Status Answer Date Recorded Are you unemployed or without regular income? No 01/23/2023 Does the household have a re lar source of income? (Household - for ages 0-17 years) Not on file 01/23/2023 Social Connections Answer Date Recorded How often do you feel lonely or isolated from those around you? (Adult - for ages 18 years and over) Not on file 01/24/2024 Financial Resource Strain Answer Date R ecorded Do you have any trouble payi ng for your medications, or do you think you might in the future? No 01/23/2023 Does your family have troubl e paying for medicine? (Household - for ages 0-17 years) Not on file 01/23/2023 Transportation Needs Answer Date Record ed READ ONLY Do you have troubl e getting a ride to medical visits or work? Never True 01/23/2023 Does your family have a hard time getting a ride to doctors visits? (Household - for ages 0-17 years) Not on file 01/23/2023 Has lack of transportation k ept you from medical appointments, meetings, work, or from getting things needed for daily living? Check all that apply. (Adult - for ages 18 years and over) Not on file 01/23/2023 Do you (or your family) have trouble finding or paying for a ride (transportation)? (Household - for ages 0-17 years) Not on file 01/23/2023 Housing Stability Answer Date Recorded Do you currently live in a s helter or have no steady place to sleep at night? No 01/23/2023 READ ONLY Do you think you a re at risk of becoming homeless? No 01/23/2023 Does your family worry about paying for your home or becoming homeless? (Household - for ages 0-17 years) Not on file 0 01/23/2023 Are you homeless or worried that you might be in the future? (Adult - for ages 18 years and over) Not on file Are you (or your family) macy eless or worried that you might be in the future? (Household - for ages 0-17 years) Not on file Food Insecurity Answer Date Recorded Do you need food for this week? No 01/23/2023 Are you able to get enough f ood for your family? (Household - for ages 0-17 years) Not on file 01/23/2023 Does your family need food t his week? (Household - for ages 0-17 years) Not on file 01/23/2023 Do you always have enough fo od for your family? (Household - for ages 0-17 years) Not on file 01/23/2023 Sex and Gender Information Value Date Recorded Sex Assigned at Female 02/16/2021 1:02 PM EDT Gender Identity Female 02/16/2021 1:02 PM EDT Sexual Orientation Straight 10/09/2019 2: 19 PM EDT Job Start Date Occupation Industry Not on file Not on file Not on file documented as of this encounter Last Filed Vital Signs Vital Sign Reading Time Taken Comments Blood Pressure 134/93 03/06/2024 10:23 AM EDT Pulse 90 03/06/2024 10:23 AM EDT Temperature 36.2 C (97.2 F) 03/06/2024 10:08 AM E DT Respiratory Rate 14 03/06/2024 10:23 AM EDT Oxygen Saturation 98% 03/06/2024 10:23 AM EDT Inhaled Oxygen Concentration - - Weight 103 kg (227 lb 1.2 oz) 03/06/2024 8:42 AM EDT Height 161 cm (5' 3.39") 03/06/2024 8:42 AM EDT Body Mass Index 39.74 03/06/2024 8:42 AM EDT documented in this encounter Functional Status Functional Status Response Date of Assess ment Are you deaf or do you have serious difficulty h earing? No 06/12/2017 Are you blind or do you have serious difficulty seeing, even when wearing glasses? No 06/12/2017 Do you have serious difficul ty walking or climbing stairs? (5 years old or older) No 06/12/2017 Do you have difficulty dress ing or bathing? (5 years old or older) No 06/12/2017 Because of a physical, menta l, or emotional condition, do you have difficulty doing errands alone such as visiting a doctor s office or shopping? (15 years old or older) No 06/12/19 18 Cognitive Status Response Date of Assessm ent Because of a physical, menta l, or emotional condition, do you have serious difficulty concentrating, remembering, or making decisions? (5 years old or older) No 06/12/2017 documented as of this encounter H&P Notes * Josselyn Tolentino, - 03/06/2024 9:34 AM EDT Endoscopy Pre-Procedure Assessment Name: Augusta Shen Date: 03/06/2024 Time: 9:34 AM Procedure: Colonoscopy; with Indication(s) of chronic constipation, rectal bleeding Endoscopy Pre-Procedure Assessment: Prior to the procedure, the patient was identified. The patient's history, medications and allergies were reviewed as per the Anesthesia Assessment. The patient is competent. The risks and benefits of the proposed procedure and the planned sedation were discussed with the patient. All questions were answered and informed consent for the procedure was obtained. This patient has undergone a preprocedural evaluation. A determination has been made to proceed with the planned procedure under [facility] procedural guidelines and the [facility] Non-Emergent, Elective Medical Services and Treatment Recommendations (published on 08-20-19). The community and hospital prevalence of COVID-19 has been discussed as well as this patient's specific risks associated with SARS-CoV-19 infection. Based upon the clinical acuity and patient-specific care considerations, this procedure is deemed a Tier II - Intermediate acuity treatment or service with either progression or the threat of progressive disease related to the delay in treatment. Not providing the service has the potential for increasing morbidity or mortality. BP 148/97 | Pulse 83 | Temp 36.1 C (96.9 F) (Tympanic) | Resp 16 | Ht 1.61 m (5' 3.39") | Wt 103 kg (227 lb 1.2 oz) | SpO2 97% | BMI 39.74 kg/m | BSA 2.15 m Prior to Admission medications Medication Sig Last Dose Discont. Ferrous Sulfate 325 (65 Fe) MG Oral Tablet (Feosol) Take 1 tablet by mouth once daily with breakfast 03/03/2024 Aspirin 81 MG Oral Tablet Delayed Release Take 1 Tablet by mouth in the morning. 03/03/2024 Ondansetron HCl 4 MG Oral Tablet (Zofran) TAKE 1 TABLET BY MOUTH EVERY 8 HOURS NEEDED FOR NAUSEAAND VOMITING FOR 3 DAYS 03/03/2024 QUEtiapine Fumarate 150 MG Oral Tablet 03/03/2024 Wegovy 1 MG/0.5ML Subcutaneous Solution Auto-injector (Semaglutide-Weight Management) Inject 1 mg under the skin once a week. Patient taking differently: Inject 1 mg under the skin once a week. Fridays Past Month Naproxen 500 MG Oral Tablet (Naprosyn) Take 1 Tablet by mouth in the morning and 1 Tablet before bedtime. With food.. Past Week Nystatin 597942 UNIT/GM External Cream APPLY CREAM TOPICALLY TO AFFECTED AREA TWICE DAILY FOR 2 WEEKS Patient taking differently: as needed. Past Month Topiramate 25 MG Oral Tablet (topAMAX) Take 1 Tablet by mouth in the morning and 1 Tablet before bedtime. 03/03/2024 Omeprazole 40 MG Oral Capsule Delayed Release (PriLOSEC) Take 1 Capsule by mouth in the morning. 1 hour before the first meal of the day.. 03/03/2024 linaCLOtide 145 MCG Oral Capsule (Linzess) Take 1 Capsule by mouth daily before breakfast. 03/03/2024 Levothyroxine Sodium 200 MCG Oral Tablet (Levoxyl) One daily (at least 30 min prior to breakfast orother meds) 03/04/2024 Mirabegron ER 50 MG Oral Tablet Extended Release 24 Hour (Myrbetriq) Take 1 Tablet by mouth in the morning. 03/03/2024 [facility] Chewable C with Liliana Hips 500 MG Oral Tablet Chewable (Ascorbic Acid) Take 1 Tablet by mouth inthe morning. Take with iron supplement. 03/03/2024 Vitamin D3 50 MCG (2000 UT) Oral Capsule Take 1 Capsule by mouth in the morning. 03/03/2024 buPROPion HCl ER (XL) 300 MG Oral Tablet Extended Release 24 Hour (Wellbutrin XL) Take 1 Tablet by mouth in the morning. 03/03/2024 DULoxetine HCl 60 MG Oral Capsule Delayed Release Particles (Cymbalta) Take 1 Capsule by mouth in the morning. 03/03/2024 Magnesium 250 MG Oral Tablet Take 1 Tablet by mouth in the morning. 03/03/2024 Vitamin B12 500 MCG Oral Tablet Take by mouth. 03/03/2024 Zinc 50 MG Oral Tablet Take 1 Tablet by mouth in the morning. 03/03/2024 Atenolol 50 MG Oral Tablet (Tenormin) TAKE 1 TABLET BY MOUTH IN THE MORNING 03/03/2024 hydrOXYzine HCl 25 MG Oral Tablet Take 1 Tablet by mouth 3 times a day as needed. 03/03/2024 Triamcinolone Acetonide 0.5 % External Cream (Aristocort) Apply topically to affected area 2 times a day. To affected area. Patient taking differently: Apply topically to affected area as needed. To affected area. Past Month Nirmatrelvir&Ritonavir 300/100 20 x 150 MG & 10 x 100MG Oral Tablet Therapy Pack (Paxlovid (300/100)) Take 2 pink tablets of Nirmatrelvir and 1 white tablet of Ritonavir two times a day by mouth. Gabapentin 100 MG Oral Capsule (Neurontin) TAKE 1 CAPSULE BY MOUTH IN THE MORNING AND 1 AT NOON AND1 AT BEDTIME Over 30 Days Polyethylene Glycol 3350 17 GM Oral Packet (MiraLax) Take 1 Packet by mouth in the morning. Patient not taking: Reported on 03/04/2024 Not Taking Budesonide-Formoterol Fumarate 80-4.5 MCG/ACT Inhalation Aerosol (Symbicort) Inhale 2 Puffs by mouth in the morning and 2 Puffs before bedtime. Over 30 Days Review of patient's allergies indicates: Allergen Reactions Fluoxetine Other (Please comment) Shakey weak Other reaction(s): shaky, Tremor Physical Exam: Mental Status Examination: alert and oriented. General: nad, calm Airway Examination: normal oropharyngeal airway and neck mobility. Respiratory Examination: symmetrical excursion Cardiac: RRR, no murmurs Abd:soft/ntd ASA Grade: III - A patient with severe systemic disease. After reviewing the risks and benefits, the patient was deemed in satisfactory condition to undergothe procedure. The anesthesia plan was to use general anesthesia. Josselyn Tolentino DO Gastroenterology and Hepatology 03/06/2024 documented in this encounter Procedure Notes * Shahana Ventura CRNP - 03/06/2024 9:41 AM EDTAssociated Order(s): COLONOSCOPY [facility] Patient Name: Augusta Shen Procedure Date: 03/06/2024 9:41 AM Date of : 1980 Admit Type: Outpatient Note Status: Finalized Date of : 1980 Admit Type: Outpatient Age: 43 Room: [facility] Gender: Female Note Status: Finalized Procedure: Colonoscopy Indications: Rectal bleeding, Constipation Providers: Josselyn Tolentino DO (Doctor) Patient Profile: This is a 43 year old female. Refer to note in patient chart for documentation of history and physical. Referring MD: Shahana Ventura NP (Referring MD), Elmer Hoffman MD (Referring MD) Medicines: General Anesthesia Complications: No immediate complications. Procedure: Pre-Anesthesia Assessment: - Prior to the procedure, a History and Physical was performed, and patient medications and allergies were reviewed. The risks and benefits of the procedure and the sedation options and risks were discussed with the patient. All questions were answered and informed consent was obtained. Patient identification and proposed procedure were verified by the physician, the nurse and the grocery bagger in the procedure room. Mental Status Examination: alert and oriented. Airway Examination: Mallampati Class II (the uvula but not tonsillar pillars visualized). Respiratory Examination: clear to auscultation. CV Examination: RRR, no murmurs, no S3 or S4. Prophylactic Antibiotics: The patient does not require prophylactic antibiotics. Prior Anticoagulants: The patient has taken no anticoagulant or antiplatelet agents except for aspirin. ASA Grade Assessment: III - A patient with severe systemic disease. After reviewing the risks and benefits, the patient was deemed in satisfactory condition to undergo the procedure. The anesthesia plan was to use general anesthesia. Immediately prior to administration of medications, the patient was re-assessed for adequacy to receive sedatives. The physical status of the patient was re-assessed after the procedure. After I obtained informed consent, the scope was passed under direct vision. All instruments were visually inspected immediately before and after removal from the patient to ensure they are fully intact. Throughout the procedure, the patient's blood pressure, pulse, and oxygen saturations were monitored continuously. The colonoscopy was performed without difficulty. The patient tolerated the procedure well. The quality of the bowel preparation was good. The [id number] was introduced through the anus and advanced to the cecum, identified by appendiceal orifice and ileocecal valve. Findings & Specimens: The perianal and digital rectal examinations were normal. A few small and large-mouthed diverticula were found in the sigmoid colon. Internal hemorrhoids were found during retroflexion. Impression: - Diverticulosis in the sigmoid colon. - Internal hemorrhoids. - No specimens collected. Recommendation: - Patient has a contact number available for emergencies. The signs and symptoms of potential delayed complications were discussed with the patient. Return to normal activities tomorrow. Written discharge instructions were provided to the patient. - The patient will be observed post-procedure, until all discharge criteria are met. - Discharge patient to home (with escort). - Resume previous diet. - Continue present medications. - Suspect constipation is due to use of Wegovy and rectal bleeding due to hemmorhoids. - Repeat colonoscopy in 10 years for screening purposes. Josselyn Tolentino DO 03/06/2024 10:06:10 AM This report has been signed electronically. documented in this encounter Nursing Notes * Claribel Dexter RN - 03/06/2024 10:35 AM EDT Patient is alert, pain free and tolerating po fluids prior to discharge. Patient has been visited by Dr. Tolentino. Patient has received and demonstrates understanding of discharge instructions. Patient ambulated to private auto accompanied by endo staff. * Claribel Dexter RN - 03/06/2024 10:08 AM EDT Patient transferred to post endo s/p colonoscopy. Patient awakened easily Respirations are even and unlabored on room air. NSR in the 90's on the monitor. Abdomen soft and non distended. Vital signs stable. * Biju Davis RN - 03/06/2024 10:05 AM EDT See anesthesia record for medication administered during procedure. Biju Davis RN Pre cleaning of scope at the bedside started by plant tech. Mid abdominal pressure given per Dr. Tolentino to assist with scope advancement. Pt tolerated well * Radha Burr RN - 03/06/2024 8:41 AM EDT The following pt discharge instructions reviewed with pt prior to prodedure: No driving today. No alcohol today. No signing of legal documents. Rest as much as possible today and can return to normal activities tomorrow. No operating any heavy equipment today. Diet as tolerated. Pt verbalized understanding. documented in this encounter Plan of Treatment Upcoming Encounters Date Type Department Care Team (Late st Contact Info) Description 05/03/2024 10:00 AM EST Office Visit Gastroenterology, [facility] [address] [facility] [place] [id number] Shahana Ventura CRNP [address] [place] [address] 05/06/2024 2:00 PM EST Telemedicine Nutrition & Weight Management, [facility], Rosalino Randy [address] [place] [address] [place] [address] Josselyn Babcock CRNP [address] [place] [address] 07/12/2024 7:40 AM EST Office Visit [facility]ly [facility] [address] [place] [address] Elmer Hoffman MD [address] [place] [address] Scheduled Procedures Name Priority Associated Diagnoses Date/Ti me COLONOSCOPY FLEXIBLE PROXIMAL DIAGNOSTIC Chronic constipation Rectal bleeding 03/06/2024 9:41 AM EDT Health Maintenance Due Date Last Done Comments Hepatitis B Vaccine (1 of 3 - 19+ 3-dose series) 08/27/1998 HPV/Co-Test 08/27/2009 COVID-19 Vaccine ( season) 2024 03/12/2022, 09/10/2020, 08/11/2020 Influenza Vaccine (FLU shot) (#1) 2024 01/25/2023, 03/23/2022, 03/06/2020 Depression Monitoring 01/24/2024 01/23/2023 GFR 06/13/2024 12/12/2023, 10/13, 07/26/2023, Additional history exists Cervical Cancer Screening 06/16/2024 Pap Smear 06/16/2024 06/16/2021, 02/12, 10/08/2014, Additional history exists Albumin/Creatinine Ratio 11/26/2024 11/27/2023, 08/13 CKD HGB USE SMARTSET 64379 12/11/202412/11, 12/12/2023, 10/24/2023, Additional history exists Mammogram 12/19/2024 12/20/2023, 10/13, 10/22/2021, Additional history exists CKD PHOS USE SMARTSET 03546 03/04/2025 03/04/2024, 0 08/18/2017 TSH 03/04/2025 03/04/2024, 08/0 10/2023, 10/24/2023, Additional history exists Diabetes Screening 12/11/2026 12/12/2023, 0 10/24/2023, 07/26/2023, Additional history exists Lipid Panel 12/18/2028 12/19/2023, 07/3 , 07/26/2023, Additional history exists DTap/Tdap Vaccines (4 - Td or Tdap) 11/09/2031 11/08/2021, 11/10/2017 (Declined), 07/25/2006 Pneumococcal Vaccine: Pediatrics (0 to 5 Years) and At-Risk Patients (6 to 64 Years) Completed 01/09/2024 HPV (Gardasil) Vaccine Aged Out No lo nger eligible based on patient's age to complete this topic Hepatitis C Screening Discontinued MENINGOCOCCAL (MENACTRA/MENVEO) Aged Out No longer eligible based on patient's age to complete this topic documented as of this encounter Medical Devices Implanted Type Area [employer] Professional Device Identifier Shelf Expiration Date Model / Serial / Lot Vitoss Bioactv Foam Pack 2.5cc - [id number] Implanted:Qty: 1 on 11/02/2017 by Sydnie Miles DPM at OR [facility] Left: Foot DALI : SPINE 07/12/2019 [id number] / / [id number] Plate (Non Sterile Slim Straight 5 Hole Length 36.5 Implanted:Qty: 1 on 11/02/2017 by Sydnie Miles DPM at OR [facility] Left: Foot [id number] / / 2.7 Mm Non-Locking Screws Implanted:Qty: 1 on 11/02/2017 by Sydnie Miles DPM at OR [facility] Left: Foot DALI : ORTHOPAEDICS [id number] / / 2.7 Mm Non-Locking Screw Implanted:Qty: 1 on 11/02/2017 by Sydnie Miles DPM at OR [facility] Left: Foot DALI : ORTHOPAEDICS [id number] / / 2.7 Mm Non-Locking Screws Implanted:Qty: 1 on 11/02/2017 by Sydnie Miles DPM at OR [facility] Left: Foot DALI : ORTHOPAEDICS [id number] / / 2.7 Mm Non-Locking Screw Implanted:Qty: 1 on 11/02/2017 by Sydnie Miles DPM at OR [facility] Left: Foot DALI : ORTHOPAEDICS [id number] / / documented as of this encounter Procedures Procedure Name Priority Date/Time Associated Diagnosis Comments COLONOSCOPY 03/06/2024 9:41 AM EDT documented in this encounter Results * COLONOSCOPY (03/06/2024 9:41 AM EDT) 03/06/2024 9:41 AM EDT Narrative Procedure Note Shahana Ventura CRNP - 03/06/2024 9:41 AM EDT [facility] Patient Name: Augusta Shen Procedure Date: 03/06/2024 9:41 AM Date of : 1980 Admit Type: Outpatient Note Status:Finalized Date of : 1980 Admit Type: Outpatient Age: 43 Room: [facility] Gender: Female Note Status: Finalized Procedure: Colonoscopy Indications: Rectal bleeding, Constipation Providers: Josselyn Tolentino DO (Doctor) Patient Profile: This is a 43 year old female. Refer to note inpatient chart for documentation of history and physical. Referring MD: Shahana Ventura NP (Referring MD), Elmer Hoffman MD (Referring MD) Medicines: General Anesthesia Complications: No immediate complications. Procedure: Pre-Anesthesia Assessment: - Prior to the procedure, a History and Physicalwas performed, and patient medications and allergies were reviewed. The risksand benefits of the procedure and the sedation options and risks were discussed withthe patient. All questions were answered and informed consent was obtained. Patientidentification and proposed procedure were verified by the physician, the nurseand the grocery bagger in the procedure room. Mental Status Examination: alertand oriented. Airway Examination: Mallampati Class II (the uvula but not tonsillarpillars visualized). Respiratory Examination: clear to auscultation. CV Examination:RRR, no murmurs, no S3 or S4. Prophylactic Antibiotics: The patient does notrequire prophylactic antibiotics. Prior Anticoagulants: The patient has taken noanticoagulant or antiplatelet agents except for aspirin. ASA Grade Assessment: III - Apatient with severe systemic disease. After reviewing the risks and benefits,the patient was deemed in satisfactory condition to undergo the procedure.The anesthesia plan was to use general anesthesia. Immediately prior toadministration of medications, the patient was re-assessed for adequacy to receive sedatives.The physical status of the patient was re-assessed after the procedure. After I obtained informed consent, the scope waspassed under direct vision. All instruments were visually inspected immediatelybefore and after removal from the patient to ensure they are fully intact. Throughout the procedure, the patient's bloodpressure, pulse, and oxygen saturations were monitored continuously. The colonoscopy wasperformed without difficulty. The patient tolerated the procedure well. The qualityof the bowel preparation was good. The [id number] was introduced through theanus and advanced to the cecum, identified by appendiceal orifice and ileocecalvalve. Findings & Specimens: The perianal and digital rectal examinations were normal. A few small and large-mouthed diverticula were found in the sigmoidcolon. Internal hemorrhoids were found during retroflexion. Impression: - Diverticulosis in the sigmoid colon. - Internal hemorrhoids. - No specimens collected. Recommendation: - Patient has a contact number available foremergencies. The signs and symptoms of potential delayed complications were discussed withthe patient. Return to normal activities tomorrow. Written discharge instructionswere provided to the patient. - The patient will be observed post-procedure,until all discharge criteria are met. - Discharge patient to home (with escort). - Resume previous diet. - Continue present medications. - Suspect constipation is due to use of Wegovy andrectal bleeding due to hemmorhoids. - Repeat colonoscopy in 10 years for screeningpurposes. Josselyn Tolentino DO 03/06/2024 10:06:10 AM This report has been signed electronically. Shahana TAI GASTRO LOWER documented in this encounter Administered Medications Inactive Administered Medications - up to 3 most recent administrations Medication Order MAR Action Action Date Dose Rate Site isolyte-S pH 7.4 infusion Intravenous, at 100 mL/hr, Plasma-LYTE 148, isolyte-S, and isolyte-S pH 7.4 are considered equivalent - including for MAR barcode scanning., CONTINUOUS, Starting on Mon03/06/24 at 0900, Until Mon03/06/24 at 1436, Pre-Op Continue from Pre-Op 03/06/2024 9:40 AM EDT 100 mL/hr New Bag 03/06/2024 8:42 AM EDT 100 mL/hr documented in this encounter Active and Recently Administered Medications Times are shown in EDT. Continuous Medication Order 03/04/2024 03/05/2024 03/06/2024 isolyte-S pH 7.4 infusion Intravenous, at 100 mL/hr, Plasma-LYTE 148, isolyte-S, and isolyte-S pH 7.4 are considered equivalent - including for MAR barcode scanning., CONTINUOUS, Starting on Mon03/06/24 at 0900, Until Mon03/06/24 at 1436, Pre-Op 0842 (New Bag - Prov ider: Radha Burr RN)0940 (Continue from Pre-Op - Provider: Davidson Ramirez CRNA)1004 (Anes Intra-Op Fluid - Provider: Davidson Ramirez CRNA) documented in this encounter Advance Directives * Full Code (Latest Code Status on File) Date Activated Date Inactivated Comments 06/12/2017 2:51 PM 06/14/2017 1:40 AM This order r eflects the patients wishes and were consensually agreed upon. Care Teams Ruching Machine Operator Relationship Specialty Start Date End Date Elmer Hoffman MD [address] [facility] [place] [address] PCP - General Internal Medicine 02/21/24 documented as of this encounter
--- OUTSIDE RECORDS SUMMARY | 2024-03-08 13:29 | External Medical Summary | Summary of Care ---
Author Name Unknown Organization [facility] Address [address] [place] [address] Phone [phone] Care Team Providers Care Assembler Name Role Phone Elmer Hoffman MD Primary Care Provider [phone] Reason for Visit * Reason Comments eRx-Medication Refill Encounter Details Date Type Department Care Team (Late st Contact Info) Description 03/03/[address] [address] Ruth Xiao MD [address] [place] [address] [place] [address] Allergies Active Allergy Reactions Criticality Noted Date Comments Fluoxetine Other (Please comment) 04/02/2004 Arelis weak Other reaction(s): aria, Tremor documented as of this encounter (statuses as of 03/05/2024) Medications Medication Sig Dispensed Refills Start Date [...] food.. 60 Tablet 1 01/03/2024 Active Nystatin 775912 UNIT/GM External CreamIndications:Can didal skin infection APPLY [...] with breakfast 30 Tablet 5 03/04/2024 Active Nirmatrelvir&Ritonav ir 300/100 20 x 150 MG & 10 x 100MG Oral Tablet Therapy Pack (Paxlovid (300/100)) Take 2 pink tablets of Nirmatrelvir and 1 white tablet of Ritonavir two times a day by mouth. 30 Tablet 03/04/2024 Active documented as of this encounter (statuses as of 03/05/2024) Active Problems Problem Noted Date Diagnosed Date Chronic kidney disease, stage 3a 11/20/2023 Overview: Per CKD protocol Chronic constipation 10/25/2023 Morbid obesity with BMI of 40.0-44.9, adult 09/2022 COVID-19 virus infection 08/27/2021 TEE Confirmation Research Other*[id number] 08/13 Major depressive disorder, recurrent episode, mo derate 08/18/2020 Migraine with aura and witho ut status migrainosus, not intractable 05/13/2019 CIERA (obstructive sleep apnea) 08/24/2018 HTN, goal below 130/80 05/28/2018 Gastroesophageal reflux disease 05/28/2018 History of Graves' disease 08/09/2017 Post-surgical hypothyroidism 06/12/2017 Overview: At [facility] [place]; T4Rx 150mcg/d Intermittent asthma with reliever use up to twic e per week 07/16/2010 Anxiety state 05/19/2008 documented as of this encounter (statuses as of 03/05/2024) Resolved Problems Problem Noted Date Diagnosed Date [...] update of inactive term ABN PAP SMEAR-CERVIX 06/21/2 017 documented as of this encounter (statuses as of 03/05/2024) Immunizations Name Administration Dates Next Due COVID-19 mRNA, LNP-s, No Pre serve, 2-Dose Series (Moderna) 09/10/2020,08/11/2020 Covid-19, Mrna, Lnp-s, Pf, B ivalent, 50 Mcg, IM, 12 yrs and above (Moderna) 03/12/2022 MMR - Measles/Mumps/Rubella Vaccine 11/10/2021 PPD 12/06/2022,11/08/2021,07/25/2006 Pneumococcal Conjugate Vacci ne, 20-valent ([id number]) 01/09/2024 Seasonal Influenza, PF, 6 M & [...] 01/23/2023 Does the household have a re gular source of income? (Household - for ages [...] on file documented as of this encounter Functional Status Functional Status Response [...] No 06/12/2017 documented as of this encounter Miscellaneous Notes * Telephone Encounter - Aarti Orozco LPN - 03/05/2024 4:03 PM EDT Attempted to call patient, there was no answer, left voicemail. When patient returns call, ok for CIERA to relay message, please refer to below documentation. If needed, can transfer to dedicated nurse line. * Addendum Note - Elmer Hoffman MD - 03/04/2024 12:57 PM EDTAddended by: ELMER HOFFMAN on: 03/04/2024 12:57 PM Modules accepted: Orders * Telephone Encounter - Elmer Hoffman MD - 03/04/2024 12:57 PM EDT Sent medication * Telephone Encounter - Jennie Mckenna RN - 03/04/2024 12:38 PM EDT This is not our patient. Forwarding to PCP * Telephone Encounter - Ruth Xiao MD - 03/04/2024 12:05 PM EDT Received a request for paxlovid refill - can we call the pt to see whether she is having any symptoms - recommend clinic visit if she has any symptoms * Telephone Encounter - Jono Webster - 03/04/2024 4:15 AM EDTPending Prescriptions: Disp Refills Paxlovid (300/100) 20 x 150 MG & 10 x 100M*30 Tab*0 Sig: TAKE DIRECTED ON PACKAGE documented in this encounter Plan of Treatment Upcoming Encounters Date Type Department Care Team (Latest Contact Info) Description 03/06/2024 9:00 AM EDT Hospital Encounter ENDO [facility], Endoscopy Room [facility] [address] [place] [address] Josselyn Tolentino DO [address] [place] [address] 03/06/2024 9:00 AM EDT - 03/06/2024 9:30 AM EDT Surgery ENDO [facility], Endoscopy Room [facility] [address] [place] [address] Josselyn Tolentino DO [address] [place] [address] COLONOSCOPY FLEXIBLE PROXIMAL DIAGNOSTIC 05/03/2024 10:00 AM EST Office Visit Gastroenterology, [facility] [address] [place] [address] Shahana Ventura CRNP [address] [place] [address] 05/06/2024 2:00 PM EST Telemedicine Nutrition & Weight Management, [address] [place] [address] Josselyn Babcock CRNP [address] [place] [address] [place] [address] 07/12/2024 7:40 AM EST Office Visit [address] [place] [address] Elmre Hoffman MD [address] [place], [place] [id number] Scheduled Procedures Name Priority Associated Diagnoses Date/Ti me COLONOSCOPY FLEXIBLE PROXIMAL DIAGNOSTIC Chronic constipation Rectal bleeding 03/06/2024 9:00 AM EDT Health Maintenance Due Date Last [...] 11/26/2024 11/27/2023, 08/13 CKD HGB USE SMARTSET 19909 12/11/202412/11, 12/12/2023, 10/24/2023, Additional history exists Mammogram 12/19/2024 12/20/2023, 10/13, 10/22/2021, Additional history exists CKD PHOS USE SMARTSET 31530 03/04/2025 03/04/2024, 0 08/18/2017 TSH 03/04/2025 03/04/2024, 08/0 10/2023, 10/24/2023, Additional history exists Diabetes Screening 12/11/2026 12/12/2023, 0 10/24/2023, 07/26/2023, Additional history exists Lipid Panel 12/18/2028 12/19/2023, 11/14, 07/26/2023, Additional history exists DTap/Tdap Vaccines (4 [...] this encounter Medical Devices Implanted Type Area Lever Tender Device Identifier Shelf Expiration Date Model / Serial / Lot Vitoss Bioactv Foam Pack 2.5cc - [id number] Implanted:Qty: 1 on 11/02/2017 by Sydnie Miles DPM at OR [facility] Left: Foot DALI : SPINE 07/12/2019 [id number] / / [id number] Plate (Non Sterile Slim Straight 5 Hole Length 36.5 Implanted:Qty: 1 on 11/02/2017 by Sydnie Miles DPM at OR [facility] Left: Foot [id number] / / 2.7 Mm Non-Locking Screws Implanted:Qty: 1 on 11/02/2017 by Sydnie Miles DPM at OR [facility] Left: Foot DALI : ORTHOPAEDICS [id number] / / 2.7 Mm Non-Locking Screw Implanted:Qty: 1 on 11/02/2017 by Sydnie Miles DPM at OR [facility] Left: Foot DALI : ORTHOPAEDICS [id number] / / 2.7 Mm Non-Locking Screws Implanted:Qty: 1 on 11/02/2017 by Sydnie Miles DPM at OR [facility] Left: Foot DALI : ORTHOPAEDICS [id number] / / 2.7 Mm Non-Locking Screw Implanted:Qty: 1 on 11/02/2017 by Sydnie Miles DPM at OR [facility] Left: Foot DALI : ORTHOPAEDICS [id number] / / documented as of this encounter Advance Directives * Full Code (Latest Code Status on File) Date Activated Date Inactivated Comments 06/12/2017 2:51 PM 06/14/2017 1:40 AM This order r eflects the patients wishes and were consensually agreed upon. Care Teams Assembler Relationship Specialty Start Date End Date Elmer Hoffman MD [address] [place] [address] PCP - General Internal Medicine 02/21/24 documented as of this encounter
--- OUTSIDE RECORDS SUMMARY | 2024-03-08 13:29 | External Medical Summary | Summary of Care ---
Author Name Unknown Organization [facility] Address [address] [place] [address] Phone [phone] Care Team Providers Care Vehicle Technician Name Role Phone Elmer Hoffman MD Primary Care Provider [phone] Reason for Visit * Reason Comments eRx-Medication Refill Encounter Details Date Type Department Care Team (Late st Contact Info) Description 03/03/[address] [address] Ruth Xiao MD [address] [place] [address] [place] [address] Allergies Active Allergy Reactions Criticality Noted Date Comments Fluoxetine Other (Please comment) 04/02/2004 Arelis weak Other reaction(s): aria, Tremor documented as of this encounter (statuses as of 03/04/2024) Medications Medication Sig Dispensed Refills Start Date [...] food.. 60 Tablet 1 01/03/2024 Active Nystatin 808403 UNIT/GM External CreamIndications:Can didal skin infection APPLY [...] as of this encounter (statuses as of 03/04/2024) Active Problems Problem Noted Date Diagnosed Date Chronic kidney disease, stage 3a 11/20/2023 Overview: Per CKD protocol Chronic constipation 10/25/2023 Morbid obesity with BMI of 40.0-44.9, adult 09/2022 COVID-19 virus infection 08/27/2021 TEE Confirmation Research Other*[id number] 08/13 Major depressive disorder, recurrent episode, mo derate 08/18/2020 Migraine with aura and witho ut status migrainosus, not intractable 05/13/2019 CIERA (obstructive sleep apnea) 08/24/2018 HTN, goal below 130/80 05/28/2018 Gastroesophageal reflux disease 05/28/2018 History of Graves' disease 08/09/2017 Post-surgical hypothyroidism 06/12/2017 Overview: At [facility] [place]; T4Rx 150mcg/d Intermittent asthma with reliever use up to twic e per week 07/16/2010 Anxiety state 05/19/2008 documented as of this encounter (statuses as of 03/04/2024) Resolved Problems Problem Noted Date Diagnosed Date [...] as of this encounter (statuses as of 03/04/2024) Immunizations Name Administration Dates Next Due COVID-19 mRNA, LNP-s, No Pre serve, 2-Dose Series (Moderna) 09/10/2020,08/11/2020 Covid-19, Mrna, Lnp-s, Pf, B ivalent, 50 Mcg, IM, 12 yrs and above (Moderna) 03/12/2022 MMR - Measles/Mumps/Rubella Vaccine 11/10/2021 PPD 12/06/2022,11/08/2021,07/25/2006 Pneumococcal Conjugate Vacci ne, 20-valent (Aghlfgm10) 01/09/2024 Seasonal Influenza, PF, 6 M & [...] as of this encounter Miscellaneous Notes * Addendum Note - Elmer Hoffman MD [...] Care Team (Latest Contact Info) Description 03/06/2024 11:45 AM EDT Hospital Encounter [facility]O [facility], Endoscopy Room [facility] [address] [place] [address] Josselyn Tolentino DO [address] [place] [address] 03/06/2024 11:45 AM EDT - 03/06/2024 12:15 PM EDT Surgery ENDO [facility], Endoscopy Room [facility] [address] [place] [address] Josselyn Tolentino DO [address] [place] [address] COLONOSCOPY FLEXIBLE PROXIMAL DIAGNOSTIC 05/03/2024 10:00 AM EST Office Visit Gastroenterology, [facility] [address] [place] [address] Shahana Ventura CRNP [address] [place] [address] 05/06/2024 2:00 PM EST Telemedicine Nutrition & Weight Management, [address] [place] [address] Josselyn Babcock CRNP [address] [place] [address] 07/12/2024 7:40 AM EST Office Visit [facility] [address] [facility] [phone] Elmer Hoffman MD [address] [place] [address] Scheduled Procedures Name Priority Associated Diagnoses Date/Ti me COLONOSCOPY FLEXIBLE PROXIMAL DIAGNOSTIC Chronic constipation Rectal bleeding 03/06/2024 11:45 AM EDT Health Maintenance Due Date Last Done Comments Hepatitis B Vaccine (1 of 3 - 19+ 3-dose series) 08/27/1998 HPV/Co-Test 08/27/2009 CKD PHOS USE SMARTSET 50062 08/18/2018 08/18/2017 COVID-19 Vaccine ( season) 2024 03/12/2022, 09/10/2020, 08/11/2020 Influenza Vaccine (FLU shot) (#1) 2024 01/25/2023, 03/23/2022, 03/06/2020 Depression Monitoring 01/24/2024 01/23/2023 GFR 06/13/2024 12/12/2023, 10/13, 07/26/2023, Additional history exists Cervical Cancer Screening 06/16/2024 Pap Smear 06/16/2024 06/16/2021, 02/12, 10/08/2014, Additional history exists Albumin/Creatinine Ratio 11/26/2024 11/27/2023, 08/13 CKD HGB USE SMARTSET 99395 12/11/202412/11, 12/12/2023, 10/24/2023, Additional history exists TSH 12/18/2024 12/19/2023, 10/13, 10/03/2023, Additional history exists Mammogram 12/19/2024 12/20/2023, 10/13, 10/22/2021, Additional history exists Diabetes Screening 12/11/2026 12/12/2023, [...] this encounter Medical Devices Implanted Type Area Hospital Nurse Device Identifier Shelf Expiration Date Model / Serial / Lot Elizabeth Bioactv Foam Pack 2.5cc - [id number] Implanted:Qty: 1 on 11/02/2017 by Sydnie Miles DPM at OR [facility] Left: Foot DALI : SPINE 07/12/2019 [id number] / / [id number] Plate (Non Sterile Slim Straight 5 Hole Length 36.5 Implanted:Qty: 1 on 11/02/2017 by Sydnie Miles DPM at OR [facility] Left: Foot [id number] / / 2.7 Mm Non-Locking Screws Implanted:Qty: 1 on 11/02/2017 by Sydnie Miles DPM at OR [facility] Left: Foot DALI : ORTHOPAEDICS [id number] / / 2.7 Mm Non-Locking Screw Implanted:Qty: 1 on 11/02/2017 by Sydnie Miles DPM at OR [facility] Left: Foot DALI : ORTHOPAEDICS [id number] / / 2.7 Mm Non-Locking Screws Implanted:Qty: 1 on 11/02/2017 by Sydnie Miles DPM at OR [facility] Left: Foot DALI : ORTHOPAEDICS [id number] / / 2.7 Mm Non-Locking Screw Implanted:Qty: 1 on 11/02/2017 by Sydnie Miles DPM at OR [facility] Left: Foot DALI : ORTHOPAEDICS [id number] / / documented as of this encounter Advance Directives * Full Code (Latest Code Status on File) Date Activated Date Inactivated Comments 06/12/2017 2:51 PM 06/14/2017 1:40 AM This order r eflects the patients wishes and were consensually agreed upon. Care Teams Vehicle Technician Relationship Specialty Start Date End Date Elmer Hoffman MD [address] [place] [address] PCP - General Internal Medicine 02/21/24 documented as of this encounter
--- OUTSIDE RECORDS SUMMARY | 2024-03-08 13:29 | External Medical Summary | Summary of Care ---
Author Name Unknown Organization [facility] Address [address] [place] [address] Phone [phone] Care Team Providers Care Account Development Executive Name Role Phone Elmer Hoffman MD Primary Care Provider [phone] Reason for Visit * Reason Onset Date Comments eRx-Medication Refill Advice 03/03/2024 Encounter Details Date Type Department Care Team (Late st Contact Info) Description 03/03/[address] [address] Ruth Mitchell MD [address] [place] [address] [place] [address] Allergies Active Allergy Reactions Criticality Noted Date Comments Fluoxetine Other (Please comment) 04/02/2004 Arelis weak Other reaction(s): penelopeky, Tremor documented as of this encounter (statuses as of 03/07/2024) Medications Medication Sig Dispensed Refills Start Date [...] food.. 60 Tablet 1 01/03/2024 Active Nystatin 769653 UNIT/GM External CreamIndications:Can didal skin infection APPLY [...] as of this encounter (statuses as of 03/07/2024) Active Problems Problem Noted Date Diagnosed Date Chronic kidney disease, stage 3a 11/20/2023 Overview: Per CKD protocol Chronic constipation 10/25/2023 Morbid obesity with BMI of 40.0-44.9, adult 09/2022 COVID-19 virus infection 08/27/2021 TEE Confirmation Research Other*[id number] 08/13 Major depressive disorder, recurrent episode, mo derate 08/18/2020 Migraine with aura and witho ut status migrainosus, not intractable 05/13/2019 CIERA (obstructive sleep apnea) 08/24/2018 HTN, goal below 130/80 05/28/2018 Gastroesophageal reflux disease 05/28/2018 History of Graves' disease 08/09/2017 Post-surgical hypothyroidism 06/12/2017 Overview: [place] [facility] [place] T4Rx 150mcg/d Intermittent asthma with reliever use up to twic e per week 07/16/2010 Anxiety state 05/19/2008 documented as of this encounter (statuses as of 03/07/2024) Resolved Problems Problem Noted Date Diagnosed Date [...] as of this encounter (statuses as of 03/07/2024) Immunizations Name Administration Dates Next Due COVID-19 mRNA, LNP-s, No Pre serve, 2-Dose Series (Moderna) 09/10/2020,08/11/2020 Covid-19, Mrna, Lnp-s, Pf, B ivalent, 50 Mcg, IM, 12 yrs and above (Moderna) 03/12/2022 MMR - Measles/Mumps/Rubella Vaccine 11/10/2021 PPD 12/06/2022,11/08/2021,07/25/2006 Pneumococcal Conjugate Vacci ne, 20-valent ([id number]) 01/09/2024 Seasonal Influenza, PF, 6 M & [...] encounter Miscellaneous Notes * Telephone Encounter - Martita Cervantes OSA - 03/07/2024 1:52 PM EDT Pt calling in asking why Paxlovid was ordered for her when she doesn't even have COVID. Can you please advise. * Telephone Encounter - Jennifer Arroyo LPN - 03/06/2024 3:09 PM EDTSigned Prescriptions: Disp Refills Nirmatrelvir&Ritonavir 300/100 20 x 150 MG*30 Tab*0 Sig: Take 2 pink tablets of Nirmatrelvir and 1 white tablet of Ritonavir two times a day by mouth.Authorizing Provider: ELMER HOFFMANRefused Prescriptions: Disp Refills Paxlovid (300/100) 20 x 150 MG & 10 x 100M*30 Tab*0 Sig: TAKE DIRECTED ON PACKAGERefused By: CLARI MITCHELL ATHDeannaason for Refusal: Other (comment below) * Telephone Encounter - Aarti Orozco LPN [...] to PCP * Telephone Encounter - Ruth Mitchell MD - 03/04/2024 12:05 PM EDT Received [...] 05/03/2024 10:00 AM EST Office Visit Gastroenterology, [address] [place] [address] Shahana Ventura CRNP [address] [place] [address] 05/06/2024 2:00 PM EST Telemedicine Nutrition & Weight Management, [facility], Rosalino Padilla [address] [place] [address] [place] [address] Josselyn Babcock CRNP [address] [place] [address] 07/12/2024 7:40 AM EST Office Visit [facility] [address] [place] [address] Elmer Hoffman MD [address] [place] [address] Health Maintenance Due Date Last Done Comments [...] 11/26/2024 11/27/2023, 08/13 CKD HGB USE SMARTSET 60703 12/11/202412/11, 12/12/2023, 10/24/2023, Additional history exists Mammogram 12/19/2024 12/20/2023, 10/13, 10/22/2021, Additional history exists CKD PHOS USE SMARTSET 14421 03/04/2025 03/04/2024, 0 08/18/2017 TSH 03/04/2025 03/04/2024, [...] this encounter Medical Devices Implanted Type Area Health Sciences Manager Device Identifier Shelf Expiration Date Model / Serial / Lot Vitoss Bioactv Foam Pack 2.5cc - [id number] Implanted:Qty: 1 on 11/02/2017 by Sydnie Miles DPM at OR [facility] Left: Foot DALI : SPINE 07/12/2019 [id number] / / [id number] Plate (Non Sterile Slim Straight 5 Hole Length 36.5 Implanted:Qty: 1 on 11/02/2017 by Sydnie Miles DPM at OR [facility] Left: Foot [id number] / / 2.7 Mm Non-Locking Screws Implanted:Qty: 1 on 11/02/2017 by Sydnie Miles DPM at OR [facility] Left: Foot DALI : ORTHOPAEDICS [id number] / / 2.7 Mm Non-Locking Screw Implanted:Qty: 1 on 11/02/2017 by Sydnie Miles DPM at OR [facility] Left: Foot DALI : ORTHOPAEDICS [id number] / / 2.7 Mm Non-Locking Screws Implanted:Qty: 1 on 11/02/2017 by Sydnie Miles DPM at OR [facility] Left: Foot DALI : ORTHOPAEDICS [id number] / / 2.7 Mm Non-Locking Screw Implanted:Qty: 1 on 11/02/2017 by Sydnie Miles DPM at OR [facility] Left: Foot DALI : ORTHOPAEDICS [id number] / / documented as of this encounter Advance Directives * Full Code (Latest Code Status on File) Date Activated Date Inactivated Comments 06/12/2017 2:51 PM 06/14/2017 1:40 AM This order r eflects the patients wishes and were consensually agreed upon. Care Teams Account Development Executive Relationship Specialty Start Date End Date Elmer Hoffman MD [address] [place] [facility] [place] [address] PCP - General Internal Medicine 02/21/24 documented as of this encounter
--- OUTSIDE RECORDS SUMMARY | 2024-03-08 13:30 | External Medical Summary ---
Author Name Unknown Address Unknown Organization K01:[facility] [place] [address] [facility] [address] Laboratory Report Ordering Provider Test Date Status LAURA FERRARI 03/04/2024 10:32:11 Final Observation Date Value Abnormality Reference (Units ) Status Iron 03/04/2024 10:32:11 63 33-151 (ug /dL) Final Iron-binding capacity 03/04/2024 10:32:11 258 250-425 (ug/dL) Final Transferrin Sat % 03/04/2024 10:32:11 24 15 -55 (%) Final Performing Location [facility] [place] [address] [facility] [address]
--- OUTSIDE RECORDS SUMMARY | 2024-03-08 13:30 | External Medical Summary | Summary of Care ---
Author Name Unknown Organization [facility] Address [address] [place] [address] Phone [phone] Care Team Providers Care Patient Access Representative Name Role Phone Elmer Hoffman MD Primary Care Provider [phone] Reason for Visit * Reason Onset Date Comments Medication Refill 02/28/2024 Encounter Details Date Type Department Care Team (Late st Contact Info) Description 02/28/[address] [address] Ruth Xiao MD [address] [place] [address] [place] [address] Allergies Active Allergy Reactions Criticality Noted Date Comments Fluoxetine Other (Please comment) 04/02/2004 Arelis weak Other reaction(s): shaky, Tremor documented as of this encounter (statuses as of 02/29/2024) Medications Medication Sig Dispensed Refills Start Date End Date Status Triamcinolone Acetonide 0.5 % External Cream (Aristocort)Indicat ions:Rash and nonspecific skin eruption Apply topically to affected area 2 times a day. To affected area. 60 g 05/11/2022 Active Additional Information Patient taking differently:TopicalPRN, To affected area., Reported on 01/26/2024 hydrOXYzine HCl 25 MG Oral Tablet Take 1 Tablet by mouth 3 times a day as needed. Active Budesonide-Formoter ol Fumarate 80-4.5 MCG/ACT Inhalation Aerosol (Symbicort) Inhale 2 Puffs by mouth in the morning and 2 Puffs before bedtime. 10.2 g 12 12/14/2022 Active Ferrous Sulfate 325 (65 Fe) MG Oral Tablet (Feosol)Indications :Iron deficiency anemia, unspecified iron deficiency anemia type Take 1 tablet by mouth once daily with breakfast 30 Tablet 5 02/06/2023 Active Atenolol 50 MG Oral Tablet (Tenormin) [...] Hips 500 MG Oral Tablet Chewable (Ascorbic Acid)Indications:Ir on deficiency anemia, unspecified iron deficiency anemia type Take 1 Tablet by mouth in the morning. Take with iron supplement. 60 Tablet 2 10/04/2023 Active Vitamin D3 50 MCG (2000 UT) Oral CapsuleIndications: Vitamin D insufficiency Take 1 Capsule by mouth in the morning. 30 Capsule 5 10/04/2023 Active Mirabegron ER 50 MG Oral Tablet Extended Release 24 Hour (Myrbetriq) Take 1 Tablet by mouth in the morning. 30 Tablet 6 10/25/2023 Active Levothyroxine Sodium 200 MCG Oral Tablet (Levoxyl)Indication s:Post-surgical hypothyroidism One daily (at least 30 min prior to breakfast or other meds) 90 Tablet 1 10/26/2023 Active Polyethylene Glycol 3350 17 GM Oral Packet (MiraLax) Take 1 Packet by mouth in the morning. Active linaCLOtide 145 MCG Oral Capsule (Linzess)Indication s:Chronic constipation Take 1 Capsule by mouth daily before breakfast. 90 Capsule 3 11/17/2023 Active Omeprazole 40 MG Oral Capsule Delayed Release (PriLOSEC)Indicatio ns:Nausea without vomiting Take 1 Capsule by mouth in the morning. 1 hour before the first meal of the day.. 30 Capsule 5 11/22/2023 Active Gabapentin 100 MG Oral Capsule (Neurontin) TAKE 1 CAPSULE BY MOUTH IN THE MORNING AND 1 AT NOON AND 1 AT BEDTIME 90 Capsule 01/01/2024 Active Topiramate 25 MG Oral Tablet (topAMAX)Indication s:Chronic daily headache Take 1 Tablet by mouth in the morning and 1 Tablet before bedtime. 60 Tablet 01/01/2024 Active Naproxen 500 MG Oral Tablet (Naprosyn) Take 1 Tablet by mouth in the morning and 1 Tablet before bedtime. With food.. 60 Tablet 1 01/03/2024 Active Nystatin 800317 UNIT/GM External CreamIndications:Ca ndidal skin infection APPLY CREAM TOPICALLY TO AFFECTED [...] Wegovy 1 MG/0.5ML Subcutaneous Solution Auto-injector (Semaglutide-Weight Management)Indicati ons:Class 3 severe obesity due to excess calories without serious comorbidity with body mass index (BMI) of 40.0 to 44.9 in adult (HCC) Inject 1 mg under the skin once a week. 6 mL 1 01/26/2024 Active Aspirin 81 MG Oral Tablet Delayed Release Take 1 Tablet by mouth in the morning. 90 Tablet 1 02/29/2024 Active Aspirin 81 MG Oral Tablet Delayed Release Take 1 Tablet by mouth in the morning. 90 Tablet 1 10/04/2023 4 Discontinu ed(Refill) documented as of this encounter (statuses as of 02/29/2024) Active Problems Problem Noted Date Diagnosed Date Chronic kidney disease, stage 3a 11/20/2023 Overview: Per CKD protocol Chronic constipation 10/25/2023 Morbid obesity with BMI of 40.0-44.9, adult 09/2022 COVID-19 virus infection 08/27/2021 TEE Confirmation Research Other*[id number] 08/13 Major depressive disorder, recurrent episode, mo derate 08/18/2020 Migraine with aura and witho ut status migrainosus, not intractable 05/13/2019 CIERA (obstructive sleep apnea) 08/24/2018 HTN, goal below 130/80 05/28/2018 Gastroesophageal reflux disease 05/28/2018 History of Graves' disease 08/09/2017 Post-surgical hypothyroidism 06/12/2017 Overview: At [facility] [place]; T4Rx 150mcg/d Intermittent asthma with reliever use up to twic e per week 07/16/2010 Anxiety state 05/19/2008 documented as of this encounter (statuses as of 02/29/2024) Resolved Problems Problem Noted Date Diagnosed Date [...] as of this encounter (statuses as of 02/29/2024) Immunizations Name Administration Dates Next Due COVID-19 mRNA, LNP-s, No Pre serve, 2-Dose Series (Moderna) 09/10/2020,08/11/2020 Covid-19, Mrna, Lnp-s, Pf, B ivalent, 50 Mcg, IM, 12 yrs and above (Moderna) 03/12/2022 MMR - Measles/Mumps/Rubella Vaccine 11/10/2021 PPD 12/06/2022,11/08/2021,07/25/2006 Pneumococcal Conjugate Vacci ne, 20-valent ([id number]) 01/09/2024 Seasonal Influenza, PF, 6 M & [...] 18 years and over) Not on file 3 Are you (or your family) macy eless [...] encounter Miscellaneous Notes * Telephone Encounter - Gely Black [facility] - 02/29/2024 2:56 PM EDTSigned Prescriptions: Disp Refills Aspirin 81 MG Oral Tablet Delayed Release 90 Tab*1 Sig: Take 1 Tablet by mouth in the morning.Authorizing Provider: Skyler HOFFMAN User: GELY BLACK--- documented in this encounter Plan of Treatment Upcoming Encounters Date Type Department Care Team (Latest Contact Info) Description 03/06/2024 11:45 AM EDT Hospital Encounter ENDO [facility], Endoscopy Room [facility] [address] [place] [phone] Josselyn Tolentino DO [address] [place] [address] 03/06/2024 11:45 AM EDT - 03/06/2024 12:15 PM EDT Surgery ENDO [facility], Endoscopy Room [facility] [address] [place] [phone] Josselyn Tolentino DO [address] [place] [address] COLONOSCOPY FLEXIBLE PROXIMAL DIAGNOSTIC 05/03/2024 10:00 AM EST Office Visit Gastroenterology, [facility] [address] [place] [address] Shahana Ventura CRNP [address] [place] [address] 05/06/2024 2:00 PM EST Telemedicine Nutrition & Weight Management, [address] [place] [address] Josselyn Babcock CRNP [address] [place] [address] 07/12/2024 7:40 AM EST Office Visit Located Within [facility] [address] [place] [facility] [place] [address] Elmer Hoffman MD [address] [facility] [place] [id number] Scheduled Procedures Name Priority Associated Diagnoses Date/Ti me COLONOSCOPY FLEXIBLE PROXIMAL DIAGNOSTIC Chronic constipation Rectal bleeding 03/06/2024 11:45 AM EDT Health Maintenance Due Date Last Done Comments Hepatitis B Vaccine (1 of 3 - 19+ 3-dose series) 08/27/1998 HPV/Co-Test 08/27/2009 CKD PHOS USE SMARTSET 97913 08/18/2018 08/18/2017 COVID-19 Vaccine ( season) 2024 03/12/2022, 09/10/2020, 08/11/2020 Influenza Vaccine (FLU shot) (#1) 2024 01/25/2023, 03/23/2022, 03/06/2020 Depression Monitoring 01/24/2024 01/23/2023 GFR 06/13/2024 12/12/2023, 10/13, 07/26/2023, Additional history exists Cervical Cancer Screening 06/16/2024 Pap Smear 06/16/2024 06/16/2021, 02/12, 10/08/2014, Additional history exists Albumin/Creatinine Ratio 11/26/2024 11/27/2023, 08/13 CKD HGB USE SMARTSET 33332 12/11/202412/11, 12/12/2023, 10/24/2023, Additional history exists TSH [...] encounter Medical Devices Implanted Type Area Auto Bumper Mechanic Device Identifier Shelf Expiration Date Model / Serial / Lot Vitoss Bioactv Foam Pack 2.5cc - [id number] Implanted:Qty: 1 on 11/02/2017 by Sydnie Miles DPM at OR [facility] Left: Foot DALI : SPINE 07/12/2019 [id number] / / [id number] Plate (Non Sterile Slim Straight 5 Hole Length 36.5 Implanted:Qty: 1 on 11/02/2017 by Sydnie Miles DPM at OR [facility] Left: Foot [id number] / / 2.7 Mm Non-Locking Screws Implanted:Qty: 1 on 11/02/2017 by Sydnie Miles DPM at OR [facility] Left: Foot DALI : ORTHOPAEDICS [id number] / / 2.7 Mm Non-Locking Screw Implanted:Qty: 1 on 11/02/2017 by Sydnie Miles DPM at OR [facility] Left: Foot DALI : ORTHOPAEDICS [id number] / / 2.7 Mm Non-Locking Screws Implanted:Qty: 1 on 11/02/2017 by Sydnie Miles DPM at OR [facility] Left: Foot DALI : ORTHOPAEDICS [id number] / / 2.7 Mm Non-Locking Screw Implanted:Qty: 1 on 11/02/2017 by Sydnie Miles DPM at OR [facility] Left: Foot DALI : ORTHOPAEDICS [id number] / / documented as of this encounter Advance Directives * Full Code (Latest Code Status on File) Date Activated Date Inactivated Comments 06/12/2017 2:51 PM 06/14/2017 1:40 AM This order r eflects the patients wishes and were consensually agreed upon. Care Teams Patient Access Representative Relationship Specialty Start Date End Date Elmer Hoffman MD [address] [place] [address] PCP - General Internal Medicine 02/21/24 documented as of this encounter
--- OUTSIDE RECORDS SUMMARY | 2024-03-08 13:30 | External Medical Summary | Summary of Care ---
Author Name Unknown Organization [facility] Address [address] [place] [address] Phone [phone] Care Team Providers Care Front Maker Name Role Phone Elmer Hoffman MD Primary Care Provider [phone] Reason for Visit * Reason Comments eRx-Medication Refill Encounter Details Date Type Department Care Team (Late st Contact Info) Description 03/03/[address] [address] Ruth Xiao MD [address] [place] [address] [place] [address] Allergies Active Allergy Reactions [...] food.. 60 Tablet 1 01/03/2024 Active Nystatin 700072 UNIT/GM External CreamIndications:Can didal skin infection APPLY [...] Morbid obesity with BMI of 40.0-44.9, adult /0 09/2022 COVID-19 virus infection 08/27/2021 TEE Confirmation Research Other*[id number] 04/1 05/2021 Major depressive disorder, recurrent episode, mo derate 08/18/2020 Migraine with aura and witho ut status migrainosus, not intractable 05/13/2019 CIERA (obstructive sleep apnea) 08/24/2018 HTN, goal below 130/80 05/28/2018 Gastroesophageal reflux disease 05/28/2018 History of Graves' disease 08/09/2017 Post-surgical hypothyroidism 06/12/2017 Overview: At [facility] [place]; T4Rx 150mcg/d Intermittent asthma with reliever [...] PPD 12/06/2022,11/08/2021,07/25/2006 Pneumococcal Conjugate Vacci ne, 20-valent ([id number]) 01/09/2024 Seasonal Influenza, PF, 6 M & [...] encounter Miscellaneous Notes * Telephone Encounter - Jennie Mckenna RN [...] EDT Hospital Encounter [facility], Endoscopy Room [facility] [address] [place] [phone] Josselyn Tolentino DO [address] [place] [address] 03/06/2024 11:45 AM EDT - 03/06/2024 12:15 PM EDT Surgery ENDO [facility], Endoscopy Room [facility] [address] [place] [phone] Josselyn Tolentino DO [address] [place] [address] COLONOSCOPY FLEXIBLE PROXIMAL DIAGNOSTIC 05/03/2024 10:00 AM EST Office Visit Gastroenterology [facility] [address] [place] [address] Shahana Ventura CRNP [address] [place] [address] 05/06/2024 2:00 PM EST Telemedicine Nutrition & Weight Management, [address] [place] [address] Josselyn Babcock CRNP [address] [place] [address] 07/12/2024 7:40 AM EST Office Visit [facility] [address] [place] [phone] Elmer Hoffman MD [address] [place], [place] [id number] Scheduled Procedures Name Priority Associated Diagnoses Date/Ti me COLONOSCOPY FLEXIBLE PROXIMAL DIAGNOSTIC Chronic constipation Rectal bleeding 03/06/2024 11:45 AM EDT Health Maintenance Due Date Last Done Comments Hepatitis B Vaccine (1 of 3 - 19+ 3-dose series) 08/27/1998 HPV/Co-Test 08/27/2009 CKD PHOS USE SMARTSET 38296 08/18/2018 08/18/2017 COVID-19 Vaccine ( season) 2024 03/12/2022, 09/10/2020, 08/11/2020 Influenza Vaccine (FLU shot) (#1) 2024 01/25/2023, 03/23/2022, 03/06/2020 Depression Monitoring 01/24/2024 01/23/2023 GFR 06/13/2024 12/12/2023, 10/13, 07/26/2023, Additional history exists Cervical Cancer Screening 06/16/2024 Pap Smear 06/16/2024 06/16/2021, 02/12, 10/08/2014, Additional history exists Albumin/Creatinine Ratio 11/26/2024 11/27/2023, 08/13 CKD HGB USE SMARTSET 67842 12/11/202412/11, 12/12/2023, 10/24/2023, Additional history exists TSH [...] this encounter Medical Devices Implanted Type Area Tree Driller Device Identifier Shelf Expiration Date Model / Serial / Lot Vitoss Bioactv Foam Pack 2.5cc - [id number] Implanted:Qty: 1 on 11/02/2017 by Sydnie Miles DPM at OR [facility] Left: Foot DALI : SPINE 07/12/2019 [id number] / / [id number] Plate (Non Sterile Slim Straight 5 Hole Length 36.5 Implanted:Qty: 1 on 11/02/2017 by Sydnie Miles DPM at OR [facility] Left: Foot [id number] / / 2.7 Mm Non-Locking Screws Implanted:Qty: 1 on 11/02/2017 by Sydnie Miles DPM at OR [facility] Left: Foot DALI : ORTHOPAEDICS [id number] / / 2.7 Mm Non-Locking Screw Implanted:Qty: 1 on 11/02/2017 by Sydnie Miles DPM at OR [facility] Left: Foot DALI : ORTHOPAEDICS [id number] / / 2.7 Mm Non-Locking Screws Implanted:Qty: 1 on 11/02/2017 by Sydnie Miles DPM at OR [facility] Left: Foot DALI : ORTHOPAEDICS [id number] / / 2.7 Mm Non-Locking Screw Implanted:Qty: 1 on 11/02/2017 by Sydnie Miles DPM at OR [facility] Left: Foot DALI : ORTHOPAEDICS [id number] / / documented as of this encounter Advance Directives * Full Code (Latest Code Status on File) Date Activated Date Inactivated Comments 06/12/2017 2:51 PM 06/14/2017 1:40 AM This order r eflects the patients wishes and were consensually agreed upon. Care Teams Front Maker Relationship Specialty Start Date End Date Elmer Hoffman MD [address] [facility] [place] [address] PCP - General Internal Medicine 02/21/24 documented as of this encounter
--- OUTSIDE RECORDS SUMMARY | 2024-03-08 13:30 | External Medical Summary ---
Author Name Unknown Address Unknown Organization K01:[facility] [place] - [address] [place] [address] Laboratory Report Ordering Provider Test Date Status PAULA VELÁSQUEZ 03/04/2024 10:32:11 Jacy l Observation Date Value Abnormality Reference (Units ) Status TSH 03/04/2024 10:32:11 12.20 Above high normal 0. 27-4.20 (uIU/mL) Final Performing Location [facility] [place] - [address] [place] [address]
--- OUTSIDE RECORDS SUMMARY | 2024-03-08 13:30 | External Medical Summary | Summary of Care ---
Author Name Unknown Organization [facility] Address [address] [place] [place] [address] Phone [phone] Care Team Providers Care Mobile Designer Name Role Phone Elmer Hoffman MD Primary Care Provider [phone] Encounter Details Date Type Department Care Team (Late st Contact Info) Description 02/16/2024 Telephone Gastroenterology, [facility] [address] [place] [address] Josselyn Tolentino DO [address] [place] [address] Allergies Active Allergy Reactions Criticality Noted Date Comments Fluoxetine Other (Please comment) 04/02/2004 Arelis hernandez Other reaction(s): aria, Tremor documented as of this encounter (statuses as of 02/16/2024) Medications Medication Sig Dispensed Refills Start Date [...] Tablet by mouth in the morning. Active Aspirin 81 MG Oral Tablet Delayed Release Take 1 Tablet by mouth in the morning. 90 Tablet 1 10/04/2023 Active [facility] Chewable C with Liliana Hips [...] food.. 60 Tablet 1 01/03/2024 Active Nystatin 528349 UNIT/GM External CreamIndications:Can didal skin infection APPLY [...] a week. 6 mL 1 01/26/2024 Active documented as of this encounter (statuses as of 02/16/2024) Active Problems Problem Noted Date Diagnosed Date Chronic kidney disease, stage 3a 11/20/2023 Overview: Per CKD protocol Chronic constipation 10/25/2023 Morbid obesity with BMI of 40.0-44.9, adult 09/2022 COVID-19 virus infection 08/27/2021 TEE Confirmation Research Other*[id number] 08/13 Major depressive disorder, recurrent episode, mo derate 08/18/2020 Migraine with aura and witho ut status migrainosus, not intractable 05/13/2019 CIERA (obstructive sleep apnea) 08/24/2018 HTN, goal below 130/80 05/28/2018 Gastroesophageal reflux disease 05/28/2018 History of Graves' disease 08/09/2017 Post-surgical hypothyroidism 06/12/2017 Overview: At [facility] [place]; T4Rx 150mcg/d Intermittent asthma with reliever use up to twic e per week 07/16/2010 Anxiety state 05/19/2008 documented as of this encounter (statuses as of 02/16/2024) Resolved Problems Problem Noted Date Diagnosed Date [...] as of this encounter (statuses as of 02/16/2024) Immunizations Name Administration Dates Next Due COVID-19 mRNA, LNP-s, No Pre serve, 2-Dose Series (Moderna) 09/10/2020,08/11/2020 Covid-19, Mrna, Lnp-s, Pf, B ivalent, 50 Mcg, IM, 12 yrs and above (Moderna) 03/12/2022 MMR - Measles/Mumps/Rubella Vaccine 11/10/2021 PPD 12/06/2022,11/08/2021,07/25/2006 Pneumococcal Conjugate Vacci ne, 20-valent ([id number]) 01/09/2024 Seasonal Influenza, PF, 6 M & [...] No 06/12/2017 documented as of this encounter Plan of Treatment Upcoming Encounters Date Type Department Care Team (Latest Contact Info) Description 03/06/2024 11:45 AM EDT Hospital Encounter ENDO [facility], Endoscopy Room [facility] [address] [place] [phone] Josselyn Tolentino, [address] [place] [address] 03/06/2024 11:45 AM EDT - 03/06/2024 12:15 PM EDT Surgery ENDO [facility], Endoscopy Room [facility] [address] [place] [address] Josselyn Tolentino DO [address] [place] [address] COLONOSCOPY FLEXIBLE PROXIMAL DIAGNOSTIC 05/03/2024 10:00 AM EST Office Visit Gastroenterology, [facility] [address] [place] [address] Shahana Ventura CRNP [address] [place] [address] 05/06/2024 2:00 PM EST Telemedicine Nutrition & Weight Management, [address] [place] [address] Josselyn Babcock CRNP [address] [place] [address] 07/12/2024 7:40 AM EST Office Visit [facility] [address] [facility] [place] [phone] Elmer Hoffman MD [address] [place] [address] Scheduled Procedures Name Priority Associated Diagnoses Date/Ti me COLONOSCOPY FLEXIBLE PROXIMAL DIAGNOSTIC Chronic constipation Rectal bleeding 03/06/2024 11:45 AM EDT Health Maintenance Due Date Last Done Comments Hepatitis B Vaccine (1 of 3 - 19+ 3-dose series) 08/27/1998 HPV/Co-Test 08/27/2009 CKD PHOS USE SMARTSET 86610 08/18/2018 08/18/2017 COVID-19 Vaccine ( season) 2024 03/12/2022, 09/10/2020, 08/11/2020 Influenza Vaccine (FLU shot) (#1) 2024 01/25/2023, 03/23/2022, 03/06/2020 Depression Monitoring 01/24/2024 01/23/2023 GFR 06/13/2024 12/12/2023, 10/13, 07/26/2023, Additional history exists Cervical Cancer Screening 06/16/2024 Pap Smear 06/16/2024 06/16/2021, 02/12, 10/08/2014, Additional history exists Albumin/Creatinine Ratio 11/26/2024 11/27/2023, 08/13 CKD HGB USE SMARTSET 95284 12/11/202412/11, 12/12/2023, 10/24/2023, Additional history exists TSH [...] this encounter Medical Devices Implanted Type Area Label Sewer Device Identifier Shelf Expiration Date Model / Serial / Lot Vitoss Bioactv Foam Pack 2.5cc - [id number] Implanted:Qty: 1 on 11/02/2017 by Sydnie Miles DPM at OR [facility] Left: Foot DALI : SPINE 07/12/2019 [id number] / / [id number] Plate (Non Sterile Slim Straight 5 Hole Length 36.5 Implanted:Qty: 1 on 11/02/2017 by Sydnie Miles DPM at OR [facility] Left: Foot [id number] / / 2.7 Mm Non-Locking Screws Implanted:Qty: 1 on 11/02/2017 by Sydnie Miles DPM at OR [facility] Left: Foot DALI : ORTHOPAEDICS [id number] / / 2.7 Mm Non-Locking Screw Implanted:Qty: 1 on 11/02/2017 by Sydnie Miles DPM at OR [facility] Left: Foot DALI : ORTHOPAEDICS [id number] / / 2.7 Mm Non-Locking Screws Implanted:Qty: 1 on 11/02/2017 by Sydnie Miles DPM at OR [facility] Left: Foot DALI : ORTHOPAEDICS [id number] / / 2.7 Mm Non-Locking Screw Implanted:Qty: 1 on 11/02/2017 by Sydnie Miles DPM at OR [facility] Left: Foot DALI : ORTHOPAEDICS [id number] / / documented as of this encounter Advance Directives * Full Code (Latest Code Status on File) Date Activated Date Inactivated Comments 06/12/2017 2:51 PM 06/14/2017 1:40 AM This order reflects the patients wishes and were consensually agreed upon. Care Teams Mobile Designer Relationship Specialty Start Date End Date Elmer Hoffman MD [address] [place] [address] PCP - General Internal Medicine 01/09/24 documented as of this encounter
--- OUTSIDE RECORDS SUMMARY | 2024-03-08 13:30 | External Medical Summary | Summary of Care ---
Author Name Unknown Organization [facility] Address [address] [place] [address] Phone [phone] Care Team Providers Care Travel Ticketing Reviewer Name Role Phone Elmer Blum MD Primary Care Provider [phone] Reason for Visit * Reason Onset Date Comments Medication Refill 02/28/2024 Encounter Details Date Type Department Care Team (Late st Contact Info) Description 02/28/2024 Refill [facility] [address] [place] [address] Elmer Blum MD [address] [place] [address] Chronic kidney disease, stage 3a (HCC)*; Iron deficiency anemia, unspecified iron deficiency anemia type; Encounter for long-term (current) use of medications Allergies Active Allergy Reactions Criticality Noted Date [...] food.. 60 Tablet 1 01/03/2024 Active Nystatin 174785 UNIT/GM External CreamIndications:Ca ndidal skin infection APPLY [...] a week. 6 mL 1 01/26/2024 Active Ferrous Sulfate 325 (65 Fe) MG Oral Tablet (Feosol)Indications :Iron deficiency anemia, unspecified iron deficiency anemia type Take 1 tablet by mouth once daily with breakfast 30 Tablet 5 03/04/2024 Active Ferrous Sulfate 325 (65 Fe) MG Oral Tablet (Feosol)Indications :Iron deficiency anemia, unspecified iron deficiency anemia type Take 1 tablet by mouth once daily with breakfast 30 Tablet 5 02/06/2023 4 Discontinu ed(Refill) Aspirin 81 MG Oral Tablet Delayed Release [...] COVID-19 virus infection 08/27/2021 TEE Confirmation Research Other*[id number] 08/13 Major depressive disorder, recurrent episode, mo derate 08/18/2020 Migraine with aura and witho ut status migrainosus, not intractable 05/13/2019 CIERA (obstructive sleep apnea) 08/24/2018 HTN, goal below 130/80 05/28/2018 Gastroesophageal reflux disease 05/28/2018 History of Graves' disease 08/09/2017 Post-surgical hypothyroidism 06/12/2017 [place] [facility] [place]4Rx 150mcg/d Intermittent asthma with reliever use [...] PPD 12/06/2022,11/08/2021,07/25/2006 Pneumococcal Conjugate Vacci ne, 20-valent ([id number]) 01/09/2024 Seasonal Influenza, PF, 6 M & [...] encounter Miscellaneous Notes * Telephone Encounter - Elmer Blum MD - 03/04/2024 6:40 AM EDTSigned Prescriptions: Disp Refills Ferrous Sulfate 325 (65 Fe) MG Oral Tablet*30 Tab*5 Sig: Take 1 tablet by mouth once daily with breakfast Authorizing Provider: ELMER BLUM * Telephone Encounter - Eddie Jung RP - 02/29/2024 1:53 PM EDT Pending Prescriptions: Disp Refills Ferrous Sulfate 325 (65 Fe) MG Oral Tablet*30 Tab*5 Sig: Take 1 tablet by mouth once daily with breakfast * Telephone Encounter - Eddie Jung RP - 02/29/2024 1:53 PM EDT Unable to authorize medication refills for pended medication(s) at this time. Part of the protocol criteria used for refill authorization was not satisfied. Patient needs updated iron labs. Please approve if appropriate. Thanks, Eddie Jung, PharmD Clinical Pharmacist [facility] ([facility]) [phone] 02/29/2024, 1:53 PM documented in this encounter Plan of Treatment Upcoming Encounters Date Type Department Care Team (Latest Contact Info) Description 03/06/2024 11:45 AM EDT Hospital Encounter ENDO [facility], Endoscopy Room [facility] [address] [place] [phone] Josselyn Tolentino DO [address] [place] [address] 03/06/2024 11:45 AM EDT - 03/06/2024 12:15 PM EDT Surgery ENDO [facility], Endoscopy Room [facility] [address] [place] [phone] Josselyn Tolentino DO [address] [place] [address] COLONOSCOPY FLEXIBLE PROXIMAL DIAGNOSTIC 05/03/2024 10:00 AM EST Office Visit Gastroenterology, [facility] [address] [place] [address] Shahana Ventura CRNP [address] [place] [address] 05/06/2024 2:00 PM EST Telemedicine Nutrition & Weight Management, [address] [place] [address] Josselyn Babcock CRNP [address] [place] [address] 07/12/2024 7:40 AM EST [facility] [address] [facility] [phone] Elmer Blum [facility] [address] [facility] [address] Scheduled Orders Name Type Priority Associated Diagnoses Orde r Schedule FERRITIN Lab Routine Iron deficiency anemia, unspecified iron deficiency anemia type Encounter for long-term (current) use of medications Expected: 03/07/2024 (Approximate), Expires: 02/28/2025 IRON SCREEN, INCLUDING TIBC Lab Routine Iron deficiency anemia, unspecified iron deficiency anemia type Encounter for long-term (current) use of medications Expected: 03/07/2024 (Approximate), Expires: 02/28/2025 PHOSPHORUS Lab Routine Chronic kidney disease, stage 3a (HCC) Expected: 03/07/2024 (Approximate), Expires: 02/28/2025 Scheduled Procedures Name Priority Associated Diagnoses Date/Ti me COLONOSCOPY FLEXIBLE PROXIMAL DIAGNOSTIC Chronic constipation Rectal bleeding 03/06/2024 11:45 AM EDT Health Maintenance Due Date Last Done Comments Hepatitis B Vaccine (1 of 3 - 19+ 3-dose series) 08/27/1998 HPV/Co-Test 08/27/2009 CKD PHOS USE SMARTSET 67624 08/18/2018 08/18/2017 COVID-19 Vaccine ( season) 2024 03/12/2022, 09/10/2020, 08/11/2020 Influenza Vaccine (FLU shot) (#1) 2024 01/25/2023, 03/23/2022, 03/06/2020 Depression Monitoring 01/24/2024 01/23/2023 GFR 06/13/2024 12/12/2023, 10/13, 07/26/2023, Additional history exists Cervical Cancer Screening 06/16/2024 Pap Smear 06/16/2024 06/16/2021, 02/12, 10/08/2014, Additional history exists Albumin/Creatinine Ratio 11/26/2024 11/27/2023, 08/13 CKD HGB USE SMARTSET 19530 12/11/202412/11, 12/12/2023, 10/24/2023, Additional history exists TSH 12/18/2024 12/19/2023, 10/13, 10/03/2023, Additional history exists Mammogram 12/19/2024 12/20/2023, 10/13, 10/22/2021, Additional history exists Diabetes Screening 12/11/2026 12/12/2023, 0 10/24/2023, 07/26/2023, Additional history exists Lipid Panel 12/18/2028 12/19/2023, 07/, 07/26/2023, Additional history exists DTap/Tdap Vaccines (4 [...] this encounter Medical Devices Implanted Type Area Maintenance Mechanic Elevators Device Identifier Shelf Expiration Date Model / Serial / Lot Vitoss Bioactv Foam Pack 2.5cc - [id number] Implanted:Qty: 1 on 11/02/2017 by Sydnie Miles DPM at OR [facility] Left: Foot DALI : SPINE 07/12/2019 [id number] / / [id number] Plate (Non Sterile Slim Straight 5 Hole Length 36.5 Implanted:Qty: 1 on 11/02/2017 by Sydnie Miles DPM at OR [facility] Left: Foot [id number] / / 2.7 Mm Non-Locking Screws Implanted:Qty: 1 on 11/02/2017 by Sydnie Miles DPM at OR [facility] Left: Foot DALI : ORTHOPAEDICS [id number] / / 2.7 Mm Non-Locking Screw Implanted:Qty: 1 on 11/02/2017 by Sydnie Miles DPM at OR [facility] Left: Foot DALI : ORTHOPAEDICS [id number] / / 2.7 Mm Non-Locking Screws Implanted:Qty: 1 on 11/02/2017 by Sydnie Miles DPM at OR [facility] Left: Foot DLAI : ORTHOPAEDICS [id number] / / 2.7 Mm Non-Locking Screw Implanted:Qty: 1 on 11/02/2017 by Sydnie Miles DPM at OR [facility] Left: Foot DALI : ORTHOPAEDICS [id number] / / documented as of this encounter Visit Diagnoses Diagnosis Chronic kidney disease, stage 3a (HCC)- Primary Iron deficiency anemia, unspecified iron deficiency anemia type Encounter for long-term (current) use of medications Encounter for long-term (current) use of other medications Chronic constipation Unspecified constipation Rectal bleeding Hemorrhage of rectum and anus documented in this encounter Advance Directives * Full Code (Latest Code Status on File) Date Activated Date Inactivated Comments 06/12/2017 2:51 PM 06/14/2017 1:40 AM This order r eflects the patients wishes and were consensually agreed upon. Care Teams Travel Ticketing Reviewer Relationship Specialty Start Date End Date Elmer Blum MD [address] [place] [address] PCP - General Internal Medicine 02/21/24 documented as of this encounter
--- OUTSIDE RECORDS SUMMARY | 2024-03-08 13:30 | External Medical Summary | Summary of Care ---
Author Name Unknown Organization [facility] Address [address] [place] [address] Phone [phone] Care Team Providers Care Ash Conveyor Operator Name Role Phone Elmer Hoffman MD Primary Care Provider [phone] Reason for Visit * Reason Comments eRx-Medication Refill Encounter Details Date Type Department Care Team (Late st Contact Info) Description 03/03/[address] [address] Ruth Xiao MD [address] [place] [address] [place] [address] Allergies Active Allergy Reactions [...] food.. 60 Tablet 1 01/03/2024 Active Nystatin 954107 UNIT/GM External CreamIndications:Can didal skin infection APPLY [...] COVID-19 virus infection 08/27/2021 TEE Confirmation Research Other*[id number] 08/13 Major depressive disorder, recurrent episode, mo [...] PPD 12/06/2022,11/08/2021,07/25/2006 Pneumococcal Conjugate Vacci ne, 20-valent ([id number]) 01/09/2024 Seasonal Influenza, PF, 6 M & [...] 18 years and over) Not on file 09/11/202 3 Are you (or your family) macy [...] encounter Miscellaneous Notes * Telephone Encounter - Ruth Xiao MD [...] EDT Hospital Encounter ENDO [facility], Endoscopy Room [facility] [address] [place] [phone] Josselyn Tolentino DO [address] [place] [address] 03/06/2024 11:45 AM EDT - 03/06/2024 12:15 PM EDT Surgery ENDO [facility], Endoscopy Room [facility] [address] [place] [phone] Josselyn Tolentino DO [address] [place] [address] COLONOSCOPY FLEXIBLE PROXIMAL DIAGNOSTIC 05/03/2024 10:00 AM EST Office Visit Gastroenterology, [facility] [address] [place] [address] Shahana Ventura CRNP [address] [place] [address] 05/06/2024 2:00 PM EST Telemedicine Nutrition & Weight Management, [address] [place] [address] Josselyn Babcock, [place] [address] [place] [address] 07/12/2024 7:40 AM EST Office Visit [facility] [address] [place] [address] Elmer Hoffman MD [address] [place], [place] [id number] Scheduled Procedures Name Priority Associated Diagnoses Date/Ti me COLONOSCOPY FLEXIBLE PROXIMAL DIAGNOSTIC Chronic constipation Rectal bleeding 03/06/2024 11:45 AM EDT Health Maintenance Due Date Last Done Comments Hepatitis B Vaccine (1 of 3 - 19+ 3-dose series) 08/27/1998 HPV/Co-Test 08/27/2009 CKD PHOS USE SMARTSET 30208 08/18/2018 08/18/2017 COVID-19 Vaccine ( season) 2024 03/12/2022, 09/10/2020, 08/11/2020 Influenza Vaccine (FLU shot) (#1) 2024 01/25/2023, 03/23/2022, 03/06/2020 Depression Monitoring 01/24/2024 01/23/2023 GFR 06/13/2024 12/12/2023, 10/13, 07/26/2023, Additional history exists Cervical Cancer Screening 06/16/2024 Pap Smear 06/16/2024 06/16/2021, 02/12, 10/08/2014, Additional history exists Albumin/Creatinine Ratio 11/26/2024 11/27/2023, 08/13 CKD HGB USE SMARTSET 90843 12/11/202412/11, 12/12/2023, 10/24/2023, Additional history exists TSH [...] this encounter Medical Devices Implanted Type Area Brush Maker Device Identifier Shelf Expiration Date Model / Serial / Lot Vitoss Bioactv Foam Pack 2.5cc - [id number] Implanted:Qty: 1 on 11/02/2017 by Sydnie Miles DPM at OR [facility] Left: Foot DALI : SPINE 07/12/2019 [id number] / / [id number] Plate (Non Sterile Slim Straight 5 Hole Length 36.5 Implanted:Qty: 1 on 11/02/2017 by Sydnie Miles DPM at OR [facility] Left: Foot [id number] / / 2.7 Mm Non-Locking Screws Implanted:Qty: 1 on 11/02/2017 by Sydnie Miles DPM at OR [facility] Left: Foot DALI : ORTHOPAEDICS [id number] / / 2.7 Mm Non-Locking Screw Implanted:Qty: 1 on 11/02/2017 by Sydnie Miles DPM at OR [facility] Left: Foot DALI : ORTHOPAEDICS [id number] / / 2.7 Mm Non-Locking Screws Implanted:Qty: 1 on 11/02/2017 by Sydnie Miles DPM at OR [facility] Left: Foot DALI : ORTHOPAEDICS [id number] / / 2.7 Mm Non-Locking Screw Implanted:Qty: 1 on 11/02/2017 by Sydnie Miles DPM at OR [facility] Left: Foot DALI : ORTHOPAEDICS [id number] / / documented as of this encounter Advance Directives * Full Code (Latest Code Status on File) Date Activated Date Inactivated Comments 06/12/2017 2:51 PM 06/14/2017 1:40 AM This order r eflects the patients wishes and were consensually agreed upon. Care Teams Ash Conveyor Operator Relationship Specialty Start Date End Date Elmer Hoffman MD [address] [place] [address] PCP - General Internal Medicine 02/21/24 documented as of this encounter
--- OUTSIDE RECORDS SUMMARY | 2024-03-08 13:30 | External Medical Summary ---
Author Name Unknown Address Unknown Organization K01:[facility] [address] [place] [address] Laboratory Report Ordering Provider Test Date Status LAURA FERRARI 03/04/2024 10:32:11 Final Observation Date Value Abnormality Reference (Units ) Status Phosphate 03/04/2024 10:32:11 3.9 2.5-4.8 (m g/dL) Final Performing Location [facility] [address] [place] [address]
--- OUTSIDE RECORDS SUMMARY | 2024-03-08 13:30 | External Medical Summary | Summary of Care ---
Author Name Unknown Organization [facility] Address [address] [place] [address] Phone [phone] Care Team Providers Care Console Operator Name Role Phone Elmer Hoffman MD Primary Care Provider Reason for Visit * Reason Comments Outpatient Testing Encounter Details Date Type Department Care Team (Late st Contact Info) Description 03/04/2024 10:40 AM EDT Laboratory Laboratory, [place] [address] [place] [address] [facility] [address] [place] [address] Post-surgical hypothyroidism; Iron deficiency anemia, unspecified iron deficiency anemia type; Encounter for long-term (current) use of medications; Chronic kidney disease, stage 3a (HCC) Allergies Active Allergy Reactions Criticality Noted Date [...] food.. 60 Tablet 1 01/03/2024 Active Nystatin 770385 UNIT/GM External CreamIndications:Can didal skin infection APPLY [...] COVID-19 virus infection 08/27/2021 TEE Confirmation Research Other*[id number] 08/13 Major depressive disorder, recurrent episode, mo derate 08/18/2020 Migraine with aura and witho ut status migrainosus, not intractable 05/13/2019 CIERA (obstructive sleep apnea) 08/24/2018 HTN, goal below 130/80 05/28/2018 Gastroesophageal reflux disease 05/28/2018 History of Graves' disease 08/09/2017 Post-surgical hypothyroidism 06/12/2017 [place] [facility] [place] 150mcg/d Intermittent asthma with reliever use [...] PPD 12/06/2022,11/08/2021,07/25/2006 Pneumococcal Conjugate Vacci ne, 20-valent ([id number]) 01/09/2024 Seasonal Influenza, PF, 6 M & [...] [facility], Endoscopy Room [facility] [address] [place] [phone] Josselyn Tolentino, [address] [place] [address] 03/06/2024 11:45 AM EDT - 03/06/2024 12:15 PM EDT Surgery ENDO [facility], Endoscopy Room [facility] [address] [place] [id number] Josselyn Tolentino, [address] [place] [address] COLONOSCOPY FLEXIBLE PROXIMAL DIAGNOSTIC 05/03/2024 10:00 AM EST Office Visit Gastroenterology, [facility] [address] [place] [address] Shahana Ventura CRNP [address] [place] [address] 05/06/2024 2:00 PM EST Telemedicine Nutrition & Weight Management, [address] [place] [address] Josselyn Babcock CRNP [address] [place] [address] [place] [address] 07/12/2024 7:40 AM EST [facility] [address] [facility] [phone] Elmer Hoffman MD [address] [place] [address] Pending Results Name Type Priority Associated Diagnoses Date /Time TSH Lab Routine Post-surgical hypothyroidism 03/04/2024 10:32 AM EDT FERRITIN Lab Routine Iron deficiency anemia, unspecified iron deficiency anemia type Encounter for long-term (current) use of medications 03/04/2024 10:32 AM EDT IRON SCREEN, INCLUDING TIBC Lab Routine Iron deficiency anemia, unspecified iron deficiency anemia type Encounter for long-term (current) use of medications 03/04/2024 10:32 AM EDT PHOSPHORUS Lab Routine Chronic kidney disease, stage 3a (HCC) 03/04/2024 10:32 AM EDT Scheduled Procedures Name Priority Associated Diagnoses Date/Ti me COLONOSCOPY FLEXIBLE PROXIMAL DIAGNOSTIC Chronic constipation Rectal bleeding 03/06/2024 11:45 AM EDT Health Maintenance Due Date Last Done Comments Hepatitis B Vaccine (1 of 3 - 19+ 3-dose series) 08/27/1998 HPV/Co-Test 08/27/2009 CKD PHOS USE SMARTSET 09721 08/18/2018 08/18/2017 COVID-19 Vaccine ( season) 2024 03/12/2022, 09/10/2020, 08/11/2020 Influenza Vaccine (FLU shot) (#1) 2024 01/25/2023, 03/23/2022, 03/06/2020 Depression Monitoring 01/24/2024 01/23/2023 GFR 06/13/2024 12/12/2023, 10/13, 07/26/2023, Additional history exists Cervical Cancer Screening 06/16/2024 Pap Smear 06/16/2024 06/16/2021, 02/12, 10/08/2014, Additional history exists Albumin/Creatinine Ratio 11/26/2024 11/27/2023, 08/13 CKD HGB USE SMARTSET 17957 12/11/202412/11, 12/12/2023, 10/24/2023, Additional history exists TSH [...] this encounter Medical Devices Implanted Type Area Transit Operator Device Identifier Shelf Expiration Date Model / Serial / Lot Vitoss Bioactv Foam Pack 2.5cc - [id number] Implanted:Qty: 1 on 11/02/2017 by Sydnie Miles DPM at OR [facility] Left: Foot DALI : SPINE 07/12/2019 [id number] / / [id number] Plate (Non Sterile Slim Straight 5 Hole Length 36.5 Implanted:Qty: 1 on 11/02/2017 by Sydnie Miles DPM at OR [facility] Left: Foot [id number] / / 2.7 Mm Non-Locking Screws Implanted:Qty: 1 on 11/02/2017 by Sydnie Miles DPM at OR [facility] Left: Foot DALI : ORTHOPAEDICS [id number] / / 2.7 Mm Non-Locking Screw Implanted:Qty: 1 on 11/02/2017 by Sydnie Miles DPM at OR [facility] Left: Foot DALI : ORTHOPAEDICS [id number] / / 2.7 Mm Non-Locking Screws Implanted:Qty: 1 on 11/02/2017 by Sydnie Miles DPM at OR [facility] Left: Foot DALI : ORTHOPAEDICS [id number] / / 2.7 Mm Non-Locking Screw Implanted:Qty: 1 on 11/02/2017 by Sydnie Miles DPM at OR [facility] Left: Foot DALI : ORTHOPAEDICS [id number] / / documented as of this encounter Visit Diagnoses Diagnosis Post-surgical hypothyroidism Postsurgical hypothyroidism Iron deficiency anemia, unspecified iron deficiency anemia type Encounter for long-term (current) use of medications Encounter for long-term (current) use of other medications Chronic kidney disease, stage 3a (HCC) Chronic constipation Unspecified constipation Rectal bleeding Hemorrhage of rectum and anus documented in this encounter Advance Directives * Full Code (Latest Code Status on File) Date Activated Date Inactivated Comments 06/12/2017 2:51 PM 06/14/2017 1:40 AM This order r eflects the patients wishes and were consensually agreed upon. Care Teams Console Operator Relationship Specialty Start Date End Date Elmer Hoffman MD [address] [facility] [place] [address] PCP - General Internal Medicine 02/21/24 documented as of this encounter
--- OUTSIDE RECORDS SUMMARY | 2024-03-08 13:30 | External Medical Summary ---
Author Name Unknown Address Unknown Organization [id number][place] [place] [address] [place] [address] Laboratory Report Ordering Provider Test Date Status LAURA FERRARI 03/04/2024 10:32:11 Final Observation Date Value Abnormality Reference (Units ) Status Ferritin 03/04/2024 10:32:11 108 13-150 (ng /mL) Final Postmenopausal women have hi gher ferritin levels than pre-menopausal women. The above reference interval is based on pre-menopausal women. Performing Location [facility] [place] [address] [place] [address]
--- OUTSIDE RECORDS SUMMARY | 2024-03-08 13:31 | External Medical Summary | Summary of Care ---
Author Name Unknown Organization [facility] Address [address] [place] [address] Phone [phone] Care Team Providers Care Crematorium Operator Name Role Phone Elmer Hoffman MD Primary Care Provider [phone] Reason for Visit * Reason Comments Weight Management The pt stated she is here to follow up with weight management. She would like to discuss her Wegovy dosage as well. Encounter Details Date Type Department Care Team (Late st Contact Info) Description 01/26/2024 11:00 AM EDT Office Visit Nutrition & Weight Management, [facility] [address] [place] [address] Nathalie Lopez PA-C [address] [place] [address] Class 3 severe obesity due to excess calories without serious comorbidity with body mass index (BMI) of 40.0 to 44.9 in adult (HCC)* Allergies Active Allergy Reactions Criticality Noted Date Comments Fluoxetine Other (Please comment) 04/02/2004 Arelis hernandez Other reaction(s): Thaddeus knapp documented as of this encounter (statuses as of 01/26/2024) Medications Medication Sig Dispensed Refills Start Date End Date Status Triamcinolone Acetonide 0.5 % External Cream (Aristocort)Indica tions:Rash and nonspecific skin eruption Apply topically to affected area 2 times a day. To affected area. 60 g 2 Active Additional Information Patient taking differently:TopicalPRN, To affected area., Reported on 01/26/2024 hydrOXYzine HCl 25 MG Oral Tablet Take 1 Tablet by mouth 3 times a day as needed. Active Budesonide-Formote rol Fumarate 80-4.5 MCG/ACT Inhalation Aerosol (Symbicort) Inhale 2 Puffs by mouth in the morning and 2 Puffs before bedtime. 10.2 g 12 3 Active Ferrous Sulfate 325 (65 Fe) MG Oral Tablet (Feosol)Indication s:Iron deficiency anemia, unspecified iron deficiency anemia type Take 1 tablet by mouth once daily with breakfast 30 Tablet 5 3 Active Atenolol 50 MG Oral Tablet (Tenormin) TAKE 1 TABLET BY MOUTH IN THE MORNING 90 Tablet 3 3 Active Magnesium 250 MG Oral Tablet Take 1 Tablet by mouth in the morning. Active Vitamin B12 500 MCG Oral Tablet Take by mouth. Activ e Zinc 50 MG Oral Tablet Take 1 Tablet by mouth in the morning. Active DULoxetine HCl 60 MG Oral Capsule Delayed Release Particles (Cymbalta) Take 1 Capsule by mouth in the morning. 3 Active buPROPion HCl ER (XL) 300 MG Oral Tablet Extended Release 24 Hour (Wellbutrin XL) Take 1 Tablet by mouth in the morning. Active Aspirin 81 MG Oral Tablet Delayed Release Take 1 Tablet by mouth in the morning. 90 Tablet 1 4 Active [facility] Chewable C with Liliana Hips 500 MG Oral Tablet Chewable (Ascorbic Acid)Indications:I margaret deficiency anemia, unspecified iron deficiency anemia type Take 1 Tablet by mouth in the morning. Take with iron supplement. 60 Tablet 2 4 Active Vitamin D3 50 MCG (2000 UT) Oral CapsuleIndications :Vitamin D insufficiency Take 1 Capsule by mouth in the morning. 30 Capsule 5 4 Active Mirabegron ER 50 MG Oral Tablet Extended Release 24 Hour (Myrbetriq) Take 1 Tablet by mouth in the morning. 30 Tablet 6 4 Active Levothyroxine Sodium 200 MCG Oral Tablet (Levoxyl)Indicatio ns:Post-surgical hypothyroidism One daily (at least 30 min prior to breakfast or other meds) 90 Tablet 1 4 Active Polyethylene Glycol 3350 17 GM Oral Packet (MiraLax) Take 1 Packet by mouth in the morning. Active linaCLOtide 145 MCG Oral Capsule (Linzess)Indicatio ns:Chronic constipation Take 1 Capsule by mouth daily before breakfast. 90 Capsule 3 4 Active Omeprazole 40 MG Oral Capsule Delayed Release (PriLOSEC)Indicati ons:Nausea without vomiting Take 1 Capsule by mouth in the morning. 1 hour before the first meal of the day.. 30 Capsule 5 4 Active Gabapentin 100 MG Oral Capsule (Neurontin) TAKE 1 CAPSULE BY MOUTH IN THE MORNING AND 1 AT NOON AND 1 AT BEDTIME 90 Capsule 4 Active Topiramate 25 MG Oral Tablet (topAMAX)Indicatio ns:Chronic daily headache Take 1 Tablet by mouth in the morning and 1 Tablet before bedtime. 60 Tablet 4 Active Naproxen 500 MG Oral Tablet (Naprosyn) Take 1 Tablet by mouth in the morning and 1 Tablet before bedtime. With food.. 60 Tablet 1 4 Active Nystatin 411407 UNIT/GM External CreamIndications:C andidal skin infection APPLY CREAM TOPICALLY TO AFFECTED AREA TWICE DAILY FOR 2 WEEKS 60 g 4 Active Additional Information Patient taking differently: PRN, Reported on 01/26/2024 Ondansetron HCl 4 MG Oral Tablet (Zofran) TAKE 1 TABLET BY MOUTH EVERY 8 HOURS NEEDED FOR NAUSEA AND VOMITING FOR 3 DAYS 4 Active QUEtiapine Fumarate 150 MG Oral Tablet 4 Active Wegovy 1 MG/0.5ML Subcutaneous Solution Auto-injector (Semaglutide-Weigh t Management)Indicat ions:Class 3 severe obesity due to excess calories without serious comorbidity with body mass index (BMI) of 40.0 to 44.9 in adult (HCC) Inject 1 mg under the skin once a week. 6 mL 1 4 Active QUEtiapine Fumarate 100 MG Oral Tablet (SEROquel) Take 1.5 Tablets by mouth at bedtime. 4 024 Discontinued Wegovy 0.5 MG/0.5ML Subcutaneous Solution Auto-injector (Semaglutide-Weigh t Management)Indicat ions:Class 3 severe obesity due to excess calories without serious comorbidity with body mass index (BMI) of 40.0 to 44.9 in adult (HCC) Inject 0.5 mg under the skin once a week. 2 mL 2 4 024 Discontinued(Oh dication List Clean Up) documented as of this encounter (statuses as of 01/26/2024) Active Problems Problem Noted Date Diagnosed Date Chronic kidney disease, stage 3a 11/20/2023 Overview: Per CKD protocol Chronic constipation 10/25/2023 Morbid obesity with BMI of 40.0-44.9, adult 09/2022 COVID-19 virus infection 08/27/2021 TEE Confirmation Research Other*[id number] 08/13 Major depressive disorder, recurrent episode, mo derate 08/18/2020 Migraine with aura and witho ut status migrainosus, not intractable 05/13/2019 CIERA (obstructive sleep apnea) 08/24/2018 HTN, goal below 130/80 05/28/2018 Gastroesophageal reflux disease 05/28/2018 History of Graves' disease 08/09/2017 Post-surgical hypothyroidism 06/12/2017 [place] [facility] [place] T4[place] 150mcg/d Intermittent asthma with reliever use up to twic e per week 07/16/2010 Anxiety state 05/19/2008 documented as of this encounter (statuses as of 01/26/2024) Resolved Problems Problem Noted Date Diagnosed Date [...] as of this encounter (statuses as of 01/26/2024) Immunizations Name Administration Dates Next Due COVID-19 mRNA, LNP-s, No Pre serve, 2-Dose Series (Moderna) 09/10/2020,08/11/2020 Covid-19, Mrna, Lnp-s, Pf, B ivalent, 50 Mcg, IM, 12 yrs and above (Moderna) 03/12/2022 MMR - Measles/Mumps/Rubella Vaccine 11/10/2021 PPD 12/06/2022,11/08/2021,07/25/2006 Pneumococcal Conjugate Vacci ne, 20-valent ([id number]) 01/09/2024 Seasonal Influenza, PF, 6 M & [...] Sign Reading Time Taken Comments Blood Pressure 108/72 01/26/2024 10:46 AM EDT Pulse 89 01/26/2024 10:46 AM EDT Temperature 36.6 C (97.9 F) 01/26/2024 1 0:46 AM EDT Respiratory Rate - - Oxygen Saturation 98% 01/26/2024 10: 46 AM EDT Inhaled Oxygen Concentration - - Weight 106.6 kg (235 lb 1.6 oz) 024 10:46 AM EDT Height 161.3 cm (5' 3.5") 01/26/2024 10 :46 AM EDT Body Mass Index 40.99 01/26/2024 10:46 AM EDT documented in this encounter Functional [...] No 06/12/2017 documented as of this encounter Progress Notes * Nathalie Lopez PA-C - 01/26/2024 11:00 AM EDT Comprehensive [facility] Note Nursing Notes: Ruben Bullard LPN 01/26/24 1048 Signed Chief Complaint Patient presents with Weight Management The pt stated she is here to follow up with weight management. She would like to discuss her Wegovydosage as well. Augusta Katz presents in follow up to the comprehensive weight management clinic. The patient is a43 year old female Wt Readings from Last 6 Encounters: 01/26/24 106.6 kg (235 lb 1.6 oz) 01/09/24 107.4 kg (236 lb 11.2 oz) 12/12/23 110.1 kg (242 lb 12.8 oz) 11/17/23 111.2 kg (245 lb 1.6 oz) 10/26/23 112.5 kg (248 lb) 06/14/23 112.9 kg (249 lb) Patient is receiving ongoing education regarding dietary and physical modifications for weight loss. - Initial clinic visit 12/28/20. Weight at that time was 242 lbs Body mass index is 40.93 kg/m. - Today's weight: 235 lbs - Total weight loss of -7 since initial weight in clinic - Patient's last follow up with GI/Nutrition clinic was on 05/25/23. - The patient's weight has -17 lbs since the last visit Started Wegovy in October at 254lbs 01/26/24 -on Wegovy 0.5mg -tolerating well -not interested in MBS at this time 06/12/23 -Re-establishing with RD was in MBS program, completed, but lost to follow up -MBS scared her -Had foot surgery this past Monday -Fasting 30/10, has lost 5 lbs -Motivation is 10/10 to make changes -Defines healthy diet as: no fatty things no sweets no soda, lean proteins, portion control, more veggies than anything 05/25/23 -last seen 07/20/21 -had completed surgery program then lost to follow up Patient Active Problem List Diagnosis Anxiety state Intermittent asthma with reliever use up to twice per week Post-surgical hypothyroidism History of Graves' disease HTN, goal below 130/80 Gastroesophageal reflux disease CIERA (obstructive sleep apnea) Migraine with aura and without status migrainosus, not intractable Major depressive disorder, recurrent episode, moderate (HCC) TEE Confirmation Research Other*[id number] COVID-19 virus infection Morbid obesity with BMI of 40.0-44.9, adult (HCC) Chronic constipation Chronic kidney disease, stage 3a (HCC) Review of Systems: Review of Systems Musculoskeletal: Positive for arthralgias. All other systems reviewed and are negative. Current Medications: Current Outpatient Medications Medication Sig Dispense Refill Triamcinolone Acetonide 0.5 % External Cream (Aristocort) Apply topically to affected area 2 times a day. To affected area. (Patient taking differently: Apply topically to affected area as needed. Toaffected area.) 60 g 0 hydrOXYzine HCl 25 MG Oral Tablet Take 1 Tablet by mouth 3 times a day as needed. Budesonide-Formoterol Fumarate 80-4.5 MCG/ACT Inhalation Aerosol (Symbicort) Inhale 2 Puffs by mouth in the morning and 2 Puffs before bedtime. 10.2 g 12 Ferrous Sulfate 325 (65 Fe) MG Oral Tablet (Feosol) Take 1 tablet by mouth once daily with breakfast 30 Tablet 5 Atenolol 50 MG Oral Tablet (Tenormin) TAKE 1 TABLET BY MOUTH IN THE MORNING 90 Tablet 3 Magnesium 250 MG Oral Tablet Take 1 Tablet by mouth in the morning. Vitamin B12 500 MCG Oral Tablet Take by mouth. Zinc 50 MG Oral Tablet Take 1 Tablet by mouth in the morning. DULoxetine HCl 60 MG Oral Capsule Delayed Release Particles (Cymbalta) Take 1 Capsule by mouth in the morning. buPROPion HCl ER (XL) 300 MG Oral Tablet Extended Release 24 Hour (Wellbutrin XL) Take 1 Tablet by mouth in the morning. Aspirin 81 MG Oral Tablet Delayed Release Take 1 Tablet by mouth in the morning. 90 Tablet 1 [facility] Chewable C with Liliana Hips 500 MG Oral Tablet Chewable (Ascorbic Acid) Take 1 Tablet by mouth inthe morning. Take with iron supplement. 60 Tablet 2 Vitamin D3 50 MCG (2000 UT) Oral Capsule Take 1 Capsule by mouth in the morning. 30 Capsule 5 Mirabegron ER 50 MG Oral Tablet Extended Release 24 Hour (Myrbetriq) Take 1 Tablet by mouth in the morning. 30 Tablet 6 Levothyroxine Sodium 200 MCG Oral Tablet (Levoxyl) One daily (at least 30 min prior to breakfast orother meds) 90 Tablet 1 Polyethylene Glycol 3350 17 GM Oral Packet (MiraLax) Take 1 Packet by mouth in the morning. linaCLOtide 145 MCG Oral Capsule (Linzess) Take 1 Capsule by mouth daily before breakfast. 90 Capsule 3 Omeprazole 40 MG Oral Capsule Delayed Release (PriLOSEC) Take 1 Capsule by mouth in the morning. 1 hour before the first meal of the day.. 30 Capsule 5 Wegovy 0.5 MG/0.5ML Subcutaneous Solution Auto-injector (Semaglutide-Weight Management) Inject 0.5 mg under the skin once a week. 2 mL 2 Gabapentin 100 MG Oral Capsule (Neurontin) TAKE 1 CAPSULE BY MOUTH IN THE MORNING AND 1 AT NOON AND1 AT BEDTIME 90 Capsule 0 Topiramate 25 MG Oral Tablet (topAMAX) Take 1 Tablet by mouth in the morning and 1 Tablet before bedtime. 60 Tablet 0 Naproxen 500 MG Oral Tablet (Naprosyn) Take 1 Tablet by mouth in the morning and 1 Tablet before bedtime. With food.. 60 Tablet 1 Nystatin 894904 UNIT/GM External Cream APPLY CREAM TOPICALLY TO AFFECTED AREA TWICE DAILY FOR 2 WEEKS (Patient taking differently: as needed.) 60 g 0 Ondansetron HCl 4 MG Oral Tablet (Zofran) TAKE 1 TABLET BY MOUTH EVERY 8 HOURS NEEDED FOR NAUSEAAND VOMITING FOR 3 DAYS QUEtiapine Fumarate 150 MG Oral Tablet No current facility-administered medications for this visit. Water intake: yes Prescribed diet: 2803-1804 Calorie Controlled Current diet: Breakfast--yogurt and fruit Snack-- nuts and fruit Lunch-- salad OR lunch meat and fruit Snack-- skips Dinner-- chicken breast, steamed veggies, sweet potatoes Snack-- skips OR fruit Drinks-- water, black coffee Meals Away from Home-- rare Food logs: No Type of exercise: ADL - limited by knee pain, had surgery Weight loss Pharmacotherapy: yes Semaglutide 0.5 mg weekly BP 108/72 | Pulse 89 | Temp 36.6 C (97.9 F) | Ht 1.613 m (5' 3.5") | Wt 106.6 kg (235 lb 1.6 oz) | SpO2 98% | BMI 40.99 kg/m | BSA 2.19 m PHYSICAL EXAMINATION: General: Patient is well appearing and in no acute distress. Skin: No obvious rashes. HEENT: Head is atraumatic, normocephalic. Cardiovascular: Regular rate and effort of breathing. No conversational dyspnea. No cyanosis. Neuro: No obvious focal neurological deficits. Psych: Appropriate mood and affect. Assessment and Plan: Abnormal weight gain / Body mass index is 40.99 kg/m. / Morbid obesity : - Would like to proceed with medical management - Barriers are consistency. - Motivators are feeling better overall, avoiding/reducing co-morbid conditions. - The patient was encouraged to to avoid all fruit juices and regular sodas, consume at least 64 ounces of water per day, keep food logs and get weighed on a weekly basis. They were encouraged to increase physical activity as prescribed. - Handouts regarding nutrition and physical activity were provided, as appropriate. 1. Keep a food log. If you bite it, write it! Apps like [employer] or [employer] Calorie goal: 1500 2. Drink 48-64 ounces of non-caloric beverages per day. No fruit juices or regular soda Try crystal light, propel, zero calorie flavored water, plain water 3. Goal of 30 minutes of exercise 5 days per week (150 minutes per week--can be divided up however you would like) Aim for aerobic activity and muscle strengthening activities 4. Increase fruit and vegetable servings to 5-6 per day. 1/2 of your plate should be fruits and vegetables 5. Eat 100-200 calories within 1-2 hours of awakening, and every 4 - 6 hours while awake. (3 meals with snacks in between) Choose 100 calorie or less snacks, protein snacks 7. Weight yourself weekly and follow trend over time (day to day weight fluctuations can be discouraging) 8. Decrease starches like bread, pasta, cereal, potatoes and corn. Aim for of your plate Try substitutions like zoodles, lentil pasta, cauliflower mashed potatoes, whole grain foods, quinoa Limit junk/processed foods Chips, pretzels, cookies, cakes, sweets White bread/rolls/wraps/bagels, white rice 9. Increase protein to feel full longer (1/4 of your plate) Augusta was seen today for weight management. Diagnoses and all orders for this visit: Body mass index (BMI) of 40.0 to 44.9 in adult (HCC) -increase Wegovy to 1.0mg -doing well overall with diet -had been on phentermine previously -continue topamax -consider adding naltrexone to current wellbutrin Abnormal weight gain CIERA -not currently using CPAP - can't tolerate d/t PTSD -ongoing daytime fatigue -recommend f/u with sleep medicine Post-surgical hypothyroidism -continue levothyroxine Intermittent asthma with reliever use up to twice per week without complication -stable HTN, goal below 130/80 -continue current regimen Gastroesophageal reflux disease, unspecified whether esophagitis present -continue PPI Major depressive disorder, recurrent episode, moderate (HCC) -continue current regimen The patient agreed to try the plan as discussed and return in 3 month. They were encouraged to callor send a patient portal message in the meantime with any questions or concerns prior to their nextclinic visit. I spent a total of 30 minutes on the date of service in preparation, delivery, and documentation ofthe care provided to Augusta Katz excluding any time spent in the performance of separately billedservices. This included but was no limited to providing counseling about the benefits of weight loss, about their nutritional status, detailed explanations about calorie count, types of nutrients to choose, and composition of the meals. Motivational interview provided in order to prepare the patient to achieve future goals. Nathalie Lopez PA-C documented in this encounter Nursing Notes * Ruben Bullard LPN - 01/26/2024 10:46 AM EDT Chief Complaint Patient presents with Weight Management The pt stated she is here to follow up with weight management. She would like to discuss her Wegovydosage as well. documented in this encounter Plan of Treatment Upcoming Encounters Date Type Department Care Team (Latest Contact Info) Description 02/14/2024 11:15 AM EDT Office Visit Urology, [facility] [address] [place] [address] Frank Foster MD [address] [place] [address] 03/06/2024 11:45 AM EDT Hospital Encounter ENDO [facility], Endoscopy Room [facility] [address] [place] [phone] Josselyn Tolentino DO [address] [place] [address] 03/06/2024 11:45 AM EDT - 03/06/2024 12:15 PM EDT Surgery ENDO [facility], Endoscopy Room [facility] [address] [place] [phone] Josselyn Tolentino DO [address] [place] [address] COLONOSCOPY FLEXIBLE PROXIMAL DIAGNOSTIC 05/03/2024 10:00 AM EST Office Visit Gastroenterology, [facility] [address] [place] [address] Shahana Ventura CRNP [address] [place] [address] 05/06/2024 2:00 PM EST Telemedicine Nutrition & Weight Management, [facility], [place] [address] [place] [address] Josselyn Babcock CRNP [address] [place] [address] [place] [address] 07/12/2024 7:40 AM EST Office Visit [facility] [address] [place] [phone] Elmer Hoffman MD [address] [place] [address] Scheduled Procedures Name Priority Associated Diagnoses Date/Ti me COLONOSCOPY FLEXIBLE PROXIMAL DIAGNOSTIC Chronic constipation Rectal bleeding 03/06/2024 11:45 AM EDT Health Maintenance Due Date Last Done Comments Hepatitis B Vaccine (1 of 3 - 19+ 3-dose series) 08/27/1998 HPV/Co-Test 08/27/2009 CKD PHOS USE SMARTSET 54848 08/18/2018 08/18/2017 COVID-19 Vaccine ( season) 2024 03/12/2022, 09/10/2020, 08/11/2020 Influenza Vaccine (FLU shot) (#1) 2024 01/25/2023, 03/23/2022, 03/06/2020 Depression Monitoring 01/24/2024 01/23/2023 GFR 06/13/2024 12/12/2023, 0605/2023, 07/26/2023, Additional history exists Cervical Cancer Screening 06/16/2024 Pap Smear 06/16/2024 06/16/2021, 02/12, 10/08/2014, Additional history exists Albumin/Creatinine Ratio 11/26/2024 11/27/2023, 08/13 CKD HGB USE SMARTSET 83375 12/11/202412/11, 12/12/2023, 10/24/2023, Additional history exists TSH [...] this encounter Medical Devices Implanted Type Area Development Planner Device Identifier Shelf Expiration Date Model / Serial / Lot Vitoss Bioactv Foam Pack 2.5cc - [id number] Implanted:Qty: 1 on 11/02/2017 by Sydnie Miles DPM at OR [facility] Left: Foot DALI : SPINE 07/12/2019 [id number] / / [id number] Plate (Non Sterile Slim Straight 5 Hole Length 36.5 Implanted:Qty: 1 on 11/02/2017 by Sydnie Miles DPM at OR [facility] Left: Foot [id number] / / 2.7 Mm Non-Locking Screws Implanted:Qty: 1 on 11/02/2017 by ySdnie Miles DPM at OR [facility] Left: Foot DALI : ORTHOPAEDICS [id number] / / 2.7 Mm Non-Locking Screw Implanted:Qty: 1 on 11/02/2017 by Sydnie Miles DPM at OR [facility] Left: Foot DALI : ORTHOPAEDICS [id number] / / 2.7 Mm Non-Locking Screws Implanted:Qty: 1 on 11/02/2017 by Sydnie Miles DPM at OR [facility] Left: Foot DALI : ORTHOPAEDICS [id number] / / 2.7 Mm Non-Locking Screw Implanted:Qty: 1 on 11/02/2017 by Sydnie Miles DPM at OR [facility] Left: Foot DALI : ORTHOPAEDICS [id number] / / documented as of this encounter Visit Diagnoses Diagnosis Class 3 severe obesity due to excess calories without serious comorbidity with body mass index (BMI) of 40.0 to 44.9 in adult (HCC)- Primary Chronic constipation Unspecified constipation Rectal bleeding Hemorrhage of rectum and anus documented in this encounter Advance Directives * Full Code (Latest Code Status on File) Date Activated Date Inactivated Comments 06/12/2017 2:51 PM 06/14/2017 1:40 AM This order r eflects the patients wishes and were consensually agreed upon. Care Teams Crematorium Operator Relationship Specialty Start Date End Date Elmer Hoffman MD [address] [place] [address] PCP - General Internal Medicine 01/09/24 documented as of this encounter
--- OUTSIDE RECORDS SUMMARY | 2024-03-08 13:31 | External Medical Summary | Summary of Care ---
Author Name Unknown Organization [facility] Address [address] [place] [address] Phone [phone] Care Team Providers Care Crop Farm Workers Name Role Phone Didier Mitchell MD Primary Care Provide r Reason for Visit * Reason Onset Date Comments Medication Refill 12/30/2023 Encounter Details Date Type Department Care Team (Late st Contact Info) Description 12/30[facility]2023 [facility] [address] [place] [address] Didier Mitchell MD [address] [place] [address] [place] [address] Allergies Active Allergy Reactions Criticality Noted Date Comments Fluoxetine Other (Please comment) 04/02/2004 Arelis weak Other reaction(s): shaky, Tremor documented as of this encounter (statuses as of 01/03/2024) Medications Medication Sig Dispensed Refills Start Date End Date Status Triamcinolone Acetonide 0.5 % External Cream (Aristocort)Indicat ions:Rash and nonspecific skin eruption Apply topically to affected area 2 times a day. To affected area. 60 g 05/11/2022 Active Additional Information Patient not taking.Reported on 12/12/2023 hydrOXYzine HCl 25 MG Oral Tablet Take [...] Tablet by mouth in the morning. Active QUEtiapine Fumarate 100 MG Oral Tablet (SEROquel) Take 1.5 Tablets by mouth at bedtime. 07/18/2023 Active Aspirin 81 MG Oral Tablet Delayed [...] other meds) 90 Tablet 1 10/26/2023 Active Docusate Sodium 100 MG Oral Capsule (Colace) Take 1 Capsule by mouth in the morning and 1 Capsule before bedtime. Active Polyethylene Glycol 3350 17 GM Oral [...] the day.. 30 Capsule 5 11/22/2023 Active Wegovy 0.5 MG/0.5ML Subcutaneous Solution Auto-injector (Semaglutide-Weight Management)Indicati ons:Class 3 severe obesity due to excess calories without serious comorbidity with body mass index (BMI) of 40.0 to 44.9 in adult (HCC) Inject 0.5 mg under the skin once a week. 2 mL 2 12/12/2023 Active Gabapentin 100 MG Oral Capsule (Neurontin) [...] With food.. 60 Tablet 1 01/03/2024 Active Naproxen 500 MG Oral Tablet (Naprosyn) Take 1 Tablet by mouth in the morning and 1 Tablet before bedtime. With food.. 60 Tablet 1 07/25/2023 4 Discontinu ed(Refill) documented as of this encounter (statuses as of 01/03/2024) Active Problems Problem Noted Date Diagnosed Date Chronic kidney disease, stage 3a 11/20/2023 Overview: Per CKD protocol Chronic constipation 10/25/2023 Morbid obesity with BMI of 40.0-44.9, adult 09/2022 COVID-19 virus infection 08/27/2021 TEE Confirmation Research Other*[id number] 08/13 Major depressive disorder, recurrent episode, mo derate 08/18/2020 Migraine with aura and witho ut status migrainosus, not intractable 05/13/2019 CIERA (obstructive sleep apnea) 08/24/2018 HTN, goal below 130/80 05/28/2018 Gastroesophageal reflux disease 05/28/2018 History of Graves' disease 08/09/2017 Post-surgical hypothyroidism 06/12/2017 Overview: At [facility] [place] T4Rx 150mcg/d Intermittent asthma with reliever use up to twic e per week 07/16/2010 Anxiety state 05/19/2008 documented as of this encounter (statuses as of 01/03/2024) Resolved Problems Problem Noted Date Diagnosed Date [...] as of this encounter (statuses as of 01/03/2024) Immunizations Name Administration Dates Next Due COVID-19 mRNA, LNP-s, No Pre serve, 2-Dose Series (Moderna) 09/10/2020,08/11/2020 Covid-19, Mrna, Lnp-s, Pf, B ivalent, 50 Mcg, IM, 12 yrs and above (Moderna) 03/12/2022 MMR - Measles/Mumps/Rubella Vaccine 11/10/2021 PPD 12/06/2022,11/08/2021,07/25/2006 Seasonal Influenza, PF, 6 M & above, IM , (FluLaval or Fluzone) 03/23/2022 TDAP (age 10 and older)(Boostrix) 11/08/2021 TDAP, Age 7 and older, IM (Adacel) 07/25/2006 documented as of this encounter Social History Tobacco Use Types Packs/Day Years Used Date Smoking Tobacco: Former Cigarettes 0.5 19 0 09/21/1998 - 09/21/2017 Smokeless Tobacco: Never Comments:10-20 cigarettes pe r [...] y our heating, water, or electric bill? No 01/23/2023 Is your family able to pay t he heat, water, or electric bill? (Household - for ages 0-17 years) Not on file 01/23/2023 Does your family have access to good internet? (Household - for ages 0-17 years) Not on file 01/23/2023 Employment Status Answer Date Recorded Are you unemployed or without regular income? No 01/23/2023 Does the household have a re gular source of income? (Household - for ages 0-17 years) Not on file 01/23/2023 Social Connections Answer Date Recorded How often do you feel lonely or isolated from th ose around you? Never 01/23/2023 Financial Resource Strain Answer Date R ecorded [...] encounter Miscellaneous Notes * Telephone Encounter - Didier Mitchell MD - 01/03/2024 9:51 AM EDT Signed Prescriptions: Disp Refills Naproxen 500 MG Oral Tablet (Naprosyn) 60 Tab*1 Sig: Take 1 Tablet by mouth in the morning and 1 Tablet before bedtime. With food.. Authorizing Provider: DIDIER MITCHELL * Telephone Encounter - Sherrill Jiang OSA - 01/03/2024 9:06 AM EDTPending Prescriptions: Disp Refills Naproxen 500 MG Oral Tablet (Naprosyn) 60 Tab*1 Sig: Take 1 Tablet by mouth in the morning and 1 Tablet before bedtime. With food.. documented in this encounter Plan of Treatment Upcoming Encounters Date Type Department Care Team (Latest Contact Info) Description 01/09/2024 8:00 AM EDT Office Visit [facility] [address] [facility] [place] [phone] Elmer Hoffman MD [address] [place] [address] 01/09/2024 7:30 PM EDT PulmDiagnostic Sleep Lab, [facility] [address] [facility] [address] [facility], Sleep Med Night Sleep [address] [place] [address] 01/26/2024 11:00 AM EDT Office Visit Nutrition & Weight Management, [facility] [address] [place] [address] Nathalie Lopez PA-C [address] [place] [address] 02/14/2024 11:15 AM EDT Office Visit Urology, [facility] [address] [place] [address] Frank Foster MD [address] [place] [address] 03/06/2024 11:45 AM EDT Hospital Encounter ENDO OSS, Endoscopy Room [facility] [address] [place] [phone] Josselyn Tolentino DO [address] [place] [address] 03/06/2024 11:45 AM EDT - 03/06/2024 12:15 PM EDT Surgery ENDO OSS, Endoscopy Room [facility] [address] [place] [phone] Josselyn Tolentino DO [address] [place] [address] COLONOSCOPY FLEXIBLE PROXIMAL DIAGNOSTIC 05/03/2024 10:00 AM EST Office Visit Gastroenterology, [facility] [address] [place] [address] Shahana Ventura CRNP [address] [place] [address] Scheduled Procedures Name Priority Associated Diagnoses Date/Ti me COLONOSCOPY FLEXIBLE PROXIMAL DIAGNOSTIC Chronic constipation Rectal bleeding 03/06/2024 11:45 AM EDT Health Maintenance Due Date Last Done Comments Pneumococcal Vaccine: Pediatrics (0 to 5 Years) and At-Risk Patients (6 to 64 Years) (1 of 2 - PCV) 08/27/1985 Hepatitis C Screening 08/27/1997 Hepatitis B Vaccine (1 of 3 - 19+ 3-dose series) 08/27/1998 HPV/Co-Test 08/27/2009 CKD PHOS USE SMARTSET 03468 08/18/2018 08/18/2017 COVID-19 Vaccine (4 - 2022-24 season) 2023 03/12/2022, 09/10/2020, 08/11/2020 Influenza Vaccine (FLU shot) (#1) 2024 01/25/2023, 03/23/2022, 03/06/2020 Depression Monitoring 01/24/2024 01/23/2023 GFR 06/13/2024 12/12/2023, 10/13, 07/26/2023, Additional history exists Cervical Cancer Screening 06/16/2024 Pap Smear 06/16/2024 06/16/2021, 02/12, 10/08/2014, Additional history exists Albumin/Creatinine Ratio 11/26/2024 11/27/2023, 08/13 CKD HGB USE SMARTSET 03545 12/11/202412/11, 12/12/2023, 10/24/2023, Additional history exists TSH 12/18/2024 12/19/2023, 10/13, 10/03/2023, Additional history exists Mammogram 12/19/2024 12/20/2023, 10/13, 10/22/2021, Additional history exists Diabetes Screening 12/11/2026 12/12/2023, 0 10/24/2023, 07/26/2023, Additional history exists Lipid Panel 12/18/2028 12/19/2023, 11/14, 07/26/2023, Additional history exists DTaP,Tdap,and Td Vaccines (4 - Td or Tdap) 11/09/2031 11/08/2021, 11/10/2017 (Declined), 07/25/2006 HPV (Gardasil) Vaccine Aged Out No lo nger eligible based on patient's age to complete this topic MENINGOCOCCAL (MENACTRA/MENVEO) Aged Out No longer eligible based on patient's age to complete this topic documented as of this encounter Medical Devices Implanted Type Area Mobile Plant Operators Device Identifier Shelf Expiration Date Model / Serial / Lot Vitoss Bioactv Foam Pack 2.5cc - [id number] Implanted:Qty: 1 on 11/02/2017 by Sydnie Miles DPM at [facility] Left: Foot DALI : SPINE 07/12/2019 [id number] / / [id number] Plate (Non Sterile Slim Straight 5 Hole Length 36.5 Implanted:Qty: 1 on 11/02/2017 by Sydnie Miles DPM at OR [facility] Left: Foot [id number] / / 2.7 Mm Non-Locking Screws Implanted:Qty: 1 on 11/02/2017 by Sydnie Miles DPM at OR [facility] Left: Foot DALI : ORTHOPAEDICS [id number] / / 2.7 Mm Non-Locking Screw Implanted:Qty: 1 on 11/02/2017 by Sydnie Miles DPM at OR [facility] Left: Foot DALI : ORTHOPAEDICS [id number] / / 2.7 Mm Non-Locking Screws Implanted:Qty: 1 on 11/02/2017 by Sydnie Miles DPM at OR [facility] Left: Foot DALI : ORTHOPAEDICS [id number] / / 2.7 Mm Non-Locking Screw Implanted:Qty: 1 on 11/02/2017 by Sydnie Miles DPM at OR [facility] Left: Foot DALI : ORTHOPAEDICS [id number] / / documented as of this encounter Advance Directives * Full Code (Latest Code Status on File) Date Activated Date Inactivated Comments 06/12/2017 2:51 PM 06/14/2017 1:40 AM This order r eflects the patients wishes and were consensually agreed upon. Care Teams Crop Farm Workers Relationship Specialty Start Date End Date Didier Mitchell MD [address] [place] [address] [place] [address] PCP - General Family Medicine 12/01/20 documented as of this encounter
--- OUTSIDE RECORDS SUMMARY | 2024-03-08 13:31 | External Medical Summary | Summary of Care ---
Author Name Unknown Organization [facility] Address [address] [place] [address] Phone [phone] Care Team Providers Care Opera Singer Name Role Phone Ruth Xiao MD Primary Care Provide r Reason for Visit * Reason Onset Date Comments Appointment 01/08/2024 Encounter Details Date Type Department Care Team (Late st Contact Info) Description 01/08/2024 Telephone Sleep Lab, [address] [address] Sayra Gan, [facility] Appointment Allergies Active Allergy Reactions Criticality Noted Date Comments Fluoxetine Other (Please comment) 04/02/2004 Arelis hernandez Other reaction(s): shaky, Tremor documented as of this encounter (statuses as of 01/08/2024) Medications Medication Sig Dispensed Refills Start Date [...] Wegovy 0.5 MG/0.5ML Subcutaneous Solution Auto-injector (Semaglutide-Weight Management)Indicatio ns:Class [...] food.. 60 Tablet 1 01/03/2024 Active Nystatin 530054 UNIT/GM External CreamIndications:Can didal skin infection APPLY CREAM TOPICALLY TO AFFECTED AREA TWICE DAILY FOR 2 WEEKS 60 g 01/01/2024 Active documented as of this encounter (statuses as of 01/08/2024) Active Problems Problem Noted Date Diagnosed Date Chronic kidney disease, stage 3a 11/20/2023 Overview: Per CKD protocol Chronic constipation 10/25/2023 Morbid obesity with BMI of 40.0-44.9, adult 09/2022 COVID-19 virus infection 08/27/2021 TEE Confirmation Research Other*[id number] 08/13 Major depressive disorder, recurrent episode, mo derate 08/18/2020 Migraine with aura and witho ut status migrainosus, not intractable 05/13/2019 CIERA (obstructive sleep apnea) 08/24/2018 HTN, goal below 130/80 05/28/2018 Gastroesophageal reflux disease 05/28/2018 History of Graves' disease 08/09/2017 Post-surgical hypothyroidism 06/12/2017 [place] [facility] [place] 150mcg/d Intermittent asthma with reliever use up to twic e per week 07/16/2010 Anxiety state 05/19/2008 documented as of this encounter (statuses as of 01/08/2024) Resolved Problems Problem Noted Date Diagnosed Date [...] as of this encounter (statuses as of 01/08/2024) Immunizations Name Administration Dates Next Due COVID-19 [...] encounter Miscellaneous Notes * Telephone Encounter - Sayra Gan RPSGT - 01/08/2024 3:02 PM EDT Lm on patient's vm reminding her of her appt on 01/09/2024 @ 1930 documented in this encounter Plan of Treatment Upcoming Encounters Date Type Department Care Team (Latest Contact Info) Description 01/09/2024 8:00 AM EDT Office Visit [address] [address] [facility] [address] [facility] [address] 01/09/2024 7:30 PM EDT PulmDiagnostic Sleep Lab, [facility] [address] [place] [address] Gl, Sleep Med Night Sleep [address] [facility] [place], [place] [address] 01/26/2024 11:00 AM EDT Office Visit Nutrition & Weight Management, [facility] [address] [place] [address] Nathalie Lopez PA-C [address] [place] [address] 02/14/2024 11:15 AM EDT Office Visit Urology, [facility] [address] [place] [address] Frank Foster MD [address] [facility] [place] [address] 03/06/2024 11:45 AM EDT Hospital Encounter ENDO OSS, Endoscopy Room [facility] [address] [place] [phone] Josselyn Tolentino DO [address] [place] [address] 03/06/2024 11:45 AM EDT - 03/06/2024 12:15 PM EDT Surgery ENDO OSSC, Endoscopy Room [facility] [address] [place] [address] Josselyn Tolentino DO [address] [place] [address] COLONOSCOPY FLEXIBLE PROXIMAL DIAGNOSTIC 05/03/2024 10:00 AM EST Office Visit Gastroenterology, [facility] [address] [place] [address] Shahana Ventura CRNP [address] [place] [address] Scheduled Procedures Name Priority Associated Diagnoses Date/Ti [...] 08/27/1998 HPV/Co-Test 08/27/2009 CKD PHOS USE SMARTSET 65936 08/18/2018 08/18/2017 COVID-19 Vaccine ( season) 2023 03/12/2022, 09/10/2020, 08/11/2020 Influenza Vaccine (FLU shot) (#1) 2024 01/25/2023, 03/23/2022, 03/06/2020 Depression Monitoring 01/24/2024 01/23/2023 GFR 06/13/2024 12/12/2023, 10/13, 07/26/2023, Additional history exists Cervical Cancer Screening 06/16/2024 Pap Smear 06/16/2024 06/16/2021, 02/12, 10/08/2014, Additional history exists Albumin/Creatinine Ratio 11/26/2024 11/27/2023, 08/13 CKD HGB USE SMARTSET 36211 12/11/202412/11, 12/12/2023, 10/24/2023, Additional history exists TSH [...] this encounter Medical Devices Implanted Type Area Java Programmer Analyst Device Identifier Shelf Expiration Date Model / Serial / Lot Vitoss Bioactv Foam Pack 2.5cc - [id number] Implanted:Qty: 1 on 11/02/2017 by Sydnie Miles DPM at OR [facility] Left: Foot DALI : SPINE 07/12/2019 [id number] / / [id number] Plate (Non Sterile Slim Straight 5 Hole Length 36.5 Implanted:Qty: 1 on 11/02/2017 by Sydnie Miles DPM at OR [facility] Left: Foot [id number] / / 2.7 Mm Non-Locking Screws Implanted:Qty: 1 on 11/02/2017 by Sydnie Miles DPM at OR [facility] Left: Foot DALI : ORTHOPAEDICS [id number] / / 2.7 Mm Non-Locking Screw Implanted:Qty: 1 on 11/02/2017 by Sydnie Miles DPM at OR [facility] Left: Foot DALI : ORTHOPAEDICS [id number] / / 2.7 Mm Non-Locking Screws Implanted:Qty: 1 on 11/02/2017 by Sydnie Miles DPM at OR [facility] Left: Foot DALI : ORTHOPAEDICS [id number] / / 2.7 Mm Non-Locking Screw Implanted:Qty: 1 on 11/02/2017 by Sydnie Miles DPM at OR [facility] Left: Foot DALI : ORTHOPAEDICS [id number] / / documented as of this encounter Advance Directives * Full Code (Latest Code Status on File) Date Activated Date Inactivated Comments 06/12/2017 2:51 PM 06/14/2017 1:40 AM This order r eflects the patients wishes and were consensually agreed upon. Care Teams Opera Singer Relationship Specialty Start Date End Date Ruth Xiao MD [address] [place] [address] [place] [address] PCP - General Family Medicine 12/01/20 documented as of this encounter
--- OUTSIDE RECORDS SUMMARY | 2024-03-08 13:31 | External Medical Summary | Summary of Care ---
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 Unspecified constipation Rectal bleeding Hemorrhage of rectum and anus documented in this encounter Advance Directives * Full Code (Latest Code Status on File) Date Activated Date Inactivated Comments 06/12/2017 2:51 PM 06/14/2017 1:40 AM This order r eflects the patients wishes and were consensually agreed upon. Care Teams Performance Improvement Consultant Relationship Specialty Start Date End Date Elmer Hoffman MD [address] [place] [address] PCP - General Internal Medicine 01/09/24 documented as of this encounter
--- OUTSIDE RECORDS SUMMARY | 2024-03-08 13:31 | External Medical Summary | Summary of Care ---
Author Name Unknown Organization [facility] Address [address] [place] [address] Phone [phone] Care Team Providers Care General Ledger Accountant Name Role Phone Didier Mitchell MD Primary Care Provide r Reason for Visit * Reason Onset Date Comments Medication Refill 12/30/2023 Encounter Details Date Type Department Care Team (Late st Contact Info) Description 12/30/2023 Refill Family Medicine [address] [address] Didier Mitchell MD [address] [place] [address] [place] [phone] Chronic daily headache Allergies Active Allergy Reactions Criticality Noted Date Comments Fluoxetine Other (Please comment) 04/02/2004 Arelis weak Other reaction(s): penelopeky, Tremor documented as of this encounter (statuses as of 01/01/2024) Medications Medication Sig Dispensed Refills Start Date End Date Status Triamcinolone Acetonide 0.5 % External Cream (Aristocort)Indica tions:Rash and nonspecific skin eruption Apply topically to affected area 2 times a day. To affected area. 60 g Active Additional Information Patient not taking.Reported on [...] Tablet by mouth in the morning. Active Naproxen 500 MG Oral Tablet (Naprosyn) Take 1 Tablet by mouth in the morning and 1 Tablet before bedtime. With food.. 60 Tablet 1 4 Active QUEtiapine Fumarate 100 MG Oral Tablet (SEROquel) Take 1.5 Tablets by mouth at bedtime. 4 Active Aspirin 81 MG Oral Tablet Delayed [...] other meds) 90 Tablet 1 4 Active Docusate Sodium 100 MG Oral Capsule [...] the day.. 30 Capsule 5 4 Active Wegovy 0.5 MG/0.5ML Subcutaneous Solution Auto-injector (Semaglutide-Weigh t Management)Indicat ions:Class 3 severe obesity due to excess calories without serious comorbidity with body mass index (BMI) of 40.0 to 44.9 in adult (HCC) Inject 0.5 mg under the skin once a week. 2 mL 2 4 Active Topiramate 25 MG Oral Tablet (topAMAX)Indicatio ns:Chronic daily headache Take 1 Tablet by mouth in the morning and 1 Tablet before bedtime. 60 Tablet 4 Active Gabapentin 100 MG Oral Capsule (Neurontin) Take 1 Capsule by mouth in the morning and 1 Capsule at noon and 1 Capsule before bedtime. 90 Capsule 1 4 024 Discontinued Nystatin 857822 UNIT/GM External CreamIndications:C andidal skin infection Apply topically to affected area 2 times a day. To affacted area for two weeks. 60 g 2 4 024 Discontinued Topiramate 25 MG Oral Tablet (topAMAX)Indicatio ns:Chronic daily headache TAKE ONE TABLET BY MOUTH TWICE DAILY 60 Tablet 4 024 Discontinued(Re fill) documented as of this encounter (statuses as of 01/01/2024) Active Problems Problem Noted Date Diagnosed Date Chronic kidney disease, stage 3a 11/20/2023 Overview: Per CKD protocol Chronic constipation 10/25/2023 Morbid obesity with BMI of 40.0-44.9, adult 09/2022 COVID-19 virus infection 08/27/2021 TEE Confirmation Research Other*[id number] 08/13 Major depressive disorder, recurrent episode, mo derate 08/18/2020 Migraine with aura and witho ut status migrainosus, not intractable 05/13/2019 CIERA (obstructive sleep apnea) 08/24/2018 HTN, goal below 130/80 05/28/2018 Gastroesophageal reflux disease 05/28/2018 History of Graves' disease 08/09/2017 Post-surgical hypothyroidism 06/12/2017 Overview: [place] [facility] [place] T4Rx 150mcg/d Intermittent asthma with reliever use up to twic e per week 07/16/2010 Anxiety state 05/19/2008 documented as of this encounter (statuses as of 01/01/2024) Resolved Problems Problem Noted Date Diagnosed Date [...] as of this encounter (statuses as of 01/01/2024) Immunizations Name Administration Dates Next Due COVID-19 [...] Telephone Encounter - Didier Mitchell MD - 01/01/2024 9:15 AM EDT Signed Prescriptions: Disp Refills Topiramate 25 MG Oral Tablet (topAMAX) 60 Tab*0 Sig: Take 1 Tablet by mouth in the morning and 1 Tablet before bedtime. Authorizing Provider: DIDIER MITCHELL * Telephone Encounter - Heike Adamson LPN - 01/01/2024 8:27 AM EDTPending Prescriptions: Disp Refills Topiramate 25 MG Oral Tablet (topAMAX) 60 Tab*0 Sig: Take 1 Tablet by mouth in the morning and 1 Tablet before bedtime. * Telephone Encounter - Heike Adamson LPN - 01/01/2024 8:26 AM EDT Did you pend patient's preferred pharmacy and medication before forwarding?yes Pharmacy: [facility] Pending Prescriptions: Disp Refills Topiramate 25 MG Oral Tablet (topAMAX) 60 Tab*0 Sig: Take 1 Tablet by mouth in the morning and 1 Tablet before bedtime. Last Visit: 10/26/2023 (in office), 08/07/2023 (telemedicine) Next Visit: Visit date not found If no future appointments scheduled, and last appointment is greater than a year ago, please schedule patient for a follow-up appointment Last date the medication was ordered: 10/04/23 Is this request for a controlled substance?No Urine Drug Screen:No results found. However, due to the size of the patient record, not all encounters were searched. Please check Results Review for a complete set of results. Patient Phone Numbers Labs: Lab Results Component Value Date/Time CREAT 1.1 (H) 12/12/2023 04:21 PM CREAT 0.89 08/31/2021 12:00 AM CREAT 1.1 (H) 05/29/2020 03:42 PM POTASSIUM 4.5 12/12/2023 04:21 PM POTASSIUM 3.6 08/31/2021 12:00 AM POTASSIUM 4.0 05/29/2020 03:42 PM TSH 0.08 (L) 12/19/2023 08:19 AM TSH 14.30 (H) 05/29/2020 03:42 PM LDLCALC 103 12/19/2023 08:19 AM LDLCALC 96 05/29/2020 03:44 PM LDLDIRECT 109 12/12/2023 04:21 PM LDLDIRECT NOT APPLICABLE 05/29/2020 03:44 PM ALT 23 10/24/2023 09:14 AM ALT 14 05/29/2020 03:42 PM HGBA1C 5.3 06/24/2021 12:26 PM HGBA1C 5.5 04/10/2019 11:52 AM * Telephone Encounter - Jono Webster - 12/30/2023 10:10 PM EDTPending Prescriptions: Disp Refills Topiramate 25 MG Oral Tablet (topAMAX) 60 Tab*0 Sig: Take 1 Tablet by mouth in the morning and 1 Tablet before bedtime. documented in this encounter Plan of Treatment Upcoming Encounters Date Type Department Care Team (Latest Contact Info) Description 01/09/2024 8:00 AM EDT Office Visit [address] [place] [address] Elmer Hoffman MD [address] [facility], [place] [address] 01/09/2024 7:30 PM EDT PulmDiagnostic Sleep Lab, [facility] [address] [facility] [place], [place] [address] Gl, Sleep Med Night Sleep [address] [facility], [place] [address] 01/26/2024 11:00 AM EDT Office Visit Nutrition & Weight Management, [facility] [address] [place] [address] Nathalie Lopez PA-C [address] [place] [address] 02/14/2024 11:15 AM EDT Office Visit Urology, [facility] [address] [place] [address] Frank Foster MD [address] [facility] [place] [address] 03/06/2024 11:45 AM EDT Hospital Encounter ENDO OSSC, Endoscopy Room [facility] [address] [place] [phone] Josselyn Tolentino DO [address] [place] [address] 03/06/2024 11:45 AM EDT - 03/06/2024 12:15 PM EDT Surgery ENDO OSSC, Endoscopy Room [facility] [address] [place] [phone] Josselyn Tolentino DO [address] [place] [address] COLONOSCOPY FLEXIBLE PROXIMAL DIAGNOSTIC 05/03/2024 10:00 AM EST Office Visit Gastroenterology, [facility] [address] [place] [address] Shahana Ventura CRNP [address] [place] [address] Scheduled Procedures Name Priority Associated Diagnoses Date/Ti [...] 08/27/1998 HPV/Co-Test 08/27/2009 CKD PHOS USE SMARTSET 98731 08/18/2018 08/18/2017 COVID-19 Vaccine ( season) 2023 03/12/2022, 09/10/2020, 08/11/2020 Influenza Vaccine (FLU shot) (#1) 2024 01/25/2023, 03/23/2022, 03/06/2020 Depression Monitoring 01/24/2024 01/23/2023 GFR 06/13/2024 12/12/2023, 10/13, 07/26/2023, Additional history exists Cervical Cancer Screening 06/16/2024 Pap Smear 06/16/2024 06/16/2021, 02/12, 10/08/2014, Additional history exists Albumin/Creatinine Ratio 11/26/2024 11/27/2023, 08/13 CKD HGB USE SMARTSET 93576 12/11/202412/11, 12/12/2023, 10/24/2023, Additional history exists TSH [...] this encounter Medical Devices Implanted Type Area Galvanometer Assembler Device Identifier Shelf Expiration Date Model / Serial / Lot Vitoss Bioactv Foam Pack 2.5cc - [id number] Implanted:Qty: 1 on 11/02/2017 by Sydnie Miles DPM at OR [facility] Left: Foot DALI : SPINE 07/12/2019 [id number] / / [id number] Plate (Non Sterile Slim Straight 5 Hole Length 36.5 Implanted:Qty: 1 on 11/02/2017 by Sydnie Miles DPM at OR [facility] Left: Foot [id number] / / 2.7 Mm Non-Locking Screws Implanted:Qty: 1 on 11/02/2017 by Sydnie Miles DPM at OR [facility] Left: Foot DALI : ORTHOPAEDICS [id number] / / 2.7 Mm Non-Locking Screw Implanted:Qty: 1 on 11/02/2017 by Sydnie Miles DPM at OR [facility] Left: Foot DALI : ORTHOPAEDICS [id number] / / 2.7 Mm Non-Locking Screws Implanted:Qty: 1 on 11/02/2017 by Sydnie Miles DPM at OR [facility] Left: Foot DALI : ORTHOPAEDICS [id number] / / 2.7 Mm Non-Locking Screw Implanted:Qty: 1 on 11/02/2017 by Sydnie Miles DPM at OR [facility] Left: Foot DALI : ORTHOPAEDICS [id number] / / documented as of this encounter Visit Diagnoses Diagnosis Chronic daily headache Headache Chronic constipation Unspecified constipation Rectal bleeding Hemorrhage of rectum and anus documented in this encounter Advance Directives * Full Code (Latest Code Status on File) Date Activated Date Inactivated Comments 06/12/2017 2:51 PM 06/14/2017 1:40 AM This order r eflects the patients wishes and were consensually agreed upon. Care Teams General Ledger Accountant Relationship Specialty Start Date End Date Didier Mitchell MD [address] [place] [address] [place] [address] PCP - General Family Medicine 12/01/20 documented as of this encounter
--- OUTSIDE RECORDS SUMMARY | 2024-03-08 13:31 | External Medical Summary | Summary of Care ---
Author Name Unknown Organization [facility] Address [address] [place] [address] Phone [phone] Care Team Providers Care Toll Collector Name Role Phone Didier Mitchell MD Primary Care Provide r Reason for Visit * Reason Comments eRx-Medication Refill Encounter Details Date Type Department Care Team (Late st Contact Info) Description 12/31/2023 Refill Family Medicine [address] [phone] Didier Mitchell MD [address] [place] [address] [place] [address] Candidal skin infection Allergies Active Allergy Reactions Criticality Noted Date [...] a week. 2 mL 2 4 Active Nystatin 212825 UNIT/GM External CreamIndications:C andidal skin infection APPLY CREAM TOPICALLY TO AFFECTED AREA TWICE DAILY FOR 2 WEEKS 60 g 4 Active Gabapentin 100 MG Oral Capsule (Neurontin) Take 1 Capsule by mouth in the morning and 1 Capsule at noon and 1 Capsule before bedtime. 90 Capsule 1 4 024 Discontinued Nystatin 449105 UNIT/GM External CreamIndications:C andidal skin infection Apply [...] COVID-19 virus infection 08/27/2021 TEE Confirmation Research Other*[id number] 08/13 Major depressive disorder, recurrent episode, mo derate 08/18/2020 Migraine with aura and witho ut status migrainosus, not intractable 05/13/2019 CIERA (obstructive sleep apnea) 08/24/2018 HTN, goal below 130/80 05/28/2018 Gastroesophageal reflux disease 05/28/2018 History of Graves' disease 08/09/2017 Post-surgical hypothyroidism 06/12/2017 Overview: At [facility] [place]; T4Rx 150mcg/d Intermittent asthma with reliever use [...] Encounter - Didier Mitchell MD - 01/01/2024 9:16 AM EDT Signed Prescriptions: Disp Refills Nystatin 304359 UNIT/GM External Cream 60 g 0 Sig: APPLY CREAM TOPICALLY TO AFFECTED AREA TWICE DAILY FOR 2 WEEKS Authorizing Provider: DIDIER MITCHELL * Telephone Encounter - Heike Adamson LPN - 01/01/2024 9:03 AM EDTPending Prescriptions: Disp Refills Nystatin 570311 UNIT/GM External Cream 60 g 0 Sig: APPLY CREAM TOPICALLY TO AFFECTED AREA TWICE DAILY FOR 2 WEEKS * Telephone Encounter - Heike Adamson LPN - 01/01/2024 9:02 AM EDT Did you pend patient's preferred pharmacy and medication before forwarding?yes Pharmacy: [facility] [address] [place] [address] Pending Prescriptions: Disp Refills Nystatin 777100 UNIT/GM External Cream 60 g 0 Sig: APPLY CREAM TOPICALLY TO AFFECTED AREA TWICE DAILY FOR 2 WEEKS Last Visit: 10/26/2023 (in office), 08/07/2023 (telemedicine) [...] * Telephone Encounter - Jono Webster - 12/31/2023 1:25 PM EDTPending Prescriptions: Disp Refills Nystatin 972376 UNIT/GM External Cream 60 g 0 Sig: APPLY CREAMTOPICALLY TO AFFECTED AREA TWICE DAILY FOR 2 WEEKS documented in this encounter Plan of Treatment Upcoming Encounters Date Type Department Care Team (Latest Contact Info) Description 01/09/2024 8:00 AM EDT [facility] [address] [facility] [address] Elmer Hoffman MD [address] [place] [address] 01/09/2024 7:30 PM EDT PulmDiagnostic Sleep Lab, [facility] [address] [place] [address] [facility], Sleep Med Night Sleep [address] [place] [address] 01/26/2024 11:00 AM EDT Office Visit Nutrition & Weight Management, [facility] [address] [place] [address] Nathalie Lopez PA-C [address] [place] [address] 02/14/2024 11:15 AM EDT Office Visit Urology, [facility] [address] [place] [address] Frank Foster MD [address] [place] [address] 03/06/2024 11:45 AM EDT Hospital Encounter ENDO OSSC, Endoscopy Room [facility] [address] [place] [address] Josselyn Tolentino DO [address] [place] [address] 03/06/2024 11:45 AM EDT - 03/06/2024 12:15 PM EDT Surgery ENDO OSS, Endoscopy Room [facility] [address] [place] [phone] Josselyn Tolentino DO [address] [place] [address] COLONOSCOPY FLEXIBLE PROXIMAL DIAGNOSTIC 05/03/2024 10:00 AM EST Office Visit Gastroenterology, [facility] [address] [address] Shahana Ventura CRNP [address] [place] [address] Scheduled Procedures Name Priority Associated Diagnoses Date/Ti [...] 08/27/1998 HPV/Co-Test 08/27/2009 CKD PHOS USE SMARTSET 39816 08/18/2018 08/18/2017 COVID-19 Vaccine ( season) 2023 03/12/2022, 09/10/2020, 08/11/2020 Influenza Vaccine (FLU shot) (#1) 2024 01/25/2023, 03/23/2022, 03/06/2020 Depression Monitoring 01/24/2024 01/23/2023 GFR 06/13/2024 12/12/2023, 10/13, 07/26/2023, Additional history exists Cervical Cancer Screening 06/16/2024 Pap Smear 06/16/2024 06/16/2021, 02/12, 10/08/2014, Additional history exists Albumin/Creatinine Ratio 11/26/2024 11/27/2023, 08/13 CKD HGB USE SMARTSET 23206 12/11/202412/11, 12/12/2023, 10/24/2023, Additional history exists TSH 12/18/2024 12/19/2023, 10/13, 10/03/2023, Additional history exists Mammogram 12/19/2024 12/20/2023, 10/13, 10/22/2021, Additional history exists Diabetes Screening 12/11/2026 12/12/2023, 0 10/24/2023, 07/26/2023, Additional history exists Lipid Panel 12/18/2028 12/19/2023, 07/3 , 07/26/2023, Additional history exists DTaP,Tdap,and Td Vaccines (4 - Td or Tdap) 11/09/2031 11/08/2021, 11/10/2017 (Declined), 07/25/2006 HPV (Gardasil) Vaccine Aged Out No lo nger eligible based on patient's age to complete this topic MENINGOCOCCAL (MENACTRA/MENVEO) Aged Out No longer eligible based on patient's age to complete this topic documented as of this encounter Medical Devices Implanted Type Area Cushion Builder Device Identifier Shelf Expiration Date Model / Serial / Lot Vitoss Bioactv Foam Pack 2.5cc - [id number] Implanted:Qty: 1 on 11/02/2017 by Sydnie Miles DPM at OR [facility] Left: Foot DALI : SPINE 07/12/2019 [id number] / / [id number] Plate (Non Sterile Slim Straight 5 Hole Length 36.5 Implanted:Qty: 1 on 11/02/2017 by Sydnie Miles DPM at OR [facility] Left: Foot [id number] / / 2.7 Mm Non-Locking Screws Implanted:Qty: 1 on 11/02/2017 by Sydnie Miles DPM at OR [facility] Left: Foot DALI : ORTHOPAEDICS [id number] / / 2.7 Mm Non-Locking Screw Implanted:Qty: 1 on 11/02/2017 by Sydnie Miles DPM at OR [facility] Left: Foot DALI : ORTHOPAEDICS [id number] / / 2.7 Mm Non-Locking Screws Implanted:Qty: 1 on 11/02/2017 by Sydnie Miles DPM at OR [facility] Left: Foot DALI : ORTHOPAEDICS [id number] / / 2.7 Mm Non-Locking Screw Implanted:Qty: 1 on 11/02/2017 by Sydnie Miles DPM at OR [facility] Left: Foot DALI : ORTHOPAEDICS [id number] / / documented as of this encounter Visit Diagnoses Diagnosis Candidal skin infection Candidiasis of skin and nails Chronic constipation Unspecified constipation Rectal bleeding Hemorrhage of rectum and anus documented in this encounter Advance Directives * Full Code (Latest Code Status on File) Date Activated Date Inactivated Comments 06/12/2017 2:51 PM 06/14/2017 1:40 AM This order r eflects the patients wishes and were consensually agreed upon. Care Teams Toll Collector Relationship Specialty Start Date End Date Didier Mitchell MD [address] [place] [address] [place] [address] PCP - General Family Medicine 12/01/20 documented as of this encounter
--- OUTSIDE RECORDS SUMMARY | 2024-03-08 13:32 | External Medical Summary | Summary of Care ---
Author Name Unknown Organization [facility] Address [address] [place] [address] Phone [phone] Care Team Providers Care Sheep Rancher Name Role Phone Ruth Xiao MD Primary Care Provide r Reason for Visit * Reason Onset Date Comments Advice 12/15/2023 Encounter Details Date Type Department Care Team (Late st Contact Info) Description 12/15/2023 Telephone Family [address] [phone] Ruth Xiao MD [address] [place] [address] [place] [address] Advice Allergies Active Allergy Reactions Criticality Noted Date Comments Fluoxetine Other (Please comment) 04/02/2004 Arelis weak Other reaction(s): aria, Tremor documented as of this encounter (statuses as of 12/28/2023) Medications Medication Sig Dispensed Refills Start Date [...] bedtime. With food.. 60 Tablet 1 07/25/2023 Active Gabapentin 100 MG Oral Capsule (Neurontin) Take 1 Capsule by mouth in the morning and 1 Capsule at noon and 1 Capsule before bedtime. 90 Capsule 1 08/02/2023 Active QUEtiapine Fumarate 100 MG Oral Tablet [...] the morning. 30 Capsule 5 10/04/2023 Active Nystatin 136113 UNIT/GM External CreamIndications:Can didal skin infection Apply topically to affected area 2 times a day. To affacted area for two weeks. 60 g 2 10/04/2023 Active Additional Information Patient not taking.Reported on 12/12/2023 Topiramate 25 MG Oral Tablet (topAMAX)Indications :Chronic daily headache TAKE ONE TABLET BY MOUTH TWICE DAILY 60 Tablet 10/04/2023 Active Mirabegron ER 50 MG Oral [...] a week. 2 mL 2 12/12/2023 Active documented as of this encounter (statuses as of 12/28/2023) Active Problems Problem Noted Date Diagnosed Date Chronic kidney disease, stage 3a 11/20/2023 Overview: Per CKD protocol Chronic constipation 10/25/2023 Morbid obesity with BMI of 40.0-44.9, adult 09/2022 COVID-19 virus infection 08/27/2021 TEE Confirmation Research Other*[id number] 08/13 Major depressive disorder, recurrent episode, mo derate 08/18/2020 Migraine with aura and witho ut status migrainosus, not intractable 05/13/2019 CIERA (obstructive sleep apnea) 08/24/2018 HTN, goal below 130/80 05/28/2018 Gastroesophageal reflux disease 05/28/2018 History of Graves' disease 08/09/2017 Post-surgical hypothyroidism 06/12/2017 Overview: At [facility]; T4Rx 150mcg/d Intermittent asthma with reliever use up to twic e per week 07/16/2010 Anxiety state 05/19/2008 documented as of this encounter (statuses as of 12/28/2023) Resolved Problems Problem Noted Date Diagnosed Date [...] as of this encounter (statuses as of 12/28/2023) Immunizations Name Administration Dates Next Due COVID-19 [...] encounter Miscellaneous Notes * Telephone Encounter - Akash Barbour OSA - 12/28/2023 11:57 AM EDT Pt returning call tried to transfer to number given takes to scheduling. Pt advised of Dr Cohn message. * Telephone Encounter - Kera Okeefe CMA - 12/25/2023 1:24 PM EDT I left a message for her to call [phone]. Please transfer her to that line. * Telephone Encounter - Darby Juarez DO - 12/20/2023 1:46 PM EDT I would have to review the paperwork before determining if I can complete it based off of that prior visit. It might be easier for her to just be seen closer to home for the work physical, but she can drop it off and I can look at it if she wishes. * Telephone Encounter - Jennie Mckenna RN - 12/18/2023 3:[address] Juarez you did the Pre-op, will you fill out the work Physical if pt drops off the forms? * Telephone Encounter - Joann Starr OSA - 12/15/2023 3:43 PM EDT Patient is calling needs work physical to be filled out. Patient was last seen on 06/02/23 for a complete pre-op physical and would like to know if this visit could be use to fill out paperwork. Patient would like a call back stated she recently moved but would come to office to drop off paperwork if ok with PCP. documented in this encounter Plan of Treatment Upcoming Encounters Date Type Department Care Team (Latest Contact Info) Description 01/09/2024 7:30 PM EDT PulmDiagnostic Sleep Lab, [facility] [address] [place] [address] [facility], Sleep [facility] [address] [facility] [address] 01/26/2024 11:00 AM EDT Office Visit Nutrition & Weight Management, [facility] [address] [place] [address] Nathalie Lopez PA-C [address] [place] [address] 02/14/2024 11:15 AM EDT Office Visit Urology, [facility] [address] [place] [address] Frank Foster MD [address] [place] [address] 03/06/2024 11:45 AM EDT Hospital Encounter ENDO [facility], Endoscopy Room [facility] [address] [place] [phone] Josselyn Tolentino DO [address] [place] [address] 03/06/2024 11:45 AM EDT - 03/06/2024 12:15 PM EDT Surgery ENDO [facility], Endoscopy Room [facility] [address] [place] [phone] Josselyn Tolentino DO [address] [place] [address] COLONOSCOPY FLEXIBLE PROXIMAL DIAGNOSTIC 05/03/2024 10:00 AM EST Office Visit Gastroenterology, [facility] [address] [place] [address] Shahana Ventura CRNP [address] [place] [address] Scheduled Procedures Name Priority Associated Diagnoses Date/Ti [...] 08/27/1998 HPV/Co-Test 08/27/2009 CKD PHOS USE SMARTSET 64399 08/18/2018 08/18/2017 COVID-19 Vaccine (4 - season) 2023 03/12/2022, 09/10/2020, 08/11/2020 Influenza Vaccine (FLU shot) (#1) 2024 01/25/2023, 03/23/2022, 03/06/2020 Depression Monitoring 01/24/2024 01/23/2023 GFR 06/13/2024 12/12/2023, 10/13, 07/26/2023, Additional history exists Cervical Cancer Screening 06/16/2024 Pap Smear 06/16/2024 06/16/2021, 02/12, 10/08/2014, Additional history exists Albumin/Creatinine Ratio 11/26/2024 11/27/2023, 08/13 CKD HGB USE SMARTSET 76597 12/11/202412/11, 12/12/2023, 10/24/2023, Additional history exists TSH [...] this encounter Medical Devices Implanted Type Area Work And Family Life Consultant Device Identifier Shelf Expiration Date Model / Serial / Lot Elizabeth Bioactv Foam Pack 2.5cc - [id number] Implanted:Qty: 1 on 11/02/2017 by Sydnie Miles DPM at [facility] Left: Foot DALI : SPINE 07/12/2019 [id number] / / [id number] Plate (Non Sterile Slim Straight 5 Hole Length 36.5 Implanted:Qty: 1 on 11/02/2017 by Sydnie Miles DPM at [facility] Left: Foot [id number] / / 2.7 Mm Non-Locking Screws Implanted:Qty: 1 on 11/02/2017 by Sydnie Miles DPM at [facility] Left: Foot DALI : ORTHOPAEDICS [id number] / / 2.7 Mm Non-Locking Screw Implanted:Qty: 1 on 11/02/2017 by Sydnie Miles DPM at [facility] Left: Foot DALI : ORTHOPAEDICS [id number] / / 2.7 Mm Non-Locking Screws Implanted:Qty: 1 on 11/02/2017 by Sydnie Miles DPM at [facility] Left: Foot DALI : ORTHOPAEDICS [id number] / / 2.7 Mm Non-Locking Screw Implanted:Qty: 1 on 11/02/2017 by Sydnie Miles DPM at [facility] Left: Foot DALI : ORTHOPAEDICS [id number] / / documented as of this encounter Advance Directives * Full Code (Latest Code Status on File) Date Activated Date Inactivated Comments 06/12/2017 2:51 PM 06/14/2017 1:40 AM This order r eflects the patients wishes and were consensually agreed upon. Care Teams Sheep Rancher Relationship Specialty Start Date End Date Ruth Xiao MD [address] [place] [address] [place] [phone] PCP - General Family Medicine 12/01/20 documented as of this encounter
--- OUTSIDE RECORDS SUMMARY | 2024-03-08 13:32 | External Medical Summary | Summary of Care ---
Author Name Unknown Organization [facility] Address [address] [place] [facility] [place] [address] Phone [phone] Care Team Providers Care Machine Adjuster Helper Name Role Phone Ruth Xiao MD Primary Care Provide r Reason for Visit * Reason Onset Date Comments Precert Denied 12/06/2023 wegovy Encounter Details Date Type Department Care Team (Late st Contact Info) Description 12/06/2023 Telephone Nutrition & Weight Management, [facility] [address] [place] [address] Nathalie Lopez PA-C [address] [place] [address] Precert Denied (wegovy) Allergies Active Allergy Reactions Criticality Noted Date Comments Fluoxetine Other (Please comment) 04/02/2004 Arelis weak Other reaction(s): shaky, Tremor documented as of this encounter (statuses as of 12/13/2023) Medications Medication Sig Dispensed Refills Start Date [...] morning. 30 Capsule 5 10/04/2023 Active Nystatin 329703 UNIT/GM External CreamIndications:Ca ndidal skin infection Apply topically to affected area 2 times a day. To affacted area for two weeks. 60 g 2 10/04/2023 Active Additional Information Patient not taking.Reported on 12/12/2023 Topiramate 25 MG Oral Tablet (topAMAX)Indication s:Chronic daily headache TAKE ONE TABLET BY MOUTH [...] a week. 2 mL 2 12/12/2023 Active Wegovy 0.5 MG/0.5ML Subcutaneous Solution Auto-injector (Semaglutide-Weight Management)Indicati ons:Class 3 severe obesity due to excess calories without serious comorbidity with body mass index (BMI) of 40.0 to 44.9 in adult (HCC) Inject 0.5 mg under the skin once a week. 2 mL 2 10/05/2023 Discontinu ed(Refill) Hospital, Clinic, or Other Facility Administered Medication Ordered Dose Route Frequency Start Date End Date Status Albuterol Sulfate (Proventil) (5 MG/ML) 0.5% *conc* inhalation solution 2.5 mgIndications:Hemoptysi s,Dyspnea and respiratory abnormalities 2.5 mg NEBULIZER PRN 12/14/2022 12/14/2023 Active Albuterol Sulfate (Proventil) (2.5 MG/3ML) 0.083% inhalation solution 2.5 mgIndications:Hemoptysi s,Dyspnea and respiratory abnormalities 2.5 mg NEBULIZER PRN 12/14/2022 12/14/2023 Active documented as of this encounter (statuses as of 12/13/2023) Active Problems Problem Noted Date Diagnosed Date Chronic kidney disease, stage 3a 11/20/2023 Overview: Per CKD protocol Chronic constipation 10/25/2023 Morbid obesity with BMI of 40.0-44.9, adult 09/2022 COVID-19 virus infection 08/27/2021 TEE Confirmation Research Other*[id number] 08/13 Major depressive disorder, recurrent episode, mo [...] as of this encounter (statuses as of 12/13/2023) Resolved Problems Problem Noted Date Diagnosed Date [...] as of this encounter (statuses as of 12/13/2023) Immunizations Name Administration Dates Next Due COVID-19 [...] encounter Miscellaneous Notes * Telephone Encounter - Ruben Bullard LPN - 12/13/2023 9:49 AM EDT Type Date User Summary Attachment Precert 12/13/2023 7:43 AM Augusta Cisse CIERA Please see scanned fax from insurance under the Media Tab. - Note: Please see scanned fax from insurance under the Media Tab. Approved/Denied: approved Drug Name and Formulation: Wegovy 0.5MG/0.5ML auto-injectors How Prescribed(directions/sig): Sig - Route: Inject 0.5 mg under the skin once a week. - Subcutaneous Day Supply: 2ML PER 28 DAYS Did you receive insurance information from outside the chart? No, received insurance information within the chart Valid auth start date: N/A Valid auth end date: N/A Rx Insurance Info: [facility] Reference #: . Type Date User Summary Attachment Precert 12/07/2023 9:31 AM Mega Mata, CIERA Please see scanned fax from insurance under the Media Tab. - Note: Please see scanned fax from insurance under the Media Tab. Approved/Denied: denied Other (see below) Drug Name and Formulation: Wegovy 0.5MG/0.5ML auto-injectors How Prescribed(directions/sig): Sig - Route: Inject 0.5 mg under the skin once a week. - Subcutaneous Day Supply: 2ML PER 28 DAYS Did you receive insurance information from outside the chart? No, received insurance information within the chart Valid auth start date: N/A Valid auth end date: N/A Rx Insurance Info: [facility] [place] Reference #: Mega Hernandez Adolfo Medication Boring Machine Operator Helper II 12/07/23,9:30 AM To discuss denial with a Lithographic Press Operator, please call [facility] at [phone]. . Type Date User Summary Attachment Precert 12/06/2023 1:01 PM Mary Restrepo OSA [facility] Authorization Submission - Note: [facility] Authorization Submission Submission Information: Medication: Wegovy Portal used: [phone] Insurance: [employer] Authorization #/[place]: faxed clinicals via [employer] to [phone] * Telephone Encounter - Ruben Bullard LPN - 12/13/2023 8:15 AM EDT Left the pt a message informing her that her prescription was sent. * Addendum Note - Natahlie Lopez PA-C - 12/12/2023 2:36 PM EDTAddended by: NATHALIE LOPEZ on: 12/12/2023 02:36 PM Modules accepted: Orders * Addendum Note - Ruben Bullard LPN - 12/12/2023 2:04 PM EDTAddended by: RUBEN BULLARD on: 12/12/2023 02:04 PM Modules accepted: Orders * Telephone Encounter - Ruben Bullard LPN - 12/12/2023 1:58 PM EDT Did P2P, Authorization approved for 6 months. They Pharmacist is sending a fax for confirmation. Patient aware and voiced understanding The pt moved and needs the script sent elsewhere. Pended. * Telephone Encounter - Ruben Bullard LPN - 12/07/2023 11:37 AM EDT Type Date User Summary Attachment Precert 12/07/2023 9:31 AM Mega Mata OSA Please see scanned fax from insurance under the Media Tab. - Note: Please see scanned fax from insurance under the Media Tab. Approved/Denied: denied Other (see below) Drug Name and Formulation: Wegovy 0.5MG/0.5ML auto-injectors How Prescribed(directions/sig): Sig - Route: Inject 0.5 mg under the skin once a week. - Subcutaneous Day Supply: 2ML PER 28 DAYS Did you receive insurance information from outside the chart? No, received insurance information within the chart Valid auth start date: N/A Valid auth end date: N/A Rx [facility] Reference #: Mega Mata Medication Boring Machine Operator Helper II 12/07/23,9:30 AM To discuss denial with a Lithographic Press Operator, please call [facility] at [phone]. . Type Date User Summary Attachment Precert 12/06/2023 1:01 PM Mary Restrepo OSA [facility] Authorization Submission - Note: [facility] Authorization Submission Submission Information: Medication: Wegovy Portal used: [phone] Insurance: [facility] Authorization #/[place]: faxed clinicals via [facility] to [phone] * Telephone Encounter - Modesta Sexton LPN - 12/06/2023 10:18 AM EDT Please Start prior authorization for Wegovy 0.5 MG/0.5ML Subcutaneous Solution Auto-injector (Semaglutide-Weight Management) Diagnosis Class 3 severe obesity due to excess calories without serious comorbidity with body mass index (BMI) of 40.0 to 44.9 in adult ([facility]) [E66.01, Z68.41] Patient qualifies for Weight loss medication due to BMI >30 or BMI >27 with obesity related comorbidity BMI Readings from Last 2 Encounters: 11/17/23 41.36 kg/m 10/26/23 41.27 kg/m Wt Readings from Last 2 Encounters: 11/17/23 111.2 kg (245 lb 1.6 oz) 10/26/23 112.5 kg (248 lb) Patient had tried or has contraindications to: -had been on phentermine previously -continue topamax -consider adding naltrexone to current wellbutrin CoverMyMeds [place]: [email or web address] documented in this encounter Plan of Treatment Upcoming Encounters Date Type Department Care Team (Latest Contact Info) Description 01/09/2024 7:30 PM EDT PulmDiagnostic Sleep Lab, [facility] [address] [place] [address] [facility], [facility] [address] [facility] [address] 01/26/2024 11:00 AM EDT Office Visit Nutrition & Weight Management, [facility] [address] [place] [address] Nathalie Lopez PA-C [address] [place] [address] 02/14/2024 11:15 AM EDT Office Visit Urology, [facility] [address] [place] [address] Frank Foster MD [address] [place] [address] 03/06/2024 11:45 AM EDT Hospital Encounter ENDO [facility], Endoscopy Room [facility] [address] [place] [address] Josselyn Tolentino, [address] [place] [address] 03/06/2024 11:45 AM EDT - 03/06/2024 12:15 PM EDT Surgery ENDO [facility], Endoscopy Room [facility] [address] [place] [phone] Josselyn Tolentino, [address] [place] [address] COLONOSCOPY FLEXIBLE PROXIMAL DIAGNOSTIC 05/03/2024 10:00 AM EST Office Visit Gastroenterology, [facility] [address] [place] [address] Shahana Ventura CRNP [address] [place] [address] Scheduled Procedures Name Priority Associated Diagnoses Date/Ti me COLONOSCOPY FLEXIBLE PROXIMAL DIAGNOSTIC Chronic constipation Rectal bleeding 03/06/2024 11:45 AM EDT Health Maintenance Due Date Last Done Comments Pneumococcal Vaccine: Pediatrics (0 to 5 Years) and At-Risk Patients (6 to 64 Years) (1 of 2 - PCV) 08/27/1985 HIV Screening 08/27/1994 Hepatitis C Screening 08/27/1997 Hepatitis B Vaccine (1 of 3 - 19+ 3-dose series) 08/27/1998 HPV/Co-Test 08/27/2009 CKD PHOS USE SMARTSET 61647 08/18/2018 08/18/2017 COVID-19 Vaccine ( season) 2023 03/12/2022, 09/10/2020, 08/11/2020 Mammogram 10/26/2023 10/25/2022, 10/13, 10/16/2020, Additional history exists Influenza Vaccine (FLU shot) (#1) 2024 01/25/2023, 03/23/2022, 03/06/2020 Depression Monitoring 01/24/2024 01/23/2023 GFR 06/13/2024 12/12/2023, 10/13, 07/26/2023, Additional history exists Cervical Cancer Screening 06/16/2024 Pap Smear 06/16/2024 06/16/2021, 02/12, 10/08/2014, Additional history exists TSH 10/23/2024 10/24/2023, 09/13, 07/26/2023, Additional history exists Albumin/Creatinine Ratio 11/26/2024 11/27/2023, 08/13 CKD HGB USE SMARTSET 83613 12/11/202412/11, 12/12/2023, 10/24/2023, Additional history exists Diabetes Screening 12/11/2026 12/12/2023, 0 10/24/2023, 07/26/2023, Additional history exists Lipid Panel 12/11/2028 12/12/2023, 07/13, 03/15/2023, Additional history exists DTaP,Tdap,and Td Vaccines (4 - Td or Tdap) 11/09/2031 11/08/2021, 11/10/2017 (Declined), 07/25/2006 *SPIROMETRY ONCE FOR ASTHMA-ADULT Addressed 11/10/2017 (Declined) Overridden with th e intention of not completing the topic HPV (Gardasil) Vaccine Aged Out No lo nger eligible based on patient's age to complete this topic MENINGOCOCCAL (MENACTRA/MENVEO) Aged Out No longer eligible based on patient's age to complete this topic documented as of this encounter Medical Devices Implanted Type Area Spool Maker Device Identifier Shelf Expiration Date Model / Serial / Lot Vitoss Bioactv Foam Pack 2.5cc - [id number] Implanted:Qty: 1 on 11/02/2017 by Sydnie Miles DPM at OR [facility] Left: Foot DALI : SPINE 07/12/2019 [id number] / / [id number] Plate (Non Sterile Slim Straight 5 Hole Length 36.5 Implanted:Qty: 1 on 11/02/2017 by Sydnie Miles DPM at OR [facility] Left: Foot [id number] / / 2.7 Mm Non-Locking Screws Implanted:Qty: 1 on 11/02/2017 by Sydnie Miles DPM at OR [facility] Left: Foot DALI : ORTHOPAEDICS [id number] / / 2.7 Mm Non-Locking Screw Implanted:Qty: 1 on 11/02/2017 by Sydnie Miles DPM at OR [facility] Left: Foot DALI : ORTHOPAEDICS [id number] / / 2.7 Mm Non-Locking Screws Implanted:Qty: 1 on 11/02/2017 by Sydnie Miles DPM at OR [facility] Left: Foot DALI : ORTHOPAEDICS [id number] / / 2.7 Mm Non-Locking Screw Implanted:Qty: 1 on 11/02/2017 by Sydnie Miles DPM at OR [facility] Left: Foot DALI : ORTHOPAEDICS [id number] / / documented as of this encounter Visit Diagnoses Diagnosis Class 3 severe obesity due to excess calories without serious comorbidity with body mass index (BMI) of 40.0 to 44.9 in adult (HCC) Chronic constipation Unspecified constipation Rectal bleeding Hemorrhage of rectum and anus documented in this encounter Advance Directives * Full Code (Latest Code Status on File) Date Activated Date Inactivated Comments 06/12/2017 2:51 PM 06/14/2017 1:40 AM This order r eflects the patients wishes and were consensually agreed upon. Care Teams Machine Adjuster Helper Relationship Specialty Start Date End Date Ruth Xiao MD [address] [place] [address] [place] [phone] PCP - General Family Medicine 12/01/20 documented as of this encounter
--- OUTSIDE RECORDS SUMMARY | 2024-03-08 13:32 | External Medical Summary | Summary of Care ---
Author Name Unknown Organization [facility] Address [address] [place] [address] Phone [phone] Care Team Providers Care Admin Secretary Name Role Phone Ruth Xiao MD Primary Care Provide r Reason for Visit * Reason Onset Date Comments Advice 12/15/2023 Encounter Details Date Type Department Care Team (Late st Contact Info) Description 12/15/2023 Telephone Family [address] [address] Ruth Xiao MD [address] [place] [address] [place] [address] Advice Allergies Active Allergy Reactions Criticality Noted Date Comments Fluoxetine Other (Please comment) 04/02/2004 Arelis weak Other reaction(s): aria, Tremor documented as of this encounter (statuses as of 12/25/2023) Medications Medication Sig Dispensed Refills Start Date [...] morning. 30 Capsule 5 10/04/2023 Active Nystatin 934005 UNIT/GM External CreamIndications:Can didal skin infection Apply [...] as of this encounter (statuses as of 12/25/2023) Active Problems Problem Noted Date Diagnosed Date Chronic kidney disease, stage 3a 11/20/2023 Overview: Per CKD protocol Chronic constipation 10/25/2023 Morbid obesity with BMI of 40.0-44.9, adult 09/2022 COVID-19 virus infection 08/27/2021 TEE Confirmation Research Other*[id number] 08/13 Major depressive disorder, recurrent episode, mo derate 08/18/2020 Migraine with aura and witho ut status migrainosus, not intractable 05/13/2019 CIERA (obstructive sleep apnea) 08/24/2018 HTN, goal below 130/80 05/28/2018 Gastroesophageal reflux disease 05/28/2018 History of Graves' disease 08/09/2017 Post-surgical hypothyroidism 06/12/2017 Overview: At [facility]; T4Rx 150mcg/d Intermittent asthma with reliever use up to twic e per week 07/16/2010 Anxiety state 05/19/2008 documented as of this encounter (statuses as of 12/25/2023) Resolved Problems Problem Noted Date Diagnosed Date [...] as of this encounter (statuses as of 12/25/2023) Immunizations Name Administration Dates Next Due COVID-19 [...] encounter Miscellaneous Notes * Telephone Encounter - Kera Okeefe CMA - 12/25/2023 1:24 PM EDT I left a message for her to call [phone]. Please transfer her to that line. * [...] 01/09/2024 7:30 PM EDT PulmDiagnostic Sleep Lab, [facility] [address] [place] [address] [facility], Sleep [facility] [address] 01/26/2024 11:00 AM EDT Office Visit Nutrition & Weight Management, [facility] [address] [place] [address] Nathalie Lopez PA-C [address] [place] [address] 02/14/2024 11:15 AM EDT Office Visit Urology, [facility] [address] [place] [address] Frank Foster MD [address] [place] [address] 03/06/2024 11:45 AM EDT Hospital Encounter ENDO [facility], Endoscopy Room [facility] [address] [place] [phone] Josselyn Tolentino DO [address] [place] [address] 03/06/2024 11:45 AM EDT - 03/06/2024 12:15 PM EDT Surgery ENDO OSS, Endoscopy Room [facility] [address] [place] [address] Josselyn Tolentino DO [address] [facility] [place] [address] COLONOSCOPY FLEXIBLE PROXIMAL DIAGNOSTIC 05/03/2024 10:00 AM EST Office Visit Gastroenterology, [facility] [address] [place] [address] Shahana Ventura CRNP [address] [place] [address] Scheduled Procedures Name Priority Associated Diagnoses Date/Ti [...] 08/27/1998 HPV/Co-Test 08/27/2009 CKD PHOS USE SMARTSET 37993 08/18/2018 08/18/2017 COVID-19 Vaccine (24 season) 2023 03/12/2022, 09/10/2020, 08/11/2020 Influenza Vaccine (FLU shot) (#1) 2024 01/25/2023, 03/23/2022, 03/06/2020 Depression Monitoring 01/24/2024 01/23/2023 GFR 06/13/2024 12/12/2023, 10/13, 07/26/2023, Additional history exists Cervical Cancer Screening 06/16/2024 Pap Smear 06/16/2024 06/16/2021, 02/12, 10/08/2014, Additional history exists Albumin/Creatinine Ratio 11/26/2024 11/27/2023, 08/13 CKD HGB USE SMARTSET 96991 12/11/202412/11, 12/12/2023, 10/24/2023, Additional history exists TSH [...] this encounter Medical Devices Implanted Type Area Tool Keeper Device Identifier Shelf Expiration Date Model / Serial / Lot Vitoss Bioactv Foam Pack 2.5cc - [id number] Implanted:Qty: 1 on 11/02/2017 by Sydnie Miles DPM at OR [facility] Left: Foot DALI : SPINE 07/12/2019 [id number] / / [id number] Plate (Non Sterile Slim Straight 5 Hole Length 36.5 Implanted:Qty: 1 on 11/02/2017 by Sydnie Miles DPM at OR [facility] Left: Foot [id number] / / 2.7 Mm Non-Locking Screws Implanted:Qty: 1 on 11/02/2017 by Sydnie Miles DPM at OR [facility] Left: Foot DALI : ORTHOPAEDICS [id number] / / 2.7 Mm Non-Locking Screw Implanted:Qty: 1 on 11/02/2017 by Sydnie Miles DPM at OR [facility] Left: Foot DALI : ORTHOPAEDICS [id number] / / 2.7 Mm Non-Locking Screws Implanted:Qty: 1 on 11/02/2017 by Sydnie Miles DPM at OR [facility] Left: Foot DALI : ORTHOPAEDICS [id number] / / 2.7 Mm Non-Locking Screw Implanted:Qty: 1 on 11/02/2017 by Sydnie Miles DPM at OR [facility] Left: Foot DALI : ORTHOPAEDICS [id number] / / documented as of this encounter Advance Directives * Full Code (Latest Code Status on File) Date Activated Date Inactivated Comments 06/12/2017 2:51 PM 06/14/2017 1:40 AM This order r eflects the patients wishes and were consensually agreed upon. Care Teams Admin Secretary Relationship Specialty Start Date End Date Ruth Xiao MD [address] [place] [address] [place] [address] PCP - General Family Medicine 12/01/20 documented as of this encounter
--- OUTSIDE RECORDS SUMMARY | 2024-03-08 13:32 | External Medical Summary | Summary of Care ---
Author Name Unknown Organization [facility] Address [address] [place] [address] Phone [phone] Care Team Providers Care Data Center Solutions Architect Name Role Phone Ruth Xiao MD Primary Care Provide r Reason for Visit * Reason Comments Outpatient Testing Encounter Details Date Type Department Care Team (Late st Contact Info) Description 12/19/2023 8:20 AM EDT Laboratory Laboratory, [place] [address] [place] [address] [place], Laboratory [address], [place] [id number] Post-surgical hypothyroidism; High triglycerides Allergies Active Allergy Reactions Criticality Noted Date Comments Fluoxetine Other (Please comment) 04/02/2004 Arelis weak Other reaction(s): shaky, Tremor documented as of this encounter (statuses as of 12/19/2023) Medications Medication Sig Dispensed Refills Start Date [...] morning. 30 Capsule 5 10/04/2023 Active Nystatin 251534 UNIT/GM External CreamIndications:Can didal skin infection Apply [...] as of this encounter (statuses as of 12/19/2023) Active Problems Problem Noted Date Diagnosed Date Chronic kidney disease, stage 3a 11/20/2023 Overview: Per CKD protocol Chronic constipation 10/25/2023 Morbid obesity with BMI of 40.0-44.9, adult 09/2022 COVID-19 virus infection 08/27/2021 TEE Confirmation Research Other*[id number] 08/13 Major depressive disorder, recurrent episode, mo derate 08/18/2020 Migraine with aura and witho ut status migrainosus, not intractable 05/13/2019 CIERA (obstructive sleep apnea) 08/24/2018 HTN, goal below 130/80 05/28/2018 Gastroesophageal reflux disease 05/28/2018 History of Graves' disease 08/09/2017 Post-surgical hypothyroidism 06/12/2017 Overview: At [facility]; T4Rx 150mcg/d Intermittent asthma with reliever use up to twic e per week 07/16/2010 Anxiety state 05/19/2008 documented as of this encounter (statuses as of 12/19/2023) Resolved Problems Problem Noted Date Diagnosed Date [...] as of this encounter (statuses as of 12/19/2023) Immunizations Name Administration Dates Next Due COVID-19 [...] Department Care Team (Latest Contact Info) Description 12/20/2023 2:45 PM EDT Imaging Radiology [facility] [address] [place] [address] 01/09/2024 7:30 PM EDT PulmDiagnostic Sleep Lab, [address] [place] [address] [facility], Sleep Med Night Sleep [address] [place] [address] 01/26/2024 11:00 AM EDT Office Visit Nutrition & Weight Management, [facility] [address] [place] [address] Nathalie Lopez PA-C [address] [place] [address] 02/14/2024 11:15 AM EDT Office Visit Urology, [facility] [place] [address] Frank Foster MD [address] [place] [address] 03/06/2024 11:45 AM EDT Hospital Encounter ENDO OSS, Endoscopy Room [facility] [address] [place] [phone] Josselyn Tolentino DO [address] [place] [address] 03/06/2024 11:45 AM EDT - 03/06/2024 12:15 PM EDT Surgery ENDO OSS, Endoscopy Room [facility] [address] [place] [phone] Josselyn Tolentino DO [address] [place] [address] COLONOSCOPY FLEXIBLE PROXIMAL DIAGNOSTIC 05/03/2024 10:00 AM EST Office Visit Gastroenterology, [facility] [address] [place] [address] Shahana Ventura CRNP [address] [place] [address] Pending Results Name Type Priority Associated Diagnoses Date /Time TSH Lab Routine Post-surgical hypothyroidism 12/19/2023 8:19 AM EDT LIPID PANEL WITHOUT DIRECT LDL Lab Routine High triglycerides 12/19/2023 8:19 AM EDT Scheduled Procedures Name Priority Associated [...] 08/27/1998 HPV/Co-Test 08/27/2009 CKD PHOS USE SMARTSET 28392 08/18/2018 08/18/2017 COVID-19 Vaccine ( season) 2023 [...] 11/26/2024 11/27/2023, 08/13 CKD HGB USE SMARTSET 20665 12/11/202412/11, 12/12/2023, 10/24/2023, Additional history exists Diabetes [...] this encounter Medical Devices Implanted Type Area Assistant General Manager Device Identifier Shelf Expiration Date Model / Serial / Lot Vitoss Bioactv Foam Pack 2.5cc - [id number] Implanted:Qty: 1 on 11/02/2017 by Sydnie Miles DPM at OR [facility] Left: Foot DALI : SPINE 07/12/2019 [id number] / / [id number] Plate (Non Sterile Slim Straight 5 Hole Length 36.5 Implanted:Qty: 1 on 11/02/2017 by Sydnie Miles DPM at OR [facility] Left: Foot [id number] / / 2.7 Mm Non-Locking Screws Implanted:Qty: 1 on 11/02/2017 by Sydnie Miles DPM at OR [facility] Left: Foot DALI : ORTHOPAEDICS [id number] / / 2.7 Mm Non-Locking Screw Implanted:Qty: 1 on 11/02/2017 by Sydnie Miles DPM at OR [facility] Left: Foot DALI : ORTHOPAEDICS [id number] / / 2.7 Mm Non-Locking Screws Implanted:Qty: 1 on 11/02/2017 by Sydnie Miles DPM at OR [facility] Left: Foot DALI : ORTHOPAEDICS [id number] / / 2.7 Mm Non-Locking Screw Implanted:Qty: 1 on 11/02/2017 by Sydnie Miles DPM at OR [facility] Left: Foot DALI : ORTHOPAEDICS [id number] / / documented as of this encounter Visit Diagnoses Diagnosis Post-surgical hypothyroidism Postsurgical hypothyroidism High triglycerides Pure hyperglyceridemia Screening mammogram for breast cancer Chronic constipation Unspecified constipation Rectal bleeding Hemorrhage of rectum and anus documented in this encounter Advance Directives * Full Code (Latest Code Status on File) Date Activated Date Inactivated Comments 06/12/2017 2:51 PM 06/14/2017 1:40 AM This order r eflects the patients wishes and were consensually agreed upon. Care Teams Data Center Solutions Architect Relationship Specialty Start Date End Date Ruth Xiao MD [address] [place] [address] [place] [phone] PCP - General Family Medicine 12/01/20 documented as of this encounter
--- OUTSIDE RECORDS SUMMARY | 2024-03-08 13:32 | External Medical Summary | Summary of Care ---
Author Name Unknown Organization [facility] Address [address] [place] [address] Phone [phone] Care Team Providers Care Vacuum Filter Operator Name Role Phone Ruth Xiao MD Primary Care Provide r Reason for Visit * Reason Onset Date Comments Advice 12/15/2023 Encounter Details Date Type Department Care Team (Late st Contact Info) Description 12/15/2023 Telephone Family [address] [address] Ruth Xiao MD [address] [place] [address] [place] [address] Advice Allergies Active Allergy Reactions Criticality Noted [...] morning. 30 Capsule 5 10/04/2023 Active Nystatin 275185 UNIT/GM External CreamIndications:Can didal skin infection Apply [...] COVID-19 virus infection 08/27/2021 TEE Confirmation Research Other*[id number] 08/13 Major depressive disorder, recurrent episode, mo derate 08/18/2020 Migraine with aura and witho ut status migrainosus, not intractable 05/13/2019 CIERA (obstructive sleep apnea) 08/24/2018 HTN, goal below 130/80 05/28/2018 Gastroesophageal reflux disease 05/28/2018 History of Graves' disease 08/09/2017 Post-surgical hypothyroidism 06/12/2017 Overview: At [facility]; T4Rx 150mcg/d Intermittent [...] left a message for her to call [phone]. Please transfer her to that line. * [...] 01/09/2024 7:30 PM EDT PulmDiagnostic Sleep Lab, [facility] [address] [place] [address] [facility], Sleep Med Night Sleep [address] [facility] [place] [address] 01/26/2024 11:00 AM EDT Office Visit Nutrition & Weight Management, [facility] [address] [place] [address] Nathalie Lopez PA-C [address] [place] [address] 02/14/2024 11:15 AM EDT Office Visit Urology, [facility] [address] [place] [address] Frakn Foster MD [address] [place] [address] 03/06/2024 11:45 AM EDT Hospital Encounter ENDO [facility], Endoscopy Room OSS [address] [place] [phone] Josselyn Tolentino DO [address] [place] [address] 03/06/2024 11:45 AM EDT - 03/06/2024 12:15 PM EDT Surgery ENDO [facility], Endoscopy Room [facility] [address] [place] [phone] Josselyn Tolentino DO [address] [place] [address] COLONOSCOPY FLEXIBLE PROXIMAL DIAGNOSTIC 05/03/2024 10:00 AM EST Office Visit Gastroenterology, [facility] [address] [place] [address] Shahana eVntura CRNP [address] [place] [address] Scheduled Procedures Name Priority Associated Diagnoses Date/Ti [...] 08/27/1998 HPV/Co-Test 08/27/2009 CKD PHOS USE SMARTSET 00817 08/18/2018 08/18/2017 COVID-19 Vaccine (4 - season) 2023 03/12/2022, 09/10/2020, 08/11/2020 Influenza Vaccine (FLU shot) (#1) 2024 01/25/2023, 03/23/2022, 03/06/2020 Depression Monitoring 01/24/2024 01/23/2023 GFR 06/13/2024 12/12/2023, 10/13, 07/26/2023, Additional history exists Cervical Cancer Screening 06/16/2024 Pap Smear 06/16/2024 06/16/2021, 02/12, 10/08/2014, Additional history exists Albumin/Creatinine Ratio 11/26/2024 11/27/2023, 08/13 CKD HGB USE SMARTSET 05023 12/11/202412/11, 12/12/2023, 10/24/2023, Additional history exists TSH [...] this encounter Medical Devices Implanted Type Area Loan Analyst Device Identifier Shelf Expiration Date Model / Serial / Lot Elizabeth Bioactv Foam Pack 2.5cc - [id number] Implanted:Qty: 1 on 11/02/2017 by Sydnie Miles DPM at OR [facility] Left: Foot DALI : SPINE 07/12/2019 [id number] / / [id number] Plate (Non Sterile Slim Straight 5 Hole Length 36.5 Implanted:Qty: 1 on 11/02/2017 by Sydnie Miles DPM at OR [facility] Left: Foot [id number] / / 2.7 Mm Non-Locking Screws Implanted:Qty: 1 on 11/02/2017 by Sydnie Miles DPM at OR [facility] Left: Foot DALI : ORTHOPAEDICS [id number] / / 2.7 Mm Non-Locking Screw Implanted:Qty: 1 on 11/02/2017 by Sydnie Miles DPM at OR [facility] Left: Foot DALI : ORTHOPAEDICS [id number] / / 2.7 Mm Non-Locking Screws Implanted:Qty: 1 on 11/02/2017 by Sydnie Miles DPM at OR [facility] Left: Foot DALI : ORTHOPAEDICS [id number] / / 2.7 Mm Non-Locking Screw Implanted:Qty: 1 on 11/02/2017 by Sydnie Miles DPM at OR [facility] Left: Foot DALI : ORTHOPAEDICS [id number] / / documented as of this encounter Advance Directives * Full Code (Latest Code Status on File) Date Activated Date Inactivated Comments 06/12/2017 2:51 PM 06/14/2017 1:40 AM This order r eflects the patients wishes and were consensually agreed upon. Care Teams Vacuum Filter Operator Relationship Specialty Start Date End Date Ruth Xiao MD [address] [place] [address] [place] [phone] PCP - General Family Medicine 12/01/20 documented as of this encounter
--- OUTSIDE RECORDS SUMMARY | 2024-03-08 13:32 | External Medical Summary | Summary of Care ---
Author Name Unknown Organization [facility] Address [address] [place] [address] Phone [phone] Care Team Providers Care Director Maternal Child Name Role Phone Didier Mitchell MD Primary Care Provide r Reason for Visit * Reason Comments eRx-Medication Refill Encounter Details Date Type Department Care Team (Late st Contact Info) Description 12/30/2023 Refill Family Practice [address], [place] [address] [place] [address] Didier Mitchell MD [address] [place] [address] [place] [address] Allergies Active Allergy Reactions Criticality Noted Date [...] (BMI) of 40.0 to 44.9 in adult ([facility]) Inject 0.5 mg under the skin once a week. 2 mL 2 4 Active Gabapentin 100 MG Oral Capsule (Neurontin) TAKE 1 CAPSULE BY MOUTH IN THE MORNING AND 1 AT NOON AND 1 AT BEDTIME 90 Capsule 4 Active Gabapentin 100 MG Oral Capsule (Neurontin) Take 1 Capsule by mouth in the morning and 1 Capsule at noon and 1 Capsule before bedtime. 90 Capsule 1 4 024 Discontinued Nystatin 488639 UNIT/GM External CreamIndications:C andidal skin infection Apply [...] COVID-19 virus infection 08/27/2021 TEE Confirmation Research Other*[id number] 08/13 Major depressive disorder, recurrent episode, mo derate 08/18/2020 Migraine with aura and witho ut status migrainosus, not intractable 05/13/2019 CIERA (obstructive sleep apnea) 08/24/2018 HTN, goal below 130/80 05/28/2018 Gastroesophageal reflux disease 05/28/2018 History of Graves' disease 08/09/2017 Post-surgical hypothyroidism 06/12/2017 Overview: At [facility] [place]; T4Rx 150mcg/d Intermittent asthma [...] No 01/23/2023 Does the household have a [facility] hospitall[facility] source of income? (Household - for ages [...] 9:15 AM EDT Signed Prescriptions: Disp Refills Gabapentin 100 MG Oral Capsule (Neurontin) 90 Cap*0 Sig: TAKE 1 CAPSULE BY MOUTH IN THE MORNING AND 1 AT NOON AND 1 AT BEDTIME Authorizing Provider: DIDIER MITCHELL * Telephone Encounter - Azam De León SPECIAL EDUCATION PRESCHOOL TEACHER - 01/01/2024 9:06 AM EDTPending Prescriptions: Disp Refills Gabapentin 100 MG Oral Capsule 90 Cap*0 Sig: TAKE 1 CAPSULE BY MOUTH IN THE MORNING AND 1 AT NOON AND 1 AT BEDTIME * Telephone Encounter - Azam De León CMA - 01/01/2024 9:05 AM EDT Did you pend patient's preferred pharmacy and medication before forwarding?yes Pharmacy: [facility] [address] [place] [address]- [place] Pending Prescriptions: Disp Refills Gabapentin 100 MG Oral Capsule (Neurontin*90 Cap*0 Sig: TAKE 1 CAPSULE BY MOUTH IN THE MORNING AND 1 AT NOON AND 1 AT BEDTIME Last Visit: Visit date not found (in office), Visit date not found (telemedicine) Next Visit: Visit date not found If no future appointments scheduled, and last appointment is greater than a year ago, please schedule patient for a follow-up appointment Last date the medication was ordered: 08.02.2023 Is this request for a controlled substance?No [...] Telephone Encounter - Jono Webster - 12/30/2023 1:33 PM EDTPending Prescriptions: Disp Refills Gabapentin 100 MG Oral Capsule 90 Cap*0 Sig: TAKE 1 CAPSULE BY MOUTH IN THE MORNING AND 1 AT NOON AND 1 AT BEDTIME documented in this encounter Plan of Treatment Upcoming Encounters Date Type Department Care Team (Latest Contact Info) Description 01/09/2024 8:00 AM EDT [facility] [address] [facility] [address] [facility]mer Hoffman [facility] [address] [facility] [address] 01/09/2024 7:30 PM EDT PulmDiagnostic Sleep Lab, [facility] [address] [place] [address] [facility], Sleep Med [facility] [address] [facility] [place] [address] 01/26/2024 11:00 AM EDT Office Visit Nutrition & Weight Management, [facility] [address] [place] [address] Nathalie Lopez PA-C [address] [place] [address] 02/14/2024 11:15 AM EDT Office Visit Urology, [facility] [address] [place] [address] Frank Foster MD [address] [place] [address] 03/06/2024 11:45 AM EDT Hospital Encounter ENDO [facility], Endoscopy Room [facility] [address] [place] [phone] Josselyn Tolentino DO [address] [place] [address] 03/06/2024 11:45 AM EDT - 03/06/2024 12:15 PM EDT Surgery ENDO [facility], Endoscopy Room [facility] [address] [place] [phone] Josselyn Tolentino DO [address] [place] [address] COLONOSCOPY FLEXIBLE PROXIMAL DIAGNOSTIC 05/03/2024 10:00 AM EST Office Visit Gastroenterology, [facility] [address] [place] [address] Shahana Ventura CRNP [address] [place] [address] Scheduled Procedures Name Priority Associated Diagnoses Date/Ti [...] 08/27/1998 HPV/Co-Test 08/27/2009 CKD PHOS USE SMARTSET 36618 08/18/2018 08/18/2017 COVID-19 Vaccine ( season) 2023 03/12/2022, 09/10/2020, 08/11/2020 Influenza Vaccine (FLU shot) (#1) 2024 01/25/2023, 03/23/2022, 03/06/2020 Depression Monitoring 01/24/2024 01/23/2023 GFR 06/13/2024 12/12/2023, 10/13, 07/26/2023, Additional history exists Cervical Cancer Screening 06/16/2024 Pap Smear 06/16/2024 06/16/2021, 02/12, 10/08/2014, Additional history exists Albumin/Creatinine Ratio 11/26/2024 11/27/2023, 08/13 CKD HGB USE SMARTSET 22320 12/11/202412/11, 12/12/2023, 10/24/2023, Additional history exists TSH [...] this encounter Medical Devices Implanted Type Area Civil Structural Engineer Device Identifier Shelf Expiration Date Model / Serial / Lot Vitoss Bioactv Foam Pack 2.5cc - [id number] Implanted:Qty: 1 on 11/02/2017 by Sydnie Miles DPM at OR [facility] Left: Foot DALI : SPINE 07/12/2019 [id number] / / [id number] Plate (Non Sterile Slim Straight 5 Hole Length 36.5 Implanted:Qty: 1 on 11/02/2017 by Sydnie Miles DPM at OR [facility] Left: Foot [id number] / / 2.7 Mm Non-Locking Screws Implanted:Qty: 1 on 11/02/2017 by Sydnie Miles DPM at OR [facility] Left: Foot DALI : ORTHOPAEDICS [id number] / / 2.7 Mm Non-Locking Screw Implanted:Qty: 1 on 11/02/2017 by Sydnie Miles DPM at OR [facility] Left: Foot DALI : ORTHOPAEDICS [id number] / / 2.7 Mm Non-Locking Screws Implanted:Qty: 1 on 11/02/2017 by Sydnie Miles DPM at OR [facility] Left: Foot DALI : ORTHOPAEDICS [id number] / / 2.7 Mm Non-Locking Screw Implanted:Qty: 1 on 11/02/2017 by Sydnie Miles DPM at OR [facility] Left: Foot DALI : ORTHOPAEDICS [id number] / / documented as of this encounter Advance Directives * Full Code (Latest Code Status on File) Date Activated Date Inactivated Comments 06/12/2017 2:51 PM 06/14/2017 1:40 AM This order r eflects the patients wishes and were consensually agreed upon. Care Teams Director Maternal Child Relationship Specialty Start Date End Date Didier Mitchell MD [address] [place] [address] [place] [address] PCP - General Family Medicine 12/01/20 documented as of this encounter
--- OUTSIDE RECORDS SUMMARY | 2024-03-08 13:32 | External Medical Summary ---
Author Name Unknown Address Unknown Organization K01:[facility] [place] - [address] [address] Laboratory Report Ordering Provider Test Date Status PAULA VELÁSQUEZ 12/19/2023 08:19:15 Jacy l Observation Date Value Abnormality Reference (Units ) Status Triglyceride 12/19/2023 08:19:15 270 Above high normal <=174 (mg/dL) Final Triglyceride Reference Range s (mg/dL):
<150 Acceptable
150-174 Borderline high
175-499 High
>=500 Very high Cholesterol 12/19/2023 08:19:15 187 <200 (mg /dL) Final Total Cholesterol Reference Ranges (mg/dL):
<200 Desirable
200-239 Borderline high
>=240 High HDL 12/19/2023 08:19:15 30 Below low normal >49 (mg/dL) Final HDL Cholesterol Reference Ra nges (mg/dL):
>=60 High (Desirable)
<50 Low (Undesirable) For Females
<40 Low (Undesirable) For Males NON-HDL CHOLESTEROL 12/19/2023 08:19:15 157 <=159 (mg/dL) Final Non-HDL Cholesterol Referenc e Range (mg/dL):
<100 Target level for high risk ASCVD patient
<130 Optimal for general population
130-159 Near optimal for general population
160-189 Borderline High
190-219 High
>=220 Very High LDL, (calculated) 12/19/2023 08:19:15 103 <= 129 (mg/dL) Final LDL Cholesterol Reference Ra nges (mg/dL):
<70 Target level for high risk ASCVD patient
<100 Optimal for general population
100-129 Near optimal for general population
130-159 Borderline high
160-189 High
>=190 Very high Performing Location [facility] [place] - [address] [facility] [address]
--- OUTSIDE RECORDS SUMMARY | 2024-03-08 13:32 | External Medical Summary ---
Author Name Unknown Address Unknown Organization K01:[facility] [place] - [address] [place] [address] Laboratory Report Ordering Provider Test Date Status CLARIGLADYSPAULA 12/19/2023 08:19:15 Jacy l Observation Date Value Abnormality Reference (Units ) Status TSH 12/19/2023 08:19:15 0.08 Below low normal 0.2 7-4.20 (uIU/mL) Final Performing Location [facility] [place] - [address] [place] [address]
--- OUTSIDE RECORDS SUMMARY | 2024-03-08 13:33 | External Medical Summary | Summary of Care ---
Author Name Unknown Organization [facility] Address [address] [place] [address] Phone [phone] Care Team Providers Care Engineering Mathematician Name Role Phone Ruth Xiao MD Primary Care Provide r Reason for Visit * Reason Comments Acute Pt reports throwing up Monday night-Monday morning. R side of face and arm are tingly. No fever reported, currently has body aches, headaches, and nausea. OTC tylenol and aleve. Encounter Details Date Type Department Care Team (Late st Contact Info) Description 12/12/2023 2:20 PM EDT Office Visit [facility] [address] [place] [address] Yobany Galindo MD [address] [place] [address] Generalized muscle ache* Allergies Active Allergy Reactions Criticality Noted Date Comments Fluoxetine Other (Please comment) 04/02/2004 Arelis weak Other reaction(s): shaky, Tremor documented as of this encounter (statuses as of 12/12/2023) Medications Medication Sig Dispensed Refills Start Date [...] 2 10/04/2023 Active Vitamin D3 50 MCG (1999 UT) Oral CapsuleIndications: Vitamin D insufficiency Take 1 Capsule by mouth in the morning. 30 Capsule 5 10/04/2023 Active Nystatin 485071 UNIT/GM External CreamIndications:Ca ndidal skin infection Apply [...] once a week. 2 mL 2 10/05/2023 4 Discontinu ed(Refill) Hospital, Clinic, or Other Facility [...] as of this encounter (statuses as of 12/12/2023) Active Problems Problem Noted Date Diagnosed Date Chronic kidney disease, stage 3a 11/20/2023 Overview: Per CKD protocol Chronic constipation 10/25/2023 Morbid obesity with BMI of 40.0-44.9, adult 09/2022 COVID-19 virus infection 08/27/2021 TEE Confirmation Research Other*[id number] 08/13 Major depressive disorder, recurrent episode, mo derate 08/18/2020 Migraine with aura and witho ut status migrainosus, not intractable 05/13/2019 CIERA (obstructive sleep apnea) 08/24/2018 HTN, goal below 130/80 05/28/2018 Gastroesophageal reflux disease 05/28/2018 History of Graves' disease 08/09/2017 Post-surgical hypothyroidism 06/12/2017 Overview[place] [facility] T4Rx 150mcg/d Intermittent asthma with reliever use up to twic e per week 07/16/2010 Anxiety state 05/19/2008 documented as of this encounter (statuses as of 12/12/2023) Resolved Problems Problem Noted Date Diagnosed Date [...] as of this encounter (statuses as of 12/12/2023) Immunizations Name Administration Dates Next Due COVID-19 [...] Sign Reading Time Taken Comments Blood Pressure 116/64 12/12/2023 2:36 PM EDT Pulse 86 12/12/2023 2:36 PM EDT Temperature 37 C (98.6 F) 12/12/2023 2:36 PM EDT Respiratory Rate - - Oxygen Saturation 92% 12/12/2023 2:36 PM EDT Inhaled Oxygen Concentration - - Weight 110.1 kg (242 lb 12.8 oz) 12/12/2023 2:36 PM EDT Height - - Body Mass Index 40.97 11/17/2023 10:52 AM EDT documented in this encounter Functional [...] as of this encounter Progress Notes * Yobany Galindo MD - 12/12/2023 3:02 PM EDT Subjective: Augusta Shen is a 43 year old female. Chief Complaint Patient presents with Acute Pt reports throwing up Monday night-Monday morning. R side of face and arm are tingly. No fever reported, currently has body aches, headaches, and nausea. OTC tylenol and aleve. HPI: 43-year-old with last menstrual period about a week ago who had arthroscopic surgery [facility] on 724 24 is seen today with a 4 day history that initially started with nausea and vomiting and subsequently has led to diffuse muscle achiness headache ongoing nausea and some tingling of the right arm and right side of the face. She is not aware of any muscle weakness. No diarrhea.. Slight cough. Hasnot done COVID test. Patient Active Problem List Diagnosis Anxiety state Intermittent asthma with reliever use up to twice per week Post-surgical hypothyroidism History of Graves' disease HTN, goal below 130/80 Gastroesophageal reflux disease CIERA (obstructive sleep apnea) Migraine with aura and without status migrainosus, not intractable Major depressive disorder, recurrent episode, moderate (HCC) TEE Confirmation Research Other*[id number] COVID-19 virus infection Morbid obesity with BMI of 40.0-44.9, adult ([facility]) Chronic constipation Chronic kidney disease, stage 3a ([facility]) Current Outpatient Medications Medication Sig Dispense Refill hydrOXYzine HCl 25 MG Oral Tablet Take [...] 1 Tablet by mouth in the morning. Naproxen 500 MG Oral Tablet (Naprosyn) Take 1 Tablet by mouth in the morning and 1 Tablet before bedtime. With food.. 60 Tablet 1 Gabapentin 100 MG Oral Capsule (Neurontin) Take 1 Capsule by mouth in the morning and 1 Capsule at noon and 1 Capsule before bedtime. 90 Capsule 1 QUEtiapine Fumarate 100 MG Oral Tablet (SEROquel) [...] mouth in the morning. 30 Capsule 5 Topiramate 25 MG Oral Tablet (topAMAX) TAKE ONE TABLET BY MOUTH TWICE DAILY 60 Tablet 0 Mirabegron ER 50 MG Oral Tablet Extended Release 24 Hour (Myrbetriq) Take 1 Tablet by mouth in the morning. 30 Tablet 6 Levothyroxine Sodium 200 MCG Oral Tablet (Levoxyl) One daily (at least 30 min prior to breakfast orother meds) 90 Tablet 1 Docusate Sodium 100 MG Oral Capsule (Colace) Take 1 Capsule by mouth in the morning and 1 Capsule before bedtime. Polyethylene Glycol 3350 17 GM Oral Packet (MiraLax) Take 1 Packet by mouth in the morning. linaCLOtide 145 MCG Oral Capsule (Linzess) Take 1 Capsule by mouth daily before breakfast. 90 Capsule 3 Omeprazole 40 MG Oral Capsule Delayed Release (PriLOSEC) Take 1 Capsule by mouth in the morning. 1 hour before the first meal of the day.. 30 Capsule 5 Triamcinolone Acetonide 0.5 % External Cream (Aristocort) Apply topically to affected area 2 times a day. To affected area. (Patient not taking: Reported on 12/12/2023) 60 g 0 Nystatin 316952 UNIT/GM External Cream Apply topically to affected area 2 times a day. To affacted area for two weeks. (Patient not taking: Reported on 12/12/2023) 60 g 2 Wegovy 0.5 MG/0.5ML Subcutaneous Solution Auto-injector (Semaglutide-Weight Management) Inject 0.5 mg under the skin once a week. 2 mL 2 Current Facility-Administered Medications Medication Dose Route Frequency Provider Last Rate Last Admin Albuterol Sulfate (Proventil) (5 MG/ML) 0.5% *conc* inhalation solution 2.5 mg 2.5 mg Nebulizer Trino Burgos MD Albuterol Sulfate (Proventil) (2.5 MG/3ML) 0.083% inhalation solution 2.5 mg 2.5 mg Nebulizer PRTrino Stover MD 2.5 mg at 01/02/23 1406 Review of patient's allergies indicates: Allergen Reactions Fluoxetine Other (Please comment) Shakey weak Other reaction(s): shaky, Tremor Objective: BP 116/64 | Pulse 86 | Temp 37 C (98.6 F) (Tympanic) | Wt 110.1 kg (242 lb 12.8 oz) | SpO2 92% | BMI 40.97 kg/m | BSA 2.24 m Physical Exam: CONST: alert, pleasant, no acute distress HEAD: normocephalic, atraumatic NECK: supple, soft, no adenopathy Eyes - PERRLA, EOM'I OROPHARYNX: clear, no swelling or erythema, moist CV: regular rate and rhythm, no murmur CHEST: clear to auscultation bilaterally, no rales or wheezing ABD: soft, non tender, non distended, no masses or hepatosplenomegaly EXT: no edema, no joint swelling or deformities, NEURO: AAOx3, no gross focal deficits, cerebellar signs normal, affect appropriate MENTAL STATUS: no evidence of thought disorder, no delusional thought, no evidence of paranoia, thought is non-tangential. SKIN: no rash or significant lesions ASSESSMENT/PLAN: Generalized muscle ache (Primary) as well as a variety of other symptoms including headache-exact etiology is unclear. Maybe nonspecific viral illness. Consider Lyme disease - LYME DISEASE ANTIBODY SCREEN WITH REFLEX TO CONFIRMATION; Future; Expected date: 12/12/2023 - CBC WITH WBC DIFFERENTIAL; Future; Expected date: 12/12/2023 Patient is going to check her my [facility] will get back in touch with me if she notes that her Lyme test is positive as in that case she will need treated with doxycycline. History hypothyroidism. Recent TSH done approximately 7 weeks ago elevated but that did lead to an increase in her levothyroxine dosing and she is just waiting to get repeat TSH. Yobany Galindo MD documented in this encounter Nursing Notes * Azam De León MED ASSIST - 12/12/2023 2:36 PM EDT The patient has been properly identified by confirmation of name and date of . Chief Complaint Patient presents with Acute Pt reports throwing up Monday night-Monday morning. R side of face and arm are tingly. No fever reported, currently has body aches, headaches, and nausea. OTC tylenol and aleve. documented in this encounter Plan of Treatment Upcoming Encounters Date Type Department Care Team (Latest Contact Info) Description 01/09/2024 7:30 PM EDT PulmDiagnostic Sleep Lab, [address] [place] [address] [facility], Sleep Med Night Sleep [address] [place] [address] 01/26/2024 11:00 AM EDT Office Visit Nutrition & Weight Management, [facility] [address] [facility] [place] [address] Nathalie Lopez PA-C [address] [facility] [place] [address] 02/14/2024 11:15 AM EDT Office Visit Urology, [facility] [address] [place] [address] Frank Foster MD [address] [place] [address] [place] [address] 03/06/2024 11:45 AM EDT Hospital Encounter ENDO [facility], Endoscopy Room [facility] [address] [facility] [place] [phone] Josselyn Tolentino DO [address] [facility] [place] [address] 03/06/2024 11:45 AM EDT - 03/06/2024 12:15 PM EDT Surgery ENDO [facility], Endoscopy Room [facility] [address] [facility] [place] [phone] Josselyn Tolentino DO [address] [facility] [place] [address] COLONOSCOPY FLEXIBLE PROXIMAL DIAGNOSTIC 05/03/2024 10:00 AM EST Office Visit Gastroenterology, [facility] [address] [place] [address] Shahana Ventura CRNP [address] [facility] [place] [address] Scheduled Orders Name Type Priority Associated Diagnoses Orde r Schedule LYME DISEASE ANTIBODY SCREEN WITH REFLEX TO CONFIRMATION Lab Routine Generalized muscle ache Expected: 12/12/2023 (Approximate), Expires: 12/11/2024 CBC WITH WBC DIFFERENTIAL Lab Routine Generalized muscle ache Expected: 12/12/2023 (Approximate), Expires: 12/11/2024 Scheduled Procedures Name Priority Associated Diagnoses Date/Ti [...] 08/27/1998 HPV/Co-Test 08/27/2009 CKD PHOS USE SMARTSET 02470 08/18/2018 08/18/2017 COVID-19 Vaccine ( season) 2023 03/12/2022, 09/10/2020, 08/11/2020 Mammogram 10/26/2023 10/25/2022, 10/13, 10/16/2020, Additional history exists Influenza Vaccine (FLU shot) (#1) 2024 01/25/2023, 03/23/2022, 03/06/2020 Depression Monitoring 01/24/2024 01/23/2023 GFR 04/24/2024 10/24/2023, 07/13, 03/15/2023, Additional history exists Cervical Cancer Screening 06/16/2024 Pap Smear 06/16/2024 06/16/2021, 02/12, 10/08/2014, Additional history exists CKD HGB USE SMARTSET 36705 10/23/202410/23, 10/24/2023, 12/14/2022, Additional history exists TSH 10/23/2024 10/24/2023, 09/13, 07/26/2023, Additional history exists Albumin/Creatinine Ratio 11/26/2024 11/27/2023, 08/13 Diabetes Screening 10/23/2026 10/24/2023, 0 07/26/2023, 03/15/2023, Additional history exists Lipid Panel 07/25/2028 07/26/2023, 05/2022, 06/24/2021, Additional history exists DTaP,Tdap,and Td Vaccines (4 [...] this encounter Medical Devices Implanted Type Area Hearing Aid Assembly Supervisor Device Identifier Shelf Expiration Date Model / Serial / Lot Vitoss Bioactv Foam Pack 2.5cc - [id number] Implanted:Qty: 1 on 11/02/2017 by Sydnie Miles DPM at OR [facility] Left: Foot DALI : SPINE 07/12/2019 [id number] / / [id number] Plate (Non Sterile Slim Straight 5 Hole Length 36.5 Implanted:Qty: 1 on 11/02/2017 by Sydnie Miles DPM at OR [facility] Left: Foot [id number] / / 2.7 Mm Non-Locking Screws Implanted:Qty: 1 on 11/02/2017 by Sydnie Miles DPM at OR [facility] Left: Foot DALI : ORTHOPAEDICS [id number] / / 2.7 Mm Non-Locking Screw Implanted:Qty: 1 on 11/02/2017 by Sydnie Miles DPM at OR [facility] Left: Foot DALI : ORTHOPAEDICS [id number] / / 2.7 Mm Non-Locking Screws Implanted:Qty: 1 on 11/02/2017 by Sydnie Miles DPM at OR [facility] Left: Foot DALI : ORTHOPAEDICS [id number] / / 2.7 Mm Non-Locking Screw Implanted:Qty: 1 on 11/02/2017 by Sydnie Miles DPM at OR [facility] Left: Foot DALI : ORTHOPAEDICS [id number] / / documented as of this encounter Visit Diagnoses Diagnosis Generalized muscle ache- Primary Mylagia and myositis, unspecified Chronic constipation Unspecified constipation Rectal bleeding Hemorrhage of rectum and anus documented in this encounter Advance Directives * Full Code (Latest Code Status on File) Date Activated Date Inactivated Comments 06/12/2017 2:51 PM 06/14/2017 1:40 AM This order r eflects the patients wishes and were consensually agreed upon. Care Teams Engineering Mathematician Relationship Specialty Start Date End Date Ruth Xiao MD [address] [place] [address] [place] [address] PCP - General Family Medicine 12/01/20 documented as of this encounter"
--- OUTSIDE RECORDS SUMMARY | 2024-03-08 13:33 | External Medical Summary | Summary of Care ---
Author Name Unknown Organization [facility] Address [address] [place] [place] [place] [address] Phone [phone] Care Team Providers Care Commercial Management Accountant Name Role Phone Ruth Xiao MD Primary Care Provide r Reason for Visit * Reason Onset Date Comments Precert Denied 12/06/2023 wegovy Encounter Details Date Type Department Care Team (Late st Contact Info) Description 12/06/2023 Telephone Nutrition & Weight Management, [facility] [address] [place] [address] Nathalie Lopez PA-C [address] [place] [address] Precert Denied (wegovy) Allergies Active Allergy Reactions [...] morning. 30 Capsule 5 10/04/2023 Active Nystatin 233381 UNIT/GM External CreamIndications:Ca ndidal skin infection Apply [...] COVID-19 virus infection 08/27/2021 TEE Confirmation Research Other*[id number] 08/13 Major depressive disorder, recurrent episode, mo derate 08/18/2020 Migraine with aura and witho ut status migrainosus, not intractable 05/13/2019 CIERA (obstructive sleep apnea) 08/24/2018 HTN, goal below 130/80 05/28/2018 Gastroesophageal reflux disease 05/28/2018 History of Graves' disease 08/09/2017 Post-surgical hypothyroidism 06/12/2017 Overview: At [facility]; T4Rx 150mcg/d Intermittent [...] prescription was sent. * Addendum Note - Nathalie Lopez PA-C - 12/12/2023 2:36 PM EDTAddended [...] auth end date: N/A Rx Insurance Info: [employer] [place] Reference #: Mega Mata Medication Manager Cost II 12/07/23,9:30 AM To discuss denial with a Inspector Aide, please call [facility] at [phone]. . Type Date User Summary Attachment Precert 12/06/2023 1:01 PM Mary Restrepo [facility] Authorization Submission - Note: [facility] Authorization Submission Submission Information: Medication: Wegovy Portal used: [phone] Insurance: [employer] Authorization #/[place]: faxed clinicals via [employer] to [phone] * Telephone Encounter - Modesta Sexton LPN - 12/06/2023 10:18 AM EDT Please Start prior authorization for Wegovy 0.5 MG/0.5ML Subcutaneous Solution Auto-injector (Semaglutide-Weight Management) Diagnosis Class 3 severe obesity due to excess calories without serious comorbidity with body mass index (BMI) of 40.0 to 44.9 in adult (HCC) [E66.01, Z68.41] Patient qualifies for Weight loss [...] adding naltrexone to current wellbutrin CoverMyMeds [place]: [email or web address] documented in this encounter Plan of Treatment Upcoming Encounters Date Type Department Care Team (Latest Contact Info) Description 01/09/2024 7:30 PM EDT PulmDiagnostic Sleep Lab, [facility] [address] [place] [address] [place], Sleep Med Night Sleep [address] [facility] [place] [address] 01/26/2024 11:00 AM EDT Office Visit Nutrition & Weight Management, [facility] [address] [place] [address] Nathalie Lopez PA-C [address] [place] [address] 02/14/2024 11:15 AM EDT Office Visit Urology, [facility] [address] [place] [address] Frank Foster MD [address] [place] [address] 03/06/2024 11:45 AM EDT Hospital Encounter [facility], Endoscopy Room [facility] [address] [place] [phone] Josselyn Tolentino DO [address] [place] [address] 03/06/2024 11:45 AM EDT - 03/06/2024 12:15 PM EDT Surgery ENDO [facility], Endoscopy Room [facility] [address] [place] [phone] Josselyn Tolentino DO [address] [place] [address] COLONOSCOPY FLEXIBLE PROXIMAL DIAGNOSTIC 05/03/2024 10:00 AM EST Office Visit Gastroenterology, [facility] [address] [place] [address] Shahana Ventura CRNP [address] [place] [address] Scheduled Procedures Name Priority Associated Diagnoses Date/Ti [...] 08/27/1998 HPV/Co-Test 08/27/2009 CKD PHOS USE SMARTSET 98225 08/18/2018 08/18/2017 COVID-19 Vaccine ( season) 2023 [...] 11/26/2024 11/27/2023, 08/13 CKD HGB USE SMARTSET 78166 12/11/202412/11, 12/12/2023, 10/24/2023, Additional history exists Diabetes [...] this encounter Medical Devices Implanted Type Area Sod Farmer Device Identifier Shelf Expiration Date Model / Serial / Lot Vitoss Bioactv Foam Pack 2.5cc - [id number] Implanted:Qty: 1 on 11/02/2017 by Sydnie Miles DPM at OR [facility] Left: Foot DALI : SPINE 07/12/2019 [id number] / / [id number] Plate (Non Sterile Slim Straight 5 Hole Length 36.5 Implanted:Qty: 1 on 11/02/2017 by Sydnie Miles DPM at OR [facility] Left: Foot [id number] / / 2.7 Mm Non-Locking Screws Implanted:Qty: 1 on 11/02/2017 by Sydnie Miles DPM at OR [facility] Left: Foot DALI : ORTHOPAEDICS [id number] / / 2.7 Mm Non-Locking Screw Implanted:Qty: 1 on 11/02/2017 by Sydnie Miles DPM at OR [facility] Left: Foot DALI : ORTHOPAEDICS [id number] / / 2.7 Mm Non-Locking Screws Implanted:Qty: 1 on 11/02/2017 by Sydnie Miles DPM at OR [facility] Left: Foot DALI : ORTHOPAEDICS [id number] / / 2.7 Mm Non-Locking Screw Implanted:Qty: 1 on 11/02/2017 by Sydnie Miles DPM at OR [facility] Left: Foot DALI : ORTHOPAEDICS [id number] / / documented as of this encounter [...] and were consensually agreed upon. Care Teams Commercial Management Accountant Relationship Specialty Start Date End Date Ruth Xiao MD [address] [place] [address] [place] [address] PCP - General Family Medicine 12/01/20 documented as of this encounter
--- OUTSIDE RECORDS SUMMARY | 2024-03-08 13:33 | External Medical Summary | Summary of Care ---
Author Name Unknown Organization [facility] Address [address] [place] [address] Phone [phone] Care Team Providers Care Counter Clerk [employer] Name Role Phone Ruth Xiao MD Primary Care Provide r Reason for Visit * Reason Comments Outpatient Testing Encounter Details Date Type Department Care Team (Late st Contact Info) Description 12/12/2023 3:30 PM EDT Laboratory Laboratory, [facility] [address] [place] [address] [facility] [address] [place] [address] Encounter for long-term (current) use of other medications; Generalized muscle ache Allergies Active Allergy Reactions Criticality Noted Date [...] morning. 30 Capsule 5 10/04/2023 Active Nystatin 731099 UNIT/GM External CreamIndications:Can didal skin infection Apply [...] a week. 2 mL 2 12/12/2023 Active Hospital, Clinic, or Other Facility Administered Medication [...] COVID-19 virus infection 08/27/2021 TEE Confirmation Research Other*[id number] 08/13 Major depressive disorder, recurrent episode, mo derate 08/18/2020 Migraine with aura and witho ut status migrainosus, not intractable 05/13/2019 CIERA (obstructive sleep apnea) 08/24/2018 HTN, goal below 130/80 05/28/2018 Gastroesophageal reflux disease 05/28/2018 History of Graves' disease 08/09/2017 Post-surgical hypothyroidism 06/12/2017 Overview: [place] [facility] [place] T4Rx 150mcg/d Intermittent asthma with reliever use [...] No 01/23/2023 Does the household have a [facility] source of income? (Household - for ages [...] 01/09/2024 7:30 PM EDT PulmDiagnostic Sleep Lab, [facility] [address] [place] [address] [facility], Sleep [facility] [address] [facility] [address] 01/26/2024 11:00 AM EDT Office Visit Nutrition & Weight Management, [facility] [address] [place] [address] Nathalie Lopez PA-C [address] [place] [address] 02/14/2024 11:15 AM EDT Office Visit Urology, [facility] [address] [place] [address] Frank Foster MD [address] [place] [address] 03/06/2024 11:45 AM EDT Hospital Encounter [facility]O [facility], Endoscopy Room [facility] [address] [place] [phone] Josselyn Tolentino, [address] [place] [address] 03/06/2024 11:45 AM EDT - 03/06/2024 12:15 PM EDT Surgery ENDO [facility], Endoscopy Room [facility] [address] [place] [phone] Josselyn Tolentino DO [address] [place] [address] COLONOSCOPY FLEXIBLE PROXIMAL DIAGNOSTIC 05/03/2024 10:00 AM EST Office Visit Gastroenterology, [facility] [address] [place] [address] Shahana Ventura CRNP [address] [place] [address] Pending Results Name Type Priority Associated Diagnoses Date /Time BASIC METABOLIC PANEL Lab Routine Encounter for long-term (current) use of other medications 12/12/2023 3:25 PM EDT LIPID PANEL WITH DIRECT LDL IF TG IS HIGH Lab Routine Encounter for long-term (current) use of other medications 12/12/2023 3:25 PM EDT LYME DISEASE ANTIBODY SCREEN WITH REFLEX TO CONFIRMATION Lab Routine Generalized muscle ache 12/12/2023 3:25 PM EDT CBC WITH WBC DIFFERENTIAL Lab Routine Generalized muscle ache 12/12/2023 3:25 PM EDT LYME DISEASE ANTIBODY SCREEN Lab Routine Generalized muscle ache 12/12/2023 3:25 PM EDT CBC Lab Routine Generalized muscle ache 12/12/2023 3:25 PM EDT DIFFERENTIAL, AUTOMATED Lab Routine Generalized muscle ache 12/12/2023 3:25 PM EDT Scheduled Procedures Name Priority Associated Diagnoses [...] 08/27/1998 HPV/Co-Test 08/27/2009 CKD PHOS USE SMARTSET 09538 08/18/2018 08/18/2017 COVID-19 Vaccine ( season) 2023 03/12/2022, 09/10/2020, 08/11/2020 Mammogram 10/26/2023 10/25/2022, 10/13, 10/16/2020, Additional history exists Influenza Vaccine (FLU shot) (#1) 2024 01/25/2023, 03/23/2022, 03/06/2020 Depression Monitoring 01/24/2024 01/23/2023 GFR 04/24/2024 10/24/2023, 07/13, 03/15/2023, Additional history exists Cervical Cancer Screening 06/16/2024 Pap Smear 06/16/2024 06/16/2021, 02/12, 10/08/2014, Additional history exists CKD HGB USE SMARTSET 49698 10/23/202410/23, 10/24/2023, 12/14/2022, Additional history exists TSH 10/23/2024 10/24/2023, 09/13, 07/26/2023, Additional history exists Albumin/Creatinine Ratio 11/26/2024 11/27/2023, 041 09/2021 Diabetes Screening 10/23/2026 10/24/2023, 0 07/26/2023, 03/15/2023, Additional history exists Lipid Panel 07/25/2028 07/26/2023, 1105/2022, 06/24/2021, Additional history exists DTaP,Tdap,and Td Vaccines [...] encounter Medical Devices Implanted Type Area Assistant Real Estate Manager Device Identifier Shelf Expiration Date Model / Serial / Lot Vitoss Bioactv Foam Pack 2.5cc - [id number] Implanted:Qty: 1 on 11/02/2017 by Sydnie Miles DPM at OR [facility] Left: Foot DALI : SPINE 07/12/2019 [id number] / / [id number] Plate (Non Sterile Slim Straight 5 Hole Length 36.5 Implanted:Qty: 1 on 11/02/2017 by Sydnie Miles DPM at OR [facility] Left: Foot [id number] / / 2.7 Mm Non-Locking Screws Implanted:Qty: 1 on 11/02/2017 by Sydnie Miles DPM at OR [facility] Left: Foot DALI : ORTHOPAEDICS [id number] / / 2.7 Mm Non-Locking Screw Implanted:Qty: 1 on 11/02/2017 by Sydnie Miles DPM at OR [facility] Left: Foot DALI : ORTHOPAEDICS [id number] / / 2.7 Mm Non-Locking Screws Implanted:Qty: 1 on 11/02/2017 by Sydnie Miles DPM at OR [facility] Left: Foot DALI : ORTHOPAEDICS [id number] / / 2.7 Mm Non-Locking Screw Implanted:Qty: 1 on 11/02/2017 by Sydnie Miles DPM at OR [facility] Left: Foot DALI : ORTHOPAEDICS [id number] / / documented as of this encounter Visit Diagnoses Diagnosis Encounter for long-term (current) use of other medications Generalized muscle ache Mylagia and myositis, unspecified Chronic constipation Unspecified constipation Rectal bleeding Hemorrhage of rectum and anus documented in this encounter Advance Directives * Full Code (Latest Code Status on File) Date Activated Date Inactivated Comments 06/12/2017 2:51 PM 06/14/2017 1:40 AM This order r eflects the patients wishes and were consensually agreed upon. Care Teams Counter Clerk [employer] Relationship Specialty Start Date End Date Ruth Xiao MD [address] [place] [address] [place] [address] PCP - General Family Medicine 12/01/20 documented as of this encounter
--- OUTSIDE RECORDS SUMMARY | 2024-03-08 13:33 | External Medical Summary | Summary of Care ---
Author Name Unknown Organization [facility] Address [address] [place] [facility] [place] [facility] [place] [address] Phone [phone] Care Team Providers Care Milk Powder Grinder Name Role Phone Ruth Xiao MD Primary Care Provide r Reason for Visit * Reason Onset Date Comments Precert Denied 12/06/2023 wegovy Encounter Details Date Type Department Care Team (Late st Contact Info) Description 12/06/2023 Telephone Nutrition & Weight Management, [facility] [address] [place] [address] Nathalie Lopez PA-C [address] [place] [address] Precert Denied (wegovy) Allergies Active Allergy Reactions Criticality Noted Date Comments Fluoxetine Other (Please comment) 04/02/2004 Arelis weak Other reaction(s): shaky, Tremor documented as of this encounter (statuses as of 12/12/2023) Medications Medication Sig Dispensed Refills Start Date End Date Status Triamcinolone Acetonide 0.5 % External Cream (Aristocort)Indicatio ns:Rash and nonspecific skin eruption Apply topically to affected area 2 times a day. To affected area. 60 g 05/11/2022 Active hydrOXYzine HCl 25 MG Oral Tablet Take 1 Tablet by mouth 3 times a day as needed. Active Budesonide-Formoterol Fumarate 80-4.5 MCG/ACT Inhalation Aerosol (Symbicort) Inhale 2 Puffs by mouth in the morning and 2 Puffs before bedtime. 10.2 g 12 12/14/2022 Active Ferrous Sulfate 325 (65 Fe) MG Oral Tablet (Feosol)Indications:I margaret deficiency anemia, unspecified iron deficiency anemia [...] Hips 500 MG Oral Tablet Chewable (Ascorbic Acid)Indications:Iron deficiency anemia, unspecified iron deficiency anemia type Take 1 Tablet by mouth in the morning. Take with iron supplement. 60 Tablet 2 10/04/2023 Active Vitamin D3 50 MCG (2000 UT) Oral CapsuleIndications:Vi tamin D insufficiency Take 1 Capsule by mouth in the morning. 30 Capsule 5 10/04/2023 Active Nystatin 728224 UNIT/GM External CreamIndications:Cand idal skin infection Apply topically to affected area 2 times a day. To affacted area for two weeks. 60 g 2 10/04/2023 Active Topiramate 25 MG Oral Tablet (topAMAX)Indications: Chronic daily headache TAKE ONE TABLET BY MOUTH TWICE DAILY 60 Tablet 10/04/2023 Active Wegovy 0.5 MG/0.5ML Subcutaneous Solution Auto-injector (Semaglutide-Weight Management)Indication s:Class 3 severe obesity due to excess calories without serious comorbidity with body mass index (BMI) of 40.0 to 44.9 in adult (HCC) Inject 0.5 mg under the skin once a week. 2 mL 2 10/05/2023 Active Mirabegron ER 50 MG Oral Tablet Extended Release 24 Hour (Myrbetriq) Take 1 Tablet by mouth in the morning. 30 Tablet 6 10/25/2023 Active Levothyroxine Sodium 200 MCG Oral Tablet (Levoxyl)Indications: Post-surgical hypothyroidism One daily (at least 30 min prior to breakfast or other meds) 90 Tablet 1 10/26/2023 Active Docusate Sodium 100 MG Oral Capsule (Colace) Take 1 Capsule by mouth in the morning and 1 Capsule before bedtime. Active Polyethylene Glycol 3350 17 GM Oral Packet (MiraLax) Take 1 Packet by mouth in the morning. Active linaCLOtide 145 MCG Oral Capsule (Linzess)Indications: Chronic constipation Take 1 Capsule by mouth daily before breakfast. 90 Capsule 3 11/17/2023 Active Omeprazole 40 MG Oral Capsule Delayed Release (PriLOSEC)Indications :Nausea without vomiting Take 1 Capsule by mouth in the morning. 1 hour before the first meal of the day.. 30 Capsule 5 11/22/2023 Active Hospital, Clinic, or Other Facility Administered [...] COVID-19 virus infection 08/27/2021 TEE Confirmation Research Other*[id number] 08/13 Major depressive disorder, recurrent episode, mo derate 08/18/2020 Migraine with aura and witho ut status migrainosus, not intractable 05/13/2019 CIERA (obstructive sleep apnea) 08/24/2018 HTN, goal below 130/80 05/28/2018 Gastroesophageal reflux disease 05/28/2018 History of Graves' disease 08/09/2017 Post-surgical hypothyroidism 06/12/2017 Overview: At [facility] [place]; T4Rx 150mcg/d Intermittent asthma with reliever use [...] encounter Miscellaneous Notes * Addendum Note - Ruben Bullard LPN - 12/12/2023 2:04 PM EDTAddended by: RUBEN BULLARD on: 12/12/2023 02:04 PM Modules accepted: Orders * Telephone Encounter - Ruben Bullard LPN - 12/12/2023 1:58 PM EDT Did P2P, Authorization approved for 6 months. They Pharmacist is sending a fax for confirmation. Patient aware and voiced understanding * Telephone Encounter - Ruben Bullard LPN [...] auth end date: N/A Rx [facility] Reference #: Mega Mata Medication Bisque Kiln Placer II 12/07/23,9:30 AM To discuss denial with a Quality Control Director, please [facility] at [phone]. . Type Date User Summary Attachment Precert 12/06/2023 1:01 PM Mary Restrepo [facility] Authorization Submission - Note: [facility] Authorization Submission Submission Information: Medication: Wegovy Portal used: [phone] Insurance: [employer] Authorization #/[place]: faxed clinicals via [employer] to [phone] * Telephone Encounter - Modesta Sexton LPN [...] adding naltrexone to current wellbutrin CoverMyMeds [place]: [id number] documented in this encounter Plan of Treatment Upcoming Encounters Date Type Department Care Team (Latest Contact Info) Description 12/12/2023 2:20 PM EDT Office Visit [facility] [address] [facility] [address] Yobany Galindo [facility] [address] [facility] [address] Arrived 01/09/2024 7:30 PM EDT PulmDiagnostic Sleep Lab, [address] [place] [address] [facility], Sleep Med Night Sleep [address] [place] [address] 01/26/2024 11:00 AM EDT Office Visit Nutrition & Weight Management, [facility] [address] [place] [address] Nathalie Lopez PA-C [address] [place] [address] 02/14/2024 11:15 AM EDT Office Visit Urology, [facility] [address] [place] [address] Frank Foster MD [address] [place] [address] 03/06/2024 11:45 AM EDT Hospital Encounter ENDO [facility], Endoscopy Room [facility] [address] [place] [phone] Josselyn Tolentino DO [address] [place] [address] 03/06/2024 11:45 AM EDT - 03/06/2024 12:15 PM EDT Surgery ENDO [facility], Endoscopy Room [facility] [address] [place] [phone] Josselyn Tolentino DO [address] [place] [address] COLONOSCOPY FLEXIBLE PROXIMAL DIAGNOSTIC 05/03/2024 10:00 AM EST Office Visit Gastroenterology, [facility] [address] [place] [address] Shahana Ventura CRNP [address] [place] [address] Scheduled Procedures Name Priority Associated Diagnoses Date/Ti [...] 08/27/1998 HPV/Co-Test 08/27/2009 CKD PHOS USE SMARTSET 18578 08/18/2018 08/18/2017 COVID-19 Vaccine ( season) 2023 03/12/2022, 09/10/2020, 08/11/2020 Mammogram 10/26/2023 10/25/2022, 10/13, 10/16/2020, Additional history exists Influenza Vaccine (FLU shot) (#1) 2024 01/25/2023, 03/23/2022, 03/06/2020 Depression Monitoring 01/24/2024 01/23/2023 GFR 04/24/2024 10/24/2023, 07/13, 03/15/2023, Additional history exists Cervical Cancer Screening 06/16/2024 Pap Smear 06/16/2024 06/16/2021, 02/12, 10/08/2014, Additional history exists CKD HGB USE SMARTSET 74370 10/23/202410/23, 10/24/2023, 12/14/2022, Additional history exists TSH 10/23/2024 10/24/2023, 05/05/2023, 07/26/2023, Additional history exists Albumin/Creatinine Ratio 11/26/2024 11/27/2023, 041 09/2021 Diabetes Screening 10/23/2026 10/24/2023, 0 07/26/2023, 03/15/2023, Additional history exists Lipid Panel 07/25/2028 07/26/2023, 11/0 05/2022, 06/24/2021, Additional history exists DTaP,Tdap,and Td [...] this encounter Medical Devices Implanted Type Area Human Anatomy Teacher Device Identifier Shelf Expiration Date Model / Serial / Lot Vitoss Bioactv Foam Pack 2.5cc - [id number] Implanted:Qty: 1 on 11/02/2017 by Sydnie Miles DPM at OR [facility] Left: Foot DALI : SPINE 07/12/2019 [id number] / / [id number] Plate (Non Sterile Slim Straight 5 Hole Length 36.5 Implanted:Qty: 1 on 11/02/2017 by Sydnie Miles DPM at OR [facility] Left: Foot [id number] / / 2.7 Mm Non-Locking Screws Implanted:Qty: 1 on 11/02/2017 by Sydnie Miles DPM at OR [facility] Left: Foot DALI : ORTHOPAEDICS [id number] / / 2.7 Mm Non-Locking Screw Implanted:Qty: 1 on 11/02/2017 by Sydnie Miles DPM at OR [facility] Left: Foot DALI : ORTHOPAEDICS [id number] / / 2.7 Mm Non-Locking Screws Implanted:Qty: 1 on 11/02/2017 by Sydnie Miles DPM at OR [facility] Left: Foot DALI : ORTHOPAEDICS [id number] / / 2.7 Mm Non-Locking Screw Implanted:Qty: 1 on 11/02/2017 by Sydnie Miles DPM at OR [facility] Left: Foot DALI : ORTHOPAEDICS [id number] / / documented as of this encounter [...] and were consensually agreed upon. Care Teams Milk Powder Grinder Relationship Specialty Start Date End Date Ruth Xiao MD [address] [place] [address] [place] [address] PCP - General Family Medicine 12/01/20 documented as of this encounter
--- OUTSIDE RECORDS SUMMARY | 2024-03-08 13:33 | External Medical Summary | Summary of Care ---
Author Name Unknown Organization [facility] Address [address] [place] [address] Phone [phone] Care Team Providers Care Sleeve Wheel Maker Name Role Phone Ruth Xiao MD Primary Care Provide r Reason for Visit * Reason Comments Outpatient Testing Encounter Details Date Type Department Care Team (Late st Contact Info) Description 12/12/2023 4:40 PM EDT Laboratory Laboratory, [facility] [address] [place] [address] [facility] [address] [place] [address] Arrived Allergies Active Allergy Reactions Criticality Noted Date [...] Vitamin D3 50 MCG (1999 UT) Oral CapsuleIndications:V itamin D insufficiency Take 1 Capsule by mouth in the morning. 30 Capsule 5 10/04/2023 Active Nystatin 233999 UNIT/GM External CreamIndications:Can didal skin infection Apply [...] COVID-19 virus infection 08/27/2021 TEE Confirmation Research Other*[id number] 08/13 Major depressive disorder, recurrent episode, mo derate 08/18/2020 Migraine with aura and witho ut status migrainosus, not intractable 05/13/2019 CIERA (obstructive sleep apnea) 08/24/2018 HTN, goal below 130/80 05/28/2018 Gastroesophageal reflux disease 05/28/2018 History of Graves' disease 08/09/2017 Post-surgical hypothyroidism 06/12/2017 Overview: At [facility]; T4Rx 150mcg/d Intermittent asthma with reliever use [...] 01/09/2024 7:30 PM EDT PulmDiagnostic Sleep Lab, [facility] [address] [place] [address] [place], Sleep Med Night Sleep [address] [facility] [place] [address] 01/26/2024 11:00 AM EDT Office Visit Nutrition & Weight Management, [facility] [address] [place] [address] Nathalie Lopez PA-C [address] [place] [address] 02/14/2024 11:15 AM EDT Office Visit Urology, [facility] [address] [place] [address] Frank Foster MD [address] [place] [address] 03/06/2024 11:45 AM EDT Hospital Encounter ENDO [facility], Endoscopy Room [facility] [address] [place] [phone] Josselyn Tolentino DO [address] [place] [address] 03/06/2024 11:45 AM EDT - 03/06/2024 12:15 PM EDT Surgery ENDO [facility], Endoscopy Room [facility] [address] [place] [phone] Josselyn Tolentino DO [address] [place] [address] COLONOSCOPY FLEXIBLE PROXIMAL DIAGNOSTIC 05/03/2024 10:00 AM EST Office Visit Gastroenterology, [facility] [address] [place] [address] Shahana Ventura CRNP [address] [place] [address] Scheduled Procedures Name Priority Associated Diagnoses Date/Ti [...] 08/27/1998 HPV/Co-Test 08/27/2009 CKD PHOS USE SMARTSET 25273 08/18/2018 08/18/2017 COVID-19 Vaccine ( season) 2023 03/12/2022, 09/10/2020, 08/11/2020 Mammogram 10/26/2023 10/25/2022, 10/13, 10/16/2020, Additional history exists Influenza Vaccine (FLU shot) (#1) 2024 01/25/2023, 03/23/2022, 03/06/2020 Depression Monitoring 01/24/2024 01/23/2023 GFR 04/24/2024 10/24/2023, 07/13, 03/15/2023, Additional history exists Cervical Cancer Screening 06/16/2024 Pap Smear 06/16/2024 06/16/2021, 02/12, 10/08/2014, Additional history exists CKD HGB USE SMARTSET 48239 10/23/202410/23, 10/24/2023, 12/14/2022, Additional history exists TSH 10/23/2024 10/24/2023, 05/05/2023, 07/26/2023, Additional history exists Albumin/Creatinine Ratio 11/26/2024 11/27/2023, 0409/2021 Diabetes Screening 10/23/2026 10/24/2023, 0 07/26/2023, 03/15/2023, Additional history exists Lipid Panel 07/25/2028 07/26/2023, 110 05/2022, 06/24/2021, Additional history exists DTaP,Tdap,and Td [...] this encounter Medical Devices Implanted Type Area Schedule Checker Device Identifier Shelf Expiration Date Model / Serial / Lot Vitoss Bioactv Foam Pack 2.5cc - [id number] Implanted:Qty: 1 on 11/02/2017 by Sydnie Miles DPM at OR [facility] Left: Foot DALI : SPINE 07/12/2019 [id number] / / [id number] Plate (Non Sterile Slim Straight 5 Hole Length 36.5 Implanted:Qty: 1 on 11/02/2017 by Sydnie Miles DPM at OR [facility] Left: Foot [id number] / / 2.7 Mm Non-Locking Screws Implanted:Qty: 1 on 11/02/2017 by Sydnie Miles DPM at OR [facility] Left: Foot DALI : ORTHOPAEDICS [id number] / / 2.7 Mm Non-Locking Screw Implanted:Qty: 1 on 11/02/2017 by Sydnie Miles DPM at OR [facility] Left: Foot DALI : ORTHOPAEDICS [id number] / / 2.7 Mm Non-Locking Screws Implanted:Qty: 1 on 11/02/2017 by Sydnie Miles DPM at OR [facility] Left: Foot DALI : ORTHOPAEDICS [id number] / / 2.7 Mm Non-Locking Screw Implanted:Qty: 1 on 11/02/2017 by Sydnie Miles DPM at OR [facility] Left: Foot DALI : ORTHOPAEDICS [id number] / / documented as of this encounter Advance Directives * Full Code (Latest Code Status on File) Date Activated Date Inactivated Comments 06/12/2017 2:51 PM 06/14/2017 1:40 AM This order r eflects the patients wishes and were consensually agreed upon. Care Teams Sleeve Wheel Maker Relationship Specialty Start Date End Date Ruth Xiao MD [address] [place] [address] [place] [address] PCP - General Family Medicine 12/01/20 documented as of this encounter
--- OUTSIDE RECORDS SUMMARY | 2024-03-08 13:33 | External Medical Summary ---
Author Name Unknown Address Unknown Organization K01:LABORATORY [address] [place] [address] Laboratory Report Ordering Provider Test Date Status RICK EVANS 12/12/2023 16:21:24 Final Observation Date Value Abnormality Reference (Units ) Status SYNC LEUKOCYTES IN BLOOD BY AUTOMATED COUNT 12/12/2023 16:21:24 7.29 4.00-10.80 (K/uL) Final Segs 12/12/2023 16:21:24 58.6 40.0-75.0 (%) Final Lymphs % 12/12/2023 16:21:24 28.4 18.0-42.0 (%) Final Monos 12/12/2023 16:21:24 8.2 1.0-11.0 (%) Final Eosinophils 12/12/2023 16:21:24 3.7 0.0-6.0 (%) Final Basos 12/12/2023 16:21:24 0.4 0.0-2.0 (%) Final Immature Granulocyte, Percent 12/12/2023 16:21:24 0.7 0.0-2.0 (%) Final Absolute Segs 12/12/2023 16:21:24 4.27 1.80-7.70 (K/uL) Final Lymphs, absolute 12/12/2023 16:21:24 2.07 1.00-4.80 (K/ul) Final Monos, Abs 12/12/2023 16:21:24 0.60 0.00-1.10 (K/uL) Final Eos, Abs 12/12/2023 16:21:24 0.27 0.00-0.70 (K/uL) Final Basos, Abs 12/12/2023 16:21:24 0.03 0.00-0.20 (K/uL) Final Immature Granulocytes, Number 12/12/2023 16:21:24 0.05 0.00-0.20 (K/uL) Final Performing Location [facility] [address] [facility] [address]
--- OUTSIDE RECORDS SUMMARY | 2024-03-08 13:33 | External Medical Summary | Summary of Care ---
Author Name Unknown Organization [facility] Address [address] [place] [facility] [place] [address] Phone [phone] Care Team Providers Care Medical Assistant Supervisor Name Role Phone Ruth Xiao MD Primary Care Provide r Reason for Visit * Reason Onset Date Comments Precert Denied 12/06/2023 wegovy Encounter Details Date Type Department Care Team (Late st Contact Info) Description 12/06/2023 Telephone Nutrition & Weight Management, [facility] [address] [place] [address] Nathalie Lopez PA-C [address] [place] [address] Precert Denied (wegovy) Allergies Active Allergy Reactions [...] morning. 30 Capsule 5 10/04/2023 Active Nystatin 462295 UNIT/GM External CreamIndications:Cand idal skin infection Apply [...] COVID-19 virus infection 08/27/2021 TEE Confirmation Research Other*[id number] 08/13 Major depressive disorder, recurrent episode, mo derate 08/18/2020 Migraine with aura and witho ut status migrainosus, not intractable 05/13/2019 CIERA (obstructive sleep apnea) 08/24/2018 HTN, goal below 130/80 05/28/2018 Gastroesophageal reflux disease 05/28/2018 History of Graves' disease 08/09/2017 Post-surgical hypothyroidism 06/12/2017 Overview: At [facility]; T4Rx 150mcg/d Intermittent asthma with reliever use [...] auth end date: N/A Rx Insurance Info: [facility] [place] Reference #: Mega Mata Medication Metal Sponge Making Machine Operator II 12/07/23,9:30 AM To discuss denial with a Health Safety Engineer, please call [facility] at [phone]. . Type Date User Summary Attachment Precert 12/06/2023 1:01 PM Mary Restrepo OSA [facility] Authorization Submission - Note: [facility] Authorization Submission Submission Information: Medication: Wegovy Portal used: [phone] Insurance: [employer] Authorization #/Chacon: faxed clinicals via [employer] to [phone] * Telephone Encounter - Modesta Sexton LPN - 12/06/2023 10:18 AM EDT Please Start prior authorization for Wegovy 0.5 MG/0.5ML Subcutaneous Solution Auto-injector (Semaglutide-Weight Management) Diagnosis Class 3 severe obesity due to excess calories without serious comorbidity with body mass index (BMI) of 40.0 to 44.9 in adult ([facility]) [E66.01, Z68.41] Patient qualifies for Weight loss [...] adding naltrexone to current wellbutrin CoverMyMeds [place]: [id number] documented in this encounter Plan of Treatment Upcoming Encounters Date Type Department Care Team (Latest Contact Info) Description 12/12/2023 2:20 PM EDT Office Visit [facility] [address] [place] [phone] Yobany Galindo MD [address] [place] [phone] Arrived 01/09/2024 7:30 PM EDT PulmDiagnostic Sleep Lab, [address] [place] [address] [facility], Sleep Med Night Sleep [address] [place] [address] 01/26/2024 11:00 AM EDT Office Visit Nutrition & Weight Management, [facility] [address] [place] [address] Nathalie Lopez PA-C [address] [place] [address] 02/14/2024 11:15 AM EDT Office Visit Urology, [facility] [address] [place] [address] Frank Foster MD [address] [place] [address] 03/06/2024 11:45 AM EDT Hospital Encounter ENDO OSS, Endoscopy Room [facility] [address] [place] [phone] Josselyn Tolentino DO [address] [place] [address] 03/06/2024 11:45 AM EDT - 03/06/2024 12:15 PM EDT Surgery ENDO OSS, Endoscopy Room [facility] [address] [place] [phone] Josselyn Tolentino DO [address] [place] [address] COLONOSCOPY FLEXIBLE PROXIMAL DIAGNOSTIC 05/03/2024 10:00 AM EST Office Visit Gastroenterology, [facility] [address] [place] [address] Shahana Ventura CRNP [address] [place] [address] Scheduled Procedures Name Priority Associated Diagnoses Date/Ti [...] 08/27/1998 HPV/Co-Test 08/27/2009 CKD PHOS USE SMARTSET 33705 08/18/2018 08/18/2017 COVID-19 Vaccine ( season) 2023 03/12/2022, 09/10/2020, 08/11/2020 Mammogram 10/26/2023 10/25/2022, 10/13, 10/16/2020, Additional history exists Influenza Vaccine (FLU shot) (#1) 2024 01/25/2023, 03/23/2022, 03/06/2020 Depression Monitoring 01/24/2024 01/23/2023 GFR 04/24/2024 10/24/2023, 07/13, 03/15/2023, Additional history exists Cervical Cancer Screening 06/16/2024 Pap Smear 06/16/2024 06/16/2021, 02/12, 10/08/2014, Additional history exists CKD HGB USE SMARTSET 98737 10/23/202410/23, 10/24/2023, 12/14/2022, Additional history exists TSH 10/23/2024 10/24/2023, 0505/2023, 07/26/2023, Additional history exists Albumin/Creatinine Ratio 11/26/2024 [...] this encounter Medical Devices Implanted Type Area Seismograph Supervisor Device Identifier Shelf Expiration Date Model / Serial / Lot Vitoss Bioactv Foam Pack 2.5cc - [id number] Implanted:Qty: 1 on 11/02/2017 by Sydnie Miles DPM at OR [facility] Left: Foot DALI : SPINE 07/12/2019 [id number] / / [id number] Plate (Non Sterile Slim Straight 5 Hole Length 36.5 Implanted:Qty: 1 on 11/02/2017 by Sydnie Miles DPM at OR [facility] Left: Foot [id number] / / 2.7 Mm Non-Locking Screws Implanted:Qty: 1 on 11/02/2017 by Sydnie Miles DPM at OR [facility] Left: Foot DALI : ORTHOPAEDICS [id number] / / 2.7 Mm Non-Locking Screw Implanted:Qty: 1 on 11/02/2017 by Sydnie Miles DPM at OR [facility] Left: Foot DALI : ORTHOPAEDICS [id number] / / 2.7 Mm Non-Locking Screws Implanted:Qty: 1 on 11/02/2017 by Sydnie Miles DPM at OR [facility] Left: Foot DALI : ORTHOPAEDICS [id number] / / 2.7 Mm Non-Locking Screw Implanted:Qty: 1 on 11/02/2017 by Sydnie Miles DPM at OR [facility] Left: Foot DALI : ORTHOPAEDICS [id number] / / documented as of this encounter [...] and were consensually agreed upon. Care Teams Medical Assistant Supervisor Relationship Specialty Start Date End Date Ruth Xiao MD [address] [place] [address] [place] [address] PCP - General Family Medicine 12/01/20 documented as of this encounter
--- OUTSIDE RECORDS SUMMARY | 2024-03-08 13:33 | External Medical Summary | Summary of Care ---
Author Name Unknown Organization [facility] Address [address] [place] [facility] [facility] [place] [address] Phone [phone] Care Team Providers Care Bleach Range Operator Name Role Phone Ruth Xiao MD Primary Care Provide r Reason for Visit * Reason Onset Date Comments Precert Denied 12/06/2023 wegovy Encounter Details Date Type Department Care Team (Late st Contact Info) Description 12/06/2023 Telephone Nutrition & Weight Management, [facility] [address] [place] [address] Nathalie Lopez PA-C [address] [place] [address] Precert Denied (wegovy) Allergies Active Allergy Reactions [...] morning. 30 Capsule 5 10/04/2023 Active Nystatin 758232 UNIT/GM External CreamIndications:Ca ndidal skin infection Apply [...] COVID-19 virus infection 08/27/2021 TEE Confirmation Research Other*[id number] 08/13 Major depressive disorder, recurrent episode, mo derate 08/18/2020 Migraine with aura and witho ut status migrainosus, not intractable 05/13/2019 CIERA (obstructive sleep apnea) 08/24/2018 HTN, goal below 130/80 05/28/2018 Gastroesophageal reflux disease 05/28/2018 History of Graves' disease 08/09/2017 Post-surgical hypothyroidism 06/12/2017 Overview: [place] [facility] T4Rx 150mcg/d Intermittent asthma with reliever use [...] encounter Miscellaneous Notes * Addendum Note - Nathalie Lopez PA-C [...] auth end date: N/A Rx Insurance Info: [employer] [place] Reference #: Mega Mata Medication Communications Manager II 12/07/23,9:30 AM To discuss denial with a Beater Tender, please call [employer] at [phone]. . Type Date User Summary Attachment Precert 12/06/2023 1:01 PM Mary Restrepo OSA [facility] Authorization Submission - Note: [facility] Authorization Submission Submission Information: Medication: Wegovy Portal used: [phone] Insurance: [employer] Authorization #/Chacon: faxed clinicals via [employer] to [phone] * Telephone Encounter - Modesta Sexton LPN [...] adding naltrexone to current wellbutrin CoverMyMeds [place]: [email or web address] documented in this encounter Plan of Treatment Upcoming Encounters Date Type Department Care Team (Latest Contact Info) Description 01/09/2024 7:30 PM EDT PulmDiagnostic Sleep Lab, [facility] [address] [address] [place], Sleep Med Night Sleep [address] [facility] [address] 01/26/2024 11:00 AM EDT Office Visit Nutrition & Weight Management, [facility] [address] [place] [address] Nathalie Lopez PA-C [address] [place] [address] 02/14/2024 11:15 AM EDT Office Visit Urology, [facility] [address] [place] [address] Frank Foster MD [address] [place] [address] 03/06/2024 11:45 AM EDT Hospital Encounter ENDO OSSC, Endoscopy Room [facility] [address] [place] [address] Josselyn Tolentino DO [address] [place] [address] 03/06/2024 11:45 AM EDT - 03/06/2024 12:15 PM EDT Surgery ENDO OSSC, Endoscopy Room [facility] [address] [place] [phone] Josselyn Tolentino DO [address] [place] [address] COLONOSCOPY FLEXIBLE PROXIMAL DIAGNOSTIC 05/03/2024 10:00 AM EST Office Visit Gastroenterology, [facility] [address] [place] [address] Shahana Ventura CRNP [address] [place] [address] Scheduled Procedures Name Priority Associated Diagnoses Date/Ti [...] 08/27/1998 HPV/Co-Test 08/27/2009 CKD PHOS USE SMARTSET 52489 08/18/2018 08/18/2017 COVID-19 Vaccine ( season) 2023 03/12/2022, 09/10/2020, 08/11/2020 Mammogram 10/26/2023 10/25/2022, 10/13, 10/16/2020, Additional history exists Influenza Vaccine (FLU shot) (#1) 2024 01/25/2023, 03/23/2022, 03/06/2020 Depression Monitoring 01/24/2024 01/23/2023 GFR 04/24/2024 10/24/2023, 07/13, 03/15/2023, Additional history exists Cervical Cancer Screening 06/16/2024 Pap Smear 06/16/2024 06/16/2021, 02/12, 10/08/2014, Additional history exists CKD HGB USE SMARTSET 88887 10/23/202410/23, 10/24/2023, 12/14/2022, Additional history exists TSH 10/23/2024 10/24/2023, 05/2 05/2023, 07/26/2023, Additional history exists Albumin/Creatinine Ratio 11/26/2024 11/27/2023, 0409/2021 Diabetes Screening 10/23/2026 10/24/2023, 0 07/26/2023, 03/15/2023, Additional history exists Lipid Panel 07/25/2028 07/26/2023, 11/05/2022, 06/24/2021, Additional history exists DTaP,Tdap,and Td Vaccines [...] this encounter Medical Devices Implanted Type Area Entry Level Electrical Engineer Device Identifier Shelf Expiration Date Model / Serial / Lot Vitoss Bioactv Foam Pack 2.5cc - [id number] Implanted:Qty: 1 on 11/02/2017 by Sydnie Miles DPM at OR [facility] Left: Foot DALI : SPINE 07/12/2019 [id number] / / [id number] Plate (Non Sterile Slim Straight 5 Hole Length 36.5 Implanted:Qty: 1 on 11/02/2017 by Sydnie Miles DPM at OR [facility] Left: Foot [id number] / / 2.7 Mm Non-Locking Screws Implanted:Qty: 1 on 11/02/2017 by Sydnie Miles DPM at OR [facility] Left: Foot DALI : ORTHOPAEDICS [id number] / / 2.7 Mm Non-Locking Screw Implanted:Qty: 1 on 11/02/2017 by Sydnie Miles DPM at OR [facility] Left: Foot DALI : ORTHOPAEDICS [id number] / / 2.7 Mm Non-Locking Screws Implanted:Qty: 1 on 11/02/2017 by Sydnie Miles DPM at OR [facility] Left: Foot DALI : ORTHOPAEDICS [id number] / / 2.7 Mm Non-Locking Screw Implanted:Qty: 1 on 11/02/2017 by Sydnie Miles DPM at OR [facility] Left: Foot DALI : ORTHOPAEDICS [id number] / / documented as of this encounter [...] and were consensually agreed upon. Care Teams Bleach Range Operator Relationship Specialty Start Date End Date Ruth Xiao MD [address] [place] [address] [place] [phone] PCP - General Family Medicine 12/01/20 documented as of this encounter
--- OUTSIDE RECORDS SUMMARY | 2024-03-08 13:33 | External Medical Summary | Summary of Care ---
Author Name Unknown Organization [facility] Address [address] [facility] [place] [address] Phone [phone] Care Team Providers Care Base Loader Name Role Phone Ruth Xiao MD Primary Care Provide r Reason for Visit * Reason Onset Date Comments Precert Denied 12/06/2023 wegovy Encounter Details Date Type Department Care Team (Late st Contact Info) Description 12/06/2023 Telephone Nutrition & Weight Management, [facility] [address] [place] [address] Nathalie Lopez PA-C [address] [place] [address] Precert Denied (wegovy) Allergies Active Allergy Reactions [...] morning. 30 Capsule 5 10/04/2023 Active Nystatin 083321 UNIT/GM External CreamIndications:Ca ndidal skin infection Apply [...] COVID-19 virus infection 08/27/2021 TEE Confirmation Research Other*[id number] 08/13 Major depressive disorder, recurrent episode, mo [...] auth end date: N/A Rx Insurance Info: [employer] [place] Reference #: Mega Mata Medication Non Clinical Advisor II 12/07/23,9:30 AM To discuss denial with a Vice President Of Consulting Services, please call [employer] at [phone]. . Type Date User Summary Attachment Precert 12/06/2023 1:01 PM Mary Restrepo OSA [facility] Authorization Submission - Note: [facility] Authorization Submission Submission Information: Medication: Wegovy Portal used: [phone] Insurance: [employer] Authorization #/[place]acon: faxed clinicals via [employer] to [phone] * Telephone Encounter - Modesta Sexton LPN [...] adding naltrexone to current wellbutrin CoverMyMeds [place]: [id number] documented in this encounter Plan of Treatment Upcoming Encounters Date Type Department Care Team (Latest Contact Info) Description 01/09/2024 7:30 PM EDT PulmDiagnostic Sleep Lab, [facility] [address] [place] [address] [place], Sleep Med Night Sleep [address] [facility] [address] 01/26/2024 11:00 AM EDT Office Visit Nutrition & Weight Management, [facility] [address] [place] [address] Nathalie Lopez PA-C [address] [place] [address] 02/14/2024 11:15 AM EDT Office Visit Urology, [facility] [address] [place] [address] Frank Foster MD [address] [place] [address] 03/06/2024 11:45 AM EDT Hospital Encounter ENDO OSSC, Endoscopy Room [facility] [address] [place] [phone] Josselyn Tolentino DO [address] [place] [address] 03/06/2024 11:45 AM EDT - 03/06/2024 12:15 PM EDT Surgery ENDO OSSC, Endoscopy Room [facility] [address] [place] [phone] Josselyn Tolentino DO [address] [place] [address] COLONOSCOPY FLEXIBLE PROXIMAL DIAGNOSTIC 05/03/2024 10:00 AM EST Office Visit Gastroenterology, [facility] [address] [place] [address] Shahana Ventura CRNP [address] [place] [address] Scheduled Procedures Name Priority Associated Diagnoses Date/Ti [...] 08/27/1998 HPV/Co-Test 08/27/2009 CKD PHOS USE SMARTSET 28395 08/18/2018 08/18/2017 COVID-19 Vaccine ( season) 2023 [...] 11/26/2024 11/27/2023, 08/13 CKD HGB USE SMARTSET 15884 12/11/202412/11, 12/12/2023, 10/24/2023, Additional history exists Diabetes [...] this encounter Medical Devices Implanted Type Area Gis Developer Device Identifier Shelf Expiration Date Model / Serial / Lot Vitoss Bioactv Foam Pack 2.5cc - [id number] Implanted:Qty: 1 on 11/02/2017 by Sydnie Miles DPM at OR [facility] Left: Foot DALI : SPINE 07/12/2019 [id number] / / [id number] Plate (Non Sterile Slim Straight 5 Hole Length 36.5 Implanted:Qty: 1 on 11/02/2017 by Sydnie Miles DPM at OR [facility] Left: Foot [id number] / / 2.7 Mm Non-Locking Screws Implanted:Qty: 1 on 11/02/2017 by Sydnie Miles DPM at OR [facility] Left: Foot DALI : ORTHOPAEDICS [id number] / / 2.7 Mm Non-Locking Screw Implanted:Qty: 1 on 11/02/2017 by Sydnie Miles DPM at OR [facility] Left: Foot DALI : ORTHOPAEDICS [id number] / / 2.7 Mm Non-Locking Screws Implanted:Qty: 1 on 11/02/2017 by Sydnie Miles DPM at OR [facility] Left: Foot DALI : ORTHOPAEDICS [id number] / / 2.7 Mm Non-Locking Screw Implanted:Qty: 1 on 11/02/2017 by Sydnie Miles DPM at OR [facility] Left: Foot DALI : ORTHOPAEDICS [id number] / / documented as of this encounter [...] and were consensually agreed upon. Care Teams Base Loader Relationship Specialty Start Date End Date Ruth Xiao MD [address] [place] [address] [place] [phone] PCP - General Family Medicine 12/01/20 documented as of this encounter
--- OUTSIDE RECORDS SUMMARY | 2024-03-08 13:33 | External Medical Summary ---
Author Name Unknown Address Unknown Organization K01:LABORATORY [facility] - [address] [facility] [address] Laboratory Report Ordering Provider Test Date Status MAULIK MEZA 12/12/2023 16:21:24 Final Fasting Observation Date Value Abnormality Reference (Units ) Status Triglyceride 12/12/2023 16:21:24 419 Above high normal <=174 (mg/dL) Final Triglyceride Reference Range s (mg/dL):
<150 Acceptable
150-174 Borderline high
175-499 High
>=500 Very high Cholesterol 12/12/2023 16:21:24 191 <200 (mg /dL) Final Total Cholesterol Reference Ranges (mg/dL):
<200 Desirable
200-239 Borderline high
>=240 High HDL 12/12/2023 16:21:24 26 Below low normal >49 (mg/dL) Final HDL Cholesterol Reference Ra nges (mg/dL):
>=60 High (Desirable)
<50 Low (Undesirable) For Females
<40 Low (Undesirable) For Males NON-HDL CHOLESTEROL 12/12/2023 16:21:24 165 Above high normal <=159 (mg/dL) Final Non-HDL Cholesterol Referenc e Range (mg/dL):
<100 Target level for high risk ASCVD patient
<130 Optimal for general population
130-159 Near optimal for general population
160-189 Borderline High
190-219 High
>=220 Very High Performing Location LABORATORY [facility] - [address] [place] [address]
--- OUTSIDE RECORDS SUMMARY | 2024-03-08 13:34 | External Medical Summary ---
Author Name Unknown Address Unknown Organization K01:LABORATORY [facility] - [address] [place] [address] Laboratory Report Ordering Provider Test Date Status MAULIK MEZA 12/12/2023 16:21:24 Final Fasting Observation Date Value Abnormality Reference (Units ) Status LDL, (direct) 12/12/2023 16:21:24 109 <=129 (mg/dL) Final LDL Cholesterol Reference Ra nges (mg/dL):
<70 Target level for high risk ASCVD patient
<100 Optimal for general population
100-129 Near optimal for general population
130-159 Borderline high
160-189 High
>=190 Very high Performing Location LABORATORY [facility] - [address] [place] [address]
--- OUTSIDE RECORDS SUMMARY | 2024-03-08 13:34 | External Medical Summary | Summary of Care ---
Author Name Unknown Organization [facility] Address [address] [place] [place] [address] Phone [phone] Care Team Providers Care Emergency Medical Dispatcher Name Role Phone Ruth Xiao MD Primary Care Provide r Encounter Details Date Type Department Care Team (Late st Contact Info) Description 11/25/2023 Orders Only PATIENT PORTAL DO NOT DELETE THIS DEPT USED BY [place] [id number] Allergies Active Allergy Reactions Criticality Noted Date Comments Fluoxetine Other (Please comment) 04/02/2004 Arelis hernandez Other reaction(s): Thaddeus knapp documented as of this encounter (statuses as of 11/25/2023) Medications Medication Sig Dispensed Refills Start Date [...] morning. 30 Capsule 5 10/04/2023 Active Nystatin 063921 UNIT/GM External CreamIndications:Cand idal skin infection Apply [...] (BMI) of 40.0 to 44.9 in adult ([facility]) Inject 0.5 mg under the skin once [...] as of this encounter (statuses as of 11/25/2023) Active Problems Problem Noted Date Diagnosed Date Chronic kidney disease, stage 3a 11/20/2023 Overview: Per CKD protocol Chronic constipation 10/25/2023 Morbid obesity with BMI of 40.0-44.9, adult 09/2022 COVID-19 virus infection 08/27/2021 TEE Confirmation Research Other*[id number] 08/13 Major depressive disorder, recurrent episode, mo derate 08/18/2020 Migraine with aura and witho ut status migrainosus, not intractable 05/13/2019 CIERA (obstructive sleep apnea) 08/24/2018 HTN, goal below 130/80 05/28/2018 Gastroesophageal reflux disease 05/28/2018 History of Graves' disease 08/09/2017 Post-surgical hypothyroidism 06/12/2017 [place] [facility] [place] 150mcg/d Intermittent asthma with reliever use up to twic e per week 07/16/2010 Anxiety state 05/19/2008 documented as of this encounter (statuses as of 11/25/2023) Resolved Problems Problem Noted Date Diagnosed Date [...] as of this encounter (statuses as of 11/25/2023) Immunizations Name Administration Dates Next Due COVID-19 [...] 7:30 PM EDT PulmDiagnostic Sleep Lab, [address] [place] [address] [facility], Sleep Med Night Sleep [address] [place] [address] 01/26/2024 11:00 AM EDT Office Visit Nutrition & Weight Management, [facility] [address] [place] [address] Nathalie Lopez PA-C [address] [place] [address] 02/14/2024 11:15 AM EDT Office Visit Urology, [facility] [address] [place] [address] Frank Foster MD [address] [place] [address] 03/06/2024 11:45 AM EDT Hospital Encounter ENDO [facility], Endoscopy Room [facility] [address] [place] [phone] Josselyn Tolentino DO [address] [place] [address] 03/06/2024 11:45 AM EDT - 03/06/2024 12:15 PM EDT Surgery ENDO [facility], Endoscopy Room [facility] [address] [place] [phone] Josselyn Tolentino DO [address] [place] [address] COLONOSCOPY FLEXIBLE PROXIMAL DIAGNOSTIC 05/03/2024 10:00 AM EST Office Visit Gastroenterology, [facility] [address] [place] [address] Shahana Ventura CRNP [address] [place] [address] Scheduled Procedures Name Priority Associated Diagnoses Date/Ti [...] - 19+ 3-dose series) 08/27/1998 HPV/Co-Test 08/27/2009 Albumin/Creatinine Ratio 08/27/2022 08/27/2021 COVID-19 Vaccine ( season) 2023 03/12/2022, 09/10/2020, 08/11/2020 Mammogram 10/26/2023 10/25/2022, 10/13, 10/16/2020, Additional history exists Influenza Vaccine (FLU shot) (#1) 2024 01/25/2023, 03/23/2022, 03/06/2020 Depression Monitoring 01/24/2024 01/23/2023 GFR 04/24/2024 10/24/2023, 07/13, 03/15/2023, Additional history exists Cervical Cancer Screening 06/16/2024 Pap Smear 06/16/2024 06/16/2021, 02/12, 10/08/2014, Additional history exists TSH 10/23/2024 10/24/2023, 09/13, 07/26/2023, Additional history exists Diabetes Screening 10/23/2026 10/24/2023, 0 07/26/2023, 03/15/2023, [...] this encounter Medical Devices Implanted Type Area Medical Videographer Device Identifier Shelf Expiration Date Model / Serial / Lot Elizabeth Bioactv Foam Pack 2.5cc - [id number] Implanted:Qty: 1 on 11/02/2017 by Sydnie Miles DPM at OR [facility] Left: Foot DALI : SPINE 07/12/2019 [id number] / / [id number] Plate (Non Sterile Slim Straight 5 Hole Length 36.5 Implanted:Qty: 1 on 11/02/2017 by Sydnie Miles DPM at OR [facility] Left: Foot [id number] / / 2.7 Mm Non-Locking Screws Implanted:Qty: 1 on 11/02/2017 by Sydnie Miles DPM at OR [facility] Left: Foot DALI : ORTHOPAEDICS [id number] / / 2.7 Mm Non-Locking Screw Implanted:Qty: 1 on 11/02/2017 by Sydnie Miles DPM at OR [facility] Left: Foot DALI : ORTHOPAEDICS [id number] / / 2.7 Mm Non-Locking Screws Implanted:Qty: 1 on 11/02/2017 by Sydnie Miles DPM at OR [facility] Left: Foot DALI : ORTHOPAEDICS [id number] / / 2.7 Mm Non-Locking Screw Implanted:Qty: 1 on 11/02/2017 by Sydnie Miles DPM at OR [facility] Left: Foot DALI : ORTHOPAEDICS [id number] / / documented as of this encounter Advance Directives * Full Code (Latest Code Status on File) Date Activated Date Inactivated Comments 06/12/2017 2:51 PM 06/14/2017 1:40 AM This order r eflects the patients wishes and were consensually agreed upon. Care Teams Emergency Medical Dispatcher Relationship Specialty Start Date End Date Ruth Xiao MD [address] [place] [address] [place] [address] PCP - General Family Medicine 12/01/20 documented as of this encounter
--- OUTSIDE RECORDS SUMMARY | 2024-03-08 13:34 | External Medical Summary | Summary of Care ---
Author Name Unknown Organization [facility] Address [address] [place] [place] [place] [address] Phone [phone] Care Team Providers Care Brick Or Block Maker Name Role Phone Ruth Xiao MD Primary Care Provide r Reason for Visit * Reason Onset Date Comments Precert Denied 12/06/2023 wegovy Encounter Details Date Type Department Care Team (Late st Contact Info) Description 12/06/2023 Telephone Nutrition & Weight Management, [facility] [address] [place] [address] Nathalie Lopez PA-C [address] [place] [address] Precert Denied (wegovy) Allergies Active Allergy Reactions Criticality Noted Date Comments Fluoxetine Other (Please comment) 04/02/2004 Arelis weak Other reaction(s): shaky, Tremor documented as of this encounter (statuses as of 12/07/2023) Medications Medication Sig Dispensed Refills Start Date [...] morning. 30 Capsule 5 10/04/2023 Active Nystatin [id number] UNIT/GM External CreamIndications:Cand idal skin infection Apply [...] as of this encounter (statuses as of 12/07/2023) Active Problems Problem Noted Date Diagnosed Date Chronic kidney disease, stage 3a 11/20/2023 Overview: Per CKD protocol Chronic constipation 10/25/2023 Morbid obesity with BMI of 40.0-44.9, adult 09/2022 COVID-19 virus infection 08/27/2021 TEE Confirmation Research Other*[id number] 08/13 Major depressive disorder, recurrent episode, mo derate 08/18/2020 Migraine with aura and witho ut status migrainosus, not intractable 05/13/2019 CIERA (obstructive sleep apnea) 08/24/2018 HTN, goal below 130/80 05/28/2018 Gastroesophageal reflux disease 05/28/2018 History of Graves' disease 08/09/2017 Post-surgical hypothyroidism 06/12/2017 Overview: At [facility] [place]; T4Rx 150mcg/d Intermittent asthma with reliever use up to twic e per week 07/16/2010 Anxiety state 05/19/2008 documented as of this encounter (statuses as of 12/07/2023) Resolved Problems Problem Noted Date Diagnosed Date [...] as of this encounter (statuses as of 12/07/2023) Immunizations Name Administration Dates Next Due COVID-19 [...] encounter Miscellaneous Notes * Telephone Encounter - Modesta Sexton LPN - 12/06/2023 10:18 AM EDT Please Start prior authorization for Wegovy 0.5 MG/0.5ML Subcutaneous Solution Auto-injector (Semaglutide-Weight Management) Diagnosis Class 3 severe obesity due to excess calories without serious comorbidity with body mass index (BMI) of 40.0 to 44.9 in adult ([facility]) [E66.01, Z68.41] Patient qualifies for [...] adding naltrexone to current wellbutrin CoverMyMeds [place]: [id number] documented in this encounter Plan of Treatment Upcoming Encounters Date Type Department Care Team (Latest Contact Info) Description 01/09/2024 7:30 PM EDT PulmDiagnostic Sleep Lab, [facility] [address] [address] [facility], Sleep Med Night Sleep [address] [place] [address] 01/26/2024 11:00 AM EDT Office Visit Nutrition & Weight Management, [facility] [address] [address] Nathalie Lopez PA-C [address] [address] 02/14/2024 11:15 AM EDT Office Visit Urology, [facility] [address] [place] [address] Frank Foster MD [address] [place] [address] 03/06/2024 11:45 AM EDT Hospital Encounter ENDO [facility], Endoscopy Room [facility] [address] [place] [address] Josselyn Tolentino, [address] [place] [address] 03/06/2024 11:45 AM EDT - 03/06/2024 12:15 PM EDT Surgery ENDO [facility], Endoscopy Room [facility] [address] [place] [phone] Josselyn Tolentino DO [address] [place] [address] COLONOSCOPY FLEXIBLE PROXIMAL DIAGNOSTIC 05/03/2024 10:00 AM EST Office Visit Gastroenterology, [facility] [address] [place] [address] Shahana Ventura CRNP [address] [place] [address] Scheduled Procedures Name Priority Associated Diagnoses Date/Ti [...] 08/27/1998 HPV/Co-Test 08/27/2009 CKD PHOS USE SMARTSET 54311 08/18/2018 08/18/2017 COVID-19 Vaccine ( season) 2023 03/12/2022, 09/10/2020, 08/11/2020 Mammogram 10/26/2023 10/25/2022, 10/13, 10/16/2020, Additional history exists Influenza Vaccine (FLU shot) (#1) 2024 01/25/2023, 03/23/2022, 03/06/2020 Depression Monitoring 01/24/2024 01/23/2023 GFR 04/24/2024 10/24/2023, 07/13, 03/15/2023, Additional history exists Cervical Cancer Screening 06/16/2024 Pap Smear 06/16/2024 06/16/2021, 02/12, 10/08/2014, Additional history exists CKD HGB USE SMARTSET 60622 10/23/202410/23, 10/24/2023, 12/14/2022, Additional history exists TSH [...] this encounter Medical Devices Implanted Type Area Diesel Engine Erector Device Identifier Shelf Expiration Date Model / Serial / Lot Vitoss Bioactv Foam Pack 2.5cc - [id number] Implanted:Qty: 1 on 11/02/2017 by Sydnie Miles DPM at OR [facility] Left: Foot DALI : SPINE 07/12/2019 [id number] / / [id number] Plate (Non Sterile Slim Straight 5 Hole Length 36.5 Implanted:Qty: 1 on 11/02/2017 by Sydnie Miles DPM at OR [facility] Left: Foot [id number] / / 2.7 Mm Non-Locking Screws Implanted:Qty: 1 on 11/02/2017 by Sydnie Miles DPM at OR [facility] Left: Foot DALI : ORTHOPAEDICS [id number] / / 2.7 Mm Non-Locking Screw Implanted:Qty: 1 on 11/02/2017 by Sydnie Miles DPM at OR [facility] Left: Foot DALI : ORTHOPAEDICS [id number] / / 2.7 Mm Non-Locking Screws Implanted:Qty: 1 on 11/02/2017 by Sydnie Miles DPM at OR [facility] Left: Foot DALI : ORTHOPAEDICS [id number] / / 2.7 Mm Non-Locking Screw Implanted:Qty: 1 on 11/02/2017 by Sydnie Miles DPM at OR [facility] Left: Foot DALI : ORTHOPAEDICS [id number] / / documented as of this encounter Advance Directives * Full Code (Latest Code Status on File) Date Activated Date Inactivated Comments 06/12/2017 2:51 PM 06/14/2017 1:40 AM This order r eflects the patients wishes and were consensually agreed upon. Care Teams Brick Or Block Maker Relationship Specialty Start Date End Date Ruth Xiao MD [address] [place] [address] [place] [address] PCP - General Family Medicine 12/01/20 documented as of this encounter
--- OUTSIDE RECORDS SUMMARY | 2024-03-08 13:34 | External Medical Summary | Summary of Care ---
Author Name Unknown Organization [facility] Address [address] [place] [address] Phone [phone] Care Team Providers Care Research Laboratory Manager Name Role Phone Ruth Xiao MD Primary Care Provide r Encounter Details Date Type Department Care Team (Late st Contact Info) Description 12/08/2023 Orders Only PATIENT PORTAL DO NOT DELETE THIS DEPT USED BY [place] [id number] Allergies Active Allergy Reactions Criticality Noted Date Comments Fluoxetine Other (Please comment) 04/02/2004 Arelis hernandez Other reaction(s): Thaddeus knapp documented as of this encounter (statuses as of 12/08/2023) Medications Medication Sig Dispensed Refills Start Date [...] morning. 30 Capsule 5 10/04/2023 Active Nystatin 249014 UNIT/GM External CreamIndications:Cand idal skin infection Apply [...] (BMI) of 40.0 to 44.9 in adult ([facility]) Inject 0.5 mg under the skin once [...] as of this encounter (statuses as of 12/08/2023) Active Problems Problem Noted Date Diagnosed Date Chronic kidney disease, stage 3a 11/20/2023 Overview: Per CKD protocol Chronic constipation 10/25/2023 Morbid obesity with BMI of 40.0-44.9, adult 09/2022 COVID-19 virus infection 08/27/2021 TEE Confirmation Research Other*[id number] 08/13 Major depressive disorder, recurrent episode, mo derate 08/18/2020 Migraine with aura and witho ut status migrainosus, not intractable 05/13/2019 CIERA (obstructive sleep apnea) 08/24/2018 HTN, goal below 130/80 05/28/2018 Gastroesophageal reflux disease 05/28/2018 History of Graves' disease 08/09/2017 Post-surgical hypothyroidism 06/12/2017 Overview: At [facility] [place]; T4Rx 150mcg/d Intermittent asthma with reliever use up to twic e per week 07/16/2010 Anxiety state 05/19/2008 documented as of this encounter (statuses as of 12/08/2023) Resolved Problems Problem Noted Date Diagnosed Date [...] as of this encounter (statuses as of 12/08/2023) Immunizations Name Administration Dates Next Due COVID-19 [...] 01/09/2024 7:30 PM EDT PulmDiagnostic Sleep Lab, [address] [place] [address] [facility], Sleep Med Night Sleep [address] [place] [address] 01/26/2024 11:00 AM EDT Office Visit Nutrition & Weight Management, [facility] [address] [place] [address] Nathalie Lopez PA-C [address] [place] [address] 02/14/2024 11:15 AM EDT Office Visit Urology, [facility] [address] [place] [address] Frank Foster MD [address] [place] [address] 03/06/2024 11:45 AM EDT Hospital Encounter ENDO [facility]SS[facility], Endoscopy Room [facility] [address] [place] [phone] Josselyn Tolentino DO [address] [place] [address] 03/06/2024 11:45 AM EDT - 03/06/2024 12:15 PM EDT Surgery ENDO [facility], Endoscopy Room [facility] [address] [place] [phone] Josselyn Tolentino DO [address] [place] [address] COLONOSCOPY FLEXIBLE PROXIMAL DIAGNOSTIC 05/03/2024 10:00 AM EST Office Visit Gastroenterology, [facility] [address] [place] [address] Shahana Ventura CRNP [address] [place] [address] Scheduled Procedures Name Priority Associated Diagnoses Date/Ti [...] 08/27/1998 HPV/Co-Test 08/27/2009 CKD PHOS USE SMARTSET 85033 08/18/2018 08/18/2017 COVID-19 Vaccine ( season) 2023 03/12/2022, 09/10/2020, 08/11/2020 Mammogram 10/26/2023 10/25/2022, 10/13, 10/16/2020, Additional history exists Influenza Vaccine (FLU shot) (#1) 2024 01/25/2023, 03/23/2022, 03/06/2020 Depression Monitoring 01/24/2024 01/23/2023 GFR 04/24/2024 10/24/2023, 07/13, 03/15/2023, Additional history exists Cervical Cancer Screening 06/16/2024 Pap Smear 06/16/2024 06/16/2021, 02/12, 10/08/2014, Additional history exists CKD HGB USE SMARTSET 07113 10/23/202410/23, 10/24/2023, 12/14/2022, Additional history exists TSH [...] this encounter Medical Devices Implanted Type Area Tanning Solution Maker Device Identifier Shelf Expiration Date Model / Serial / Lot Vitoss Bioactv Foam Pack 2.5cc - [id number] Implanted:Qty: 1 on 11/02/2017 by Sydnie Miles DPM at OR [facility] Left: Foot DALI : SPINE 07/12/2019 [id number] / / [id number] Plate (Non Sterile Slim Straight 5 Hole Length 36.5 Implanted:Qty: 1 on 11/02/2017 by Sydnie Miles DPM at OR [facility] Left: Foot [id number] / / 2.7 Mm Non-Locking Screws Implanted:Qty: 1 on 11/02/2017 by Sdynie Miles DPM at OR [facility] Left: Foot DALI : ORTHOPAEDICS [id number] / / 2.7 Mm Non-Locking Screw Implanted:Qty: 1 on 11/02/2017 by Sydnie Miles DPM at OR [facility] Left: Foot DALI : ORTHOPAEDICS [id number] / / 2.7 Mm Non-Locking Screws Implanted:Qty: 1 on 11/02/2017 by Sydnie Miles DPM at OR [facility] Left: Foot DALI : ORTHOPAEDICS [id number] / / 2.7 Mm Non-Locking Screw Implanted:Qty: 1 on 11/02/2017 by Sydnie Miles DPM at OR [facility] Left: Foot DALI : ORTHOPAEDICS [id number] / / documented as of this encounter Advance Directives * Full Code (Latest Code Status on File) Date Activated Date Inactivated Comments 06/12/2017 2:51 PM 06/14/2017 1:40 AM This order r eflects the patients wishes and were consensually agreed upon. Care Teams Research Laboratory Manager Relationship Specialty Start Date End Date Ruth Xiao MD [address] [place] [address] [place] [phone] PCP - General Family Medicine 12/01/20 documented as of this encounter
--- OUTSIDE RECORDS SUMMARY | 2024-03-08 13:34 | External Medical Summary | Summary of Care ---
Author Name Unknown Organization [facility] Address [address] [facility] [place] [address] Phone [phone] Care Team Providers Care Chef Under Name Role Phone Ruth Xiao MD Primary Care Provide r Reason for Visit * Reason Onset Date Comments Precert In Process 12/06/2023 24 [facility] Encounter Details Date Type Department Care Team (Late st Contact Info) Description 12/06/2023 Telephone Nutrition & Weight Management, [facility] [address] [facility] [place] [address] Nathalie Lopez PA-C [address] [place] [address] [facility]ert In Process ([facility] Allergies Active Allergy Reactions Criticality Noted Date Comments Fluoxetine Other (Please comment) 04/02/2004 Arelis weak Other reaction(s): shaky, Tremor documented as of this encounter (statuses as of 12/06/2023) Medications Medication Sig Dispensed Refills Start Date [...] morning. 30 Capsule 5 10/04/2023 Active Nystatin 640265 UNIT/GM External CreamIndications:Cand idal skin infection Apply [...] as of this encounter (statuses as of 12/06/2023) Active Problems Problem Noted Date Diagnosed Date Chronic kidney disease, stage 3a 11/20/2023 Overview: Per CKD protocol Chronic constipation 10/25/2023 Morbid obesity with BMI of 40.0-44.9, adult 09/2022 COVID-19 virus infection 08/27/2021 TEE Confirmation Research Other*[id number] 08/13 Major depressive disorder, recurrent episode, mo derate 08/18/2020 Migraine with aura and witho ut status migrainosus, not intractable 05/13/2019 CIERA (obstructive sleep apnea) 08/24/2018 HTN, goal below 130/80 05/28/2018 Gastroesophageal reflux disease 05/28/2018 History of Graves' disease 08/09/2017 Post-surgical hypothyroidism 06/12/2017 Overview: At [facility]; T4Rx 150mcg/d Intermittent asthma with reliever use up to twic e per week 07/16/2010 Anxiety state 05/19/2008 documented as of this encounter (statuses as of 12/06/2023) Resolved Problems Problem Noted Date Diagnosed Date [...] as of this encounter (statuses as of 12/06/2023) Immunizations Name Administration Dates Next Due COVID-19 [...] No 01/23/2023 Does the household have a mclaren fl[employer] source of income? (Household - for ages [...] 40.0 to 44.9 in adult ([facility]) [E66.01, Z68.41] Patient qualifies for Weight [...] adding naltrexone to current wellbutrin CoverMyMeds [place]: [id number] documented in this encounter Plan of Treatment Upcoming Encounters Date Type Department Care Team (Latest Contact Info) Description 01/09/2024 7:30 PM EDT PulmDiagnostic Sleep Lab, [facility] [address] [place] [address] [facility], Sleep Med Night Sleep [address] [place] [address] 01/26/2024 11:00 AM EDT Office Visit Nutrition & Weight Management, [facility] [address] [place] [address] Nathalie Lopez PA-C [address] [place] [address] 02/14/2024 11:15 AM EDT Office Visit Urology, [facility] [address] [place] [address] Frank Foster MD [address] [place] [address] 03/06/2024 11:45 AM EDT Hospital Encounter [facility]O [facility], Endoscopy Room [facility] [address] [place] [address] Josselyn Tolentino, [address] [place] [address] 03/06/2024 11:45 AM EDT - 03/06/2024 12:15 PM EDT Surgery [facility]O [facility], Endoscopy Room [facility] [address] [place] [phone] Josselyn Tolentino DO [address] [place] [address] COLONOSCOPY FLEXIBLE PROXIMAL DIAGNOSTIC 05/03/2024 10:00 AM EST Office Visit Gastroenterology, [facility] [address] [place] [address] Shahana Ventura CRNP [address] [place] [address] Scheduled Procedures Name Priority Associated Diagnoses Date/Ti [...] 08/27/1998 HPV/Co-Test 08/27/2009 CKD PHOS USE SMARTSET 23763 08/18/2018 08/18/2017 COVID-19 Vaccine (4 - 2022-24 season) 2023 03/12/2022, 09/10/2020, 08/11/2020 Mammogram 10/26/2023 10/25/2022, 10/13, 10/16/2020, Additional history exists Influenza Vaccine (FLU shot) (#1) 2024 01/25/2023, 03/23/2022, 03/06/2020 Depression Monitoring 01/24/2024 01/23/2023 GFR 04/24/2024 10/24/2023, 07/13, 03/15/2023, Additional history exists Cervical Cancer Screening 06/16/2024 Pap Smear 06/16/2024 06/16/2021, 02/12, 10/08/2014, Additional history exists CKD HGB USE SMARTSET 54522 10/23/202410/23, 10/24/2023, 12/14/2022, Additional history exists TSH [...] this encounter Medical Devices Implanted Type Area Career Resource Specialist Device Identifier Shelf Expiration Date Model / Serial / Lot Vitoss Bioactv Foam Pack 2.5cc - [id number] Implanted:Qty: 1 on 11/02/2017 by Sydnie Miles DPM at OR [facility] Left: Foot DALI : SPINE 07/12/2019 [id number] / / [id number] Plate (Non Sterile Slim Straight 5 Hole Length 36.5 Implanted:Qty: 1 on 11/02/2017 by Sydnie Miles DPM at OR [facility] Left: Foot [id number] / / 2.7 Mm Non-Locking Screws Implanted:Qty: 1 on 11/02/2017 by Sydnie Miles DPM at OR [facility] Left: Foot DALI : ORTHOPAEDICS [id number] / / 2.7 Mm Non-Locking Screw Implanted:Qty: 1 on 11/02/2017 by Sydnie Miles DPM at OR [facility] Left: Foot DALI : ORTHOPAEDICS [id number] / / 2.7 Mm Non-Locking Screws Implanted:Qty: 1 on 11/02/2017 by Sydnie Miles DPM at OR [facility] Left: Foot DALI : ORTHOPAEDICS [id number] / / 2.7 Mm Non-Locking Screw Implanted:Qty: 1 on 11/02/2017 by Sydnie Miles DPM at OR [facility] Left: Foot DALI : ORTHOPAEDICS [id number] / / documented as of this encounter Advance Directives * Full Code (Latest Code Status on File) Date Activated Date Inactivated Comments 06/12/2017 2:51 PM 06/14/2017 1:40 AM This order r eflects the patients wishes and were consensually agreed upon. Care Teams Chef Under Relationship Specialty Start Date End Date Ruth Xiao MD [address] [place] [address] [place] [address] PCP - General Family Medicine 12/01/20 documented as of this encounter
--- OUTSIDE RECORDS SUMMARY | 2024-03-08 13:34 | External Medical Summary | Summary of Care ---
Author Name Unknown Organization [facility] Address [address] [place] [facility] [place] [address] Phone [phone] Care Team Providers Care Contract Implementation Analyst Name Role Phone Ruth Xiao MD Primary Care Provide r Reason for Visit * Reason Comments Outpatient Testing Encounter Details Date Type Department Care Team (Late st Contact Info) Description 11/27/2023 8:40 AM EDT Laboratory Laboratory, [facility] [address] [place] [address] [facility] [address] [place] [address] Pain in other joint; Chronic kidney disease, stage 3a (HCC) Allergies Active Allergy Reactions Criticality Noted Date Comments Fluoxetine Other (Please comment) 04/02/2004 Arelis hernandez Other reaction(s): penelopeky, Tremor documented as of this encounter (statuses as of 11/27/2023) Medications Medication Sig Dispensed Refills Start Date [...] morning. 30 Capsule 5 10/04/2023 Active Nystatin 037148 UNIT/GM External CreamIndications:Cand idal skin infection Apply [...] as of this encounter (statuses as of 11/27/2023) Active Problems Problem Noted Date Diagnosed Date Chronic kidney disease, stage 3a 11/20/2023 Overview: Per CKD protocol Chronic constipation 10/25/2023 Morbid obesity with BMI of 40.0-44.9, adult 09/2022 COVID-19 virus infection 08/27/2021 TEE Confirmation Research Other*[id number] 08/13 Major depressive disorder, recurrent episode, mo [...] as of this encounter (statuses as of 11/27/2023) Resolved Problems Problem Noted Date Diagnosed Date [...] as of this encounter (statuses as of 11/27/2023) Immunizations Name Administration Dates Next Due COVID-19 [...] encounter Miscellaneous Notes * Addendum Note - Lee Croft TECH - 11/27/2023 8:45 AM EDTAddended by: LEE CROFT on: 11/27/2023 08:45 AM Modules accepted: Orders documented in this encounter Plan of Treatment Upcoming Encounters Date Type Department Care Team (Latest Contact Info) Description 01/09/2024 7:30 PM EDT PulmDiagnostic Sleep Lab, [facility] [address] [place] [address] [facility], Sleep Med Night Sleep [address] [place] [address] 01/26/2024 11:00 AM EDT Office Visit Nutrition & Weight Management, [facility] [address] [place] [address] Nathalie Lopez PA-C [address] [place] [address] 02/14/2024 11:15 AM EDT Office Visit Urology, [facility] [address] [place] [address] Frank Foster MD [address] [place] [address] 03/06/2024 11:45 AM EDT Hospital Encounter ENDO [facility], Endoscopy Room [facility] [address] [place] [phone] Josselyn Tolentino DO [address] [place] [address] 03/06/2024 11:45 AM EDT - 03/06/2024 12:15 PM EDT Surgery ENDO [facility], Endoscopy Room [facility] [address] [place] [phone] Josselyn Tolentino DO [address] [place] [address] COLONOSCOPY FLEXIBLE PROXIMAL DIAGNOSTIC 05/03/2024 10:00 AM EST Office Visit Gastroenterology, [facility] [address] [place] [address] Shahana Ventura CRNP [address] [place] [address] Pending Results Name Type Priority Associated Diagnoses Date /Time RHEUMATOID FACTOR Lab Routine Pain in other joint 11/27/2023 8:41 AM EDT ALBUMIN / CREATININE RATIO, URINE Lab Routine Chronic kidney disease, stage 3a (HCC) 11/27/2023 8:45 AM EDT Scheduled Orders Name Type Priority Associated Diagnoses Orde r Schedule ALBUMIN / CREATININE RATIO, URINE Lab Routine Chronic kidney disease, stage 3a (HCC) Expected: 11/27/2023, Expires: 11/26/2024 Scheduled Procedures Name Priority Associated Diagnoses Date/Ti [...] this encounter Medical Devices Implanted Type Area Armature And Rotor Winder Device Identifier Shelf Expiration Date Model / Serial / Lot Vitoss Bioactv Foam Pack 2.5cc - [id number] Implanted:Qty: 1 on 11/02/2017 by Sydnie Miles DPM at OR [facility] Left: Foot DALI : SPINE 07/12/2019 [id number] / / [id number] Plate (Non Sterile Slim Straight 5 Hole Length 36.5 Implanted:Qty: 1 on 11/02/2017 by Sydnie Miles DPM at OR [facility] Left: Foot [id number] / / 2.7 Mm Non-Locking Screws Implanted:Qty: 1 on 11/02/2017 by Sydnie Miles DPM at OR [facility] Left: Foot DALI : ORTHOPAEDICS [id number] / / 2.7 Mm Non-Locking Screw Implanted:Qty: 1 on 11/02/2017 by Sydnie Miles DPM at OR [facility] Left: Foot DALI : ORTHOPAEDICS [id number] / / 2.7 Mm Non-Locking Screws Implanted:Qty: 1 on 11/02/2017 by Sydnie Miles DPM at OR [facility] Left: Foot DALI : ORTHOPAEDICS [id number] / / 2.7 Mm Non-Locking Screw Implanted:Qty: 1 on 11/02/2017 by Sydnie Miles DPM at OR [facility] Left: Foot DALI : ORTHOPAEDICS [id number] / / documented as of this encounter Visit Diagnoses Diagnosis Pain in other joint Chronic kidney disease, stage 3a (HCC) Chronic constipation Unspecified constipation Rectal bleeding Hemorrhage of rectum and anus documented in this encounter Advance Directives * Full Code (Latest Code Status on File) Date Activated Date Inactivated Comments 06/12/2017 2:51 PM 06/14/2017 1:40 AM This order r eflects the patients wishes and were consensually agreed upon. Care Teams Contract Implementation Analyst Relationship Specialty Start Date End Date Ruth Xiao MD [address] [place] [address] [place] [phone] PCP - General Family Medicine 12/01/20 documented as of this encounter
--- OUTSIDE RECORDS SUMMARY | 2024-03-08 13:34 | External Medical Summary | Summary of Care ---
Author Name Unknown Organization [facility] Address [address] [place] [facility] [place] [address] Phone [phone] Care Team Providers Care Equipment Operation Instructor Name Role Phone Ruth Xiao MD Primary Care Provide r Reason for Visit * Reason Onset Date Comments Pre Cert/Prior Auth 12/06/2023 Encounter Details Date Type Department Care Team (Late st Contact Info) Description 12/06/2023 Telephone Nutrition & Weight Management, [facility] [address] [place] [address] Nathalie Lopez PA-C [address] [place] [address] Pre Cert/Prior Auth Allergies Active Allergy Reactions Criticality Noted Date [...] Vitamin D3 50 MCG (1999 [place]) Oral CapsuleIndications:Vi tamin D insufficiency Take 1 Capsule by mouth in the morning. 30 Capsule 5 10/04/2023 Active Nystatin 768536 UNIT/GM External CreamIndications:Cand idal skin infection Apply [...] COVID-19 virus infection 08/27/2021 TEE Confirmation Research Other*[id number] 08/13 Major depressive disorder, recurrent episode, mo derate 08/18/2020 Migraine with aura and witho ut status migrainosus, not intractable 05/13/2019 CIERA (obstructive sleep apnea) 08/24/2018 HTN, goal below 130/80 05/28/2018 Gastroesophageal reflux disease 05/28/2018 History of Graves' disease 08/09/2017 Post-surgical hypothyroidism 06/12/2017 Overview: At [facility]; T4Rx 150mcg/d Intermittent asthma with reliever use [...] of 40.0 to 44.9 in adult ([facility]ER[facility]) [E66.01, Z68.41] Patient qualifies for Weight loss [...] adding naltrexone to current wellbutrin CoverMyMeds [place]: [id number] documented in this encounter Plan of Treatment Upcoming Encounters Date Type Department Care Team (Latest Contact Info) Description 01/09/2024 7:30 PM EDT PulmDiagnostic Sleep Lab, [facility] [address] [place] [address] [facility], Sleep Med Night Sleep [address] [place] [address] 01/26/2024 11:00 AM EDT Office Visit Nutrition & Weight Management, [facility] [address] [place] [address] Nathalie Lopez PA-C [address] [place] [address] 02/14/2024 11:15 AM EDT Office Visit Urology, [facility] [address] [place] [address] Frank Foster MD [address] [place] [address] 03/06/2024 11:45 AM EDT Hospital Encounter ENDO [facility], Endoscopy Room [facility] [address] [place] [phone] Josselyn Tolentino DO [address] [place] [address] 03/06/2024 11:45 AM EDT - 03/06/2024 12:15 PM EDT Surgery ENDO [facility], Endoscopy Room [facility] [address] [place] [phone] Josselyn Tolentino DO [address] [place] [address] COLONOSCOPY FLEXIBLE PROXIMAL DIAGNOSTIC 05/03/2024 10:00 AM EST Office Visit Gastroenterology, [facility] [address] [place] [address] Shahana Ventura CRNP [address] [place] [address] Scheduled Procedures Name Priority Associated Diagnoses Date/Ti [...] 08/27/1998 HPV/Co-Test 08/27/2009 CKD PHOS USE SMARTSET 71662 08/18/2018 08/18/2017 COVID-19 Vaccine ( season) 2023 03/12/2022, 09/10/2020, 08/11/2020 Mammogram 10/26/2023 10/25/2022, 10/13, 10/16/2020, Additional history exists Influenza Vaccine (FLU shot) (#1) 2024 01/25/2023, 03/23/2022, 03/06/2020 Depression Monitoring 01/24/2024 01/23/2023 GFR 04/24/2024 10/24/2023, 07/13, 03/15/2023, Additional history exists Cervical Cancer Screening 06/16/2024 Pap Smear 06/16/2024 06/16/2021, 02/12, 10/08/2014, Additional history exists CKD HGB USE SMARTSET 32279 10/23/202410/23, 10/24/2023, 12/14/2022, Additional history exists TSH [...] this encounter Medical Devices Implanted Type Area Partnership Development Manager Device Identifier Shelf Expiration Date Model / Serial / Lot Vitoss Bioactv Foam Pack 2.5cc - [id number] Implanted:Qty: 1 on 11/02/2017 by Sydnie Miles DPM at OR [facility] Left: Foot DALI : SPINE 07/12/2019 [id number] / / [id number] Plate (Non Sterile Slim Straight 5 Hole Length 36.5 Implanted:Qty: 1 on 11/02/2017 by Sydnie Miles DPM at OR [facility] Left: Foot [id number] / / 2.7 Mm Non-Locking Screws Implanted:Qty: 1 on 11/02/2017 by Sydnie Miles DPM at OR [facility] Left: Foot DALI : ORTHOPAEDICS [id number] / / 2.7 Mm Non-Locking Screw Implanted:Qty: 1 on 11/02/2017 by Sydnie Miles DPM at OR [facility] Left: Foot DALI : ORTHOPAEDICS [id number] / / 2.7 Mm Non-Locking Screws Implanted:Qty: 1 on 11/02/2017 by Sydnie Miles DPM at OR [facility] Left: Foot DALI : ORTHOPAEDICS [id number] / / 2.7 Mm Non-Locking Screw Implanted:Qty: 1 on 11/02/2017 by Sydnie Miles DPM at OR [facility] Left: Foot DALI : ORTHOPAEDICS [id number] / / documented as of this encounter Advance Directives * Full Code (Latest Code Status on File) Date Activated Date Inactivated Comments 06/12/2017 2:51 PM 06/14/2017 1:40 AM This order r eflects the patients wishes and were consensually agreed upon. Care Teams Equipment Operation Instructor Relationship Specialty Start Date End Date Ruth Xiao MD [address] [place] [address] [place] [id number] PCP - General Family Medicine 12/01/20 documented as of this encounter
--- OUTSIDE RECORDS SUMMARY | 2024-03-08 13:34 | External Medical Summary ---
Author Name Unknown Address Unknown Organization K01:[facility] [place] [address] [place] [address] Laboratory Report Ordering Provider Test Date Status PAULA VELÁSQUEZ 11/27/2023 08:41:42 Jacy l Observation Date Value Abnormality Reference (Units ) Status Rheumatoid Factor 11/27/2023 08:41:42 <10 <1 4 (IU/mL) Final Performing Location LABORATORY [facility] - [address] [address]
--- OUTSIDE RECORDS SUMMARY | 2024-03-08 13:34 | External Medical Summary | Summary of Care ---
Author Name Unknown Organization [facility] Address [address] [place] [address] Phone [phone] Care Team Providers Care Neon Installer Name Role Phone Ruth Xiao MD Primary Care Provide r Reason for Visit * Reason Onset Date Comments Films 11/27/2023 Encounter Details Date Type Department Care Team (Late st Contact Info) Description 11/27/2023 Telephone Radiology Film File [address] [place], [place] [id number] Lorenzo Momin, DO [address] [place] [address] Films Allergies Active Allergy Reactions Criticality Noted Date [...] morning. 30 Capsule 5 10/04/2023 Active Nystatin 816135 UNIT/GM External CreamIndications:Cand idal skin infection Apply [...] COVID-19 virus infection 08/27/2021 TEE Confirmation Research Other*[id number] 08/13 Major depressive disorder, recurrent episode, mo derate 08/18/2020 Migraine with aura and witho ut status migrainosus, not intractable 05/13/2019 CIERA (obstructive sleep apnea) 08/24/2018 HTN, goal below 130/80 05/28/2018 Gastroesophageal reflux disease 05/28/2018 History of Graves' disease 08/09/2017 Post-surgical hypothyroidism 06/12/2017 Overview: At [facility]; T4Rx 150mcg/d Intermittent asthma with reliever use [...] No 01/23/2023 Does the household have a [facility] source of income? (Household - for ages [...] encounter Miscellaneous Notes * Telephone Encounter - Santino Reagan, CIERA - 11/27/2023 8:11 AM EDT [facility] requesting 11-23-23 Knee MRI images be pushed to their system. [place] Authorization to Release on file. Images pushed to [facility] external connection through PACs Associated report(s) not needed. documented in this encounter Plan of Treatment Upcoming Encounters Date Type Department Care Team (Latest Contact Info) Description 11/27/2023 8:40 AM EDT Laboratory Laboratory, [facility] [address] [facility] [place] [phone] [facility] [address] [facility] [place] [address] 01/09/2024 7:30 PM EDT PulmDiagnostic Sleep Lab, [facility] [place] [address] [facility], Sleep [facility] [address] 01/26/2024 11:00 AM EDT Office Visit Nutrition & Weight Management, [facility] [address] [facility] [place] [address] Nathalie Lopez PA-C [address] [place] [address] 02/14/2024 11:15 AM EDT Office Visit Urology, [facility] [address] [facility] [place] [address] Frank Foster MD [address] [place] [address] 03/06/2024 11:45 AM EDT Hospital Encounter ENDO [facility], Endoscopy Room [facility] [address] [place] [phone] Josselyn Tolentino, DO [address] [place] [address] 03/06/2024 11:45 AM EDT - 03/06/2024 12:15 PM EDT Surgery ENDO [facility], Endoscopy Room [facility] [address] [place] [phone] Josselyn Tolentino, [address] [place] [address] COLONOSCOPY FLEXIBLE PROXIMAL DIAGNOSTIC 05/03/2024 10:00 AM EST Office Visit Gastroenterology, [facility] [address] [place] [address] Shahana Ventura CRNP [address] [place] [address] Scheduled Procedures Name Priority Associated Diagnoses Date/Ti [...] this encounter Medical Devices Implanted Type Area Measuring Clerk Device Identifier Shelf Expiration Date Model / Serial / Lot Vitoss Bioactv Foam Pack 2.5cc - [id number] Implanted:Qty: 1 on 11/02/2017 by Sydnie Miles DPM at OR [facility] Left: Foot DALI : SPINE 07/12/2019 [id number] / / [id number] Plate (Non Sterile Slim Straight 5 Hole Length 36.5 Implanted:Qty: 1 on 11/02/2017 by Sydnie Miles DPM at OR [facility] Left: Foot [id number] / / 2.7 Mm Non-Locking Screws Implanted:Qty: 1 on 11/02/2017 by Sydnie Miles DPM at OR [facility] Left: Foot DALI : ORTHOPAEDICS [id number] / / 2.7 Mm Non-Locking Screw Implanted:Qty: 1 on 11/02/2017 by Sydnie Miles DPM at OR [facility] Left: Foot DALI : ORTHOPAEDICS [id number] / / 2.7 Mm Non-Locking Screws Implanted:Qty: 1 on 11/02/2017 by Sydnie Miles DPM at OR [facility] Left: Foot DALI : ORTHOPAEDICS [id number] / / 2.7 Mm Non-Locking Screw Implanted:Qty: 1 on 11/02/2017 by Sydnie Miles DPM at OR [facility] Left: Foot DALI : ORTHOPAEDICS [id number] / / documented as of this encounter Advance Directives * Full Code (Latest Code Status on File) Date Activated Date Inactivated Comments 06/12/2017 2:51 PM 06/14/2017 1:40 AM This order r eflects the patients wishes and were consensually agreed upon. Care Teams Neon Installer Relationship Specialty Start Date End Date Ruth Xiao MD [address] [place] [address] [place] [phone] PCP - General Family Medicine 12/01/20 documented as of this encounter
--- OUTSIDE RECORDS SUMMARY | 2024-03-08 13:34 | External Medical Summary | Summary of Care ---
Author Name Unknown Organization [facility] Address [address] [facility] [address] Phone [phone] Care Team Providers Care Tools And Parts Attendant Name Role Phone Ruth Xiao MD Primary Care Provide r Reason for Visit * Reason Onset Date Comments Precert Denied 12/06/2023 wegovy Encounter Details Date Type Department Care Team (Late st Contact Info) Description 12/06/2023 Telephone Nutrition & Weight Management, [facility] [address] [place] [address] Nathalie Lopez PA-C [address] [place] [address] Precert Denied (wegovy) Allergies Active Allergy Reactions [...] morning. 30 Capsule 5 10/04/2023 Active Nystatin 086622 UNIT/GM External CreamIndications:Cand idal skin infection Apply [...] COVID-19 virus infection 08/27/2021 TEE Confirmation Research Other*[id number] 08/13 Major depressive disorder, recurrent episode, mo derate 08/18/2020 Migraine with aura and witho ut status migrainosus, not intractable 05/13/2019 CIERA (obstructive sleep apnea) 08/24/2018 HTN, goal below 130/80 05/28/2018 Gastroesophageal reflux disease 05/28/2018 History of Graves' disease 08/09/2017 Post-surgical hypothyroidism 06/12/2017 Overview: At [facility]; T4Rx 150mcg/d Intermittent asthma with reliever use [...] auth end date: N/A Rx [facility] Reference #: [employer] Medication Draw Bench Operator II 12/07/23,9:30 AM To discuss denial with a Zig Zag Stitcher, please call [facility] at [phone]. . Type Date User Summary Attachment Precert 12/06/2023 1:01 PM Mary Restrepo OSA [facility] Authorization Submission - Note: [facility] Authorization Submission Submission Information: Medication: Wegovy Portal used: [phone] Insurance: [email or web address] Authorization #/[place]: faxed clinicals via [employer] to [phone] * Telephone Encounter - Modesta Sexton LPN [...] adding naltrexone to current wellbutrin CoverMyMeds [place]: [id number] documented in this encounter Plan of Treatment Upcoming Encounters Date Type Department Care Team (Latest Contact Info) Description 01/09/2024 7:30 PM EDT PulmDiagnostic Sleep Lab, [facility] [address] [place] [address] [facility], Sleep Med Night [facility] [place] [address] 01/26/2024 11:00 AM EDT Office Visit Nutrition & Weight Management, [facility] [address] [place] [address] Nathalie Lopez PA-C [address] [place] [address] 02/14/2024 11:15 AM EDT Office Visit Urology, [facility] [address] [place] [address] Frank Foster MD [address] [place] [address] 03/06/2024 11:45 AM EDT Hospital Encounter ENDO [facility], Endoscopy Room [facility] [address] [place] [phone] Josselyn Tolentino, DO [address] [place] [address] 03/06/2024 11:45 AM EDT - 03/06/2024 12:15 PM EDT Surgery ENDO [facility], Endoscopy Room [facility] [address] [place] [phone] Josselyn Tolentino DO [address] [place] [address] COLONOSCOPY FLEXIBLE PROXIMAL DIAGNOSTIC 05/03/2024 10:00 AM EST Office Visit Gastroenterology, [facility] [address] [place] [address] Shahana Ventura CRNP [address] [place] [address] Scheduled Procedures Name Priority Associated Diagnoses Date/Ti [...] 08/27/1998 HPV/Co-Test 08/27/2009 CKD PHOS USE SMARTSET 47674 08/18/2018 08/18/2017 COVID-19 Vaccine ( season) 2023 03/12/2022, 09/10/2020, 08/11/2020 Mammogram 10/26/2023 10/25/2022, 10/13, 10/16/2020, Additional history exists Influenza Vaccine (FLU shot) (#1) 2024 01/25/2023, 03/23/2022, 03/06/2020 Depression Monitoring 01/24/2024 01/23/2023 GFR 04/24/2024 10/24/2023, 07/13, 03/15/2023, Additional history exists Cervical Cancer Screening 06/16/2024 Pap Smear 06/16/2024 06/16/2021, 02/12, 10/08/2014, Additional history exists CKD HGB USE SMARTSET 21600 10/23/202410/23, 10/24/2023, 12/14/2022, Additional history exists TSH [...] this encounter Medical Devices Implanted Type Area Developer Advisor Device Identifier Shelf Expiration Date Model / Serial / Lot Vitoss Bioactv Foam Pack 2.5cc - [id number] Implanted:Qty: 1 on 11/02/2017 by Sydnie Miles DPM at OR [facility] Left: Foot DALI : SPINE 07/12/2019 [id number] / / [id number] Plate (Non Sterile Slim Straight 5 Hole Length 36.5 Implanted:Qty: 1 on 11/02/2017 by Sydnie Miles DPM at OR [facility] Left: Foot [id number] / / 2.7 Mm Non-Locking Screws Implanted:Qty: 1 on 11/02/2017 by Sydnie Miles DPM at OR [facility] Left: Foot DALI : ORTHOPAEDICS [id number] / / 2.7 Mm Non-Locking Screw Implanted:Qty: 1 on 11/02/2017 by Sydnie Miles DPM at OR [facility] Left: Foot DALI : ORTHOPAEDICS [id number] / / 2.7 Mm Non-Locking Screws Implanted:Qty: 1 on 11/02/2017 by Sydnie Miles DPM at OR [facility] Left: Foot DALI : ORTHOPAEDICS [id number] / / 2.7 Mm Non-Locking Screw Implanted:Qty: 1 on 11/02/2017 by Sydnie Miles DPM at OR [facility] Left: Foot DALI : ORTHOPAEDICS [id number] / / documented as of this encounter Advance Directives * Full Code (Latest Code Status on File) Date Activated Date Inactivated Comments 06/12/2017 2:51 PM 06/14/2017 1:40 AM This order r eflects the patients wishes and were consensually agreed upon. Care Teams Tools And Parts Attendant Relationship Specialty Start Date End Date Ruth Xiao MD [address] [place] [address] [place] [phone] PCP - General Family Medicine 12/01/20 documented as of this encounter
--- OUTSIDE RECORDS SUMMARY | 2024-03-08 13:34 | External Medical Summary ---
Author Name Unknown Address Unknown Organization K01:[facility] - [address] [place] [address] Laboratory Report Ordering Provider Test Date Status PAULA VELÁSQUEZ 11/27/2023 08:45:54 Jacy l Normal: <30 mg/g creatinine< br/>High: 30-300 mg/g creatinine
Very High: >300 mg/g creatinine
Nephrotic: >2200 mg/g creatinine Observation Date Value Abnormality Reference (Units ) Status Albumin, Urine 11/27/2023 08:45:54 1.30 (mg/dL) Final Creatinine, Urine 11/27/2023 08:45:54 374 (mg/dL) Final Albumin/Creatinine [Mass Ratio] in Urine 11/27/2023 08:45:54 3 <30 (mg/g Creat) Final Performing Location LAB[facility]ORY [facility] [place] - [address] [place] [address]
--- OUTSIDE RECORDS SUMMARY | 2024-03-08 13:34 | External Medical Summary ---
Author Name Unknown Address Unknown Organization K01:[facility] - [facility] [place] [address] Laboratory Report Ordering Provider Test Date Status RICK EVANS 12/12/2023 16:21:24 Final Observation Date Value Abnormality Reference (Units ) Status WBC, Total 12/12/2023 16:21:24 7.29 4.00-10.80 (K/uL) Final RBC 12/12/2023 16:21:24 4.26 3.85-5.15 (M/uL) Final Hemoglobin 12/12/2023 16:21:24 12.6 12.0-15.3 (g/dL) Final HCT 12/12/2023 16:21:24 39.2 36.0-45.2 (%) Final MCV 12/12/2023 16:21:24 92.0 81.5-97.5 (fL) Final MCH 12/12/2023 16:21:24 29.6 27.0-34.0 (pg) Final MCHC 12/12/2023 16:21:24 32.1 32.0-36.0 (g/dL) Final RDW 12/12/2023 16:21:24 13.9 11.5-15.5 (%) Final Platelets 12/12/2023 16:21:24 314 140-400 (K/uL) Final MPV 12/12/2023 16:21:24 10.8 6.6-11.1 (fL) Final Nucleated erythrocytes/100 leukocytes [Ratio] in Blood by Automated count 12/12/2023 16:21:24 0 <=0 (/100 WBCs) Final Performing Location LAB[facility]ORY [facility] - [address] [place] [address]
--- OUTSIDE RECORDS SUMMARY | 2024-03-08 13:34 | External Medical Summary | Summary of Care ---
Author Name Unknown Organization [facility] Address [address] [place] [address] Phone [phone] Care Team Providers Care Dampener Operator Name Role Phone Ruth Xiao MD Primary Care Provide r Reason for Visit * Reason Comments Outpatient Testing Encounter Details Date Type Department Care Team (Late st Contact Info) Description 11/27/2023 8:40 AM EDT Laboratory Laboratory, [facility] [address] [place] [address] [facility] [address] [place] [address] Pain in other joint; Chronic kidney disease, [...] morning. 30 Capsule 5 10/04/2023 Active Nystatin 468757 UNIT/GM External CreamIndications:Cand idal skin infection Apply [...] COVID-19 virus infection 08/27/2021 TEE Confirmation Research Other*[id number] 08/13 Major depressive disorder, recurrent episode, mo derate 08/18/2020 Migraine with aura and witho ut status migrainosus, not intractable 05/13/2019 CIERA (obstructive sleep apnea) 08/24/2018 HTN, goal below 130/80 05/28/2018 Gastroesophageal reflux disease 05/28/2018 History of Graves' disease 08/09/2017 Post-surgical hypothyroidism 06/12/2017 Overview: [place] [facility] [place] T4Rx 150mcg/d Intermittent asthma with reliever use [...] PM EDT PulmDiagnostic Sleep Lab, [facility] [address] [place] [address] [facility], Sleep Med Night Sleep [address] [place] [address] 01/26/2024 11:00 AM EDT Office Visit Nutrition & Weight Management, [facility] [address] [place] [address] Nathalie Lopez PA-C [address] [place] [address] 02/14/2024 11:15 AM EDT Office Visit Urology, [facility] [address] [place] [address] Frank Foster MD [address] [place] [address] 03/06/2024 11:45 AM EDT Hospital Encounter ENDO [facility], Endoscopy Room [facility] [address] [place] [phone] Josselyn Tolentino DO [address] [place] [address] 03/06/2024 11:45 AM EDT - 03/06/2024 12:15 PM EDT Surgery ENDO [facility], Endoscopy Room [facility] [address] [place] [phone] Josselyn Tolentino DO [address] [place] [address] COLONOSCOPY FLEXIBLE PROXIMAL DIAGNOSTIC 05/03/2024 10:00 AM EST Office Visit Gastroenterology, [facility] [address] [place] [address] Shahana Ventura CRNP [address] [place] [address] Pending Results Name Type Priority Associated Diagnoses [...] this encounter Medical Devices Implanted Type Area Analytic Programmer Device Identifier Shelf Expiration Date Model / Serial / Lot Vitoss Bioactv Foam Pack 2.5cc - [id number] Implanted:Qty: 1 on 11/02/2017 by Sydnie Miles DPM at [facility] Left: Foot DALI : SPINE 07/12/2019 [id number] / / [id number] Plate (Non Sterile Slim Straight 5 Hole Length 36.5 Implanted:Qty: 1 on 11/02/2017 by Sydnie Miles DPM at [facility] Left: Foot [id number] / / 2.7 Mm Non-Locking Screws Implanted:Qty: 1 on 11/02/2017 by Sydnie Miles DPM at [facility] Left: Foot DALI : ORTHOPAEDICS [id number] / / 2.7 Mm Non-Locking Screw Implanted:Qty: 1 on 11/02/2017 by Sydnie Miles DPM at [facility] Left: Foot DALI : ORTHOPAEDICS [id number] / / 2.7 Mm Non-Locking Screws Implanted:Qty: 1 on 11/02/2017 by Sydnei Miles DPM at [facility] Left: Foot DALI : ORTHOPAEDICS [id number] / / 2.7 Mm Non-Locking Screw Implanted:Qty: 1 on 11/02/2017 by Sydnie Miles DPM at [facility] Left: Foot DALI : ORTHOPAEDICS [id number] / / documented as of this encounter [...] and were consensually agreed upon. Care Teams Dampener Operator Relationship Specialty Start Date End Date Ruth Xiao MD [address] [place] [address] [place] [phone] PCP - General Family Medicine 12/01/20 documented as of this encounter
--- OUTSIDE RECORDS SUMMARY | 2024-03-08 13:34 | External Medical Summary ---
Author Name Unknown Address Unknown Organization K01:[facility] [place] [facility] [address] [facility] [address] Laboratory Report Ordering Provider Test Date Status HEMANT EVANSTEODORO 12/12/2023 16:21:24 Final Observation Date Value Abnormality Reference (Units ) Status Borrelia burgdorferi IgG and IgM [Interpretation] in Serum by Immunoassay 12/12/2023 16:21:24 Negative Negative Final Performing Location [facility] [place] [address] [facility] [address]
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
--- OUTSIDE RECORDS SUMMARY | 2024-03-08 13:35 | External Medical Summary | Summary of Care ---
Author Name Unknown Organization [facility] Address [address] [place] [address] Phone [phone] Care Team Providers Care Mold Yarn Supervisor Name Role Phone Ruth Xiao MD Primary Care Provide r Reason for Visit * Reason Onset Date Comments Precert Approved 08/17/2023 Jimbo Encounter Details Date Type Department Care Team (Late st Contact Info) Description 08/17/2023 Telephone Nutrition & Weight Management, [place] [address], [place] [id number] Curtis Steinberg, [address], [place] [phone] Precert Approved (Jimbo) Allergies Active Allergy Reactions Criticality Noted Date Comments Fluoxetine Other (Please comment) 04/02/2004 Arelis weak Other reaction(s): penelopeky, Tremor documented as of this encounter (statuses as of 11/16/2023) Medications Medication Sig Dispensed Refills Start Date End Date Status Triamcinolone Acetonide 0.5 % External Cream (Aristocort)Indic ations:Rash and nonspecific skin eruption Apply topically to affected area 2 times a day. To affected area. 60 g 2 Active hydrOXYzine HCl 25 MG Oral Tablet Take 1 Tablet by mouth 3 times a day as needed. Active Budesonide-Formot cally Fumarate 80-4.5 MCG/ACT Inhalation Aerosol (Symbicort) Inhale 2 Puffs by mouth in the morning and 2 Puffs before bedtime. 10.2 g 12 3 Active Ferrous Sulfate 325 (65 Fe) MG Oral Tablet (Feosol)Indicatio ns:Iron deficiency anemia, unspecified iron deficiency anemia type [...] Omeprazole 40 MG Oral Capsule Delayed Release (PriLOSEC)Indicat ions:Nausea without vomiting TAKE 1 CAPSULE BY MOUTH IN THE MORNING 1 HOUR BEFORE THE FIRST MEAL OF THE DAY. 30 Capsule 5 3 Active DULoxetine HCl 60 MG Oral Capsule [...] With food.. 60 Tablet 1 4 Active Gabapentin 100 MG Oral Capsule (Neurontin) Take 1 Capsule by mouth in the morning and 1 Capsule at noon and 1 Capsule before bedtime. 90 Capsule 1 4 Active QUEtiapine Fumarate 100 MG Oral Tablet (SEROquel) Take 1.5 Tablets by mouth at bedtime. 4 Active aspirin enteric coated 81 MG TBEC Take 1 Tab by mouth daily. 90 Tab 3 0 10/03/19 24 Discontinued(Ref ill) [facility] Chewable C with Liliana Hips 500 MG Oral Tablet Chewable (Ascorbic Acid)Indications: Iron deficiency anemia, unspecified iron deficiency anemia type Take 1 Tab by mouth daily. Take with iron supplement 60 Tab 2 1 10/03/19 24 Discontinued(Ref ill) Vitamin D3 50 MCG (2000 UT) Oral CapsuleIndication s:Vitamin D insufficiency TAKE 1 CAPSULE BY MOUTH EVERY DAY 30 Cap 5 1 10/03/19 24 Discontinued(Ref ill) Nystatin 612120 UNIT/GM External CreamIndications: Candidal skin infection Apply topically to affected area 2 times a day . To affacted area for two weeks. 60 g 2 2 10/03/19 24 Discontinued(Ref ill) Topiramate 25 MG Oral Tablet (topAMAX)Indicati ons:Chronic daily headache Take 1 Tablet by mouth in the morning and 1 Tablet before bedtime. 60 Tablet 5 3 10/04/19 24 Discontinued Levothyroxine Sodium 175 MCG Oral Tablet (Levoxyl) Take 1 Tablet by mouth in the morning. (at least 30 min prior to breakfast or other meds). 90 Tablet 3 4 08/29/19 24 Discontinued(Ref ill) Wegovy 0.5 MG/0.5ML Subcutaneous Solution Auto-injector ([facility])Indica tions:Class 3 severe obesity due to excess calories without serious comorbidity with body mass index (BMI) of 40.0 to 44.9 in adult (HCC) Inject 0.5 mg (1 pen) under the skin once a week. 2 mL 2 4 10/04/19 24 Discontinued(Ref ill) Hospital, Clinic, or Other Facility Administered Medication [...] as of this encounter (statuses as of 11/16/2023) Active Problems Problem Noted Date Diagnosed Date Chronic constipation 10/25/2023 Morbid obesity with BMI of 40.0-44.9, adult 09/2022 COVID-19 virus infection 08/27/2021 TEE Confirmation Research Other*[id number] 08/13 Major depressive disorder, recurrent episode, mo derate 08/18/2020 Migraine with aura and witho ut status migrainosus, not intractable 05/13/2019 CIERA (obstructive sleep apnea) 08/24/2018 HTN, goal below 130/80 05/28/2018 Gastroesophageal reflux disease 05/28/2018 Body mass index (BMI) of 40.0 to 44.9 in adult 0 05/28/2018 Overview: Per Obesity protocol #1 History of Graves' disease 08/09/2017 Post-surgical hypothyroidism 06/12/2017 Overview: At [facility]; T4Rx 150mcg/d Intermittent asthma with reliever use up to twic e per week 07/16/2010 Anxiety state 05/19/2008 documented as of this encounter (statuses as of 11/16/2023) Resolved Problems Problem Noted Date Diagnosed Date [...] as of this encounter (statuses as of 11/16/2023) Immunizations Name Administration Dates Next Due COVID-19 [...] encounter Miscellaneous Notes * Telephone Encounter - Nela Boles [facility] - 08/17/2023 1:56 PM EDT New or re-auth: New Dose Patient Augusta Shen needs a prior authorization for a medication through their [employer] insurance. Medication: Wegovy Formulation: 0.5mg/0.5ml soaj Dosage: Inject 0.5 mg (1 pen) under the skin once a week. ID: [id number] BIN:[id number] PCN:[id number] Phone: [employer] ship date is new start. Thank you very much, Nela Boles CPhT Dental Office Assistant [facility] 08/17/2023,1:57 PM documented in this encounter Plan of Treatment Upcoming Encounters Date Type Department Care Team (Late st Contact Info) Description 11/17/2023 11:00 AM EDT Office Visit Gastroenterology, [facility] [address] [facility] [place] [address] Shahana Ventura CRNP [address] [place] [address] 01/09/2024 7:30 PM EDT PulmDiagnostic Sleep Lab, [facility] [address] [facility] [address] [address] [facility], Sleep [facility] [address] 01/26/2024 11:00 AM EDT Office Visit Nutrition & Weight Management, [facility] 132 [facility] [place] [address] Nathalie Lopez PA-C [address] [place] [address] 02/14/2024 11:15 AM EDT Office Visit Urology, [facility] [address] [place] [address] Frank Foster MD [address] [place] [address] Health Maintenance Due Date Last Done Comments Pneumococcal Vaccine: Pediatrics (0 to 5 Years) and At-Risk Patients (6 to 64 Years) (1 of 2 - PCV) 08/27/1985 Hepatitis C Screening 08/27/1997 Hepatitis B Vaccine (1 of 3 - 19+ 3-dose series) 08/27/1998 HPV/Co-Test 08/27/2009 COVID-19 Vaccine (4 - 2022-24 season) 2023 [...] this encounter Medical Devices Implanted Type Area Eligibility And Occupancy Interviewer Device Identifier Shelf Expiration Date Model / Serial / Lot Ebonyoss Bioactv Foam Pack 2.5cc - [id number] Implanted:Qty: 1 on 11/02/2017 by Sydnie Miles DPM at OR [facility] Left: Foot DALI : SPINE 07/12/2019 [id number] / / [id number] Plate (Non Sterile Slim Straight 5 Hole Length 36.5 Implanted:Qty: 1 on 11/02/2017 by Sydnie Miles DPM at OR [facility] Left: Foot [id number] / / 2.7 Mm Non-Locking Screws Implanted:Qty: 1 on 11/02/2017 by Sydnie Miles DPM at OR [facility] Left: Foot DALI : ORTHOPAEDICS [id number] / / 2.7 Mm Non-Locking Screw Implanted:Qty: 1 on 11/02/2017 by Sydnie Miles DPM at OR [facility] Left: Foot DAIL : ORTHOPAEDICS [id number] / / 2.7 Mm Non-Locking Screws Implanted:Qty: 1 on 11/02/2017 by Sydnie Miles DPM at OR [facility] Left: Foot DALI : ORTHOPAEDICS [id number] / / 2.7 Mm Non-Locking Screw Implanted:Qty: 1 on 11/02/2017 by Sydnie Miles DPM at OR [facility] Left: Foot DALI : ORTHOPAEDICS [id number] / / documented as of this encounter Additional Health Concerns Infection Onset Date Last Indicated Resolved Time ((Group A Strep) Strep pyoge mack) Comment:Outside of timeframe for normal disease process 08/24/2022 08/24/2022 09/08/2023 10:52 AM EDT documented as of this encounter Advance Directives * Full Code (Latest Code Status on File) Date Activated Date Inactivated Comments 06/12/2017 2:51 PM 06/14/2017 1:40 AM This order r eflects the patients wishes and were consensually agreed upon. Care Teams Mold Yarn Supervisor Relationship Specialty Start Date End Date Ruth Xiao MD [address] [place] [address] [place] [phone] PCP - General Family Medicine 12/01/20 documented as of this encounter
--- OUTSIDE RECORDS SUMMARY | 2024-03-08 13:35 | External Medical Summary | Summary of Care ---
Author Name Unknown Organization [facility] Address [address] [place] [address] Phone [phone] Care Team Providers Care Security Officer Name Role Phone Ruth Xiao MD Primary Care Provide r Reason for Visit * Reason Comments Outpatient Testing Encounter Details Date Type Department Care Team (Late st Contact Info) Description 11/22/2023 11:20 AM EDT Laboratory Laboratory, [facility] [address] [place] [phone] [facility] [address] [place] [address] Encounter for long-term (current) use of medications Allergies Active Allergy Reactions Criticality Noted Date Comments Fluoxetine Other (Please comment) 04/02/2004 Arelis hernandez Other reaction(s): aria, Tremor documented as of this encounter (statuses as of 11/22/2023) Medications Medication Sig Dispensed Refills Start Date [...] morning. 30 Capsule 5 10/04/2023 Active Nystatin 445904 UNIT/GM External CreamIndications:Cand idal skin infection Apply [...] as of this encounter (statuses as of 11/22/2023) Active Problems Problem Noted Date Diagnosed Date Chronic constipation 10/25/2023 Morbid obesity with BMI of 40.0-44.9, adult 09/2022 COVID-19 virus infection 08/27/2021 TEE Confirmation Research Other*[id number] 08/13 Major depressive disorder, recurrent episode, mo derate 08/18/2020 Migraine with aura and witho ut status migrainosus, not intractable 05/13/2019 CIERA (obstructive sleep apnea) 08/24/2018 HTN, goal below 130/80 05/28/2018 Gastroesophageal reflux disease 05/28/2018 Body mass index (BMI) of 40.0 to 44.9 in adult 0 05/28/2018 Overview: Per Obesity protocol #1 History of Graves' disease 08/09/2017 Post-surgical hypothyroidism 06/12/2017 Overview: At [facility]; T4Rx 150mcg/d Intermittent asthma with reliever use up to twic e per week 07/16/2010 Anxiety state 05/19/2008 documented as of this encounter (statuses as of 11/22/2023) Resolved Problems Problem Noted Date Diagnosed Date [...] as of this encounter (statuses as of 11/22/2023) Immunizations Name Administration Dates Next Due COVID-19 [...] Department Care Team (Latest Contact Info) Description 12/02/2023 3:30 PM EDT Imaging Radiology [facility] [address] [place] [address] 01/09/2024 7:30 PM EDT PulmDiagnostic Sleep Lab, [facility] [address] [place] [address] [place], Sleep Med [facility] [place] [address] 01/26/2024 11:00 AM EDT Office Visit Nutrition & Weight Management, [facility] [address] [place] [address] Nathalie Lopez PA-C [address] [place] [address] 02/14/2024 11:15 AM EDT Office Visit Urology, [facility] [address] [place] [address] Frank Foster MD [address] [place] [address] 03/06/2024 11:45 AM EDT Hospital Encounter ENDO OSS, Endoscopy Room [facility] [address] [place] [phone] Josselyn Tolentino DO [address] [place] [address] 03/06/2024 11:45 AM EDT - 03/06/2024 12:15 PM EDT Surgery ENDO OSSC, Endoscopy Room [facility] [address] [place] [phone] Josselyn Tolentino DO [address] [place] [address] COLONOSCOPY FLEXIBLE PROXIMAL DIAGNOSTIC 05/03/2024 10:00 AM EST Office Visit Gastroenterology, [facility] [address] [place] [address] Shahana Ventura CRNP [address] [place] [address] Pending Results Name Type Priority Associated Diagnoses Date /Time VITAMIN B12 Lab Routine Encounter for long-term (current) use of medications 11/22/2023 11:13 AM EDT Scheduled Procedures Name Priority Associated [...] 08/27/1998 HPV/Co-Test 08/27/2009 COVID-19 Vaccine ( season) 2023 03/12/2022, 09/10/2020, 08/11/2020 Mammogram 10/26/2023 10/25/2022, 10/13, 10/16/2020, Additional history exists Influenza Vaccine (FLU shot) (#1) 2024 01/25/2023, 03/23/2022, 03/06/2020 Depression Monitoring 01/24/2024 01/23/2023 Cervical Cancer Screening 06/16/2024 Pap Smear 06/16/2024 06/16/2021, 02/12, 10/08/2014, Additional history exists Albumin/Creatinine Ratio 08/27/2024 08/27/2021 GFR 10/23/2024 10/24/2023, 07/13, 03/15/2023, Additional history exists TSH 10/23/2024 10/24/2023, 05/05/2023, 07/26/2023, Additional history exists Diabetes Screening 10/23/2026 [...] this encounter Medical Devices Implanted Type Area Residential Property Tax Appraiser Device Identifier Shelf Expiration Date Model / Serial / Lot Vitoss Bioactv Foam Pack 2.5cc - [id number] Implanted:Qty: 1 on 11/02/2017 by Sydnie Miles DPM at OR [facility] Left: Foot DALI : SPINE 07/12/2019 [id number] / / [id number] Plate (Non Sterile Slim Straight 5 Hole Length 36.5 Implanted:Qty: 1 on 11/02/2017 by Sydnie Miles DPM at OR [facility] Left: Foot [id number] / / 2.7 Mm Non-Locking Screws Implanted:Qty: 1 on 11/02/2017 by Sydnie Mlies DPM at OR [facility] Left: Foot DALI : ORTHOPAEDICS [id number] / / 2.7 Mm Non-Locking Screw Implanted:Qty: 1 on 11/02/2017 by Sydnie Miles DPM at OR [facility] Left: Foot DALI : ORTHOPAEDICS [id number] / / 2.7 Mm Non-Locking Screws Implanted:Qty: 1 on 11/02/2017 by Sydnie Miles DPM at OR [facility] Left: Foot DALI : ORTHOPAEDICS [id number] / / 2.7 Mm Non-Locking Screw Implanted:Qty: 1 on 11/02/2017 by Sydnie Miles DPM at OR [facility] Left: Foot DALI : ORTHOPAEDICS [id number] / / documented as of this encounter Visit Diagnoses Diagnosis Encounter for long-term (current) use of medications [...] and were consensually agreed upon. Care Teams Security Officer Relationship Specialty Start Date End Date Ruth Xiao MD [address] [place] [address] [place] [phone] PCP - General Family Medicine 12/01/20 documented as of this encounter
--- OUTSIDE RECORDS SUMMARY | 2024-03-08 13:35 | External Medical Summary | Summary of Care ---
Author Name Unknown Organization [facility] Address [address] [place] [address] Phone [phone] Care Team Providers Care Auger Mill Operator Name Role Phone Ruth Mitchell MD Primary Care Provide r Reason for Visit * Reason Onset Date Comments Medication Refill 11/20/2023 Encounter Details Date Type Department Care Team (Late st Contact Info) Description 11/20/[address] [phone] Ruth Mitchell MD [address] [place] [address] [place] [phone] Encounter for long-term (current) use of medications*; Nausea without vomiting Allergies Active Allergy Reactions Criticality Noted Date [...] morning. 30 Capsule 5 10/04/2023 Active Nystatin 493647 UNIT/GM External CreamIndications:Can didal skin infection Apply topically to affected area 2 times a day. To affacted area for two weeks. 60 g 2 10/04/2023 Active Topiramate 25 MG Oral Tablet (topAMAX)Indications :Chronic daily headache TAKE ONE TABLET BY MOUTH TWICE DAILY 60 Tablet 10/04/2023 Active Wegovy 0.5 MG/0.5ML Subcutaneous Solution Auto-injector (Semaglutide-Weight Management)Indicatio ns:Class 3 severe obesity due to excess calories without serious comorbidity with body mass index (BMI) of 40.0 to 44.9 in adult ([facility]) Inject 0.5 mg under the skin once [...] the day.. 30 Capsule 5 11/22/2023 Active Omeprazole 40 MG Oral Capsule Delayed Release (PriLOSEC)Indication s:Nausea without vomiting TAKE 1 CAPSULE BY MOUTH IN THE MORNING 1 HOUR BEFORE THE FIRST MEAL OF THE DAY. 30 Capsule 5 03/24/2023 Discontinue d(Refill) Hospital, Clinic, or Other Facility Administered Medication [...] COVID-19 virus infection 08/27/2021 TEE Confirmation Research Other*[id number] 08/13 Major depressive disorder, recurrent episode, mo [...] No 01/23/2023 Does the household have a [facility] source of income? (Household - for [...] encounter Miscellaneous Notes * Telephone Encounter - Zach García [facility] - 11/22/2023 6:14 AM EDTSigned Prescriptions: Disp Refills Omeprazole 40 MG Oral Capsule Delayed Rele*30 Cap*5 Sig: Take 1Capsule by mouth in the morning. 1 hour before the first meal of the day..Authorizing Provider: Deric MITCHELL User: ZACH GARCÍA * Telephone Encounter - Zach García [facility] - 11/22/2023 6:10 AM EDT Per refill protocol patient needs vitamin B-12 lab on file within the past 2 years while using PPIs. Lab work ordered. Patient may obtain with next routine labs. Thank You, Zach García [facility] Clinical Pharmacist [facility] ([facility]) [phone] 11/22/2023, 6:12 AM documented in this encounter Plan of Treatment Upcoming Encounters Date Type Department Care Team (Latest Contact Info) Description 12/02/2023 3:30 PM EDT Imaging Radiology [facility] 1st [facility] [place] 132 [facility] [place] [phone] 01/09/2024 7:30 PM EDT PulmDiagnostic Sleep Lab, [facility] [address] [place] [address] [facility], Sleep Med Night Sleep [address] [place] [address] 01/26/2024 11:00 AM EDT Office Visit Nutrition & Weight Management, [facility] [place] [address] Nathalie Lopez PA-C 132 [facility] [place] [address] 02/14/2024 11:15 AM EDT Office Visit Urology, [facility] [address] [place] [address] Frank Foster MD [address] [place] [address] 03/06/2024 11:45 AM EDT Hospital Encounter ENDO OSS, Endoscopy Room [facility] [place] [phone] Josselyn Tolentino DO 132 [facility] [place] [address] 03/06/2024 11:45 AM EDT - 03/06/2024 12:15 PM EDT Surgery ENDO [facility], Endoscopy Room [facility] [address] [place] [phone] Josselyn Tolentino DO 132 [facility] [place] [address] COLONOSCOPY FLEXIBLE PROXIMAL DIAGNOSTIC 05/03/2024 10:00 AM EST Office Visit Gastroenterology, [facility] [address] [place] [address] Shahana Ventura CRNP [address] [place] [address] Scheduled Orders Name Type Priority Associated Diagnoses Orde r Schedule VITAMIN B12 Lab Routine Encounter for long-term (current) use of medications Expected: 11/22/2023 (Approximate), Expires: 11/21/2024 Scheduled Procedures Name Priority Associated Diagnoses Date/Ti [...] 3-dose series) 08/27/1998 HPV/Co-Test 08/27/2009 COVID-19 Vaccine (24 season) 2023 03/12/2022, 09/10/2020, 08/11/2020 Mammogram 10/26/2023 10/25/2022, 10/13, 10/16/2020, Additional history exists Influenza Vaccine (FLU shot) (#1) 2024 01/25/2023, 03/23/2022, 03/06/2020 Depression Monitoring 01/24/2024 01/23/2023 Cervical Cancer Screening 06/16/2024 Pap Smear 06/16/2024 06/16/2021, 02/12, 10/08/2014, Additional history exists Albumin/Creatinine Ratio 08/27/2024 08/27/2021 GFR 10/23/2024 10/24/2023, 07/13, 03/15/2023, Additional history exists TSH 10/23/2024 10/24/2023, 0505/2023, 07/26/2023, Additional history exists Diabetes Screening 10/23/2026 [...] this encounter Medical Devices Implanted Type Area Manufacturing Tech Device Identifier Shelf Expiration Date Model / Serial / Lot Vitoss Bioactv Foam Pack 2.5cc - [id number] Implanted:Qty: 1 on 11/02/2017 by Sydnie Miles DPM at OR [facility] Left: Foot DALI : SPINE 07/12/2019 [id number] / / [id number] Plate (Non Sterile Slim Straight 5 Hole Length 36.5 Implanted:Qty: 1 on 11/02/2017 by Sydnie Miles DPM at OR [facility] Left: Foot [id number] / / 2.7 Mm Non-Locking Screws Implanted:Qty: 1 on 11/02/2017 by Sydnie Miles DPM at OR [facility] Left: Foot DAIL : ORTHOPAEDICS [id number] / / 2.7 Mm Non-Locking Screw Implanted:Qty: 1 on 11/02/2017 by Sydnie Miles DPM at OR [facility] Left: Foot DALI : ORTHOPAEDICS [id number] / / 2.7 Mm Non-Locking Screws Implanted:Qty: 1 on 11/02/2017 by Sydnie Miles DPM at OR [facility] Left: Foot DALI : ORTHOPAEDICS [id number] / / 2.7 Mm Non-Locking Screw Implanted:Qty: 1 on 11/02/2017 by Sydnie Miles DPM at OR [facility] Left: Foot DALI : ORTHOPAEDICS [id number] / / documented as of this encounter Visit Diagnoses Diagnosis Encounter for long-term (current) use of medications- Primary Encounter for long-term (current) use of other medications Nausea without vomiting Chronic constipation Unspecified constipation Rectal bleeding Hemorrhage of rectum and anus documented in this encounter Advance Directives * Full Code (Latest Code Status on File) Date Activated Date Inactivated Comments 06/12/2017 2:51 PM 06/14/2017 1:40 AM This order r eflects the patients wishes and were consensually agreed upon. Care Teams Auger Mill Operator Relationship Specialty Start Date End Date Ruth Mitchell MD [address] [place] [address] [place] [address] PCP - General Family Medicine 12/01/20 documented as of this encounter
--- OUTSIDE RECORDS SUMMARY | 2024-03-08 13:35 | External Medical Summary ---
Author Name Unknown Address Unknown Organization K01:[facility] - [address] [place] [address] Laboratory Report Ordering Provider Test Date Status EILEEN COREAS 11/17/2023 11:46:21 Final Observation Date Value Abnormality Reference (Units ) Status IgA 11/17/2023 11:46:21 173 70-400 (mg /dL) Final Performing Location [facility] - [address] [place] [address]
--- OUTSIDE RECORDS SUMMARY | 2024-03-08 13:35 | External Medical Summary ---
Author Name Unknown Address Unknown Organization K01:[facility] - [address] [place] [address] Laboratory Report Ordering Provider Test Date Status RAQUEL SERRANO 11/22/2023 11:13:15 Final Observation Date Value Abnormality Reference (Units ) Status Vitamin B12 11/22/2023 11:13:15 455 530-5953 (pg/mL) Final Performing Location [facility] - [address] [place] [address]
--- OUTSIDE RECORDS SUMMARY | 2024-03-08 13:35 | External Medical Summary | Summary of Care ---
Author Name Unknown Organization [facility] Address [address] [facility] [place] [address] Phone [phone] Care Team Providers Care Pen Ruler Operator Name Role Phone Ruth Xiao MD Primary Care Provide r Reason for Visit * Reason Onset Date Comments Precert Approved 11/17/2023 Girish Encounter Details Date Type Department Care Team (Late st Contact Info) Description 11/17/2023 Telephone Gastroenterology, [facility] [address] [place] [address] Shahana Ventura CRNP [address] [place] [address] Precert Approved (Girish) Allergies Active Allergy Reactions Criticality Noted Date [...] morning. 30 Capsule 5 10/04/2023 Active Nystatin 825933 UNIT/GM External CreamIndications:Can didal skin infection Apply [...] Morbid obesity with BMI of 40.0-44.9, adult /09/2022 COVID-19 virus infection 08/27/2021 TEE Confirmation Research Other*[id number] 08/13 Major depressive disorder, recurrent episode, mo derate 08/18/2020 Migraine with aura and witho ut status migrainosus, not intractable 05/13/2019 CIERA (obstructive sleep apnea) 08/24/2018 HTN, goal below 130/80 05/28/2018 Gastroesophageal reflux disease 05/28/2018 Body mass index (BMI) of 40.0 to 44.9 in adult 0 05/28/2018 Overview: Per Obesity protocol #1 History of Graves' disease 08/09/2017 Post-surgical hypothyroidism 06/12/2017 [place] [facility] [place] 150mcg[place]d Intermittent asthma [...] Telephone Encounter - Modesta Sexton LPN - 11/20/2023 2:55 PM EDT Type Date User Summary Attachment Precert 11/20/2023 1:28 PM Rosina Gloria OSA Approved/Denied: approved - Note: Approved/Denied: approved Drug Name and Formulation: Linzess 145mcg po QAM How Prescribed(directions/sig): Linzess 145mcg po QAM Day Supply: 30 Did you receive insurance information from outside the chart? No, received insurance information within the chart Valid auth start date: 11/20/2023 Valid auth end date: 11/19/2024 Rx Insurance Info: [facility] [place] aware. * Telephone Encounter - Modesta Sexton LPN - 11/17/2023 2:07 PM EDT Gastro Pre-Cert Request Specialty Medication: No. Medication/Disease State Information: Medication: Linzess 145mcg po QAM Diagnosis (including ICD-10): K59.09 Chronic Constipation Site of care: Self-administered - route pre-cert request to [id number] Office Information: Prescriber: ABIDA Vallecillo Laxatives tried in the past: Lactulose: initially worked but not effectiveness. Miralax taken one dose every day for months was not effective and caused nausea. Takes 2 Colace pills every day -not effective. Please include OV 11/17/2023 * Telephone Encounter - Mario Mcnulty RPh - 11/17/2023 11:34 AM EDT Prior Auth needed[facility] B[facility]: [id number] PCN: [id number] ID: [id number] documented in this encounter Plan of Treatment Upcoming Encounters Date Type Department Care Team (Latest Contact Info) Description 12/02/2023 3:30 PM EDT Imaging Radiology [facility] [address] [place] [address] 01/09/2024 7:30 PM EDT PulmDiagnostic Sleep Lab, [facility] [address] [address] Gl, Sleep Med Night Sleep [address] [facility] [place] [address] 01/26/2024 11:00 AM EDT Office Visit Nutrition & Weight Management, [facility] [address] [place] [address] Nathalie Lopez PA-C [address] [place] [address] 02/14/2024 11:15 AM EDT Office Visit Urology, [facility] [address] [place] [address] Frank Foster MD [address] [facility] [place] [address] 03/06/2024 11:45 AM EDT Hospital Encounter ENDO OSS, Endoscopy Room [facility] [address] [place] [address] Josselyn Tolentino, [address] [place] [address] 03/06/2024 11:45 AM EDT - 03/06/2024 12:15 PM EDT Surgery ENDO OSSC, Endoscopy Room [facility] [address] [place] [phone] Josselyn Tolentino, [address] [place] [address] COLONOSCOPY FLEXIBLE PROXIMAL DIAGNOSTIC 05/03/2024 10:00 AM EST Office Visit Gastroenterology, [facility] [address] [place] [address] Shahana Ventura CRNP [address] [place] [address] Scheduled Procedures Name Priority Associated Diagnoses Date/Ti [...] this encounter Medical Devices Implanted Type Area Promotional Marketing Analyst Device Identifier Shelf Expiration Date Model / Serial / Lot Vitoss Bioactv Foam Pack 2.5cc - [id number] Implanted:Qty: 1 on 11/02/2017 by Sydnie Miles DPM at OR [facility] Left: Foot DALI : SPINE 07/12/2019 [id number] / / [id number] Plate (Non Sterile Slim Straight 5 Hole Length 36.5 Implanted:Qty: 1 on 11/02/2017 by Sydnie Miles DPM at OR [facility] Left: Foot [id number] / / 2.7 Mm Non-Locking Screws Implanted:Qty: 1 on 11/02/2017 by Sydnie Miles DPM at OR [facility] Left: Foot DALI : ORTHOPAEDICS [id number] / / 2.7 Mm Non-Locking Screw Implanted:Qty: 1 on 11/02/2017 by Sydnie Miles DPM at OR [facility] Left: Foot DALI : ORTHOPAEDICS [id number] / / 2.7 Mm Non-Locking Screws Implanted:Qty: 1 on 11/02/2017 by Sydnie Miles DPM at OR [facility] Left: Foot DALI : ORTHOPAEDICS [id number] / / 2.7 Mm Non-Locking Screw Implanted:Qty: 1 on 11/02/2017 by Sydnie Miles DPM at OR [facility] Left: Foot DALI : ORTHOPAEDICS [id number] / / documented as of this encounter Advance Directives * Full Code (Latest Code Status on File) Date Activated Date Inactivated Comments 06/12/2017 2:51 PM 06/14/2017 1:40 AM This order r eflects the patients wishes and were consensually agreed upon. Care Teams Pen Ruler Operator Relationship Specialty Start Date End Date Sellathurai, Thiviyanath, MD [address] [place] [address] [place] [address] PCP - General Family Medicine 12/01/20 documented as of this encounter
--- OUTSIDE RECORDS SUMMARY | 2024-03-08 13:35 | External Medical Summary ---
Author Name Unknown Address Unknown Organization K01:[facility] [place] [address] [address] [place] [address] Laboratory Report Ordering Provider Test Date Status EILEEN COREAS 11/17/2023 11:46:21 Final Observation Date Value Abnormality Reference (Units ) Status Tissue transglutaminase IgA Ab [Presence] in Serum by Immunoassay 11/17/2023 11:46:21 Negative Negative Final Tissue transglutaminase IgA Ab [Units/volume] in Serum by Immunoassay 11/17/2023 11:46:21 0.2 <7 (U/mL) Final Performing Location [facility] [place] [address] [id number]
--- OUTSIDE RECORDS SUMMARY | 2024-03-08 13:35 | External Medical Summary | Summary of Care ---
Author Name Unknown Organization [facility] Address [address] [place] [address] Phone [phone] Care Team Providers Care Tool And Die Maker Name Role Phone Ruth Xiao MD Primary Care Provide r Reason for Visit * Reason Comments Outpatient Testing Encounter Details Date Type Department Care Team (Late st Contact Info) Description 11/17/2023 12:00 PM EDT Laboratory Laboratory, [facility] [address] [facility] [address] [facility] [address] [facility] [address] Chronic constipation Allergies Active Allergy Reactions Criticality Noted Date [...] morning. 30 Capsule 5 10/04/2023 Active Nystatin 284813 UNIT/GM External CreamIndications:Cand idal skin infection Apply [...] COVID-19 virus infection 08/27/2021 TEE Confirmation Research Other*[id number] 08/13 Major depressive disorder, recurrent episode, mo derate 08/18/2020 Migraine with aura and witho ut status migrainosus, not intractable 05/13/2019 CIERA (obstructive sleep apnea) 08/24/2018 HTN, goal below 130/80 05/28/2018 Gastroesophageal reflux disease 05/28/2018 Body mass index (BMI) of 40.0 to 44.9 in adult 0 05/28/2018 Overview: Per Obesity protocol #1 History of Graves' disease 08/09/2017 Post-surgical hypothyroidism 06/12/2017 Overview: At [facility] [place]; T4Rx 150mcg/d Intermittent asthma with [...] PulmDiagnostic Sleep Lab, [facility] [address] [address] Gl, Sleep Med Night Sleep [address] [place] [address] 01/26/2024 11:00 AM EDT Office Visit Nutrition & Weight Management, [facility] [address] [place] [address] Nathalie Lopez PA-C [address] [place] [address] 02/14/2024 11:15 AM EDT Office Visit Urology, [facility] [address] [place] [address] Frank Foster MD [address] [place] [address] 03/06/2024 11:45 AM EDT Hospital Encounter ENDO OSSC, Endoscopy Room [facility] [address] [place] [address] Josselyn Tolentino DO [address] [place] [address] 03/06/2024 11:45 AM EDT - 03/06/2024 12:15 PM EDT Surgery ENDO OSSC, Endoscopy Room [facility] [address] [place] [address] Josselyn Tolentino DO [address] [place] [address] COLONOSCOPY FLEXIBLE PROXIMAL DIAGNOSTIC 05/03/2024 10:00 AM EST Office Visit Gastroenterology, [facility] [address] [place] [address] Shahana Ventura CRNP [address] [place] [address] Pending Results Name Type Priority Associated Diagnoses Date /Time TISSUE TRANSGLUTAMINASE IGA ANTIBODY Lab Routine Chronic constipation 11/17/2023 11:46 AM EDT IGA Lab Routine Chronic constipation 11/17/2023 11:46 AM EDT Scheduled Procedures Name Priority Associated [...] this encounter Medical Devices Implanted Type Area Salesperson Men'S And Boys' Clothing Device Identifier Shelf Expiration Date Model / Serial / Lot Vitoss Bioactv Foam Pack 2.5cc - [id number] Implanted:Qty: 1 on 11/02/2017 by Sydnie Miles DPM at OR [facility] Left: Foot DALI : SPINE 07/12/2019 [id number] / / [id number] Plate (Non Sterile Slim Straight 5 Hole Length 36.5 Implanted:Qty: 1 on 11/02/2017 by Sydnie Miles DPM at OR [facility] Left: Foot [id number] / / 2.7 Mm Non-Locking Screws Implanted:Qty: 1 on 11/02/2017 by Sydnie Miles DPM at OR [facility] Left: Foot DALI : ORTHOPAEDICS [id number] / / 2.7 Mm Non-Locking Screw Implanted:Qty: 1 on 11/02/2017 by Sydnie Miles DPM at OR [facility] Left: Foot DALI : ORTHOPAEDICS [id number] / / 2.7 Mm Non-Locking Screws Implanted:Qty: 1 on 11/02/2017 by Sydnie Miles DPM at OR [facility] Left: Foot DALI : ORTHOPAEDICS [id number] / / 2.7 Mm Non-Locking Screw Implanted:Qty: 1 on 11/02/2017 by Sydnie Miles DPM at OR [facility] Left: Foot DALI : ORTHOPAEDICS [id number] / / documented as of this encounter Visit Diagnoses Diagnosis Chronic constipation Unspecified constipation Chronic constipation Unspecified constipation Rectal bleeding Hemorrhage of rectum and anus documented in this encounter Advance Directives * Full Code (Latest Code Status on File) Date Activated Date Inactivated Comments 06/12/2017 2:51 PM 06/14/2017 1:40 AM This order r eflects the patients wishes and were consensually agreed upon. Care Teams Tool And Die Maker Relationship Specialty Start Date End Date Ruth Xiao MD [address] [place] [address] [place] [phone] PCP - General Family Medicine 12/01/20 documented as of this encounter
--- OUTSIDE RECORDS SUMMARY | 2024-03-08 13:35 | External Medical Summary | Summary of Care ---
Author Name Unknown Organization [facility] Address [address] [place] [address] Phone [phone] Care Team Providers Care Vice President Regulatory Name Role Phone Ruth Xiao MD Primary Care Provide r Reason for Referral * Precert (Within 10 days (routine)) - Pending Review Specialty Diagnoses / Procedures Referred By Contac t Referred To Contact Radiology Diagnoses Pain, joint, knee, left Procedures MRI KNEE LEFT WO CONTRAST Lorenzo Momin DO [address] [place] [address] Referral ID Status Reason Start Date Expiration Date V isits Requested Visits Authorized [id number] Pending Review 12/02/[phone] Encounter Details Date Type Department Care Team (Late st Contact Info) Description 11/22/2023 Orders Only Radiology, [facility] [address] [place] [address] Requisition, External Radiology [address] [place] [address] Pain, joint, knee, left* Allergies Active Allergy Reactions Criticality Noted Date [...] morning. 30 Capsule 5 10/04/2023 Active Nystatin 672866 UNIT/GM External CreamIndications:Cand idal skin infection Apply [...] (BMI) of 40.0 to 44.9 in adult ([facility]) Inject 0.5 mg under the skin once [...] COVID-19 virus infection 08/27/2021 TEE Confirmation Research Other*[id number] 08/13 Major depressive disorder, recurrent episode, mo derate 08/18/2020 Migraine with aura and witho ut status migrainosus, not intractable 05/13/2019 CIERA (obstructive sleep apnea) 08/24/2018 HTN, goal below 130/80 05/28/2018 Gastroesophageal reflux disease 05/28/2018 Body mass index (BMI) of 40.0 to 44.9 in adult 0 05/28/2018 Overview: Per Obesity protocol #1 History of Graves' disease 08/09/2017 Post-surgical hypothyroidism 06/12/2017 Overview: At [facility]; T4Rx 150mcg/d Intermittent asthma with reliever use [...] No 01/23/2023 Does the household have a [facility] source of income? (Household - for [...] Description 12/02/2023 3:30 PM EDT Imaging [facility] [address] [place] [address] 01/09/2024 7:30 PM EDT PulmDiagnostic Sleep Lab, [facility] [address] [place] [address] [facility], Sleep Med Night Sleep [address] [facility] [address] 01/26/2024 11:00 AM EDT Office Visit Nutrition & Weight Management, [facility] [address] [place] [address] Nathalie Lopez PA-C [address] [place] [address] 02/14/2024 11:15 AM EDT Office Visit Urology, [facility] [address] [place] [address] Frank Foster MD [address] [place] [address] 03/06/2024 11:45 AM EDT Hospital Encounter ENDO [facility], Endoscopy Room [facility] [address] [place] [phone] Josselyn Tolentino DO [address] [place] [address] 03/06/2024 11:45 AM EDT - 03/06/2024 12:15 PM EDT Surgery ENDO O[facility], Endoscopy Room [facility] [address] [place] [phone] Josselyn Tolentino DO [address] [place] [address] COLONOSCOPY FLEXIBLE PROXIMAL DIAGNOSTIC 05/03/2024 10:00 AM EST Office Visit Gastroenterology, [facility] [address] [place] [address] Shahana Ventura CRNP [address] [place] [address] Scheduled Orders Name Type Priority Associated Diagnoses Orde r Schedule MRI KNEE LEFT WO CONTRAST Medical Imaging Routine Pain, joint, knee, left Expected: 12/02/2023, Expires: 01/20/2024 Scheduled Procedures Name Priority Associated Diagnoses Date/Ti [...] 03/15/2023, Additional history exists TSH 10/23/2024 10/24/2023, 05/2 05/2023, 07/26/2023, Additional history exists Diabetes Screening 10/23/2026 [...] this encounter Medical Devices Implanted Type Area Cloud Solutions Architect Device Identifier Shelf Expiration Date Model / Serial / Lot Vitoss Bioactv Foam Pack 2.5cc - [id number] Implanted:Qty: 1 on 11/02/2017 by Sydnie Miles DPM at OR [facility] Left: Foot DALI : SPINE 07/12/2019 [id number] / / [id number] Plate (Non Sterile Slim Straight 5 Hole Length 36.5 Implanted:Qty: 1 on 11/02/2017 by Sydnie Miles DPM at OR [facility] Left: Foot [id number] / / 2.7 Mm Non-Locking Screws Implanted:Qty: 1 on 11/02/2017 by Sydnie Miles DPM at OR [facility] Left: Foot DALI : ORTHOPAEDICS [id number] / / 2.7 Mm Non-Locking Screw Implanted:Qty: 1 on 11/02/2017 by Sydnie Miles DPM at OR [facility] Left: Foot DALI : ORTHOPAEDICS [id number] / / 2.7 Mm Non-Locking Screws Implanted:Qty: 1 on 11/02/2017 by Sydnie Miles DPM at OR [facility] Left: Foot DALI : ORTHOPAEDICS [id number] / / 2.7 Mm Non-Locking Screw Implanted:Qty: 1 on 11/02/2017 by Sydnie Miles DPM at OR [facility] Left: Foot DALI : ORTHOPAEDICS [id number] / / documented as of this encounter Visit Diagnoses Diagnosis Pain, joint, knee, left- Primary Pain in joint, lower leg Chronic constipation Unspecified constipation Rectal bleeding Hemorrhage of rectum and anus documented in this encounter Advance Directives * Full Code (Latest Code Status on File) Date Activated Date Inactivated Comments 06/12/2017 2:51 PM 06/14/2017 1:40 AM This order r eflects the patients wishes and were consensually agreed upon. Care Teams Vice President Regulatory Relationship Specialty Start Date End Date Ruth Xiao MD [address] [place] [address] [place] [phone] PCP - General Family Medicine 12/01/20 documented as of this encounter
--- NOTE | 2024-03-08 14:03 | Gastrointestinal Consultation ---
Date of Consultation March 08, 2024 Assessment & Plan (1) BRBPR (bright red blood per rectum): Likely anorectal source -Would advise continuation of chronic constipation regimen (patient on Linzess 145 mcg daily) -Monitor H/H and monitor for ongoing overt GI bleeding -If stable with conservative monitoring, can go home tomorrow; If worsening bleeding, would consider colonoscopy Supervising Physician Co-Signing Physician Notes I saw and examined this patient with our nurse practitioner and agree with her assessment and plan. I do the fact that she had a recent colonoscopy which did not reveal any significant pathology and did not require any intervention is possible that this rectal bleeding could be superficial scope trauma possibly in the rectum. Clinically she is hemodynamically stable her hemoglobin is stable. Rectal exam revealed no masses and no blood. Perianal area was normal-appearing no evidence of anal fissures. If pathology is due to superficial scope trauma it should resolve spontaneously. If this continues we may need to consider repeat colonoscopy. History of Present Illness Reason for Consultation: BRBPR Attending Physician: Verona Mcgovern MD History of Present Illness Patient is a 43 yo female who presents to the ED with BRBPR. Patient had a colonoscopy with Dr. Tolentino of [facility] on 03/07/24. I do not have copies of this procedure but reportedly it was performed for BRBPR. There were reportedly no biopsies or polyps taken. She reportedly had 4-5 episodes of BRBPR since yesterday. H/H unremarkable at 12.5/35.0. She takes Linzess for chronic constipation. CT abdomen/pelvis without oral contrast unremarkable for acute concerns. Patient notes that she was not having this much BRBPR prior to colonoscopy. No rectal pain. Allergies Allergy/AdvReac Type Severity Reaction Status Date / Time fluoxetine AdvReac Severe Shortness Verified 09/18/23 10:27 of breath and hives Home Medications Medication Instructions Recorded Confirmed Type atenolol 50 mg tablet 50 mg PO .@NOON 04/17/18 03/08/24 History topiramate 25 mg tablet (Topamax) 25 mg PO BID 04/04/19 03/08/24 History ascorbic acid (vitamin C) 500 mg 500 mg PO PM 07/15/20 03/08/24 History tablet cholecalciferol (vitamin D3) 50 50 mcg PO PM 07/15/20 03/08/24 History mcg (2,000 unit) capsule ferrous sulfate 325 mg (65 mg 325 mg PO QPM 07/15/20 03/08/24 History iron) tablet ibuprofen 200 mg tablet 800 mg PO Q6H PRN fever/pain 09/21/20 03/08/24 History magnesium oxide 400 mg (241.3 mg 400 mg PO PM 09/21/20 03/08/24 History magnesium) tablet omeprazole 40 mg capsule,delayed 40 mg PO .@NOON 09/21/20 03/08/24 History release cyanocobalamin (vitamin B-12) 500 mcg PO PM 07/21/21 03/08/24 History 1,000 mcg capsule duloxetine 60 mg capsule,delayed 60 mg PO .@NOON 07/21/21 03/08/24 History release (Cymbalta) levothyroxine 150 mcg tablet 200 mcg PO QAM 11/29/22 03/08/24 History quetiapine 25 mg tablet 120 mg PO HS 11/29/22 03/08/24 History aspirin 81 mg tablet,delayed 81 mg PO .@NOON 03/08/24 03/08/24 History release (Ecotrin Low Strength) gabapentin 100 mg capsule 100 mg PO TID PRN headache 03/08/24 03/08/24 History linaclotide 145 mcg capsule 145 mcg PO .DAILY@0900 03/08/24 03/08/24 History (Linzess) meloxicam 15 mg tablet 15 mg PO DAILY 03/08/24 03/08/24 History mirabegron 50 mg tablet,extended 50 mg PO .@NOON 03/08/24 03/08/24 History release 24 hr (Myrbetriq) ondansetron HCl 4 mg tablet 4 mg PO Q8H PRN n/v 03/08/24 03/08/24 History semaglutide (weight loss) 1 mg/0.5 1 mg subcut WK 03/08/24 03/08/24 History mL subcutaneous pen injector (Wegovy) Patient History Medical History Hyperthyroidism Surgical History History of thyroidectomy History of dental surgery Hx of cholecystectomy H/O tubal ligation Family History Mother Depression Hyperlipidemia Grandfather (Maternal) Heart disorder Grandmother (Maternal) Asthma Diabetes Grandfather (Paternal) Cancer Sister Depression Aunt Breast cancer Other No significant family history Social History Smoking Status: Former smoker Tobacco Type: Cigarettes Hx Alcohol Use: No Hx Substance Use: No Preferred Language: Vincentian Communication Ability: Effective Teletypesetter Monitor Required: No Beliefs That Will Affect Care: None marital status: Single Current Living Situation: Family Feels Safe at Home: Yes Assistive Devices: None Review of Systems Constitutional: no fever and no chills Gastrointestinal: + blood in stools; no abdominal pain and no diarrhea/loose stools Physical Exam Constitutional: well developed Respiratory: normal respiratory effort Gastrointestinal (Abdomen): Inspection/Auscultation: abdomen normal to inspection Rectal exam performed by Dr. Yu without significant findings Psychiatric: Orientation: alert and oriented x 3 Results & Data Vital Signs (Past 12 Hours) Vital Signs Temp Pulse Pulse Resp BP BP Pulse Ox 03/08/24 12:47 90 18 147/99 H 95 03/08/24 12:35 84 03/08/24 11:42 97 H 16 03/08/24 11:33 90 30 H 03/08/24 11:00 85 17 03/08/24 10:51 99 H 23 03/08/24 10:45 104 H 22 03/08/24 10:39 88 14 03/08/24 10:21 80 14 03/08/24 10:18 81 12 03/08/24 10:09 79 13 03/08/24 09:57 78 13 03/08/24 09:45 81 5 L 03/08/24 09:30 77 14 03/08/24 09:21 82 21 03/08/24 09:12 79 16 03/08/24 09:09 79 14 03/08/24 08:54 85 16 96 03/08/24 08:30 146/111 H 03/08/24 08:30 98 H 15 95 03/08/24 08:24 100 H 03/08/24 08:19 151/102 H 03/08/24 08:07 99 03/08/24 07:55 36.3 C L 111 H 20 152/104 H 97 03/08/24 07:53 93 H 18 151/102 H 95 O2 Del Method 03/08/24 12:47 03/08/24 12:35 03/08/24 11:42 03/08/24 11:33 03/08/24 11:00 03/08/24 10:51 03/08/24 10:45 03/08/24 10:39 03/08/24 10:21 03/08/24 10:18 03/08/24 10:09 03/08/24 09:57 03/08/24 09:45 03/08/24 09:30 03/08/24 09:21 03/08/24 09:12 03/08/24 09:09 03/08/24 08:54 03/08/24 08:30 03/08/24 08:30 03/08/24 08:24 03/08/24 08:19 03/08/24 08:07 03/08/24 07:55 Room Air 03/08/24 07:53 PG Care Time/CCT Total # of Minutes Spent Total Time Spent with Patient: Total time spent is greater than 50% in coordination of care (as documented) at patient's floor/unit and/or counseling patient: Coding Level of Care Code 85364 OFFICE CONSULT LVL M Diagnoses BRBPR (bright red blood per rectum) K62.5
[2024-03-08] MEDS ORDERED: MAGNESIUM HYDROXIDE SUSP 30 ML UDC PO PRN (14:32)
[2024-03-08] MEDS ORDERED: ALUMINUM/MAGNESIUM SUSP 30 ML UDC PO PRN (14:32)
[2024-03-08] MEDS ORDERED: ONDANSETRON INJ 2 MG/ML 2 ML VIAL IV PRN (14:32)
[2024-03-08] MEDS ORDERED: POLYETHYLENE (MIRALAX) 17 GM PACK PO PRN (14:32)
--- NOTE | 2024-03-08 15:05 | Emergency Department Note ---
Impression & Plan BRBPR (bright red blood per rectum), S/P colonoscopy ED Provider Note CHIEF COMPLAINT: Bright red blood per rectum, colonoscopy yesterday HISTORY OF PRESENT ILLNESS: This 43 yo female patient with past medical history of Graves' disease, migraines, tobacco use, mood disorder, asthma and obesity presents to the emergency department with complaints of bright red blood per rectum. Patient states she had a colonoscopy yesterday and was told that she had some diverticulosis and a small external hemorrhoid but no polyps or lesions that were biopsied and removed. Patient began having episodes of bright red blood per rectum last night. She states she has had 5 episodes. She denies any significant abdominal pain or vomiting. Patient does not take any anticoagulants. REVIEW OF SYSTEMS: A review of systems was performed with positives and pertinent negatives listed in the history of present illness. 10 systems were reviewed and are otherwise negative. ALLERGIES: see below MEDICATIONS: see below PMH: see below SOCIAL HISTORY: see below DDx: GI bleed, rectal fissure, hemorrhoidal bleed, colonic mass, bowel perforation among others. PHYSICAL EXAM: Vital signs reviewed. General: Well-appearing 43-year-old female, in no significant distress. HEENT: No scleral icterus, PERRLA, neck supple. Moist mucous membranes Cardiovascular: Regular rate and rhythm, no extra sounds. Pulmonary: Clear to auscultation bilaterally, normal work of breathing. Abdomen: Soft, nontender, nondistended, positive bowel sounds. Musculoskeletal: Atraumatic, no peripheral edema. Rectal: Guaiac positive, blood-tinged, no significant stool obtained. Neurologic: Patient awake alert and oriented x 3, speech is clear Skin: Warm, dry, no rash EMERGENCY DEPARTMENT COURSE/MDM: This patient was evaluated and appeared to be in no significant distress. IV access was obtained and laboratory work was drawn. Patient was placed on the hall monitor noted to be in normal sinus rhythm. Chest x-ray reveals no evidence of focal consolidation, no failure. Laboratory work reveals stable hemoglobin at 13. Rectal exam is 1 tinged however no significant stool was obtained. There is guaiac positive. There is a small external hemorrhoid. No obvious fissure on exam. Small external hemorrhoid, no obvious fissure. Patient did have an additional in the emergency department. Episode of hematochezia a repeat H&H was ordered and the patient's case was discussed with the hospitalist service. I did discuss the findings and plan with the patient who agreed. MONITORING: An order for cardiac monitoring was placed and the patient is noted to be in a normal sinus rhythm at 79 beats per minute. RADIOLOGY: Chest x-ray to my interpretation reveals no evidence of focal consolidation, no free air under the diaphragm obvious. EKG: To my interpretation reveals a sinus tachycardia at 101 bpm. Left atrial enlargement, nonspecific ST segment abnormality. No PVC, no PAC. QTc of 471. DISPOSITION: home Past Med/Surg History Problem List (Updated 03/09/24 @ 18:58 by Sushila Alvares MD) S/P colonoscopy (Acute) Graves disease BRBPR (bright red blood per rectum) (Acute) Migraines Hypothyroidism, postablative Orthopedic hardware present (Chronic) Mood disorder (Chronic) Tobacco abuse (Chronic) Asthma (Chronic) Medical History Hyperthyroidism Surgical History History of thyroidectomy History of dental surgery Hx of cholecystectomy H/O tubal ligation Family History Mother Depression Hyperlipidemia Grandfather (Maternal) Heart disorder Grandmother (Maternal) Asthma Diabetes Grandfather (Paternal) Cancer Sister Depression Aunt Breast cancer Other No significant family history Social History Smoking Status: Former smoker Tobacco Type: Cigarettes Second Hand Exposure: No; Do You Dip or Chew Tobacco: No; Hx Alcohol Use: No Hx Substance Use: No Preferred Language: Sinhala Communication Ability: Effective 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: No Beliefs That Will Affect Care: None marital status: Single Current Living Situation: Spouse Feels Safe at Home: Yes Assistive Devices: None Allergies Allergies Allergy/AdvReac Type Severity Reaction Status Date / Time fluoxetine AdvReac Severe Shortness Verified 09/18/23 10:27 of breath and hives Home Meds Home Medications Medication Instructions Recorded Confirmed atenolol 50 mg tablet 50 mg PO .@NOON 04/17/18 03/08/24 topiramate 25 mg tablet (Topamax) 25 mg PO BID 04/04/19 03/08/24 ascorbic acid (vitamin C) 500 mg 500 mg PO PM 07/15/20 03/08/24 tablet cholecalciferol (vitamin D3) 50 50 mcg PO PM 07/15/20 03/08/24 mcg (2,000 unit) capsule ferrous sulfate 325 mg (65 mg 325 mg PO QPM 07/15/20 03/08/24 iron) tablet magnesium oxide 400 mg (241.3 mg 400 mg PO PM 09/21/20 03/08/24 magnesium) tablet omeprazole 40 mg capsule,delayed 40 mg PO .@NOON 09/21/20 03/08/24 release cyanocobalamin (vitamin B-12) 500 mcg PO PM 07/21/21 03/08/24 1,000 mcg capsule duloxetine 60 mg capsule,delayed 60 mg PO .@NOON 07/21/21 03/08/24 release (Cymbalta) levothyroxine 150 mcg tablet 200 mcg PO QAM 11/29/22 03/08/24 quetiapine 25 mg tablet 120 mg PO HS 11/29/22 03/08/24 aspirin 81 mg tablet,delayed 81 mg PO .@NOON 03/08/24 03/08/24 release (Ecotrin Low Strength) gabapentin 100 mg capsule 100 mg PO TID PRN headache 03/08/24 03/08/24 linaclotide 145 mcg capsule 145 mcg PO .DAILY@0900 03/08/24 03/08/24 (Linzess) meloxicam 15 mg tablet 15 mg PO DAILY 03/08/24 03/08/24 mirabegron 50 mg tablet,extended 50 mg PO .@NOON 03/08/24 03/08/24 release 24 hr (Myrbetriq) ondansetron HCl 4 mg tablet 4 mg PO Q8H PRN n/v 03/08/24 03/08/24 semaglutide (weight loss) 1 mg/0.5 1 mg subcut WK 03/08/24 03/08/24 mL subcutaneous pen injector (Wegovy) Results & Data (ED) Vital Signs Vital Signs - 24 hr 03/08/24 07:53 03/08/24 07:55 03/08/24 08:07 Temperature 36.3 C L Temperature Source Skin Pulse Rate 111 H Pulse Rate [Radial] 93 H Pulse Rate from SpO2 Sensor Pulse Rhythm Regular Pulse Strength Normal Respiratory Rate 18 20 Respiratory Effort / Characteristics Non-Labored Spontaneous Respiratory Depth Normal Blood Pressure 152/104 H Blood Pressure [Left Arm] 151/102 H Blood Pressure Mean 120 Blood Pressure Mean [Left Arm] 118 Pulse Oximetry 95 97 99 Oxygen Delivery Method Room Air Sepsis Recent Fever Within 48 Hours No Sepsis New/Unexplained Change in Mental Status N/A Sepsis Action Taken by Nursing No Action Required 03/08/24 08:19 03/08/24 08:24 03/08/24 08:30 Temperature Temperature Source Pulse Rate 100 H 98 H Pulse Rate [Radial] Pulse Rate from SpO2 Sensor 99 H Pulse Rhythm Pulse Strength Respiratory Rate 15 Respiratory Effort / Characteristics Respiratory Depth Blood Pressure 151/102 H Blood Pressure [Left Arm] Blood Pressure Mean 119 Blood Pressure Mean [Left Arm] Pulse Oximetry 95 Oxygen Delivery Method Sepsis Recent Fever Within 48 Hours Sepsis New/Unexplained Change in Mental Status Sepsis Action Taken by Nursing 03/08/24 08:30 03/08/24 08:54 03/08/24 09:09 Temperature Temperature Source Pulse Rate 85 79 Pulse Rate [Radial] Pulse Rate from SpO2 Sensor 85 Pulse Rhythm Pulse Strength Respiratory Rate 16 14 Respiratory Effort / Characteristics Respiratory Depth Blood Pressure 146/111 H Blood Pressure [Left Arm] Blood Pressure Mean 128 Blood Pressure Mean [Left Arm] Pulse Oximetry 96 Oxygen Delivery Method Sepsis Recent Fever Within 48 Hours Sepsis New/Unexplained Change in Mental Status Sepsis Action Taken by Nursing 03/08/24 09:12 03/08/24 09:21 03/08/24 09:30 Temperature Temperature Source Pulse Rate 79 82 77 Pulse Rate [Radial] Pulse Rate from SpO2 Sensor Pulse Rhythm Pulse Strength Respiratory Rate 16 21 14 Respiratory Effort / Characteristics Respiratory Depth Blood Pressure Blood Pressure [Left Arm] Blood Pressure Mean Blood Pressure Mean [Left Arm] Pulse Oximetry Oxygen Delivery Method Sepsis Recent Fever Within 48 Hours Sepsis New/Unexplained Change in Mental Status Sepsis Action Taken by Nursing 03/08/24 09:45 03/08/24 09:57 03/08/24 10:09 Temperature Temperature Source Pulse Rate 81 78 79 Pulse Rate [Radial] Pulse Rate from SpO2 Sensor Pulse Rhythm Pulse Strength Respiratory Rate 5 L 13 13 Respiratory Effort / Characteristics Respiratory Depth Blood Pressure Blood Pressure [Left Arm] Blood Pressure Mean Blood Pressure Mean [Left Arm] Pulse Oximetry Oxygen Delivery Method Sepsis Recent Fever Within 48 Hours Sepsis New/Unexplained Change in Mental Status Sepsis Action Taken by Nursing 03/08/24 10:18 03/08/24 10:21 03/08/24 10:39 Temperature Temperature Source Pulse Rate 81 80 88 Pulse Rate [Radial] Pulse Rate from SpO2 Sensor Pulse Rhythm Pulse Strength Respiratory Rate 12 14 14 Respiratory Effort / Characteristics Respiratory Depth Blood Pressure Blood Pressure [Left Arm] Blood Pressure Mean Blood Pressure Mean [Left Arm] Pulse Oximetry Oxygen Delivery Method Sepsis Recent Fever Within 48 Hours Sepsis New/Unexplained Change in Mental Status Sepsis Action Taken by Nursing 03/08/24 10:45 03/08/24 10:51 03/08/24 11:00 Temperature Temperature Source Pulse Rate 104 H 99 H 85 Pulse Rate [Radial] Pulse Rate from SpO2 Sensor Pulse Rhythm Pulse Strength Respiratory Rate 22 23 17 Respiratory Effort / Characteristics Respiratory Depth Blood Pressure Blood Pressure [Left Arm] Blood Pressure Mean Blood Pressure Mean [Left Arm] Pulse Oximetry Oxygen Delivery Method Sepsis Recent Fever Within 48 Hours Sepsis New/Unexplained Change in Mental Status Sepsis Action Taken by Nursing 03/08/24 11:33 03/08/24 11:42 Temperature Temperature Source Pulse Rate 90 97 H Pulse Rate [Radial] Pulse Rate from SpO2 Sensor Pulse Rhythm Pulse Strength Respiratory Rate 30 H 16 Respiratory Effort / Characteristics Respiratory Depth Blood Pressure Blood Pressure [Left Arm] Blood Pressure Mean Blood Pressure Mean [Left Arm] Pulse Oximetry Oxygen Delivery Method Sepsis Recent Fever Within 48 Hours Sepsis New/Unexplained Change in Mental Status Sepsis Action Taken by Care Home Medications Current Medication List: was personally reviewed by me Laboratory Data Attestation: I reviewed the patient's lab results. 03/09/24 09:33 03/09/24 09:33 Lab Results 03/08/24 03/08/24 03/08/24 Range/Units 08:07 08:09 08:28 WBC 8.12 (4.8-10.8) K/ul RBC 4.64 (4.20-5.40) M/uL Hgb 13.6 (12.0-16.0) g/dl Hct 38.2 (37.0-47.0) % MCV 82.3 (80.0-100.0) fL MCH 29.3 (25.0-34.0) pg MCHC 35.6 (32.0-36.0) g/dL RDW Std Deviation 40.1 (36.4-46.3) fL RDW Coeff of Shira 13.4 (11.5-14.5) % Plt Count 298 (130-400) K/uL MPV 9.9 (9.4-12.4) fL Immature Gran % (Auto) 1.1 % Neut % (Auto) 70.4 % Lymph % (Auto) 20.1 % [place] % (Auto) 6.0 % Eos % (Auto) 1.7 % Baso % (Auto) 0.7 % Neut # (Auto) 5.71 (1.40-6.50) K/uL Lymph # (Auto) 1.63 (1.20-3.40) K/uL [place] # (Auto) 0.49 (0.11-0.59) K/uL Eos # (Auto) 0.14 (0.00-0.50) K/uL Baso # (Auto) 0.06 (0.00-0.20) K/uL Immature Gran # (Auto) 0.09 (0.01-0.20) K/uL PT 10.2 (9.0-12.0) Seconds INR 0.9 (0.9-1.1) APTT 24 (21-31) Seconds PTT Ratio 0.9 Sodium 138 (136-145) mmol/L Potassium 3.8 (3.5-5.1) mmol/L Chloride 106 (98-107) mmol/L Carbon Dioxide 24 (21-32) mmol/L Anion Gap 8 (3-11) BUN 10 (6-23) mg/dl Creatinine 0.91 (0.6-1.2) mg/dl Est Cr Clr Drug Dosing 92.1 ml/min eGFR 79.78 BUN/Creatinine Ratio 11.0 (10-20) Glucose 133 H (70-99(Fasting)) mg/dl Calcium 9.4 (8.6-10.3) mg/dl Total Bilirubin 0.3 (0.2-1.0) mg/dl AST 20 (13-39) U/L ALT 23 (7-52) U/L Alkaline Phosphatase 64 (34-104) U/L Total Protein 6.8 (6.0-8.3) gm/dl Albumin 4.5 (3.4-5.0) gm/dl Globulin 2.3 L (2.5-4.0) gm/dl Albumin/Globulin Ratio 2.0 (0.9-2) POC Stool Occult Blood Positive A (Negative) Blood Type O Negative Antibody Screen NEGATIVE 03/08/24 Range/Units 11:02 WBC (4.8-10.8) K/ul RBC (4.20-5.40) M/uL Hgb 12.5 (12.0-16.0) g/dl Hct 35.0 L (37.0-47.0) % MCV (80.0-100.0) fL MCH (25.0-34.0) pg MCHC (32.0-36.0) g/dL RDW Std Deviation (36.4-46.3) fL RDW Coeff of Shira (11.5-14.5) % Plt Count (130-400) K/uL MPV (9.4-12.4) fL Immature Gran % (Auto) % Neut % (Auto) % Lymph % (Auto) % [place] % (Auto) % Eos % (Auto) % Baso % (Auto) % Neut # (Auto) (1.40-6.50) K/uL Lymph # (Auto) (1.20-3.40) K/uL [place] # (Auto) (0.11-0.59) K/uL Eos # (Auto) (0.00-0.50) K/uL Baso # (Auto) (0.00-0.20) K/uL Immature Gran # (Auto) (0.01-0.20) K/uL PT (9.0-12.0) Seconds INR (0.9-1.1) APTT (21-31) Seconds PTT Ratio Sodium (136-145) mmol/L Potassium (3.5-5.1) mmol/L Chloride (98-107) mmol/L Carbon Dioxide (21-32) mmol/L Anion Gap (3-11) BUN (6-23) mg/dl Creatinine (0.6-1.2) mg/dl Est Cr Clr Drug Dosing ml/min eGFR BUN/Creatinine Ratio (10-20) Glucose (70-99(Fasting)) mg/dl Calcium (8.6-10.3) mg/dl Total Bilirubin (0.2-1.0) mg/dl AST (13-39) U/L ALT (7-52) U/L Alkaline Phosphatase (34-104) U/L Total Protein (6.0-8.3) gm/dl Albumin (3.4-5.0) gm/dl Globulin (2.5-4.0) gm/dl Albumin/Globulin Ratio (0.9-2) POC Stool Occult Blood (Negative) Blood Type Antibody Screen Administered Medications Discontinued Medications Acetaminophen (Acetaminophen 325 Mg Tab) 650 mg PO Q4H PRN PRN Reason: Pain or Fever Stop: 04/07/24 14:31 Last Admin: 03/09/24 07:44 Dose: 650 mg Documented By: Admin: 03/08/24 20:46 Dose: 650 mg Documented By: CHANTELLE Aspirin (Aspirin 81 Mg Ectab) 81 mg PO DAILY [facility] Stop: 04/07/24 14:44 Last Admin: 03/09/24 07:46 Dose: 81 mg Documented By: Admin: 03/08/24 16:50 Dose: 81 mg Documented By: EMMIE Atenolol (Atenolol 50 Mg Tablet) 50 mg PO DAILY@1200 SLIM Stop: 04/07/24 14:59 Last Admin: 03/09/24 12:41 Dose: 50 mg Documented By: Admin: 03/08/24 16:50 Dose: 50 mg Documented By: EMMIE Cyanocobalamin (Cyanocobalamin (B-12) 500 Mcg Tablet) 500 mcg PO PM SLIM Stop: 04/07/24 20:59 Last Admin: 03/08/24 20:46 Dose: 500 mcg Documented By: CHANTELLE Duloxetine HCl (Duloxetine Hcl 60 Mg Cap) 60 mg PO DAILY@1200 SLIM Stop: 04/07/24 14:59 Last Admin: 03/09/24 12:42 Dose: 60 mg Documented By: Admin: 03/08/24 16:49 Dose: 60 mg Documented By: EMMIE Sodium Chloride (Nss) 1,000 mls @ 999 mls/hr IV .Q1H1M ONE Stop: 03/08/24 09:08 Last Infusion: 03/08/24 09:53 Dose: Infused Documented By: Admin: 03/08/24 08:27 Dose: 999 mls/hr Documented By: REGINA Pantoprazole Sodium (Protonix) 40 mg in 10 mls @ 5 mls/min IV BID SLIM Stop: 04/07/24 14:31 Last Admin: 03/09/24 07:47 Dose: 5 mls/min Documented By: Admin: 03/08/24 20:51 Dose: 5 mls/min Documented By: Admin: 03/08/24 16:39 Dose: 5 mls/min Documented By: EMMIE Ioversol (Optiray 320 100ml) 94 ml IV ONCE ONE Stop: 03/08/24 12:32 Last Admin: 03/08/24 12:31 Dose: 94 ml Documented By: CARLOS Levothyroxine Sodium (Levothyroxine Sodium 200 Mcg Tablet) 200 mcg PO QAM SLIM Stop: 04/07/24 11:59 Last Admin: 03/09/24 10:29 Dose: 200 mcg Documented By: Admin: 03/08/24 13:04 Dose: 200 mcg Documented By: REGINA Meloxicam (Meloxicam 7.5 Mg Tab) 15 mg PO DAILY SLIM Stop: 04/08/24 08:59 Last Admin: 03/09/24 07:47 Dose: 15 mg Documented By: LAURA Morphine Sulfate (Morphine Sulfate 4 Mg/Ml 1 Ml Carp\Vial) 3 mg IV NOW STA Stop: 03/08/24 22:53 Last Admin: 03/08/24 23:18 Dose: 3 mg Documented By: CHANTELLE Oxycodone HCl (Oxycodone Hcl Ir 5 Mg Tab (Immediate Release)) 5 mg PO NOW STA Stop: 03/09/24 08:22 Last Admin: 03/09/24 08:52 Dose: 5 mg Documented By: LAURA Potassium Chloride (Potassium Chloride Crtab 20 Meq Tabcr) 40 meq PO NOW STA Stop: 03/09/24 14:58 Last Admin: 03/09/24 16:33 Dose: 40 meq Documented By: LAURA Quetiapine Fumarate (Quetiapine Fumarate 100 Mg Tablet) 150 mg PO HS SLIM Stop: 04/07/24 20:59 Last Admin: 03/08/24 20:47 Dose: 150 mg Documented By: CHANTELLE Topiramate (Topiramate 25 Mg Tab) 25 mg PO BID SLIM Stop: 04/07/24 20:59 Last Admin: 03/09/24 07:48 Dose: 25 mg Documented By: Admin: 03/08/24 20:49 Dose: 25 mg Documented By: CHANTELLE Vibegron (Vibegron 75 Mg Tab) 75 mg PO DAILY@1200 SLIM Stop: 04/07/24 14:44 Last Admin: 03/09/24 12:41 Dose: 75 mg Documented By: Admin: 03/08/24 16:50 Dose: 75 mg Documented By: EMMIE Imaging Data Radiologist's Impression: Chest X-Ray 03/08/24 08:07 SINGLE VIEW CHEST CLINICAL HISTORY: GI bleeding status post colonoscopy. Generalized pain. FINDINGS: An AP, portable, upright chest radiograph is compared to study dated 11/29/2022. The cardiomediastinal silhouette is unremarkable. The lungs and pleural spaces are clear. No pneumothorax is seen. The bony thorax is grossly intact. Postoperative change is noted in the right shoulder. No intraperitoneal free air is seen below the diaphragm. IMPRESSION: No active disease in the chest. ACT 112: Negative or not required by law. Electronically signed by: Sage Alba M.D. 03/08/2024 8:32 AM Discharge Plan Visit Data Chief Complaint: Rectal Bleed Stated Complaint: ABD PAIN AND BLOOD FROM RECTUM ED Provider: Sushila Alvares Discharge Problem: BRBPR (bright red blood per rectum), S/P colonoscopy Patient Disposition: Admitted As Inpatient Discharge Instructions Interventions: ED Discharge Assessment Last Done: 03/08/24 14:33
[2024-03-08] MEDS: PANTOprazole 40 MG/10 ML SYR IV SCH (16:39)
[2024-03-08] MEDS: DULoxetine HCL 60 MG CAP PO SCH (16:49)
[2024-03-08] MEDS: ASPIRIN 81 MG ECTAB PO SCH (16:50)
[2024-03-08] MEDS: ATENOLOL 50 MG TABLET PO SCH (16:50)
[2024-03-08] MEDS: VIBEGRON 75 MG TAB PO SCH (16:50)
[2024-03-08] MEDS: CYANOCOBALAMIN (B-12) 500 MCG TABLET PO SCH (20:46)
[2024-03-08] MEDS: ACETAMINOPHEN 325 MG TAB PO PRN (20:46)
[2024-03-08] MEDS: QUEtiapine FUMARATE 100 MG TABLET PO SCH (20:47)
[2024-03-08] MEDS: TOPIRAMATE 25 MG TAB PO SCH (20:49)
[2024-03-08] MEDS: MoRPHine SULFATE 4 MG/ML 1 ML CARP\\VIAL IV STA (23:18)
--- NOTE | 2024-03-08 23:57 | Electrocardiogram Report ---
Test Reason : Blood Pressure : */* mmHG Vent. Rate : 101 BPM Atrial Rate : 101 BPM P-R Int : 148 ms QRS Dur : 72 ms QT Int : 364 ms P-R-T Axes : 26 5 17 degrees QTcB Int : 471 ms Sinus tachycardia Possible Left atrial enlargement Inferior infarct , age undetermined Nonspecific ST and T wave abnormality Abnormal ECG When compared with ECG of 21-Sep-2020 20:32, Inferior infarct is now Present Confirmed by Seun Sadler ([id number]) on 03/08/2024 11:57:00 PM Referred By: Confirmed By: Seun Sadler
[2024-03-09] MEDS: MELOXICAM 7.5 MG TAB PO SCH (07:47)
[2024-03-09] MEDS: oxyCODONE HCL IR 5 MG TAB (IMMEDIATE RELEASE) PO STA (08:52)
[2024-03-09 09:49] LABS: Hematocrit (blood only) 32.9 % (37.0-47.0); Hemoglobin 11.2 g/dl (12.0-16.0); Mean Corpuscular Volume 85.2 fL (80.0-100.0); Mean Platelet Volume 9.8 fL (9.4-12.4); Platelet Count 249 K/uL (130-400); RDW Coefficient of Variation 13.6 % (11.5-14.5); RDW Standard Deviation 41.8 fL (36.4-46.3); Red Blood Count 3.86 M/uL (4.20-5.40); White Blood Count 5.72 K/ul (4.8-10.8)
[2024-03-09 10:05] LABS: BUN Creatinine Ratio 10.7 (10-20); Calcium 8.3 mg/dl (8.6-10.3); Creatinine Clr Calc Pharmacy 70.5 ml/min; Potassium 3.4 mmol/L (3.5-5.1)
--- NOTE | 2024-03-09 10:14 | Hospitalist Progress Note ---
Date of Service March 09, 2024 Assessment & Plan (1) BRBPR (bright red blood per rectum): (2) Migraines: (3) Hypothyroidism, postablative: (4) Asthma: (5) Mood disorder: (6) Graves disease: Plan: Ms. Shen is a 43 year old female that presented to the ED with complaints of lower abdominal pain and BRBPR. She had a colonoscopy for evaluation of BRBPR on 03/06/[address] Bernal and was diagnosed with diverticulosis and a small internal hemorrhoids. Patient presents to the hospital after episode of bright red blood per rectum. BRBPR Acute blood loss anemia Recent c-scope on 03/06; diverticulosis; no biopsies taken Presented with lower abdominal pain, left lower quadrant pain and 4-5 episode of bright red blood per rectum Hemoglobin of 13.6 on admission; down trended to 11.[address] abdomen pelvis on admission did not show any acute finding GI evaluated the patient; recommend continued observation. If patient continues to have bleeding; plan to repeat colonoscopy Hypertension: Chronic Takes atenolol; continue Knee pain: Was taking naproxen and gabapentin; PCP placed on hold and has started a trial of meloxicam Asthma: Chronic Was taking inhalers; stated that since she has stopped smoking she no longer has to take her Symbicort Mood Disorder: Anxiety: Chronic Takes Seroquel and Wellbutrin; continue Migraines: Chronic Takes topiramate; continue Disposition: PCP: Dr. Hoffman Code Status: Full VTE Prophylaxis: Teds and SCDs for now Time spent evaluating patient, direct bedside care, chart review, placing orders, interpretation of diagnostic studies, discussion with consultants, patient, and family members, as well as other required patient management activities is 50 minutes Please note the above document was generated using voice recognition software. It may contain grammatical, syntax or spelling errors. Any formal questions or concerns about the content, text or information contained within the body of this dictation should be directly addressed to the provider for clarification Admission and Anticipated Discharge Date Admission Date: March 08, 2024 Subjective Patient seen and examined at bedside. she reports that the amount of bleeding has decreased compared to presentation Review of Systems Review of Systems: All systems reviewed & are unremarkable except as noted in Subjective Physical Exam Physical Exam: Constitutional: WD/WN, vitals as above, NAD, sitting up in bed, pleasant, conversing easily Respiratory: normal respiratory effort, lungs clear to auscultation, no wheeze, rales, rhonchi. Normal insp/exp effort, no accessory muscle use Cardiovascular: RRR, no murmur, no edema Vessels: no JVD or carotid bruit Chest: normal inspection of chest Abdomen: normal bowel sounds, soft, nontender, no hepatosplenomegaly Musculoskeletal: no cyanosis or clubbing, extremities motor strength 5/5 Skin: no rashes, warm and dry normal turgor Neurologic: PERRL, EOMI, accommodation nl, no face palsy, no dysarthria CN's II- XI intact bilaterally and moves all extremities Psychiatric: A+Ox3, euthymic affect Results & Data Results & Data Vital Signs (Past 12 Hours) Vital Signs Temp Pulse Resp BP Pulse Ox O2 Del Method 03/09/24 07:37 37.0 C 100 H 18 105/73 96 Room Air 03/09/24 04:09 79 101/68 03/09/24 02:54 36.5 C 78 18 91/55 L 96 Room Air 03/08/24 23:09 36.4 C L 70 18 119/75 96 Room Air (4) Asthma Asthma complication type: unspecified Asthma persistence: intermittent Asthma severity: mild Qualified Code(s): J45.20 - Mild intermittent asthma, uncomplicated
[2024-03-09 12:02] VITALS: PULSE 65
[2024-03-09 15:00] VITALS: RESP 18; TEMP 98.4; O2SAT 95
[2024-03-09] MEDS: POTASSIUM CHLORIDE CRTAB 20 MEQ TABCR PO STA (16:33)
[2024-03-09 18:12] VITALS: BP 142/95
[2024-03-10 15:06] LABS: iSTAT Creatinine 0.9 mg/dl (0.6-1.3); iSTAT Hemoglobin 13.3 g/dl (12.0-16.0); iSTAT Ionized Calcium 1.2 mmol/l (1.12-1.32); iSTAT Potassium 3.8 mmol/L (3.3-5.0)
--- NOTE | 2024-03-11 08:17 | Discharge Summary ---
Date of Service March 09, 2024 Admission HPI Per Admitting Provider Ms. Shen is a 43 year old female that presented to the ED with complaints of lower abdominal pain and BRBPR. She had a colonoscopy for evaluation of BRBPR on 03/06/[address] Bernal and was diagnosed with diverticulosis and a small internal hemorrhoids. She reports that no polyps were identified on the colonoscopy yesterday. She reports that her pain feels like intermittent labor pains compared to diarrhea pain. No chance of as patient had tubal ligation 23 years ago. Over the last 24 hours she experienced 4-5 episodes of BRBPR. Sinus tachycardia noted on ECG. She received 1L NSB in the ED. As an outpatient patient had an anemia panel a few days ago that was unremarkable. Past medical history includes Graves' disease, mood disorder, anxiety, diverticulosis, and GERD. No leukocytosis, hemoglobin 13.6 and otherwise BMP unremarkable. No transaminitis noted. Stool positive FOBT. Patient will be admitted for further evaluation and management of her BRBPR with trend H&H Q6, obtain CTAP to rule out any microbleeds or perforations, keep n.p.o. until GI consultation, Protonix 40 mg IV twice daily. Admission Exam Per Admitting Provider Neuro: AAOx4, PERRLA, no aphagia, memory changes, CNII-XII grossly intact HEENT: head normocephalic, moist mucus membranes CV: S1/S2, (-) M/G/R, (-) edema, cap refill < 3 seconds Resp: Lungs CTA in all mackay. On RA GI: Abdomen S/NT/ND, Ax4 bowel sounds, (-) CVA tenderness Musculoskeletal: 5/5 B/L UE strength, 5/5 B/L LE strength. No gait disturbance Skin: (-) rashes , (-) erythema. Psych: euthymic mood Principal Diagnosis BRBPR Acute blood loss anemia Discharge Exam Constitutional: WD/WN, vitals as above, NAD, sitting up in bed, pleasant, conversing easily Respiratory: normal respiratory effort, lungs clear to auscultation, no wheeze, rales, rhonchi. Normal insp/exp effort, no accessory muscle use Cardiovascular: RRR, no murmur, no edema Vessels: no JVD or carotid bruit Chest: normal inspection of chest Abdomen: normal bowel sounds, soft, nontender, no hepatosplenomegaly Musculoskeletal: no cyanosis or clubbing, extremities motor strength 5/5 Skin: no rashes, warm and dry normal turgor Neurologic: PERRL, EOMI, accommodation nl, no face palsy, no dysarthria CN's II- XI intact bilaterally and moves all extremities Psychiatric: A+Ox3, euthymic affect Discharge Data Allergies Allergy/AdvReac Type Severity Reaction Status Date / Time fluoxetine AdvReac Severe Shortness Verified 09/18/23 10:27 of breath and hives Consultations 03/08/24 11:20 ED Decision to Admit Stat 03/08/24 11:48 Consult Gastroenterology Routine Ordered Studies 03/08/24 11:48 CT abdomen pelvis wo/w con Routine Hospital Course (1) BRBPR (bright red blood per rectum): (2) Migraines: (3) Hypothyroidism, postablative: (4) Asthma: (5) Mood disorder: (6) Graves disease: Ms. Shen is a 43 year old female that presented to the ED with complaints of lower abdominal pain and BRBPR. She had a colonoscopy for evaluation of BRBPR on 03/06/[address] Bernal and was diagnosed with diverticulosis and a small internal hemorrhoids. Patient presents to the hospit al after episode of bright red blood per rectum. BRBPR Acute blood loss anemia Recent c-scope on 03/06; diverticulosis; no biopsies taken Presented with lower abdominal pain, left lower quadrant pain and 4-5 episode of bright red blood per rectum CT abdomen pelvis on admission did not show any acute finding GI evaluated the patient; recommend continued observation and possible endoscopy if there is more bleeding. Patient reported that the bleeding subsided and she was having normal bowel movements on the day of the discharge. Patient wanted to go home. I recommended continued observation. Patient to follow-up with her primary care doctor in the next few days. Please note the above document was generated using voice recognition software. It may contain grammatical, syntax or spelling errors. Any formal questions or concerns about the content, text or information contained within the body of this dictation should be directly addressed to the provider for clarification Total Time Total Time Spent Total Time Spent (In Minutes): 34 Total Time Includes: Examination of the Patient, Discharge Planning, Medication Reconciliation, Communication With Other Providers and Other Discharge Plan Discharge Items Patient Disposition: Home - Self-Care Reason For Visit: BRBPR Discharge Diagnosis: Brbpr Activity: Resume your previous activity Non-emergency contact: Primary Care Provider Call non-emergency contact if: you have any medication questions and your symptoms worsen Follow-up/Referrals: Elmer Hoffman MD [Primary Care Provider] - Diet: Regular Addtl Attending Provider Instructions: Please don't take aspirin for one more week. An appointment with your primary care doctor will be made for you for sometime next week to check on you and make sure you are doing well. Pending Studies at Discharge: No Stand-Alone Forms: My [facility], Smoking Cessation Medications and DC Order Prescriptions: Continued ascorbic acid (vitamin C) 500 mg tablet 500 mg PO PM cholecalciferol (vitamin D3) 50 mcg (2,000 unit) capsule 50 mcg PO PM ferrous sulfate 325 mg (65 mg iron) tablet 325 mg PO QPM cyanocobalamin (vitamin B-12) 1,000 mcg capsule 500 mcg PO PM duloxetine [Cymbalta] 60 mg capsule,delayed release(DR/EC) 60 mg PO .@NOON topiramate [Topamax] 25 mg Tablet 25 mg PO BID atenolol 50 mg Tablet 50 mg PO .@NOON omeprazole 40 mg capsule,delayed release(DR/EC) 40 mg PO .@NOON magnesium oxide 400 mg (241.3 mg magnesium) tablet 400 mg PO PM quetiapine 25 mg tablet 120 mg PO HS levothyroxine 150 mcg tablet 200 mcg PO QAM meloxicam 15 mg tablet 15 mg PO DAILY ondansetron HCl 4 mg tablet 4 mg PO Q8H PRN (Reason: n/v) mirabegron [Myrbetriq] 50 mg tablet extended release 24 hr 50 mg PO .@NOON Linzess 145 mcg Capsule 145 mcg PO .DAILY@0900 Wegovy 1 mg/0.5 mL pen injector 1 mg SUBCUT WK Rx Instructions: Monday gabapentin 100 mg capsule 100 mg PO TID PRN (Reason: headache) Rx Instructions: Take with Tylenol to abort migraine headache. Per pt she's been holding on taking the medication because she isnt sure if she can take it and mary together Held aspirin [Ecotrin Low Strength] 81 mg tablet,delayed release (DR/EC) 81 mg PO .@NOON Hold Instructions: Resume on 03/15/24. Discontinued ibuprofen 200 mg Tablet 800 mg PO Q6H PRN (Reason: fever/pain) Rx Instructions: per pt she's holding medication because she's unsure if can take while taking meloxicam Discharge Orders: Discharge Order (Routine); Ordered 03/09/24 Ordered By: Hola Banda Admission Data Admit Date/Time: 03/08/24 11:48 Attending Provider: Hola Banda Admit Provider: Verona Mcgovern Primary Care Provider: Elmer Hoffman Other Providers: Scott Yu I; Verona Mcgovern Other Interventions: Discharge Summary Assessment (RN) Last Done: 03/09/24 18:10
== END 2024-03-09 18:27 | disposition home or self-care (01) | DRG 394 ==
LOC: ED 07:52 → EDINP 11:48 → SUATTDRO 11:48 → INTOOBSV 11:48 → EDINP 14:33 → 2N 15:45